=== PATIENT | female | born 1965 | race Caucasian/White ===

== ENCOUNTER 2016-11-22 08:34 | Emergency (ER) | payer SELFPAY ==
[~2016-11-22] VITALS: Ht 162.6 cm; Wt 60.0 kg
[~2016-11-22 08:34] MED LIST: BACT800T5 PO; CEPH500C3 PO
[2016-11-22 08:36] VITALS: BP 129/63; PULSE 92; RESP 15; TEMP 98.2; O2SAT 99
--- NOTE | 2016-11-22 09:20 | PD ---
HPI Chief Complaint: GI Complaint Time Seen by Provider: 09:04 Travel History International Travel<30 days: No Contact w/Intl Traveler<30days: No Traveled to known affect area: No History of Present Illness HPI The patient was seen and examined in the presence of the nurse. This patient is a vague nonspecific presentation. She just doesn't feel well. She complains of shaking chills and subjective fever for the last 5 days. Has not taken any temperatures. No productive cough or specific urinary complaints. Patient injects IV Dilaudid for the last 10 years. Last use was 3 days ago. Denies any skin abscess or lesion. No alleviating factors. Symptoms severity is mild to moderate. Duration 5 days PFSH Social History Alcohol Use: No Tobacco Use: Yes Substance Use: No Allergies-Medications (Allergen,Severity, Reaction): Coded Allergies: No Known Allergies (Unverified , 10/25/14) Reported Meds & Prescriptions Reported Meds & Active Scripts Active Review of Systems General / Constitutional: Positive: Fever, Chills Eyes: No: Visual changes HENT: No: Headaches Cardiovascular: No: Chest Pain or Discomfort Respiratory: No: Shortness of Breath Gastrointestinal: No: Abdominal Pain Genitourinary: No: Dysuria Musculoskeletal: No: Pain Skin: No Rash Neurologic: No: Weakness Psychiatric: Positive: Substance Abuse, No: Depression Endocrine: No: Polydipsia Hematologic/Lymphatic: No: Easy Bruising Physical Exam Narrative GENERAL: Well-nourished, well-developed patient in no apparent distress. SKIN: Focused skin assessment reveals no rash and nodules. Skin is Warm and dry. HEAD: Atraumatic. Normocephalic. EYES: Pupils equal and round. No scleral icterus. No injection or drainage. ENT: No nasal bleeding or discharge. Mucous membranes pink and moist. NECK: Trachea midline. No JVD. No meningeal signs CARDIOVASCULAR: Regular rate and rhythm. No murmur appreciated. RESPIRATORY: No accessory muscle use. Clear to auscultation. Breath sounds equal bilaterally. GASTROINTESTINAL: Abdomen soft, non-tender, nondistended. Hepatic and splenic margins not palpable. MUSCULOSKELETAL: No obvious deformities. No clubbing. No cyanosis. No edema. NEUROLOGICAL: Awake and alert. No obvious cranial nerve deficits. Motor grossly within normal limits. Normal speech. PSYCHIATRIC: Appropriate mood and affect; insight and judgment poor. Data Data Last Documented VS Vital Signs Date Time Temp Pulse Resp B/P Pulse Ox O2 Delivery O2 Flow Rate FiO2 11/22/16 08:36 98.2 92 15 129/63 99 Orders Iv Access Insert/Monitor (11/22/16 09:12) Blood Culture (11/22/16 09:12) Complete Blood Count With Diff (11/22/16 09:12) Comprehensive Metabolic Panel (11/22/16 09:12) Westergren Sedimentation Rate (11/22/16 09:12) Urinalysis - C+S If Indicated (11/22/16 09:12) Chest, Single Ap (11/22/16 ) Labs Laboratory Tests Test 11/22/16 11/22/16 09:25 09:45 White Blood Count 10.4 TH/MM3 Red Blood Count 3.85 MIL/MM3 Hemoglobin 10.7 GM/DL Hematocrit 32.7 % Mean Corpuscular Volume 85.0 FL Mean Corpuscular Hemoglobin 27.8 PG Mean Corpuscular Hemoglobin 32.7 % Concent Red Cell Distribution Width 16.2 % Platelet Count 143 TH/MM3 Mean Platelet Volume 9.4 FL Neutrophils (%) (Auto) 70.9 % Lymphocytes (%) (Auto) 15.8 % Monocytes (%) (Auto) 11.5 % Eosinophils (%) (Auto) 0.9 % Basophils (%) (Auto) 0.9 % Neutrophils # (Auto) 7.3 TH/MM3 Lymphocytes # (Auto) 1.6 TH/MM3 Monocytes # (Auto) 1.2 TH/MM3 Eosinophils # (Auto) 0.1 TH/MM3 Basophils # (Auto) 0.1 TH/MM3 CBC Comment DIFF FINAL Differential Comment Erythrocyte Sedimentation Rate 44 mm/hr Sodium Level 134 MEQ/L Potassium Level 3.6 MEQ/L Chloride Level 100 MEQ/L Carbon Dioxide Level 28.5 MEQ/L Anion Gap 6 MEQ/L Blood Urea Nitrogen 4 MG/DL Creatinine 0.60 MG/DL Estimat Glomerular Filtration 105 ML/MIN Rate Random Glucose 128 MG/DL Calcium Level 8.4 MG/DL Total Bilirubin 0.6 MG/DL Aspartate Amino Transf 92 U/L (AST/SGOT) Alanine Aminotransferase 117 U/L (ALT/SGPT) Alkaline Phosphatase 213 U/L Total Protein 7.1 GM/DL Albumin 2.8 GM/DL Urine Color YELLOW Urine Turbidity HAZY Urine pH 5.5 Urine Specific [place] 1.015 Urine Protein TRACE mg/dL Urine Glucose (UA) NEG mg/dL Urine Ketones NEG mg/dL Urine Occult Blood SMALL Urine Nitrite NEG Urine Bilirubin NEG Urine Urobilinogen 2.0 MG/DL Urine Leukocyte Esterase SMALL Urine RBC 0-3 /hpf Urine WBC 0-2 /hpf Urine Squamous Epithelial 0-5 /hpf Cells Urine Bacteria FEW /hpf Microscopic Urinalysis Comment CULT NOT INDICATED MDM Medical Decision Making Medical Screen Exam Complete: Yes Emergency Medical Condition: Yes Medical Record Reviewed: Yes Differential Diagnosis Endocarditis, sepsis, UTI Narrative Course I have reviewed the patient's electronic medical record. Patient was last here October 2014. IV placed 2 sets of blood culture obtained CBC is normal Metabolic profile is normal LFTs show mild elevation of LFTs Urinalysis is clean I reviewed her chest x-ray which is normal Sedimentation rate is 44 Had a lengthy discussion with the patient. I recommended that she be hospitalized for evaluation and to make sure she does not have endocarditis. Given her fever and chills and history of IV drug abuse I explained my concern for endocarditis. Patient says she is things that she has to take care of and has refused my recommendations. She will sign out AGAINST MEDICAL ADVICE. I' ve advised her to return if she changes her mind or worsens. Diagnosis Primary Impression: Fever and chills Additional Impression: IV drug abuse Disposition: 07 AGAINST MEDICAL ADVICE Ayden Wilkinson MD Nov 22, 2016 09:20
--- NOTE | 2016-11-22 09:30 | RADRPT ---
EXAM DATE/TIME: 11/22/2016 09:14 [facility] COMPARISON: No previous studies available for comparison. INDICATIONS : Shortness of breath. MEDICAL HISTORY : None. SURGICAL HISTORY : None. ENCOUNTER: Initial ACUITY: 1 week PAIN SCORE: 0/10 LOCATION: Bilateral chest FINDINGS: A single view of the chest demonstrates the lungs to be symmetrically aerated without evidence of mas s, infiltrate or effusion. The cardiomediastinal contours are unremarkable. Osseous structures are intact. CONCLUSION: No acute disease. Robbie Mckenzie MD FACR on November 22, 2016 at 9:28 Board Certified Radiologist. This report was verified electronically.
[2016-11-22 09:50] LABS: AUTOMATED NEUTROPHIL # 7.3 TH/MM3 (1.8-7.7); BASOPHIL # 0.1 TH/MM3 (0-0.2); BASOPHIL % 0.9 % (0.0-2.0); EOSINOPHIL # 0.1 TH/MM3 (0-0.4); EOSINOPHIL % 0.9 % (0.0-4.0); HEMATOCRIT 32.7 % (35.0-46.0); HEMO FLAGS DIFF FINAL; LYMPH % 15.8 % (9.0-44.0); LYMPHOCYTE # 1.6 TH/MM3 (1.0-4.8); MEAN CORPUSCULAR HEMOGLOBIN 27.8 PG (27.0-34.0); MEAN CORPUSCULAR HGB CONC 32.7 % (32.0-36.0); MONO % 11.5 % (0.0-8.0); NEUT % 70.9 % (16.0-70.0); PLATELET COUNT 143 TH/MM3 (150-450); RED BLOOD COUNT 3.85 MIL/MM3 (4.00-5.30); RED CELL DISTRIBUTION WIDTH 16.2 % (11.6-17.2); WHITE BLOOD COUNT 10.4 TH/MM3 (4.0-11.0)
[2016-11-22 10:06] LABS: ANION GAP 6 MEQ/L (5-15); AST (GOT) 92 U/L (15-37); BICARBONATE 28.5 MEQ/L (21.0-32.0); BLOOD UREA NITROGEN 4 MG/DL (7-18); CHLORIDE 100 MEQ/L (98-107); GLOMERULAR FILTRATION RATE 105 ML/MIN (>89); POTASSIUM 3.6 MEQ/L (3.5-5.1); SODIUM (NA) 134 MEQ/L (136-145)
[2016-11-22 10:07] LABS: ALT (GPT) 117 U/L (10-53)
[2016-11-22 10:09] LABS: ALKALINE PHOSPHATASE 213 U/L (45-117); TOTAL BILIRUBIN ADULT 0.6 MG/DL (0.2-1.0)
[2016-11-22 10:14] LABS: BLOOD, URINE SMALL (NEG); GLUCOSE,URINE NEG (NEG); KETONE, URINE NEG (NEG); NITRITE,URINE NEG (NEG); PH, URINE 5.5 (5.0-8.5); URINE COLOR YELLOW (YELLW/STRAW)
[2016-11-22 10:55] LABS: BACTERIA, URINE FEW /hpf; RBC, URINE 0-3 /hpf (0-3); WBC, URINE 0-2 /hpf (0-5)
[2016-11-22 10:56] LABS: COMMENT (UR) CULT NOT INDICATED; CULTURE IF INDICATED CULT NOT INDICATED; SQUAMOUS EPITHELIAL CELL URINE 0-5 /hpf (0-5)
== END 2016-11-22 11:55 | disposition left against medical advice (07) ==
LOC: NEPE 08:34
DX: R50.9 Fever, unspecified (principal); F19.10 Other psychoactive substance abuse, uncomplicated
CPT/HCPCS: 71010; 80053; 81001; 85025; 85652; 87040; 99284

== ENCOUNTER 2017-08-18 23:50 | Inpatient (IN) | payer SELFPAY ==
[~2017-08-18] VITALS: Ht 162.6 cm; Wt 53.0 kg
[2017-08-19] VITALS (11 sets, daily range): BP systolic 107–155; BP diastolic 55–72; PULSE 69–97; RESP 16–20; TEMP 97.8–99.6; O2SAT 96–100
[2017-08-19] MEDS ORDERED: PREV15CA20 PO (00:55)
--- NOTE | 2017-08-19 00:57 | PD ---
HPI Chief Complaint: Back/ Neck Pain or Injury Time Seen by Provider: 00:31 (Jabier Trujillo) Time Seen by Provider: 00:31 (Javier Palomares MD) Travel History International Travel<30 days: No Contact w/Intl Traveler<30days: No Traveled to known affect area: No (Jabier Trujillo) History of Present Illness HPI 52-year-old white female presents emergency department with complains of nontraumatic upper back pain times the last 4 days. She states that she had awoken earlier in the day and has had progressive pain. She states the pain is worse on the right than the left but now has moved over to both sides. She states that she has pain into both arms worse when she moves. She denies any focal numbness or tingling. No focal weakness. Patient states that she last used IV drugs approximately 4 weeks ago. Patient does admit to feeling subjective fever and chills. Pain is moderate but can be severe. No alleviating factors. (Jabier Trujillo) HPI Please see physician podiatry assistant dictation. (Javier Palomares MD) [facility] Past Medical History Narrative Medical IV drug abuse Diabetes: No Diminished Hearing: No Hiatal Hernia: Yes (umbilical ) Integumentary: No Migraines: Yes Tetanus Vaccination: < 5 Years Influenza Vaccination: No ?: Not Menopausal: Yes (Jabier Trujillo) Past Surgical History Abdominal Surgery: Yes (hernia repair) Cholecystectomy: Yes Other Surgery: Yes (fistula repair, rectal/ vaginal repair post ) (Jabier Trujillo) Social History Alcohol Use: No Tobacco Use: Yes (/2 ppd) Substance Use: Yes (injectible drug x 10 years last 6 months) (Jabier Trujillo) Allergies-Medications (Allergen,Severity, Reaction): Coded Allergies: No Known Allergies (Unverified Adverse Reaction, Unknown, 08/19/17) Reported Meds & Prescriptions Reported Meds & Active Scripts Active Reported Prevacid (Lansoprazole) 15 Mg Capdr 15 Mg PO DAILY (Javier Palomares MD) Review of Systems Except as stated in HPI: all other systems reviewed are Neg (Jabier Trujillo) General / Constitutional: No: Fever Eyes: No: Visual changes HENT: Positive: Neck Pain, No: Headaches Cardiovascular: No: Chest Pain or Discomfort Respiratory: No: Shortness of Breath Gastrointestinal: No: Abdominal Pain Genitourinary: No: Dysuria Musculoskeletal: No: Pain Skin: No Rash Neurologic: No: Weakness Psychiatric: No: Depression Endocrine: No: Polydipsia Hematologic/Lymphatic: No: Easy Bruising (Javier Palomares MD) Physical Exam Narrative GENERAL: Well-developed, well-nourished in no acute distress. Nontoxic appearing. HEAD: Normocephalic, atraumatic. EYES: Pupils equal round and reactive. Extraocular motions intact. No scleral icterus. No injection or drainage. ENT: TMs clear without erythema. The external auditory canals clear. Nose: clear . Posterior pharynx is pink and moist. No tonsillar edema or exudate. Uvula midline. Airway patent. NECK: Trachea midline.Supple, nontender, moves head freely. No central bony tenderness or spasm. CARDIOVASCULAR: Regular rate and rhythm without murmurs, gallops, or rubs. RESPIRATORY: Clear to auscultation. Breath sounds equal bilaterally. No wheezes , rales, or rhonchi. GASTROINTESTINAL: Abdomen soft, non-tender, nondistended. No hepato-splenomegaly , or palpable masses. No guarding. EXTREMITIES: No clubbing, cyanosis, or edema. No joint tenderness, effusion, or edema noted. BACK: Mild diffuse thoracic tenderness without deformity or crepitance. No flank tenderness. (Jabier Trujillo) Narrative Please see physician podiatry assistant dictation. (Javier Palomares MD) Data Data Last Documented VS Vital Signs Date Time Temp Pulse Resp B/P (MAP) Pulse Ox O2 Delivery O2 Flow Rate FiO2 08/19/17 00:19 99.6 94 20 133/64 (87) 98 (Javier Palomares MD) Orders Orders Electrocardiogram (08/19/17 00:39) Complete Blood Count With Diff (08/19/17 00:39) Basic Metabolic Panel (Bmp) (08/19/17 00:39) Prothrombin Time / Inr (Pt) (08/19/17 00:39) Act Partial Throm Time (Ptt) (08/19/17 00:39) Blood Culture (08/19/17 00:39) C-Reactive Protein (Crp) (08/19/17 00:39) Westergren Sedimentation Rate (08/19/17 00:39) Chest, Single Ap (08/19/17 00:39) Drug Screen, Random Urine (08/19/17 00:39) Mri C Spine W&W/O Contrast (08/19/17 ) Mri T Spine W & W/O Contrast (08/19/17 ) (Javier Palomares MD) Labs Laboratory Tests Test 08/19/17 01:05 White Blood Count 13.3 TH/MM3 Red Blood Count 4.45 MIL/MM3 Hemoglobin 13.6 GM/DL Hematocrit 39.4 % Mean Corpuscular Volume 88.5 FL Mean Corpuscular Hemoglobin 30.5 PG Mean Corpuscular Hemoglobin Concent 34.4 % Red Cell Distribution Width 13.4 % Platelet Count 206 TH/MM3 Mean Platelet Volume 9.5 FL Neutrophils (%) (Auto) 69.9 % Lymphocytes (%) (Auto) 20.6 % Monocytes (%) (Auto) 8.5 % Eosinophils (%) (Auto) 0.5 % Basophils (%) (Auto) 0.5 % Neutrophils # (Auto) 9.3 TH/MM3 Lymphocytes # (Auto) 2.7 TH/MM3 Monocytes # (Auto) 1.1 TH/MM3 Eosinophils # (Auto) 0.1 TH/MM3 Basophils # (Auto) 0.1 TH/MM3 CBC Comment DIFF FINAL Differential Comment Erythrocyte Sedimentation Rate 18 mm/hr Prothrombin Time 10.7 SEC Prothromb Time International Ratio 1.1 RATIO Activated Partial Thromboplast Time 31.3 SEC Blood Urea Nitrogen 4 MG/DL Creatinine 0.54 MG/DL Random Glucose 111 MG/DL Calcium Level 9.0 MG/DL Sodium Level 133 MEQ/L Potassium Level 3.8 MEQ/L Chloride Level 98 MEQ/L Carbon Dioxide Level 26.1 MEQ/L Anion Gap 9 MEQ/L Estimat Glomerular Filtration Rate 118 ML/MIN C-Reactive Protein 9.90 MG/DL (Javier Palomares MD) MDM Medical Decision Making Medical Screen Exam Complete: Yes Emergency Medical Condition: Yes Medical Record Reviewed: Yes Differential Diagnosis MDM: High Differential diagnoses: Fracture, sprain, strain, HNP, nerve or vascular injury , epidural abscess, discitis (Jabier Trujillo) Medical Screen Exam Complete: Yes Emergency Medical Condition: Yes Differential Diagnosis Please see physician podiatry assistant dictation. Narrative Course Please see physician podiatry assistant dictation. (Javier Palomares MD) Condition: Stable Jabier Trujillo Aug 19, 2017 00:57 Javier Palomares MD Aug 19, 2017 02:07
--- NOTE | 2017-08-19 01:05 | RADRPT ---
EXAM DATE/TIME: 08/19/2017 00:43 [facility] COMPARISON: CHEST SINGLE AP, November 22, 2016, 9:14. INDICATIONS : Fever. MEDICAL HISTORY : Ulcers. SURGICAL HISTORY : None. ENCOUNTER: Initial ACUITY: 1 day PAIN SCORE: 0/10 LOCATION: Bilateral chest FINDINGS: A single view of the chest demonstrates the lungs to be symmetrically aerated without evidence of mas s, infiltrate or effusion. The cardiomediastinal contours are unremarkable. Osseous structures are intact. CONCLUSION: No infiltrate is seen. Maxi Baxter MD on August 19, 2017 at 1:03 Board Certified Radiologist. This report was verified electronically.
[2017-08-19 01:30] LABS: AUTOMATED NEUTROPHIL # 9.3 TH/MM3 (1.8-7.7); BASOPHIL # 0.1 TH/MM3 (0-0.2); BASOPHIL % 0.5 % (0.0-2.0); EOSINOPHIL # 0.1 TH/MM3 (0-0.4); EOSINOPHIL % 0.5 % (0.0-4.0); HEMATOCRIT 39.4 % (35.0-46.0); HEMOGLOBIN 13.6 GM/DL (11.6-15.3); LYMPH % 20.6 % (9.0-44.0); LYMPHOCYTE # 2.7 TH/MM3 (1.0-4.8); MEAN CELL VOLUME 88.5 FL (80.0-100.0); MEAN CORPUSCULAR HEMOGLOBIN 30.5 PG (27.0-34.0); MEAN CORPUSCULAR HGB CONC 34.4 % (32.0-36.0); MEAN PLATELET VOLUME 9.5 FL (7.0-11.0); MONO % 8.5 % (0.0-8.0); MONOCYTE # 1.1 TH/MM3 (0-0.9); NEUT % 69.9 % (16.0-70.0); PLATELET COUNT 206 TH/MM3 (150-450); RED BLOOD COUNT 4.45 MIL/MM3 (4.00-5.30); RED CELL DISTRIBUTION WIDTH 13.4 % (11.6-17.2); WHITE BLOOD COUNT 13.3 TH/MM3 (4.0-11.0)
[2017-08-19 01:32] LABS: INTERNATIONAL NORMALIZED RATIO 1.1 RATIO; PROTHROMBIN TIME - PATIENT 10.7 SEC (9.8-11.6)
[2017-08-19 01:44] LABS: BICARBONATE 26.1 MEQ/L (21.0-32.0); C-REACTIVE PROTEIN 9.9 MG/DL (0.00-0.30); CREATININE 0.54 MG/DL (0.50-1.00)
[2017-08-19] MEDS ORDERED: GADODIAMIDE PF 287 MG/ML 10 ML VIAL (for RAD MRI) IV PUSH ONE (02:26)
[2017-08-19] MEDS ORDERED: VANCOMYCIN INJ 1,050 MG in SODIUM CHLOR 0.9% 250 ML INJ 250 ML IV ONE (03:00)
[2017-08-19] MEDS ORDERED: MORPHINE SULFATE 4 MG/ML INJ IV PUSH ONE (03:00)
[2017-08-19] MEDS ORDERED: PIPERACIL-TAZO 4.5 GM PREMIX 100 ML IV ONE (03:00)
--- NOTE | 2017-08-19 03:03 | RADRPT ---
EXAM DATE/TIME: 08/19/2017 02:00 [facility] COMPARISON: No previous studies available for comparison. INDICATIONS : Osteomyelitis. CONTRAST: 10 cc Omniscan (gadodiamide) IV MEDICAL HISTORY : IVDA. SURGICAL HISTORY : Cholecystectomy. Right knee. Vaginal fistula. ENCOUNTER: Subsequent ACUITY: 4-6 days PAIN SCORE: 9/10 LOCATION: Lower back. TECHNIQUE: Multiplanar, multisequence MRI examination of the cervical spine was performed. FINDINGS: There is normal alignment of the vertebral bodies of the cervical spine. There is signal abnormality within the marrow of C3 and C4 characterized by T1 and T2 prolongation (mild) and some mild enhancem ent throughout the C3 vertebral body and in the posterior one third of the C4 vertebral body. No abn ormal enhancement within the disc space at C3-4. Epidural impression centrally extends from C3-4 to C4-C5 and causes loss of CSF about the cervical cord and some mild flattening of the ventral margin o f the cervical cord. No abnormal enhancement with in the cervical cord. The visualized posterior fo ssa structures are grossly intact. At C7 and T1, there is mild signal alteration in the marrow of th e vertebral bodies, similar in appearance to C3 and C4, characterized by T1 and T2 prolongation (mild ) and mild enhancement in the marrow, but no abnormal enhancement in the interspace. There is some e nhancement of the dura at the C6 and C7 level. C2-C3: The thecal sac has a normal configuration. There is no evidence of disc herniation or spinal canal stenosis. The neural foramina are patent bilaterally. C3-C4: Central impression upon the thecal sac could represent disc extrusion or thickening of the posterior longitudinal ligament; this extends down to the level of C4-5. On the axial gradient echo images, th ere is suggestion that there may be disc protrusion. C4-C5: Mild central impression on the thecal sac suggests either thickening of the posterior longitudinal li gament or small central bulging. C5-C6: The thecal sac has a normal configuration. There is no evidence of disc herniation or spinal canal s tenosis. The neural foramina are patent bilaterally. C6-C7: The thecal sac has a normal configuration. There is no evidence of disc herniation or spinal canal s tenosis. The neural foramina are patent bilaterally. C7-T1: The thecal sac has a normal configuration. There is no evidence of disc herniation or spinal canal s tenosis. The neural foramina are patent bilaterally. CONCLUSION: 1. Signal abnormalities within the marrow of the C3, C4, C7, and T1 vertebral bodies with some contra st enhancement and mild T1 and T2 prolongation. The signal abnormality is nonspecific, but would be consistent with osteomyelitis. There is also enhancement of the dura posterior to the C7 and T1 vert ebral bodies. 2. Epidural impression centrally extending from C3-4 through C4-C5 which could represent thickening o f the dura or central disc protrusions. There is some flattening of the ventral margin of the cervic al cord at both levels. 3. No signal abnormalities within the interspaces to suggest discitis. Maxi Baxter MD on August 19, 2017 at 2:52 Board Certified Radiologist. This report was verified electronically.
--- NOTE | 2017-08-19 03:12 | RADRPT ---
EXAM DATE/TIME: 08/19/2017 02:00 [facility] COMPARISON: No previous studies available for comparison. INDICATIONS : Osteomyelitis. CONTRAST: 10 cc Omniscan (gadodiamide) IV MEDICAL HISTORY : IVDA. SURGICAL HISTORY : Cholecystectomy. Right knee. Vaginal fistula. ENCOUNTER: Subsequent ACUITY: 4-6 days PAIN SCORE: 9/10 LOCATION: Thoracic spine. TECHNIQUE: Multiplanar multisequence MRI of the thoracic spine was performed. FINDINGS: At the T3 level, there is a anterior superior compression deformity with approximately 30% loss of he ight. There is also signal abnormality characterized by T1 and T2 prolongation and moderate intensit y diffuse enhancement in the vertebral body. On the axial images, there is some thickening of the pa raspinal soft tissues and some enhancement in the paraspinal soft tissues, measuring up to 7 mm. No significant epidural impression is seen. The thoracic cord is normal in configuration.. Axial images through each of the interspaces demonstrates normal shape to the thecal sac without evid ence of disc bulge or protrusion. No evidence of cord compression. CONCLUSION: 1. Signal abnormality within the marrow of the T3 vertebral body with associated 30% compression defo rmity of the anterior superior endplate and moderate diffuse contrast enhancement. Osteomyelitis of the vertebral body and compression fracture of both exhibit these type of signal abnormalities. 2. There is some enhancement thickening of the paraspinal soft tissues about the T3 vertebral body. 3. No abnormal enhancement within the thoracic discs. Maxi Baxter MD on August 19, 2017 at 3:05 Board Certified Radiologist. This report was verified electronically.
[2017-08-19] MEDS ORDERED: MAGNESIUM HYDROXIDE SUSP 30 ML CUP PO PRN (03:45)
[2017-08-19] MEDS ORDERED: SODIUM CHLORIDE 0.9% FLUSH 10 ML FLUSH IV FLUSH PRN (03:45)
[2017-08-19] MEDS ORDERED: ONDANSETRON HCL 4 MG/2 ML VIAL IVP PRN (03:45)
[2017-08-19] MEDS ORDERED: SENNOSIDES 8.6 MG TAB PO PRN (03:45)
[2017-08-19] MEDS ORDERED: oxyCODONE/ACETAMINOPHEN 5 MG/325 MG TAB PO ONE (03:45)
[2017-08-19] MEDS ORDERED: LACTULOSE SYRUP 20 GM/30 ML CUP PO PRN (03:45)
[2017-08-19] MEDS ORDERED: ACETAMINOPHEN 325 MG TAB PO PRN (03:45)
[2017-08-19] MEDS ORDERED: Vancomycin Consult Pharmacy 1 EA OTHER SCH (03:45)
[2017-08-19] MEDS ORDERED: NALOXONE HCL 0.4 MG/ML AMP IV PUSH PRN (03:45)
[2017-08-19] MEDS ORDERED: BISACODYL 10 MG SUPP RECTAL PRN (03:45)
[2017-08-19] MEDS ORDERED: HEPARIN SODIUM - SQ 10,000 UNITS/ML VIAL SQ SCH (05:00)
--- NOTE | 2017-08-19 08:48 | EKG ---
Date Performed: 08/19/2017 Time Performed: 00:52:18 PTAGE: 52 years EKG: Sinus rhythm NORMAL ECG NO PREVIOUS TRACING DOCTOR: Claudia Chowdhury Interpretating Date/Time 08/19/2017 08:47:50
[2017-08-19] MEDS ORDERED: MORPHINE SULFATE 2 MG/ML INJ IM PRN (09:00)
[2017-08-19] MEDS ORDERED: oxyCODONE/ACETAMINOPHEN 5 MG/325 MG TAB PO PRN (09:00)
[2017-08-19] MEDS: oxyCODONE/ACETAMINOPHEN 10 MG/325 MG TAB PO PRN ×2 (09:42→14:31)
[2017-08-19] MEDS: SODIUM CHLORIDE 0.9% FLUSH 10 ML FLUSH IV FLUSH SCH ×2 (09:43→21:51)
[2017-08-19] MEDS: PIPERACIL-TAZO 4.5 GM PREMIX 100 ML IV SCH ×2 (09:43→14:30)
[2017-08-19] MEDS: DOCUSATE SODIUM 50 MG/SENNA 8.6 MG TAB PO SCH ×2 (09:45→21:00)
[2017-08-19] MEDS: FAMOTIDINE 20 MG TAB PO SCH ×2 (10:12→21:51)
--- NOTE | 2017-08-19 11:16 | HHI.HP ---
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 Patient states that she has severe back pain for about a few days and has gotten worse. She also has fevers chills but compared to prior ED admission in November 2004 states that this was worse. Patient admits to IV drug use last secondary to severe pain. States she used IV Dilaudid. Denies any benzodiazepine use but states she was on BuSpar prior she also took it last thinking that it was muscle relaxant that could relieve her pain. Otherwise, she denies shortness of breath or dyspnea, chest pain, palpitations, headaches, dizziness. Denies any nausea, vomiting, diarrhea, abdominal cramping, dysuria. Patient signed AMA in November and admits to being "stupid" of doing that. She states she wanted to get better and will stay this time for treatment. Discuss risks of leaving and continuing IVDA not limited to . Verbalized understanding. Review of Systems Constitutional: COMPLAINS OF: Fever, Chills, DENIES: Change in appetite Endocrine: DENIES: Heat/cold intolerance Eyes: DENIES: Blurred vision, Eye pain Except as stated in HPI: all other systems reviewed are Neg Past Family Social History Past Medical History IV drug use Cholecystitis Inguinal hernia Vaginal fistula Past Surgical History ACL repair Cholecystectomy Vaginal fistula repair Inguinal hernia repair Reported Medications None Allergies: Coded Allergies: No Known Allergies (Unverified Allergy, Unknown, 08/19/17) Active Ordered Medications Current Medications Medications (Trade) Dose Ordered Sig/Areli Route Start Time Stop Time Status Last Admin (NS Flush) 2 ml UNSCH PRN IV FLUSH 08/19/17 03:45 (NS Flush) 2 ml BID IV FLUSH 08/19/17 09:00 08/19/17 09:43 (Tylenol) 650 mg Q4H PRN PO 08/19/17 03:45 (Zofran Inj) 4 mg Q6H PRN IVP 08/19/17 03:45 (Heparin Inj) 5,000 units Q12H SQ 08/19/17 05:00 08/19/17 05:37 (Narcan Inj) 0.4 mg UNSCH PRN IV PUSH 08/19/17 03:45 (Milk Of Magnesia Liq) 30 ml Q12H PRN PO 08/19/17 03:45 (Senokot) 17.2 mg Q12H PRN PO 08/19/17 03:45 (Dulcolax Supp) 10 mg DAILY PRN RECTAL 08/19/17 03:45 (Lactulose Liq) 30 ml DAILY PRN PO 08/19/17 03:45 Vancomycin HCl 1000 mg/Sodium Chloride 250 ml @ 250 mls/hr Q12H IV 08/19/17 16:00 Pharmacy Profile Note 0 ml @ 0 mls/hr UNSCH OTHER 08/19/17 03:45 Piperacillin Sod/ Tazobactam Sod 100 ml @ 200 mls/hr Q6H IV 08/19/17 09:00 08/19/17 09:43 (Percocet 5-325 Mg) 1 tab Q4H PRN PO 08/19/17 09:00 (Percocet 10-325 Mg) 1 tab Q4H PRN PO 08/19/17 09:00 08/19/17 09:42 (Morphine Inj) 2 mg Q4H PRN IM 08/19/17 09:00 (Priscilla-Colace) 1 tab BID PO 08/19/17 09:45 (Pepcid) 20 mg BID PO 08/19/17 09:45 08/19/17 10:12 Miscellaneous Information SPECIFIC LAB TO BE DRAWN:[facility]ANCO TROUGH DATE TO BE DR... ONCE ONCE .XX 08/20/17 15:45 08/20/17 15:46 (Lioresal) 10 mg Q8HR PO 08/19/17 14:00 UNV Family History Reports family history of hypertension, diabetes, cancer on both sides of her family mother and father. Social History Denies any alcohol use Current a smoker one to what a half pack per day Admits to IV drug use Dilaudid last use was . States she has not used for a few months until last Physical Exam Vital Signs Vital Signs Date Time Temp Pulse Resp B/P (MAP) Pulse Ox O2 Delivery O2 Flow Rate FiO2 08/19/17 08:00 97.8 74 18 155/67 (96) 97 08/19/17 07:42 78 08/19/17 05:04 97.8 71 16 128/66 (86) 100 08/19/17 00:19 99.6 94 20 133/64 (87) 98 Physical Exam GENERAL: This is a thin appearing, appears older than stated age, in no apparent distress. SKIN: Warm and dry. HEAD: Normocephalic. N EYES: Pupils equal round and reactive. Extraocular motions intact. No scleral icterus. No injection or drainage. ENT: Nose without bleeding. Throat without erythema. Uvula midline. Airway patent. NECK: Trachea midline. CARDIOVASCULAR: Regular rate and rhythm without murmurs, gallops, or rubs. RESPIRATORY: Clear to auscultation. Breath sounds equal bilaterally. No wheezes , rales, or rhonchi. GASTROINTESTINAL: Abdomen soft, non-tender, nondistended. Bowel sounds active 4 MUSCULOSKELETAL: Extremities without clubbing, cyanosis, or edema. Mid thoracic tenderness under the scapula region. NEUROLOGICAL: Awake and alert. Cranial nerves II through XII intact. Motor and sensory grossly within normal limits. Normal speech. Laboratory Laboratory Tests Test 08/19/17 01:05 08/19/17 10:20 White Blood Count 13.3 Red Blood Count 4.45 Hemoglobin 13.6 Hematocrit 39.4 Mean Corpuscular Volume 88.5 Mean Corpuscular Hemoglobin 30.5 Mean Corpuscular Hemoglobin Concent 34.4 Red Cell Distribution Width 13.4 Platelet Count 206 Mean Platelet Volume 9.5 Neutrophils (%) (Auto) 69.9 Lymphocytes (%) (Auto) 20.6 Monocytes (%) (Auto) 8.5 Eosinophils (%) (Auto) 0.5 Basophils (%) (Auto) 0.5 Neutrophils # (Auto) 9.3 Lymphocytes # (Auto) 2.7 Monocytes # (Auto) 1.1 Eosinophils # (Auto) 0.1 Basophils # (Auto) 0.1 CBC Comment DIFF FINAL Differential Comment Erythrocyte Sedimentation Rate 18 Prothrombin Time 10.7 Prothromb Time International Ratio 1.1 Activated Partial Thromboplast Time 31.3 Blood Urea Nitrogen 4 Creatinine 0.54 Random Glucose 111 Calcium Level 9.0 Sodium Level 133 Potassium Level 3.8 Chloride Level 98 Carbon Dioxide Level 26.1 Anion Gap 9 Estimat Glomerular Filtration Rate 118 C-Reactive Protein 9.90 Urine Opiates Screen POS Urine Barbiturates Screen NEG Urine Amphetamines Screen POS Urine Benzodiazepines Screen NEG Urine Cocaine Screen NEG Urine Cannabinoids Screen NEG Date/Time Source Procedure Growth Status 08/19/17 01:05 Blood Peripheral Aerobic Blood Culture Pending Received 08/19/17 01:05 Blood Peripheral Anaerobic Blood Culture Pending Received Result Diagram: 08/19/17 0105 08/19/17 0105 Imaging Last Impressions Chest X-Ray 08/19/17 0039 Signed Impressions: Service Date/Time: Saturday, August 19, 2017 00:43 - CONCLUSION: No infiltrate is seen. Maxi Baxter MD Thoracic Spine MRI 08/19/17 0000 Signed Impressions: Service Date/Time: Saturday, August 19, 2017 02:00 - CONCLUSION: 1. Signal abnormality within the marrow of the T3 vertebral body with associated 30%% compression deformity of the anterior superior endplate and moderate diffuse contrast enhancement. Osteomyelitis of the vertebral body and compression fracture of both exhibit these type of signal abnormalities. 2. There is some enhancement thickening of the paraspinal soft tissues about the T3 vertebral body. 3. No abnormal enhancement within the thoracic discs. Maxi Baxter MD Cervical Spine MRI 08/19/17 0000 Signed Impressions: Service Date/Time: Saturday, August 19, 2017 02:00 - CONCLUSION: 1. Signal abnormalities within the marrow of the C3, C4, C7, and T1 vertebral bodies with some contrast enhancement and mild T1 and T2 prolongation. The signal abnormality is nonspecific, but would be consistent with osteomyelitis. There is also enhancement of the dura posterior to the C7 and T1 vertebral bodies. 2. Epidural impression centrally extending from C3-4 through C4-C5 which could represent thickening of the dura or central disc protrusions. There is some flattening of the ventral margin of the cervical cord at both levels. 3. No signal abnormalities within the interspaces to suggest discitis. Maxi Baxter MD Caprini VTE Risk Assessment Caprini VTE Risk Assessment: Mod/High Risk (score >= 2) Caprini Risk Assessment Model Point Value = 1 Point Value = 2 Point Value = 3 Point Value = 5 Age 41-60 Minor surgery BMI > 25 kg/m2 Swollen legs Varicose veins or History of unexplained or recurrent spontaneous Oral contraceptives or hormone replacement Sepsis (< 1 month) Serious lung disease, including pneumonia (< 1 month) Abnormal pulmonary function Acute myocardial infarction Congestive heart failure (< 1 month) History of inflammatory bowel disease Medical patient at bed rest Age 61-74 Arthroscopic surgery Major open surgery (> 45 min) Laparoscopic surgery (> 45 min) Malignancy Confined to bed (> 72 hours) Immobilizing plaster cast Central venous access Age >= 75 History of VTE Family history of VTE Factor V Leiden Prothrombin [id number] Lupus anticoagulant Anticardiolipin antibodies Elevated serum homocysteine Heparin-induced thrombocytopenia Other congenital or acquired thrombophilia Stroke (< 1 month) Elective arthroplasty Hip, pelvis, or leg fracture Acute spinal cord injury (< 1 month) Prophylaxis Regimen Total Risk Factor Score Risk Level Prophylaxis Regimen 0-1 Low Early ambulation 2 Moderate Order ONE of the following: *Sequential Compression Device (SCD) *Heparin 5000 units SQ BID 3-4 Higher Order ONE of the following medications: *Heparin 5000 units SQ TID *Enoxaparin/Lovenox 40 mg SQ daily (WT < 150 kg, CrCl > 30 mL/min) *Enoxaparin/Lovenox 30 mg SQ daily (WT < 150 kg, CrCl > 10-29 mL/min) *Enoxaparin/Lovenox 30 mg SQ BID (WT < 150 kg, CrCl > 30 mL/min) AND/OR *Sequential Compression Device (SCD) 5 or more Highest Order ONE of the following medications: *Heparin 5000 units SQ TID (Preferred with Epidurals) *Enoxaparin/Lovenox 40 mg SQ daily (WT < 150 kg, CrCl > 30 mL/min) *Enoxaparin/Lovenox 30 mg SQ daily (WT < 150 kg, CrCl > 10-29 mL/min) *Enoxaparin/Lovenox 30 mg SQ BID (WT < 150 kg, CrCl > 30 mL/min) AND *Sequential Compression Device (SCD) Assessment and Plan Problem List: (1) Sepsis ICD Code: A41.9 - Sepsis, unspecified organism (2) Osteomyelitis ICD Code: M86.9 - Osteomyelitis, unspecified (3) IV drug abuse ICD Code: F19.10 - Other psychoactive substance abuse, uncomplicated Status: Acute Assessment and Plan Patient is a 52-year-old female with known history of IV drug use who came into the hospital with complaints of fevers, chills, back pain. SIRS, Sepsis Osteomyelitis, acute Hx IVDA - HR >90, WBC 13.3 - MRI of the thoracic spine showed well. Signal abnormality within the marrow of the T3 vertebral body with associated 30% percent compression deformity of the anterior superior endplate of moderate diffuse contrast enhancement. Osteomyelitis of the vertebral body and compression fracture of both exhibit these types of signal abnormalities. 2. There is some it has been thickening of the paraspinal soft tissue about the T3 vertebral body. 3. No abnormal enhancement within the thoracic discs - MRI of the cervical spine 1. Signal abnormalities within the marrow of the C3, C4, C7, and T1 vertebral bodies with some contrast that has been at mild T1 and T2 prolongation. The signal abnormality study specific, but clinically consistent with osteomyelitis. There is also enhancement of the dura posterior to the C7 and T1 vertebral bodies. 2. Epidural impression centrally extending from C3-C4 through C4-C5 which could represent thickening of the dura or central disc protrusion. There is some flattening of the ventral portion of the cervical cord at both first. 3. No signal abnormalities within the interspaces to suggest discitis -Patient was started on vancomycin, continue vancomycin and Zosyn for now -Infectious disease consult for further evaluation and recommendation. -Pain management Percocet, IV morphine for breakthrough pain, baclofen for spasms -Echocardiogram ordered -Blood cultures ordered, lactic acid ordered pending results -Follow-up labs, check hepatitis panel, check HIV panel DVT problem SCDs Code Status Full code Discussed Condition With Patient, nursing Physician Certification 2 Midnight Certification Type: Admission for Inpatient Services Order for Inpatient Services The services are ordered in accordance with Medicare regulations or non- Medicare payer requirements, as applicable. In the case of services not specified as inpatient-only, they are appropriately provided as inpatient services in accordance with the 2-midnight benchmark. Estimated LOS (days): 2 days is the estimated time the patient will need to remain in the hospital, assuming treatment plan goals are met and no additional complications. Post-Hospital Plan: [employer] [facility] Aug 19, 2017 11:16
[2017-08-19 14:14] LABS: BACTERIA, URINE RARE /hpf; BILIRUBIN, URINE NEG (NEG); BLOOD, URINE NEG (NEG); GLUCOSE,URINE NEG (NEG); KETONE, URINE NEG (NEG); MUCUS URINE FEW /lpf (OCC); NITRITE,URINE NEG (NEG); PH, URINE 6.5 (5.0-8.5); SQUAMOUS EPITHELIAL CELL URINE 4 /hpf (0-5); URINE COLOR YELLOW (YELLW/STRAW); URINE LEUKOCYTE ESTERASE LARGE (NEG)
[2017-08-19] MEDS: BACLOFEN 10 MG TAB PO SCH ×2 (14:30→21:51)
--- NOTE | 2017-08-19 15:43 | ECHRPT ---
Indication: SEPSIS/ENDOCARDITIS CONCLUSIONS The left ventricular systolic function is moderately reduced with an estimated ejection fraction in the range of 40-45%. Wall thickness is measured at the upper limits of normal. Normal left ventricular size. There is mild tricuspid regurgitation. The estimated pulmonary arterial pressure is 36 mmHg. BP: / HR: Rhythm: Sinus MEASUREMENTS (Male / Female) Normal Values Technical Quality:Good 2D ECHO LV Diastolic Diameter PLAX 4.5 cm 4.2 - 5.9 / 3.9 - 5.3 cm LV Systolic Diameter PLAX 3.7 cm IVS Diastolic Thickness 1.0 cm 0.6 - 1.0 / 0.6 - 0.9 cm LVPW Diastolic Thickness 0.9 cm 0.6 - 1.0 / 0.6 - 0.9 cm LV Relative Wall Thickness 0.4 LVOT Diameter 1.5 cm M-MODE Aortic Root Diameter MM 2.4 cm LA Systolic Diameter MM 2.7 cm LA Ao Ratio MM 1.1 AV Cusp Separation MM 1.9 cm DOPPLER AV Peak Velocity 160.0 cm/s AV Peak Gradient 10.2 mmHg LVOT Peak Velocity 126.0 cm/s LVOT Peak Gradient 6.4 mmHg AV Area Cont Eq pk 1.4 cm Mitral E Point Velocity 106.0 cm/s Mitral A Point Velocity 70.6 cm/s Mitral E to A Ratio 1.5 LV E' Lateral Velocity 6.6 cm/s Mitral E to LV E' Lateral Ratio 16.0 LV E' Septal Velocity 10.7 cm/s Mitral E to LV E' Septal Ratio 9.9 TR Peak Velocity 255.0 cm/s TR Peak Gradient 26.0 mmHg Right Atrial Pressure 10.0 mmHg Pulmonary Artery Systolic Pressu 36.0 mmHg Right Ventricular Systolic Press 36.0 mmHg PV Peak Velocity 110.0 cm/s PV Peak Gradient 4.8 mmHg FINDINGS LEFT VENTRICLE The left ventricular systolic function is moderately reduced with an estimated ejection fraction in the range of 40-45%. Wall thickness is measured at the upper limits of normal. Normal left ventricular size. RIGHT VENTRICLE Normal right ventricular size and systolic function. LEFT ATRIUM The left atrial size is normal. RIGHT ATRIUM The right atrial size is normal. ATRIAL SEPTUM Normal atrial septal thickness without atrial level shunting by limited color doppler interrogation. AORTA The aortic root and proximal ascending aorta are normal in size on limited imaging. MITRAL VALVE Structurally normal mitral valve. No mitral valve stenosis or regurgitation. AORTIC VALVE Trileaflet aortic valve. No aortic valve stenosis or regurgitation. TRICUSPID VALVE There is mild tricuspid regurgitation. The estimated pulmonary arterial pressure is 36 mmHg. PULMONARY VALVE No pulmonary valve regurgitation or stenosis. VESSELS The inferior vena cava is normal in size. PERICARDIUM No pericardial effusion. César Huerta MD, FACC, [facility] [place] (Electronically Signed) Final Date:19 August 2017 15:42
[2017-08-19] MEDS ORDERED: VANCOMYCIN INJ 1,000 MG in SODIUM CHLOR 0.9% 250 ML INJ 250 ML IV SCH (16:00)
--- NOTE | 2017-08-19 16:00 | PD.ID.CON ---
History of Present Illness Service ID Consult Requested By Pillo. Reason for Consult Evaluation and Mment of epidural abscess, osteomyelitis. Primary Care Physician No Primary Care Physician Diagnoses: History of Present Illness Ms. Ware is a 52-year-old female with past medical history of IV drug abuse. She presents to the hospital with complaints of fevers, chills, back pain. Patient reports having severe back pain for the last few days but this has gotten worse just prior to admission. She admits to using Dilaudid for severe pain just a few days prior to admission. She denies any cardiopulmonary symptoms. She denies any abdominal symptoms. Patient was noted to have Cervical and Thoracic spine abnormality ? osteomyelitis on MRI spine. Patient was started on empiric antibiotics after blood cultures. Unfortunately, patient has received antibiotics and the results of CT guided aspiration may be affected by it. Patient is currently hemodynamically as well as based on neurological examination stable. I stopped antibiotics and asked Ms.Jean Johnson to get the CT guided aspiration performed. I entered the cultures for these studies. ID consulted for eval and Mment of epidural abscess/osteomyelitis. Review of Systems ROS Limitations: Poor Historian Past Family Social History Allergies: Coded Allergies: No Known Allergies (Unverified Allergy, Unknown, 08/19/17) Past Medical History IV drug use Cholecystitis Inguinal hernia Vaginal fistula Past Surgical History ACL repair Cholecystectomy Vaginal fistula repair Inguinal hernia repair Reported Medications Reported Meds & Active Scripts Active Reported Prevacid (Lansoprazole) 15 Mg Capdr 15 Mg PO DAILY Active Ordered Medications Current Medications Medications (Trade) Dose Ordered Sig/Areli Route Start Time Stop Time Status Last Admin (NS Flush) 2 ml UNSCH PRN IV FLUSH 08/19/17 03:45 (NS Flush) 2 ml BID IV FLUSH 08/19/17 09:00 08/19/17 21:51 (Tylenol) 650 mg Q4H PRN PO 08/19/17 03:45 (Zofran Inj) 4 mg Q6H PRN IVP 08/19/17 03:45 (Heparin Inj) 5,000 units Q12H SQ 08/19/17 05:00 Future Hold 08/19/17 05:37 (Narcan Inj) 0.4 mg UNSCH PRN IV PUSH 08/19/17 03:45 (Milk Of Magnesia Liq) 30 ml Q12H PRN PO 08/19/17 03:45 (Senokot) 17.2 mg Q12H PRN PO 08/19/17 03:45 (Dulcolax Supp) 10 mg DAILY PRN RECTAL 08/19/17 03:45 (Lactulose Liq) 30 ml DAILY PRN PO 08/19/17 03:45 (Percocet 5-325 Mg) 1 tab Q4H PRN PO 08/19/17 09:00 (Percocet 10-325 Mg) 1 tab Q4H PRN PO 08/19/17 09:00 08/19/17 14:31 (Morphine Inj) 2 mg Q4H PRN IM 08/19/17 09:00 (Priscilla-Colace) 1 tab BID PO 08/19/17 09:45 (Pepcid) 20 mg BID PO 08/19/17 09:45 08/19/17 21:51 (Lioresal) 10 mg Q8HR PO 08/19/17 14:00 08/19/17 21:51 Family History history of HTN DM in multiple family members. Social History Smokes 1 ppd IV Dilaudid Occ Alcohol. Lives alone. Physical Exam Vital Signs Vital Signs Date Time Temp Pulse Resp B/P (MAP) Pulse Ox O2 Delivery O2 Flow Rate FiO2 08/19/17 12:00 98.0 84 18 155/72 (99) 98 08/19/17 10:53 82 08/19/17 08:00 97.8 74 18 155/67 (96) 97 08/19/17 07:42 78 08/19/17 05:04 97.8 71 16 128/66 (86) 100 08/19/17 00:19 99.6 94 20 133/64 (87) 98 Physical Exam GENERAL: This is a well-nourished, well-developed patient, in no apparent distress. SKIN: No rashes, ecchymoses or lesions. Cool and dry. HEAD: Atraumatic. Normocephalic. No temporal or scalp tenderness. EYES: Pupils equal round and reactive. Extraocular motions intact. No scleral icterus. No injection or drainage. ENT: Nose without bleeding, purulent drainage or septal hematoma. Throat without erythema, tonsillar hypertrophy or exudate. Uvula midline. Airway patent. NECK: Trachea midline. Supple, nontender, no meningeal signs. CARDIOVASCULAR: HS audible. RESPIRATORY: Clear to auscultation. Breath sounds equal bilaterally. No wheezes , rales, or rhonchi. GASTROINTESTINAL: Abdomen soft, non-tender, nondistended. MUSCULOSKELETAL: Extremities without clubbing, cyanosis, or edema. NEUROLOGICAL: Awake and alert. Non focal exam Psych cooperative IV line sites with no e.o infection. Laboratory Laboratory Tests Test 08/19/17 01:05 08/19/17 10:20 White Blood Count 13.3 Red Blood Count 4.45 Hemoglobin 13.6 Hematocrit 39.4 Mean Corpuscular Volume 88.5 Mean Corpuscular Hemoglobin 30.5 Mean Corpuscular Hemoglobin Concent 34.4 Red Cell Distribution Width 13.4 Platelet Count 206 Mean Platelet Volume 9.5 Neutrophils (%) (Auto) 69.9 Lymphocytes (%) (Auto) 20.6 Monocytes (%) (Auto) 8.5 Eosinophils (%) (Auto) 0.5 Basophils (%) (Auto) 0.5 Neutrophils # (Auto) 9.3 Lymphocytes # (Auto) 2.7 Monocytes # (Auto) 1.1 Eosinophils # (Auto) 0.1 Basophils # (Auto) 0.1 CBC Comment DIFF FINAL Differential Comment Erythrocyte Sedimentation Rate 18 Prothrombin Time 10.7 Prothromb Time International Ratio 1.1 Activated Partial Thromboplast Time 31.3 Blood Urea Nitrogen 4 Creatinine 0.54 Random Glucose 111 Calcium Level 9.0 Sodium Level 133 Potassium Level 3.8 Chloride Level 98 Carbon Dioxide Level 26.1 Anion Gap 9 Estimat Glomerular Filtration Rate 118 C-Reactive Protein 9.90 Urine Color YELLOW Urine Turbidity HAZY Urine pH 6.5 Urine Specific [place] 1.013 Urine Protein NEG Urine Glucose (UA) NEG Urine Ketones NEG Urine Occult Blood NEG Urine Nitrite NEG Urine Bilirubin NEG Urine Urobilinogen LESS THAN 2.0 Urine Leukocyte Esterase LARGE Urine RBC 4 Urine WBC 23 Urine Squamous Epithelial Cells 4 Urine Bacteria RARE Urine Mucus FEW Microscopic Urinalysis Comment CULTURE INDICATED Urine Opiates Screen POS Urine Barbiturates Screen NEG Urine Amphetamines Screen POS Urine Benzodiazepines Screen NEG Urine Cocaine Screen NEG Urine Cannabinoids Screen NEG Date/Time Source Procedure Growth Status 08/19/17 01:05 Blood Peripheral Aerobic Blood Culture Pending Received 08/19/17 01:05 Blood Peripheral Anaerobic Blood Culture Pending Received 08/19/17 10:20 Urine Clean Catch Urine Culture Pending Received Result Diagram: 08/19/175 08/19/17 0105 Imaging Last Impressions Chest X-Ray 08/19/17 0039 Signed Impressions: Service Date/Time: Saturday, August 19, 2017 00:43 - CONCLUSION: No infiltrate is seen. Maxi Baxter MD Thoracic Spine MRI 08/19/17 0000 Signed Impressions: Service Date/Time: Saturday, August 19, 2017 02:00 - CONCLUSION: 1. Signal abnormality within the marrow of the T3 vertebral body with associated 30%% compression deformity of the anterior superior endplate and moderate diffuse contrast enhancement. Osteomyelitis of the vertebral body and compression fracture of both exhibit these type of signal abnormalities. 2. There is some enhancement thickening of the paraspinal soft tissues about the T3 vertebral body. 3. No abnormal enhancement within the thoracic discs. Maxi Baxter MD Cervical Spine MRI 08/19/17 0000 Signed Impressions: Service Date/Time: Saturday, August 19, 2017 02:00 - CONCLUSION: 1. Signal abnormalities within the marrow of the C3, C4, C7, and T1 vertebral bodies with some contrast enhancement and mild T1 and T2 prolongation. The signal abnormality is nonspecific, but would be consistent with osteomyelitis. There is also enhancement of the dura posterior to the C7 and T1 vertebral bodies. 2. Epidural impression centrally extending from C3-4 through C4-C5 which could represent thickening of the dura or central disc protrusions. There is some flattening of the ventral margin of the cervical cord at both levels. 3. No signal abnormalities within the interspaces to suggest discitis. Maxi Baxter MD Assessment and Plan Assessment and Plan Osteomyelitis of cervical and thoracic spine. IVDU Smoker. R/o endocarditis. Recs: farzaneh Johnson: CT guided aspiration of spine fluid Cultures for regular, AFB and Fungal studies entered by ca. Hold off on antibiotics until procedure.Will restart antibiotics in am or after procedure. Follow ECHO Check Hepatitis profile Check HIV antibody screen. Follow cultures Follow clinically. farzaneh pt and RN. Radha Anderson MD Aug 19, 2017 16:00
[2017-08-19] MEDS ORDERED: fentaNYL CITRATE 250 MCG/5 ML AMP ONE (17:19)
[2017-08-19] MEDS ORDERED: LORazepam 2 MG/ML VIAL ONE (17:20)
[2017-08-19 21:22] LABS: ALBUMIN 2.9 GM/DL (3.4-5.0); DIRECT BILIRUBIN ADULT 0.3 MG/DL (0.0-0.2)
[2017-08-19 21:26] LABS: INDIRECT BILIRUBIN 0.7 MG/DL (0.0-0.8); TOTAL PROTEIN 7.4 GM/DL (6.4-8.2)
[2017-08-20] MEDS ORDERED: PHARMACY ORDERED LAB ONE (15:45)
[2017-08-22 11:51] LABS: HEPATITIS A AB IGM NEGATIVE (NEGATIVE); HEPATITIS B CORE AB IGM NEGATIVE (NEGATIVE); HEPATITIS B SURFACE ANTIGEN NEGATIVE (NEGATIVE); HEPATITIS C AB IgG REACTIVE (NEGATIVE)
--- NOTE | 2017-08-23 07:24 | RADRPT ---
EXAM DATE/TIME: 08/19/2017 16:52 [facility] COMPARISON: No previous studies available for comparison. INDICATIONS : Patient with history of osteomyelitis in need of vertebral body biopsy. MEDICAL HISTORY : Asthma, IV drug abuse, Cholecystitis, Vaginal fistula, Inguinal hernia SURGICAL HISTORY : Cholecystectomy, Vaginal fistula repair, Hernia repair ENCOUNTER: Initial ACUITY: 4 - 6days PAIN SCORE: 8/10 LOCATION: Mid-upper back FLUORO TIME: 4.4 minutes IMAGE SERIES: 1 SEDATION TIME: 30 minutes MEDICATION(S): 1.) 2 mg lorazepam (Ativan) IV 2.) 200 mcg fentanyl (Sublimaze) IV DEVICE(S): 1.) 13 gauge Avamax bone biopsy needle Core specimen(s) was obtained and submitted to laboratory for pathologic evaluation. PROCEDURE : 1. Fluoroscopically guided needle biopsy. 2. Conscious sedation with continuous EKG and Oximetry monitoring. The risks, benefits and alternatives to the procedure were explained and verbal and written consent w as obtained. The site was prepped in sterile fashion. Full sterile technique was used, including cap, mask, steri le gloves and gown and a large sterile sheet. Hand hygiene and 2% chlorhexidine and/or betadine/alco hol prep was utilized per protocol for cutaneous antisepsis. The skin and subcutaneous tissues were infiltrated with local anesthetic solution. With fluoroscopic guidance a 13 gauge trocar was advanced into the T3 superior endplate utilizing a l eft para-pedicular approach. 2 core biopsies were obtained. Needle was then withdrawn. Conscious sedation was performed with the prescribed dosages and duration as above in the presence of an independent trained radiology nurse to assist in the monitoring of the patient. EKG and oximetry remained stable throughout the procedure. CONCLUSION: Uncomplicated core biopsy of the T3 vertebral body, as above. Ulysses Mitchell MD on August 23, 2017 at 7:21 Board Certified Radiologist. This report was verified electronically.
== END 2017-08-19 23:51 | disposition left against medical advice (07) | DRG 853 ==
LOC: NEPD 23:50 → NEDA 08-19 03:38 → NEPFCDU 08-19 04:53
PROVIDERS: ADMIT Hospitalist; ATTEND Hospitalist
PROC: 0PB43ZX Excision of Thoracic Vertebra, Percutaneous Approach, Diagnostic (ICD-10-PCS; principal; 2017-08-19)
DX: A41.9 Sepsis, unspecified organism (principal); G06.2 Extradural and subdural abscess, unspecified; I38 Endocarditis, valve unspecified; M84.68XA Pathological fracture in other disease, other site, initial encounter for fracture; M46.22 Osteomyelitis of vertebra, cervical region; M46.24 Osteomyelitis of vertebra, thoracic region; F17.210 Nicotine dependence, cigarettes, uncomplicated; F11.10 Opioid abuse, uncomplicated; F15.10 Other stimulant abuse, uncomplicated
CPT/HCPCS: 62267; 71045; 72156; 72157; 77002; 80048; 80074; 80076; 80307; 81001; 83605; 85025; 85610; 85652; 85730; 86140; 86592; 86703; 87015; 87040; 87070; 87086; 87102; 87116; 87176; 87205; 87206; 93005; 93306; 96365; 96375; A9579; J1644; J2060; J2270; J2310; J2543; J3010; J3370; J7050

== ENCOUNTER 2017-08-20 12:06 | Inpatient (IN) | payer SELFPAY ==
[~2017-08-20] VITALS: Ht 162.6 cm; Wt 98.5 kg
[~2017-08-20 12:06] MED LIST changes: -BACT800T5 PO; -CEPH500C3 PO; +PREV15CA20 PO
[2017-08-20 12:22] VITALS: BP 147/71; PULSE 85; RESP 18; TEMP 97.6; O2SAT 100
[2017-08-20] MEDS ORDERED: VANCOMYCIN INJ 1,000 MG in SODIUM CHLOR 0.9% 250 ML INJ 250 ML IV ONE (13:00)
[2017-08-20] MEDS ORDERED: PIPERACIL-TAZO 3.375 GM PREMIX 50 ML IV ONE (13:00)
--- NOTE | 2017-08-20 13:07 | PD ---
HPI Chief Complaint: Pain: Acute or Chronic Time Seen by Provider: 12:37 Travel History International Travel<30 days: No Contact w/Intl Traveler<30days: No Traveled to known affect area: No History of Present Illness HPI 52-year-old female presents to the emergency department for evaluation of neck and back pain. Patient was here yesterday and was admitted for osteomyelitis the cervical thoracic spine, probable endocarditis. The patient signed out AGAINST MEDICAL ADVICE after having a CT-guided aspiration of spinal fluid. Antibiotics were held until after the procedure. Patient has a friend at bedside who states that she came home this morning. The patient complains of 9/ 10 pain in the neck and upper back. Patient tells me that she has not used IV drugs recently. She states that lying a certain way will help the pain. No exacerbating factors. No radiation of pain. However, according to the note from yesterday, she has recently used IV Dilaudid. The patient is lethargic on my exam, but is answering questions appropriately. Patient denies any chest pain or shortness breath. No abdominal pain. Patient was being followed by infectious disease, Dr. Anderson. Moderate severity. PFSH Past Medical History Arthritis: Yes Asthma: Yes Cancer: Yes (CERVICAL, STOMACH) Cardiovascular Problems: No Diabetes: No Diminished Hearing: No Endocrine: No Genitourinary: Yes Hiatal Hernia: Yes (umbilical ) Musculoskeletal: Yes Neurologic: Yes Psychiatric: No Respiratory: Yes Integumentary: No Migraines: Yes Menopausal: Yes Past Surgical History Abdominal Surgery: Yes (HERNIA) Cardiac Surgery: No Cholecystectomy: Yes Genitourinary Surgery: No Gynecologic Surgery: Yes (FISTULA) Thoracic Surgery: No Other Surgery: Yes (fistula repair, rectal/ vaginal repair post ) Social History Alcohol Use: No Tobacco Use: Yes (06/21 ppd) Substance Use: Yes (PATIENT STATES SHE QUIT IV DRUGS A FEW MONTHS AGO) Allergies-Medications (Allergen,Severity, Reaction): Coded Allergies: No Known Allergies (Unverified Allergy, Unknown, 08/19/17) Reported Meds & Prescriptions Reported Meds & Active Scripts Active Reported Prevacid (Lansoprazole) 15 Mg Capdr 15 Mg PO DAILY Review of Systems Except as stated in HPI: all other systems reviewed are Neg Physical Exam Narrative GENERAL: Well-nourished, well-developed female patient, afebrile. General lethargic, but is oriented to person, place, time. SKIN: Focused skin assessment warm/dry. HEAD: Normocephalic. Atraumatic. EYES: No scleral icterus. No injection or drainage. NECK: Supple, trachea midline. No JVD or lymphadenopathy. CARDIOVASCULAR: Regular rate and rhythm without murmurs, gallops, or rubs. RESPIRATORY: Breath sounds equal bilaterally. No accessory muscle use. GASTROINTESTINAL: Abdomen soft, non-tender, nondistended. MUSCULOSKELETAL: No cyanosis, or edema. Bilateral upper and lower extremity strength 5/5. BACK: No obvious deformity. No CVA tenderness. Patient has tenderness to palpation over midline thoracic back and cervical spine. Data Data Last Documented VS Vital Signs Date Time Temp Pulse Resp B/P (MAP) Pulse Ox O2 Delivery O2 Flow Rate FiO2 08/20/17 13:20 81 17 176/91 (119) 99 Room Air 08/20/17 12:22 97.6 Orders Orders Complete Blood Count With Diff (08/20/17 12:46) Comprehensive Metabolic Panel (08/20/17 12:46) Prothrombin Time / Inr (Pt) (08/20/17 12:46) Act Partial Throm Time (Ptt) (08/20/17 12:46) Iv Access Insert/Monitor (08/20/17 12:46) Vancomycin Inj (Vancomycin Inj) (08/20/17 13:00) Piperacil-Tazo 3.375 Gm Premix (Zosyn 3. (08/20/17 13:00) Blood Culture (08/20/17 13:50) Urinalysis - C+S If Indicated (08/20/17 13:50) Drug Screen, Random Urine (08/20/17 13:55) Admit Order (Ed Use Only) (08/20/17 14:00) Labs Laboratory Tests Test 08/20/17 13:15 White Blood Count 9.8 TH/MM3 Red Blood Count 4.10 MIL/MM3 Hemoglobin 12.7 GM/DL Hematocrit 36.1 % Mean Corpuscular Volume 88.2 FL Mean Corpuscular Hemoglobin 30.9 PG Mean Corpuscular Hemoglobin Concent 35.0 % Red Cell Distribution Width 13.1 % Platelet Count 257 TH/MM3 Mean Platelet Volume 7.8 FL Neutrophils (%) (Auto) 76.2 % Lymphocytes (%) (Auto) 17.0 % Monocytes (%) (Auto) 6.2 % Eosinophils (%) (Auto) 0.2 % Basophils (%) (Auto) 0.4 % Neutrophils # (Auto) 7.5 TH/MM3 Lymphocytes # (Auto) 1.7 TH/MM3 Monocytes # (Auto) 0.6 TH/MM3 Eosinophils # (Auto) 0.0 TH/MM3 Basophils # (Auto) 0.0 TH/MM3 CBC Comment DIFF FINAL Differential Comment Prothrombin Time 10.9 SEC Prothromb Time International Ratio 1.1 RATIO Activated Partial Thromboplast Time 30.8 SEC MDM Medical Decision Making Medical Screen Exam Complete: Yes Emergency Medical Condition: Yes Medical Record Reviewed: Yes Differential Diagnosis Osteomyelitis versus sepsis versus endocarditis Narrative Course 52-year-old female presents to the emergency department for evaluation after she left AGAINST MEDICAL ADVICE yesterday. She was admitted for osteomyelitis, probable endocarditis, sepsis. The patient had CT-guided aspiration of spinal fluid yesterday. She left AGAINST MEDICAL ADVICE after the procedure. IV is established. CBC, CMP, PTT, PT/INR ordered and pending. Patient is restarted on vancomycin 1 g IV, Zosyn 3.375 g IV. [facility] is paged for admission. Dr. Wild accepted admission. Diagnosis Primary Impression: Osteomyelitis Qualified Codes: M86.9 - Osteomyelitis, unspecified Additional Impression: IV drug abuse Admitting Information Admitting Physician Requests: Admit Kathrin Pastrana Aug 20, 2017 13:07
[2017-08-20 13:20] VITALS: BP 176/91; PULSE 81; RESP 17; O2SAT 99
[2017-08-20 13:27] LABS: AUTOMATED NEUTROPHIL # 7.5 TH/MM3 (1.8-7.7); BASOPHIL % 0.4 % (0.0-2.0); EOSINOPHIL % 0.2 % (0.0-4.0); HEMATOCRIT 36.1 % (35.0-46.0); HEMOGLOBIN 12.7 GM/DL (11.6-15.3); LYMPHOCYTE # 1.7 TH/MM3 (1.0-4.8); MEAN CELL VOLUME 88.2 FL (80.0-100.0); MEAN CORPUSCULAR HEMOGLOBIN 30.9 PG (27.0-34.0); MEAN PLATELET VOLUME 7.8 FL (7.0-11.0); MONO % 6.2 % (0.0-8.0); MONOCYTE # 0.6 TH/MM3 (0-0.9); NEUT % 76.2 % (16.0-70.0); PLATELET COUNT 257 TH/MM3 (150-450); RED CELL DISTRIBUTION WIDTH 13.1 % (11.6-17.2); WHITE BLOOD COUNT 9.8 TH/MM3 (4.0-11.0)
[2017-08-20 13:35] LABS: INTERNATIONAL NORMALIZED RATIO 1.1 RATIO; PROTHROMBIN TIME - PATIENT 10.9 SEC (9.8-11.6)
[2017-08-20 14:04] LABS: ALBUMIN 3.2 GM/DL (3.4-5.0); ALT (GPT) 93 U/L (10-53); AST (GOT) 66 U/L (15-37); BICARBONATE 29.5 MEQ/L (21.0-32.0); BLOOD UREA NITROGEN 8 MG/DL (7-18); CHLORIDE 104 MEQ/L (98-107); CREATININE 0.67 MG/DL (0.50-1.00); GLOMERULAR FILTRATION RATE 92 ML/MIN (>89); GLUCOSE,RANDOM 155 MG/DL (74-106); SODIUM (NA) 137 MEQ/L (136-145)
[2017-08-20 14:06] LABS: ALKALINE PHOSPHATASE 143 U/L (45-117); TOTAL BILIRUBIN ADULT 1.1 MG/DL (0.2-1.0)
[2017-08-20 15:03] VITALS: BP 175/83; PULSE 79; RESP 22; TEMP 97.7; O2SAT 99
--- NOTE | 2017-08-20 15:37 | HHI.HP ---
HPI [facility] Primary Care Physician No Primary Care Physician Admission Diagnosis osteomyelitis of the cervical and throacic spine Diagnoses: Chief Complaint: Cervical thoracic spine pain Osteomylitis Travel History International Travel<30 Days: No Contact w/Intl Traveler <30 Da: No Traveled to Known Affected Are: No History of Present Illness Patient is a 52-year-old female with known history of IV drug use who came into the hospital initially yesterday with complaints of fevers, chills, back pain. She was worked up and went to IR for CT-guided aspiration of the vertebra and spinal fluid for identification of osteomyelitis. Patient then signed AGAINST MEDICAL ADVICE after having CT-guided aspiration. Patient then showed up at the friend's house this morning. Patient friend is Teresa where she currently lives. Patient states she did not know what happened and how she came up to get out of the hospital and to go back to her friend's home. States that she was out of her mind and possibly hallucinated. Patient agrees to have friend while she is being examined and interviewed. Discuss and explained with patient and friend Teresa that it is to her benefit that she has to stay at the hospital and to be compliant with medical care. When asked if she took any drugs yesterday patient denies. However U tox came back positive for amphetamines. She complains of back and cervical pain, 10/10, radiating towards the back to her arms aggravated by movement. She denies shortness of breath or dyspnea, chest pain, palpitations, headaches, dizziness. Denies any nausea, vomiting, diarrhea, abdominal cramping, dysuria. No fevers or chills. As per patient, she will not sign AMA again. As per her friend, she will be responsible for the patient and to call her if patient attempts to sign out AMA. Patient agrees with her friend, Teresa. Teresa [place] [phone], good friend, patient currently lives with her. Review of Systems Except as stated in HPI: all other systems reviewed are Neg Past Family Social History Past Medical History IV drug use Cholecystitis Inguinal hernia Vaginal fistula Past Surgical History ACL repair Cholecystectomy Vaginal fistula repair Inguinal hernia repair Reported Medications none Allergies: Coded Allergies: No Known Allergies (Unverified Allergy, Unknown, 08/19/17) Active Ordered Medications Current Medications Medications (Trade) Dose Ordered Sig/Areli Route Start Time Stop Time Status Last Admin Sodium Chloride 1,000 ml @ 100 mls/hr Q10H IV 08/20/17 15:37 08/20/17 16:24 (NS Flush) 2 ml UNSCH PRN IV FLUSH 08/20/17 15:45 (NS Flush) 2 ml BID IV FLUSH 08/20/17 21:00 (Zofran Inj) 4 mg Q6H PRN IVP 08/20/17 15:45 (Lovenox Inj) 40 mg Q24H SQ 08/20/17 16:00 08/20/17 16:21 (Tylenol) 650 mg Q6H PRN PO 08/20/17 15:45 (Percocet 5-325 Mg) 1 tab Q6H PRN PO 08/20/17 15:45 (Percocet 10-325 Mg) 1 tab Q6H PRN PO 08/20/17 15:45 08/20/17 16:20 (Morphine Inj) 2 mg Q3H PRN IV PUSH 08/20/17 15:45 (Narcan Inj) 0.4 mg UNSCH PRN IV PUSH 08/20/17 15:45 (Priscilla-Colace) 1 tab BID PO 08/20/17 21:00 (Milk Of Magnesia Liq) 30 ml Q12H PRN PO 08/20/17 15:45 (Senokot) 17.2 mg Q12H PRN PO 08/20/17 15:45 (Dulcolax Supp) 10 mg DAILY PRN RECTAL 08/20/17 15:45 (Lactulose Liq) 30 ml DAILY PRN PO 08/20/17 15:45 Vancomycin HCl 1000 mg/Sodium Chloride 250 ml @ 250 mls/hr Q12H IV 08/21/17 02:00 Pharmacy Profile Note 0 ml @ 0 mls/hr UNSCH OTHER 08/20/17 15:45 Piperacillin Sod/ Tazobactam Sod 50 ml @ 100 mls/hr Q6H IV 08/20/17 17:00 (Lioresal) 5 mg Q8HR PO 08/20/17 15:45 08/20/17 16:23 Miscellaneous Information SPECIFIC LAB TO BE DRAWN:[facility]... ONCE ONCE .XX 08/22/17 01:45 08/22/17 01:46 Family History Reports family history of hypertension, diabetes, cancer on both sides of her family mother and father. Social History Denies any alcohol use Current a smoker one to what a half pack per day Admits to IV drug use, last use 08/18/17 Amphetamine use Physical Exam Vital Signs Vital Signs Date Time Temp Pulse Resp B/P (MAP) Pulse Ox O2 Delivery O2 Flow Rate FiO2 08/20/17 15:03 97.7 79 22 175/83 (113) 99 08/20/17 13:20 81 17 176/91 (119) 99 Room Air 08/20/17 12:22 97.6 85 18 147/71 (96) 100 Physical Exam GENERAL: This is a thin appearing, appears older than stated age, in no apparent distress. SKIN: Warm and dry. HEAD: Normocephalic. EYES: Pupils equal round and reactive. Extraocular motions intact. No scleral icterus. No injection or drainage. ENT: Nose without bleeding. Throat without erythema. Uvula midline. Airway patent. NECK: Trachea midline. CARDIOVASCULAR: Regular rate and rhythm without murmurs, gallops, or rubs. RESPIRATORY: Clear to auscultation. Breath sounds equal bilaterally. No wheezes , rales, or rhonchi. GASTROINTESTINAL: Abdomen soft, non-tender, nondistended. Bowel sounds active 4 MUSCULOSKELETAL: Extremities without clubbing, cyanosis, or edema. Mid thoracic tenderness under the scapula region. NEUROLOGICAL: Awake and alert. Motor and sensory grossly within normal limits. Normal speech. Laboratory Laboratory Tests Test 08/20/17 13:15 08/20/17 15:00 White Blood Count 9.8 Red Blood Count 4.10 Hemoglobin 12.7 Hematocrit 36.1 Mean Corpuscular Volume 88.2 Mean Corpuscular Hemoglobin 30.9 Mean Corpuscular Hemoglobin Concent 35.0 Red Cell Distribution Width 13.1 Platelet Count 257 Mean Platelet Volume 7.8 Neutrophils (%) (Auto) 76.2 Lymphocytes (%) (Auto) 17.0 Monocytes (%) (Auto) 6.2 Eosinophils (%) (Auto) 0.2 Basophils (%) (Auto) 0.4 Neutrophils # (Auto) 7.5 Lymphocytes # (Auto) 1.7 Monocytes # (Auto) 0.6 Eosinophils # (Auto) 0.0 Basophils # (Auto) 0.0 CBC Comment DIFF FINAL Differential Comment Prothrombin Time 10.9 Prothromb Time International Ratio 1.1 Activated Partial Thromboplast Time 30.8 Blood Urea Nitrogen 8 Creatinine 0.67 Random Glucose 155 Total Protein 8.0 Albumin 3.2 Calcium Level 9.0 Alkaline Phosphatase 143 Aspartate Amino Transf (AST/SGOT) 66 Alanine Aminotransferase (ALT/SGPT) 93 Total Bilirubin 1.1 Sodium Level 137 Potassium Level 3.8 Chloride Level 104 Carbon Dioxide Level 29.5 Anion Gap 4 Estimat Glomerular Filtration Rate 92 Date/Time Source Procedure Growth Status 08/20/17 14:05 Blood Peripheral Aerobic Blood Culture Pending Received 08/20/17 14:05 Blood Peripheral Anaerobic Blood Culture Pending Received Result Diagram: 08/20/17 1315 08/20/17 1315 Imaging 08/19/17 MRI of the thoracic spine showed well. Signal abnormality within the marrow of the T3 vertebral body with associated 30% percent compression deformity of the anterior superior endplate of moderate diffuse contrast enhancement. Osteomyelitis of the vertebral body and compression fracture of both exhibit these types of signal abnormalities. 2. There is some it has been thickening of the paraspinal soft tissue about the T3 vertebral body. 3. No abnormal enhancement within the thoracic discs 08/19/17 MRI of the cervical spine 1. Signal abnormalities within the marrow of the C3, C4, C7, and T1 vertebral bodies with some contrast that has been at mild T1 and T2 prolongation. The signal abnormality study specific, but clinically consistent with osteomyelitis. There is also enhancement of the dura posterior to the C7 and T1 vertebral bodies. 2. Epidural impression centrally extending from C3-C4 through C4-C5 which could represent thickening of the dura or central disc protrusion. There is some flattening of the ventral portion of the cervical cord at both first.3. No signal abnormalities within the interspaces to suggest discitis Caprini VTE Risk Assessment Caprini VTE Risk Assessment: Mod/High Risk (score >= 2) Caprini Risk Assessment Model Point Value = 1 Point Value = 2 Point Value = 3 Point Value = 5 Age 41-60 Minor surgery BMI > 25 kg/m2 Swollen legs Varicose veins or History of unexplained or recurrent spontaneous Oral contraceptives or hormone replacement Sepsis (< 1 month) Serious lung disease, including pneumonia (< 1 month) Abnormal pulmonary function Acute myocardial infarction Congestive heart failure (< 1 month) History of inflammatory bowel disease Medical patient at bed rest Age 61-74 Arthroscopic surgery Major open surgery (> 45 min) Laparoscopic surgery (> 45 min) Malignancy Confined to bed (> 72 hours) Immobilizing plaster cast Central venous access Age >= 75 History of VTE Family history of VTE Factor V Leiden Prothrombin [id number] Lupus anticoagulant Anticardiolipin antibodies Elevated serum homocysteine Heparin-induced thrombocytopenia Other congenital or acquired thrombophilia Stroke (< 1 month) Elective arthroplasty Hip, pelvis, or leg fracture Acute spinal cord injury (< 1 month) Prophylaxis Regimen Total Risk Factor Score Risk Level Prophylaxis Regimen 0-1 Low Early ambulation 2 Moderate Order ONE of the following: *Sequential Compression Device (SCD) *Heparin 5000 units SQ BID 3-4 Higher Order ONE of the following medications: *Heparin 5000 units SQ TID *Enoxaparin/Lovenox 40 mg SQ daily (WT < 150 kg, CrCl > 30 mL/min) *Enoxaparin/Lovenox 30 mg SQ daily (WT < 150 kg, CrCl > 10-29 mL/min) *Enoxaparin/Lovenox 30 mg SQ BID (WT < 150 kg, CrCl > 30 mL/min) AND/OR *Sequential Compression Device (SCD) 5 or more Highest Order ONE of the following medications: *Heparin 5000 units SQ TID (Preferred with Epidurals) *Enoxaparin/Lovenox 40 mg SQ daily (WT < 150 kg, CrCl > 30 mL/min) *Enoxaparin/Lovenox 30 mg SQ daily (WT < 150 kg, CrCl > 10-29 mL/min) *Enoxaparin/Lovenox 30 mg SQ BID (WT < 150 kg, CrCl > 30 mL/min) AND *Sequential Compression Device (SCD) Assessment and Plan Problem List: (1) IV drug abuse ICD Code: F19.10 - Other psychoactive substance abuse, uncomplicated Status: Acute (2) Osteomyelitis ICD Code: M86.9 - Osteomyelitis, unspecified (3) Sepsis ICD Code: A41.9 - Sepsis, unspecified organism Assessment and Plan Patient is a 52-year-old female with known history of IV drug use who came into the hospital after leaving [facility], for cervical and thoracic pain. SIRS, Sepsis - HR >90, WBC 13.3, 08/19/17 received IV antibiotics Osteomyelitis, acute Hx IVDA - Current WBC improved 9.8 - 08/19/17 MRI of the thoracic spine showed well. Signal abnormality within the marrow of the T3 vertebral body with associated 30% percent compression deformity of the anterior superior endplate of moderate diffuse contrast enhancement. Osteomyelitis of the vertebral body and compression fracture of both exhibit these types of signal abnormalities. 2. There is some it has been thickening of the paraspinal soft tissue about the T3 vertebral body. 3. No abnormal enhancement within the thoracic discs - 08/19/17 MRI of the cervical spine 1. Signal abnormalities within the marrow of the C3, C4, C7, and T1 vertebral bodies with some contrast that has been at mild T1 and T2 prolongation. The signal abnormality study specific, but clinically consistent with osteomyelitis. There is also enhancement of the dura posterior to the C7 and T1 vertebral bodies. 2. Epidural impression centrally extending from C3-C4 through C4-C5 which could represent thickening of the dura or central disc protrusion. There is some flattening of the ventral portion of the cervical cord at both first. 3. No signal abnormalities within the interspaces to suggest discitis - 08/19/17 Echocardiogram showed left ventricular systolic function is moderately reduced with an estimated ejection fraction in the range of 40-45%. Wall thickness is measured at the upper limits of normal. Normal left ventricular size. There is mild tricuspid regurgitation. The estimated pulmonary arterial pressure is 36 mmHg. -Patient was started on vancomycin and Zosyn in ED, continue vancomycin and Zosyn for now -Infectious disease consult for further evaluation and recommendation. -Pain management Percocet, IV morphine for breakthrough pain, baclofen for spasms -Blood cultures reordered as patient signed out AMA. -Pending hepatitis and HIV panel. U tox positive for amphetamines. -Follow-up labs tomorrow IVDA Substance Abuse Tobacco -Counseled. U tox positive for amphetamines. - Nicotine Patch DVT problem SCDs Code Status Full Code Discussed Condition With Patient, friend CEE Moore, Dr. Wild Physician Certification 2 Midnight Certification Type: Admission for Inpatient Services Order for Inpatient Services The services are ordered in accordance with Medicare regulations or non- Medicare payer requirements, as applicable. In the case of services not specified as inpatient-only, they are appropriately provided as inpatient services in accordance with the 2-midnight benchmark. Estimated LOS (days): 2 days is the estimated time the patient will need to remain in the hospital, assuming treatment plan goals are met and no additional complications. Post-Hospital Plan: Home Problem Qualifiers (1) Osteomyelitis: Qualified Codes: M86.9 - Osteomyelitis, unspecified Power Tay Aug 20, 2017 3:37 pm
[2017-08-20 15:45] LABS: BILIRUBIN, URINE NEG (NEG); BLOOD, URINE TRACE (NEG); GLUCOSE,URINE NEG (NEG); KETONE, URINE TRACE mg/dL (NEG); NITRITE,URINE NEG (NEG); PH, URINE 6.5 (5.0-8.5); SQUAMOUS EPITHELIAL CELL URINE 3 /hpf (0-5); URINE COLOR YELLOW (YELLW/STRAW); URINE LEUKOCYTE ESTERASE SMALL (NEG)
[2017-08-20] MEDS ORDERED: Vancomycin Consult Pharmacy 1 EA OTHER SCH (15:45)
[2017-08-20] MEDS ORDERED: SENNOSIDES 8.6 MG TAB PO PRN (15:45)
[2017-08-20] MEDS ORDERED: LACTULOSE SYRUP 20 GM/30 ML CUP PO PRN (15:45)
[2017-08-20] MEDS ORDERED: NALOXONE HCL 0.4 MG/ML AMP IV PUSH PRN (15:45)
[2017-08-20] MEDS ORDERED: ONDANSETRON HCL 4 MG/2 ML VIAL IVP PRN (15:45)
[2017-08-20] MEDS ORDERED: BISACODYL 10 MG SUPP RECTAL PRN (15:45)
[2017-08-20] MEDS ORDERED: MAGNESIUM HYDROXIDE SUSP 30 ML CUP PO PRN (15:45)
[2017-08-20] MEDS ORDERED: ACETAMINOPHEN 325 MG TAB PO PRN (15:45)
[2017-08-20] MEDS ORDERED: oxyCODONE/ACETAMINOPHEN 5 MG/325 MG TAB PO PRN (15:45)
[2017-08-20] MEDS: oxyCODONE/ACETAMINOPHEN 10 MG/325 MG TAB PO PRN ×2 (16:20→22:27)
[2017-08-20] MEDS: ENOXAPARIN SODIUM 40 MG/0.4 ML SYRINGE SQ SCH (16:21)
[2017-08-20] MEDS: BACLOFEN 10 MG TAB PO SCH ×2 (16:23→22:27)
[2017-08-20] MEDS: SODIUM CHLOR 0.9% 1000 ML INJ 1,000 ML IV SCH (16:24)
[2017-08-20] MEDS: PIPERACIL-TAZO 3.375 GM PREMIX 50 ML IV SCH ×2 (17:50→23:27)
[2017-08-20] MEDS: DOCUSATE SODIUM 50 MG/SENNA 8.6 MG TAB PO SCH (22:27)
[2017-08-20] MEDS: NICOTINE 21 MG/24 HR PATCH T-DERMAL SCH (22:28)
[2017-08-20] MEDS: SODIUM CHLORIDE 0.9% FLUSH 10 ML FLUSH IV FLUSH SCH (22:29)
[2017-08-21] MEDS: VANCOMYCIN INJ 1,000 MG in SODIUM CHLOR 0.9% 250 ML INJ 250 ML IV SCH ×2 (02:56→14:06)
[2017-08-21] MEDS: SODIUM CHLOR 0.9% 1000 ML INJ 1,000 ML IV SCH ×2 (02:58→11:37)
[2017-08-21 04:29] LABS: AUTOMATED NEUTROPHIL # 4.4 TH/MM3 (1.8-7.7); BASOPHIL % 0.6 % (0.0-2.0); EOSINOPHIL # 0.1 TH/MM3 (0-0.4); EOSINOPHIL % 1.9 % (0.0-4.0); HEMATOCRIT 37.5 % (35.0-46.0); HEMOGLOBIN 12.6 GM/DL (11.6-15.3); LYMPH % 31.3 % (9.0-44.0); LYMPHOCYTE # 2.4 TH/MM3 (1.0-4.8); MEAN CELL VOLUME 88.8 FL (80.0-100.0); MEAN CORPUSCULAR HEMOGLOBIN 29.9 PG (27.0-34.0); MEAN CORPUSCULAR HGB CONC 33.6 % (32.0-36.0); MEAN PLATELET VOLUME 7.7 FL (7.0-11.0); MONO % 9.1 % (0.0-8.0); MONOCYTE # 0.7 TH/MM3 (0-0.9); NEUT % 57.1 % (16.0-70.0); PLATELET COUNT 297 TH/MM3 (150-450); RED BLOOD COUNT 4.22 MIL/MM3 (4.00-5.30); RED CELL DISTRIBUTION WIDTH 13.2 % (11.6-17.2); WHITE BLOOD COUNT 7.6 TH/MM3 (4.0-11.0)
[2017-08-21 04:46] LABS: ALBUMIN 2.9 GM/DL (3.4-5.0); ALT (GPT) 89 U/L (10-53); AST (GOT) 68 U/L (15-37); BLOOD UREA NITROGEN 8 MG/DL (7-18); CALCIUM 8.9 MG/DL (8.5-10.1); CHLORIDE 106 MEQ/L (98-107); CREATININE 0.68 MG/DL (0.50-1.00); GLOMERULAR FILTRATION RATE 91 ML/MIN (>89); GLUCOSE,RANDOM 98 MG/DL (74-106); SODIUM (NA) 139 MEQ/L (136-145)
[2017-08-21 04:48] LABS: ALKALINE PHOSPHATASE 197 U/L (45-117); TOTAL BILIRUBIN ADULT 1.2 MG/DL (0.2-1.0); TOTAL PROTEIN 7.7 GM/DL (6.4-8.2)
[2017-08-21] MEDS: oxyCODONE/ACETAMINOPHEN 10 MG/325 MG TAB PO PRN ×3 (05:18→21:21)
[2017-08-21] MEDS: PIPERACIL-TAZO 3.375 GM PREMIX 50 ML IV SCH ×4 (05:18→23:00)
[2017-08-21] MEDS: BACLOFEN 10 MG TAB PO SCH ×3 (05:23→21:20)
[2017-08-21 08:38] VITALS: PULSE 68
[2017-08-21] MEDS: REMOVE OLD PATCH T-DERMAL SCH (08:43)
[2017-08-21] MEDS: NICOTINE 21 MG/24 HR PATCH T-DERMAL SCH (08:43)
[2017-08-21] MEDS: DOCUSATE SODIUM 50 MG/SENNA 8.6 MG TAB PO SCH ×2 (08:43→21:00)
[2017-08-21] MEDS: SODIUM CHLORIDE 0.9% FLUSH 10 ML FLUSH IV FLUSH SCH ×2 (08:43→21:00)
[2017-08-21] MEDS: MORPHINE SULFATE 2 MG/ML INJ IV PUSH PRN ×4 (10:22→22:55)
--- NOTE | 2017-08-21 11:27 | HHI.PR ---
Subjective Remarks Follow-up visit cervical/thoracic osteomyelitis, substance abuse, chronic pain. Patient seen and examined today in the bed. Reports pain is still present however it is not worsened and manageable with pain management. Denies SOB/ dyspnea. Denies chest pain, palpitations, headaches, dizziness. Denies fevers, chills, n/v/d. Denies dysuria. Patient agrees to stay in the hospital for treatment but complaints of no access to TV in her room. Discuss she will have inpatient room when it is available and needs to be patient for now. Objective Vitals Vital Signs Date Time Temp Pulse Resp B/P (MAP) Pulse Ox O2 Delivery O2 Flow Rate FiO2 08/20/17 15:03 97.7 79 22 175/83 (113) 99 08/20/17 13:20 81 17 176/91 (119) 99 Room Air 08/20/17 12:22 97.6 85 18 147/71 (96) 100 I/O 08/20/17 08/20/17 08/20/17 08/21/17 08/21/17 08/21/17 07:00 15:00 23:00 07:00 15:00 23:00 Intake Total 450 ml 1350 ml Balance 450 ml 1350 ml Intake IV Total 450 ml 1350 ml Result Diagram: 08/21/17 0415 08/21/17 0415 Imaging - 08/19/17 MRI of the thoracic spine showed well. Signal abnormality within the marrow of the T3 vertebral body with associated 30% percent compression deformity of the anterior superior endplate of moderate diffuse contrast enhancement. Osteomyelitis of the vertebral body and compression fracture of both exhibit these types of signal abnormalities. 2. There is some it has been thickening of the paraspinal soft tissue about the T3 vertebral body. 3. No abnormal enhancement within the thoracic discs - 08/19/17 MRI of the cervical spine 1. Signal abnormalities within the marrow of the C3, C4, C7, and T1 vertebral bodies with some contrast that has been at mild T1 and T2 prolongation. The signal abnormality study specific, but clinically consistent with osteomyelitis. There is also enhancement of the dura posterior to the C7 and T1 vertebral bodies. 2. Epidural impression centrally extending from C3-C4 through C4-C5 which could represent thickening of the dura or central disc protrusion. There is some flattening of the ventral portion of the cervical cord at both first. 3. No signal abnormalities within the interspaces to suggest discitis Objective Remarks GENERAL: This is a well-nourished, well-developed patient, in no apparent distress. SKIN: Warm and dry HEENT: Normocephalic. Pupils equal round and reactive. Nose without bleeding. Airway patent. NECK: Trachea midline. CARDIOVASCULAR: Regular rate and rhythm without murmurs, gallops, or rubs. RESPIRATORY: Clear to auscultation. Breath sounds equal bilaterally. No wheezes , rales, or rhonchi. GASTROINTESTINAL: Abdomen soft, non-tender, nondistended. Bowel Sounds normoactive x4. MUSCULOSKELETAL: Extremities without clubbing, cyanosis, or edema. Mid thoracic and cervical tenderness. NEUROLOGICAL: Awake and alert. Oriented to place, person. No focal neuro deficit. Moves all extremities. Normal speech. Procedures None A/P Problem List: (1) IV drug abuse ICD Code: F19.10 - Other psychoactive substance abuse, uncomplicated Status: Acute (2) Osteomyelitis ICD Code: M86.9 - Osteomyelitis, unspecified (3) Sepsis ICD Code: A41.9 - Sepsis, unspecified organism Assessment and Plan Patient is a 52-year-old female with known history of IV drug use who came into the hospital after leaving [facility], for cervical and thoracic pain. SIRS, Sepsis - HR >90, WBC 13.3, 08/19/17 received IV antibiotics Osteomyelitis, acute Hx IVDA - Current WBC improved 9.8 - 08/19/17 MRI of the thoracic spine showed well. Signal abnormality within the marrow of the T3 vertebral body with associated 30% percent compression deformity of the anterior superior endplate of moderate diffuse contrast enhancement. Osteomyelitis of the vertebral body and compression fracture of both exhibit these types of signal abnormalities. 2. There is some it has been thickening of the paraspinal soft tissue about the T3 vertebral body. 3. No abnormal enhancement within the thoracic discs - 08/19/17 MRI of the cervical spine 1. Signal abnormalities within the marrow of the C3, C4, C7, and T1 vertebral bodies with some contrast that has been at mild T1 and T2 prolongation. The signal abnormality study specific, but clinically consistent with osteomyelitis. There is also enhancement of the dura posterior to the C7 and T1 vertebral bodies. 2. Epidural impression centrally extending from C3-C4 through C4-C5 which could represent thickening of the dura or central disc protrusion. There is some flattening of the ventral portion of the cervical cord at both first. 3. No signal abnormalities within the interspaces to suggest discitis - 08/19/17 Echocardiogram showed left ventricular systolic function is moderately reduced with an estimated ejection fraction in the range of 40-45%. Wall thickness is measured at the upper limits of normal. Normal left ventricular size. There is mild tricuspid regurgitation. The estimated pulmonary arterial pressure is 36 mmHg. -Patient was started on vancomycin and Zosyn in ED, continue vancomycin and Zosyn for now -Infectious disease consult for further evaluation and recommendation. -Pain management Percocet, IV morphine for breakthrough pain, baclofen for spasms. Improving -Blood cultures pending -Pending hepatitis and HIV panel. U tox positive for amphetamines. Transaminitis -Elevated LFTs, but compared to prior admission in November 2016, it is improved except for TBili. -Pending hepatitis and HIV panel IVDA Substance Abuse Tobacco -Counseled. U tox positive for amphetamines. -Nicotine Patch DVT problem SCDs Problem Qualifiers (1) Osteomyelitis: Qualified Codes: M86.9 - Osteomyelitis, unspecified Power Tay Aug 21, 2017 11:27
[2017-08-21 12:54] VITALS: BP 152/87
[2017-08-21 13:10] VITALS: BP 139/73; PULSE 67; RESP 20; TEMP 97.4; O2SAT 100
--- NOTE | 2017-08-21 14:56 | PD.ID.CON ---
History of Present Illness Service ID Consult Requested By PATRICIO Machado Reason for Consult Evaluation and Mment of Spinal osteomyelitis. Primary Care Physician No Primary Care Physician Diagnoses: History of Present Illness Ms. Ware is a 52-year-old female with past medical history of IV drug abuse. She presents to the hospital with complaints of fevers, chills, back pain. Patient reports having severe back pain for the last few days but this has gotten worse just prior to admission. She admits to using Dilaudid for severe pain just a few days prior to admission. She denies any cardiopulmonary symptoms. She denies any abdominal symptoms. Patient was noted to have Cervical and Thoracic spine abnormality ? osteomyelitis on MRI spine. Patient recd dose of Zosyn IV and Vanco IV. No outpatient or other hospital antibiotics. Patient underwent CT guided aspiration of spine abnormality site. Cultures no growth so far. Patient returned to ED after signing off AMA. Upon questioning smiles and says "I dont remember why I left" . At time of my evaluation patient is alert and oriented. ID consulted for eval and Mment of epidural abscess/osteomyelitis. Review of Systems ROS Limitations: Poor Historian Past Family Social History Allergies: Coded Allergies: No Known Allergies (Unverified Allergy, Unknown, 08/19/17) Past Medical History IV drug use Cholecystitis Inguinal hernia Vaginal fistula Past Surgical History ACL repair Cholecystectomy Vaginal fistula repair Inguinal hernia repair Reported Medications Reported Meds & Active Scripts Active Reported Prevacid (Lansoprazole) 15 Mg Capdr 15 Mg PO DAILY Active Ordered Medications Current Medications Medications (Trade) Dose Ordered Sig/Areli Route Start Time Stop Time Status Last Admin Sodium Chloride 1,000 ml @ 100 mls/hr Q10H IV 08/20/17 15:37 08/22/17 04:46 (NS Flush) 2 ml UNSCH PRN IV FLUSH 08/20/17 15:45 08/22/17 01:59 (NS Flush) 2 ml BID IV FLUSH 08/20/17 21:00 08/21/17 08:43 (Zofran Inj) 4 mg Q6H PRN IVP 08/20/17 15:45 (Lovenox Inj) 40 mg Q24H SQ 08/20/17 16:00 08/21/17 15:53 (Tylenol) 650 mg Q6H PRN PO 08/20/17 15:45 (Percocet 5-325 Mg) 1 tab Q6H PRN PO 08/20/17 15:45 (Percocet 10-325 Mg) 1 tab Q6H PRN PO 08/20/17 15:45 08/22/17 08:22 (Morphine Inj) 2 mg Q3H PRN IV PUSH 08/20/17 15:45 08/22/17 01:59 (Narcan Inj) 0.4 mg UNSCH PRN IV PUSH 08/20/17 15:45 (Priscilla-Colace) 1 tab BID PO 08/20/17 21:00 08/22/17 08:21 (Milk Of Magnesia Liq) 30 ml Q12H PRN PO 08/20/17 15:45 (Senokot) 17.2 mg Q12H PRN PO 08/20/17 15:45 (Dulcolax Supp) 10 mg DAILY PRN RECTAL 08/20/17 15:45 (Lactulose Liq) 30 ml DAILY PRN PO 08/20/17 15:45 Vancomycin HCl 1000 mg/Sodium Chloride 250 ml @ 250 mls/hr Q12H IV 08/21/17 02:00 08/22/17 02:10 Pharmacy Profile Note 0 ml @ 0 mls/hr UNSCH OTHER 08/20/17 15:45 Piperacillin Sod/ Tazobactam Sod 50 ml @ 100 mls/hr Q6H IV 08/20/17 17:00 08/22/17 04:45 (Lioresal) 5 mg Q8HR PO 08/20/17 15:45 08/22/17 06:44 (Habitrol 21 Mg Patch.24 Hr) 1 patch DAILY T-DERMAL 08/20/17 18:30 08/22/17 08:21 Miscellaneous Information 1 DAILY T-DERMAL 08/21/17 09:00 08/22/17 08:22 Miscellaneous Information SPECIFIC LAB TO BE DRAWN:VA... ONCE ONCE .XX 08/22/17 13:45 08/22/17 13:46 Family History reviewed. Social History H/o IVDA. Reports friend who is clean will help her out. Teresa Aguillon [phone], good friend, patient currently lives with her. Physical Exam Vital Signs Vital Signs Date Time Temp Pulse Resp B/P (MAP) Pulse Ox O2 Delivery O2 Flow Rate FiO2 08/21/17 13:10 97.4 67 20 139/73 (95) 100 08/21/17 12:54 98 16 152/87 (108) 97 08/21/17 08:38 68 08/20/17 15:03 97.7 79 22 175/83 (113) 99 Physical Exam GENERAL: This is a well-nourished, well-developed patient, in no apparent distress. SKIN: No rashes, ecchymoses or lesions. Cool and dry. HEAD: Atraumatic. Normocephalic. No temporal or scalp tenderness. EYES: Pupils equal round and reactive. Extraocular motions intact. No scleral icterus. No injection or drainage. ENT: Nose without bleeding, purulent drainage or septal hematoma. Throat without erythema, tonsillar hypertrophy or exudate. Uvula midline. Airway patent. NECK: Trachea midline. No JVD or lymphadenopathy. Supple, nontender, no meningeal signs. CARDIOVASCULAR: Regular rate and rhythm without murmurs, gallops, or rubs. RESPIRATORY: Clear to auscultation. Breath sounds equal bilaterally. No wheezes , rales, or rhonchi. GASTROINTESTINAL: Abdomen soft, non-tender, nondistended. No hepato-splenomegaly , or palpable masses. No guarding. MUSCULOSKELETAL: Extremities without clubbing, cyanosis, or edema. No joint tenderness, effusion, or edema noted. No calf tenderness. Negative Homans sign bilaterally. NEUROLOGICAL: Awake and alert. Cranial nerves II through XII intact. Motor and sensory grossly within normal limits. Five out of 5 muscle strength in all muscle groups. Normal speech. Psych cooperative IV line sites with no e.o infection Laboratory Laboratory Tests Test 08/20/17 15:00 08/21/17 04:15 Urine Color YELLOW Urine Turbidity CLEAR Urine pH 6.5 Urine Specific [place] 1.007 Urine Protein NEG Urine Glucose (UA) NEG Urine Ketones TRACE Urine Occult Blood TRACE Urine Nitrite NEG Urine Bilirubin NEG Urine Urobilinogen LESS THAN 2.0 Urine Leukocyte Esterase SMALL Urine RBC 2 Urine WBC 2 Urine Squamous Epithelial Cells 3 Microscopic Urinalysis Comment CULT NOT INDICATED Urine Opiates Screen NEG Urine Barbiturates Screen NEG Urine Amphetamines Screen POS Urine Benzodiazepines Screen NEG Urine Cocaine Screen NEG Urine Cannabinoids Screen NEG White Blood Count 7.6 Red Blood Count 4.22 Hemoglobin 12.6 Hematocrit 37.5 Mean Corpuscular Volume 88.8 Mean Corpuscular Hemoglobin 29.9 Mean Corpuscular Hemoglobin Concent 33.6 Red Cell Distribution Width 13.2 Platelet Count 297 Mean Platelet Volume 7.7 Neutrophils (%) (Auto) 57.1 Lymphocytes (%) (Auto) 31.3 Monocytes (%) (Auto) 9.1 Eosinophils (%) (Auto) 1.9 Basophils (%) (Auto) 0.6 Neutrophils # (Auto) 4.4 Lymphocytes # (Auto) 2.4 Monocytes # (Auto) 0.7 Eosinophils # (Auto) 0.1 Basophils # (Auto) 0.0 CBC Comment DIFF FINAL Differential Comment Blood Urea Nitrogen 8 Creatinine 0.68 Random Glucose 98 Total Protein 7.7 Albumin 2.9 Calcium Level 8.9 Alkaline Phosphatase 197 Aspartate Amino Transf (AST/SGOT) 68 Alanine Aminotransferase (ALT/SGPT) 89 Total Bilirubin 1.2 Sodium Level 139 Potassium Level 3.6 Chloride Level 106 Carbon Dioxide Level 28.0 Anion Gap 5 Estimat Glomerular Filtration Rate 91 Date/Time Source Procedure Growth Status 08/20/17 14:05 Blood Peripheral Aerobic Blood Culture - Preliminary NO GROWTH IN 1 DAY Resulted 08/20/17 14:05 Blood Peripheral Anaerobic Blood Culture - Preliminary NO GROWTH IN 1 DAY Resulted Result Diagram: 08/21/17 0415 08/21/17 0415 Imaging reviewed from prior admission/ED visit. Assessment and Plan Assessment and Plan Lumbar and Cervical spinal osteomyelitis s.p Zosyn IV and Vanco prior to aspiration. IVDA Recs: Continue Zosyn IV Continue Vanco IV (target 15-20) Follow cultures Follow clinically. Will decide and deescalate to a regimen that is empiric and easy for compliance in next day or so. Radha Anderson MD Aug 21, 2017 14:56
[2017-08-21] MEDS: ENOXAPARIN SODIUM 40 MG/0.4 ML SYRINGE SQ SCH (15:53)
[2017-08-21 16:28] VITALS: BP 135/71; PULSE 86; RESP 20; TEMP 97.8; O2SAT 98
[2017-08-21 20:49] VITALS: BP 124/65; PULSE 75; RESP 17; TEMP 97.9; O2SAT 98
[2017-08-21] MEDS: SODIUM CHLORIDE 0.9% FLUSH 10 ML FLUSH IV FLUSH PRN (22:55)
[2017-08-22] VITALS (10 sets, daily range): BP systolic 117–150; BP diastolic 67–80; PULSE 60–80; RESP 17–18; TEMP 97.3–98.6; O2SAT 97–99
[2017-08-22] MEDS ORDERED: PHARMACY ORDERED LAB ONE ×2 (01:45→13:45)
[2017-08-22] MEDS: SODIUM CHLORIDE 0.9% FLUSH 10 ML FLUSH IV FLUSH PRN (01:59)
[2017-08-22] MEDS: MORPHINE SULFATE 2 MG/ML INJ IV PUSH PRN ×4 (01:59→21:58)
[2017-08-22] MEDS: VANCOMYCIN INJ 1,000 MG in SODIUM CHLOR 0.9% 250 ML INJ 250 ML IV SCH ×3 (02:10→21:10)
[2017-08-22 03:00] LABS: ALBUMIN 2.6 GM/DL (3.4-5.0); ALKALINE PHOSPHATASE 165 U/L (45-117); ALT (GPT) 69 U/L (10-53); AST (GOT) 50 U/L (15-37); BICARBONATE 26.9 MEQ/L (21.0-32.0); BLOOD UREA NITROGEN 5 MG/DL (7-18); CALCIUM 8.1 MG/DL (8.5-10.1); CHLORIDE 110 MEQ/L (98-107); GLOMERULAR FILTRATION RATE 129 ML/MIN (>89); GLUCOSE,RANDOM 91 MG/DL (74-106); SODIUM (NA) 141 MEQ/L (136-145); TOTAL BILIRUBIN ADULT 0.5 MG/DL (0.2-1.0); TOTAL PROTEIN 6.7 GM/DL (6.4-8.2)
[2017-08-22] MEDS: PIPERACIL-TAZO 3.375 GM PREMIX 50 ML IV SCH (04:45)
[2017-08-22] MEDS: SODIUM CHLOR 0.9% 1000 ML INJ 1,000 ML IV SCH ×3 (04:46→17:37)
[2017-08-22] MEDS: BACLOFEN 10 MG TAB PO SCH ×3 (06:44→21:08)
[2017-08-22] MEDS: DOCUSATE SODIUM 50 MG/SENNA 8.6 MG TAB PO SCH ×2 (08:21→21:08)
[2017-08-22] MEDS: NICOTINE 21 MG/24 HR PATCH T-DERMAL SCH (08:21)
[2017-08-22] MEDS: REMOVE OLD PATCH T-DERMAL SCH (08:22)
[2017-08-22] MEDS: SODIUM CHLORIDE 0.9% FLUSH 10 ML FLUSH IV FLUSH SCH ×2 (08:22→21:00)
[2017-08-22] MEDS: oxyCODONE/ACETAMINOPHEN 10 MG/325 MG TAB PO PRN ×3 (08:22→21:09)
--- NOTE | 2017-08-22 08:58 | HHI.PR ---
Subjective Remarks in no acute distress. pain is fairly controlled. remains afebrile. Objective Vitals Vital Signs Date Time Temp Pulse Resp B/P (MAP) Pulse Ox O2 Delivery O2 Flow Rate FiO2 08/22/17 05:04 98.3 78 17 150/80 (103) 99 08/22/17 00:33 97.8 78 17 136/72 (93) 97 08/21/17 20:49 97.9 75 17 124/65 (84) 98 08/21/17 16:28 97.8 86 20 135/71 (92) 98 08/21/17 13:10 97.4 67 20 139/73 (95) 100 08/21/17 12:54 98 16 152/87 (108) 97 I/O 08/21/17 08/21/17 08/21/17 08/22/17 08/22/17 08/22/17 07:00 15:00 23:00 07:00 15:00 23:00 Intake Total 1350 ml 300 ml 480 ml Balance 1350 ml 300 ml 480 ml Intake Oral 480 ml IV Total 1350 ml 300 ml # Voids 3 Result Diagram: 08/21/17 0415 08/22/17 0140 Objective Remarks GENERAL: This is a well-nourished, well-developed patient, in no apparent distress. CARDIOVASCULAR: Regular rate and regular rhythm without murmurs, gallops, or rubs. RESPIRATORY: Clear to auscultation. Breath sounds equal bilaterally. No wheezes , rales, or rhonchi. GASTROINTESTINAL: Abdomen soft, non-tender, nondistended. Normal, active bowel sounds MUSCULOSKELETAL: Extremities without clubbing, cyanosis, or edema. NEURO: Alert & Oriented x4 to person, place, time, situation. Moves all ext x4 Medications and IVs Inpatient Medications Acetaminophen (Tylenol) 650 mg Q6H PRN PO PAIN 1-2, Temp>100.4, [place]; Start at 15:45 Baclofen (Lioresal) 5 mg Q8HR PO Last administered on 08/22/17at 06:44; Start 08/20/17 at 15:45 Bisacodyl (Dulcolax Supp) 10 mg DAILY PRN RECTAL SEVERE CONSITIPATION; Start at 15:45 Enoxaparin Sodium (Lovenox Inj) 40 mg Q24H SQ Last administered on 08/21/17at 15: 53; Start 08/20/17 at 16:00 Lactulose (Lactulose Liq) 30 ml DAILY PRN PO SEVERE CONSITIPATION; Start at 15:45 Magnesium Hydroxide (Milk Of Magnesia Liq) 30 ml Q12H PRN PO Mild constipation ; Start 08/20/17 at 15:45 Miscellaneous Information SPECIFIC LAB TO BE DRAWN:VA... ONCE ONCE .XX ; Start 08/22/17 at 13:45; Stop 08/22/17 at 13:46 Morphine Sulfate (Morphine Inj) 2 mg Q3H PRN IV PUSH BREAKTHROUGH PAIN Last administered on 08/22/17at 01:59; Start 08/20/17 at 15:45 Naloxone HCl (Narcan Inj) 0.4 mg UNSCH PRN IV PUSH SEE LABEL COMMENTS; Start at 15:45 Nicotine (Habitrol 21 Mg Patch.24 Hr) 1 patch DAILY T-DERMAL Last administered on 08/22/17at 08:21; Start 08/20/17 at 18:30 Ondansetron HCl (Zofran Inj) 4 mg Q6H PRN IVP NAUSEA OR VOMITING; Start at 15:45 Oxycodone/ Acetaminophen (Percocet 5-325 Mg) 1 tab Q6H PRN PO PAIN SCALE 3 TO 5; Start 08/20/17 at 15:45 Oxycodone/ Acetaminophen (Percocet 10-325 Mg) 1 tab Q6H PRN PO PAIN SCALE 6 TO 10 Last administered on 08/22/17at 08:22; Start 08/20/17 at 15:45 Pharmacy Profile Note 0 ml @ 0 mls/hr UNSCH OTHER ; Start 08/20/17 at 15:45 Piperacillin Sod/ Tazobactam Sod 50 ml @ 100 mls/hr Q6H IV Last administered on 08/22/17at 04:45; Start 08/20/17 at 17:00; Stop 08/22/17 at 08:37; Status DC Senna/Docusate Sodium (Priscilla-Colace) 1 tab BID PO Last administered on 08/22/17at 08:21; Start 08/20/17 at 21:00 Sennosides (Senokot) 17.2 mg Q12H PRN PO Moderate constipation; Start 08/20/17 at 15:45 Sodium Chloride (NS Flush) 2 ml BID IV FLUSH Last administered on 08/21/17at 08: 43; Start 08/20/17 at 21:00 Vancomycin HCl 1000 mg/Sodium Chloride 250 ml @ 250 mls/hr Q12H IV Last administered on 08/22/17at 02:10; Start 08/21/17 at 02:00 A/P Problem List: (1) IV drug abuse ICD Code: F19.10 - Other psychoactive substance abuse, uncomplicated Status: Acute (2) Osteomyelitis ICD Code: M86.9 - Osteomyelitis, unspecified (3) Sepsis ICD Code: A41.9 - Sepsis, unspecified organism Assessment and Plan SIRS due to Osteomyelitis of the cervical and thoracic spine Hx IVDA - 08/19/17 Echocardiogram showed left ventricular systolic function is moderately reduced with an estimated ejection fraction in the range of 40-45%. Wall thickness is measured at the upper limits of normal. Normal left ventricular size. There is mild tricuspid regurgitation. The estimated pulmonary arterial pressure is 36 mmHg. -Patient was started on vancomycin and Zosyn in ED, continue vancomycin and Zosyn for now -Infectious disease consult for further evaluation and recommendation. -Pain management Percocet, IV morphine for breakthrough pain, baclofen for spasms. Improving -follow the blood and needle aspiration cultures. -Pending hepatitis and HIV panel. U tox positive for amphetamines. Transaminitis -Elevated LFTs -Pending hepatitis and HIV panel IVDA Substance Abuse Tobacco -Counseled. U tox positive for amphetamines. -Nicotine Patch DVT problem SCDs Problem Qualifiers (1) Osteomyelitis: Qualified Codes: M86.9 - Osteomyelitis, unspecified Derik Ritter MD Aug 22, 2017 08:58
[2017-08-22] MEDS ORDERED: POTASSIUM CHLORIDE 10 MEQ CONTROLLED RELEASE TAB PO ONE (09:30)
[2017-08-22] MEDS: ENOXAPARIN SODIUM 40 MG/0.4 ML SYRINGE SQ SCH (17:01)
[2017-08-23] VITALS (10 sets, daily range): BP systolic 125–167; BP diastolic 51–87; PULSE 58–83; RESP 17–18; TEMP 97–98.4; O2SAT 97–100
[2017-08-23] MEDS: oxyCODONE/ACETAMINOPHEN 10 MG/325 MG TAB PO PRN ×3 (03:21→18:00)
[2017-08-23] MEDS: SODIUM CHLOR 0.9% 1000 ML INJ 1,000 ML IV SCH ×3 (03:37→23:37)
[2017-08-23] MEDS: MORPHINE SULFATE 2 MG/ML INJ IV PUSH PRN ×4 (03:44→20:37)
[2017-08-23] MEDS: BACLOFEN 10 MG TAB PO SCH ×3 (05:48→20:34)
[2017-08-23] MEDS: VANCOMYCIN INJ 1,000 MG in SODIUM CHLOR 0.9% 250 ML INJ 250 ML IV SCH ×3 (05:49→20:34)
[2017-08-23] MEDS: NICOTINE 21 MG/24 HR PATCH T-DERMAL SCH (08:11)
[2017-08-23] MEDS: DOCUSATE SODIUM 50 MG/SENNA 8.6 MG TAB PO SCH ×2 (08:11→20:33)
[2017-08-23] MEDS: SODIUM CHLORIDE 0.9% FLUSH 10 ML FLUSH IV FLUSH SCH ×2 (08:13→20:32)
[2017-08-23] MEDS: REMOVE OLD PATCH T-DERMAL SCH (08:13)
--- NOTE | 2017-08-23 08:56 | HHI.PR ---
Subjective Remarks in no acute distress. has some back pain. no fever. d/w the RN and no acute issues over night. Objective Vitals Vital Signs Date Time Temp Pulse Resp B/P (MAP) Pulse Ox O2 Delivery O2 Flow Rate FiO2 08/23/17 05:14 62 08/23/17 03:15 98.3 69 17 125/80 (95) 98 08/23/17 00:54 58 08/23/17 00:00 97.0 76 18 130/51 (77) 99 08/22/17 23:30 68 08/22/17 20:00 97.3 60 18 143/70 (94) 97 08/22/17 20:00 97.3 60 18 143/70 (94) 97 08/22/17 19:20 69 08/22/17 17:02 15 08/22/17 16:00 98.1 77 18 143/67 (92) 98 08/22/17 12:36 62 08/22/17 12:00 97.4 67 18 117/67 (84) 99 08/22/17 09:00 80 I/O 08/22/17 08/22/17 08/22/17 08/23/17 08/23/17 08/23/17 07:00 15:00 23:00 07:00 15:00 23:00 Intake Total 480 ml 50 ml 250 ml 800 ml Balance 480 ml 50 ml 250 ml 800 ml Intake Oral 480 ml 800 ml IV Total 50 ml 250 ml # Voids 3 2 # Bowel Movements 0 Result Diagram: 08/21/17 0415 08/22/17 0140 Objective Remarks GENERAL: This is a well-nourished, well-developed patient, in no apparent distress. CARDIOVASCULAR: Regular rate and regular rhythm without murmurs, gallops, or rubs. RESPIRATORY: Clear to auscultation. Breath sounds equal bilaterally. No wheezes , rales, or rhonchi. GASTROINTESTINAL: Abdomen soft, non-tender, nondistended. Normal, active bowel sounds MUSCULOSKELETAL: Extremities without clubbing, cyanosis, or edema. NEURO: Alert & Oriented x4 to person, place, time, situation. Moves all ext x4 Medications and IVs Inpatient Medications Acetaminophen (Tylenol) 650 mg Q6H PRN PO PAIN 1-2, Temp>100.4, [place]; Start at 15:45 Baclofen (Lioresal) 5 mg Q8HR PO Last administered on 08/23/17at 05:48; Start 08/20/17 at 15:45 Bisacodyl (Dulcolax Supp) 10 mg DAILY PRN RECTAL SEVERE CONSITIPATION; Start at 15:45 Enoxaparin Sodium (Lovenox Inj) 40 mg Q24H SQ Last administered on 08/22/17at 17: 01; Start 08/20/17 at 16:00 Lactulose (Lactulose Liq) 30 ml DAILY PRN PO SEVERE CONSITIPATION; Start at 15:45 Magnesium Hydroxide (Milk Of Magnesia Liq) 30 ml Q12H PRN PO Mild constipation ; Start 08/20/17 at 15:45 Miscellaneous Information SPECIFIC LAB TO BE DRAWN:VANCOMYCIN TROUGH DATE TO... ONCE ONCE .XX ; Start 08/24/17 at 05:45; Stop 08/24/17 at 05:46 Morphine Sulfate (Morphine Inj) 2 mg Q3H PRN IV PUSH BREAKTHROUGH PAIN Last administered on 08/23/17at 08:13; Start 08/20/17 at 15:45 Naloxone HCl (Narcan Inj) 0.4 mg UNSCH PRN IV PUSH SEE LABEL COMMENTS; Start at 15:45 Nicotine (Habitrol 21 Mg Patch.24 Hr) 1 patch DAILY T-DERMAL Last administered on 08/23/17at 08:11; Start 08/20/17 at 18:30 Ondansetron HCl (Zofran Inj) 4 mg Q6H PRN IVP NAUSEA OR VOMITING; Start at 15:45 Oxycodone/ Acetaminophen (Percocet 5-325 Mg) 1 tab Q6H PRN PO PAIN SCALE 3 TO 5 Last administered on 08/23/17at 05:48; Start 08/20/17 at 15:45 Oxycodone/ Acetaminophen (Percocet 10-325 Mg) 1 tab Q6H PRN PO PAIN SCALE 6 TO 10 Last administered on 08/23/17at 03:21; Start 08/20/17 at 15:45 Pharmacy Profile Note 0 ml @ 0 mls/hr UNSCH OTHER ; Start 08/20/17 at 15:45 Piperacillin Sod/ Tazobactam Sod 50 ml @ 100 mls/hr Q6H IV Last administered on 08/22/17at 04:45; Start 08/20/17 at 17:00; Stop 08/22/17 at 08:37; Status DC Potassium Chloride (KCl) 30 meq ONCE ONCE PO Last administered on 08/22/17at 09: 52; Start 08/22/17 at 09:30; Stop 08/22/17 at 09:31; Status DC Senna/Docusate Sodium (Priscilla-Colace) 1 tab BID PO Last administered on 08/23/17at 08:11; Start 08/20/17 at 21:00 Sennosides (Senokot) 17.2 mg Q12H PRN PO Moderate constipation; Start 08/20/17 at 15:45 Sodium Chloride (NS Flush) 2 ml BID IV FLUSH Last administered on 08/23/17at 08: 13; Start 08/20/17 at 21:00 Vancomycin HCl 1000 mg/Sodium Chloride 250 ml @ 250 mls/hr Q8H IV Last administered on 08/23/17at 05:49; Start 08/22/17 at 22:00 A/P Problem List: (1) IV drug abuse ICD Code: F19.10 - Other psychoactive substance abuse, uncomplicated Status: Acute (2) Osteomyelitis ICD Code: M86.9 - Osteomyelitis, unspecified (3) Sepsis ICD Code: A41.9 - Sepsis, unspecified organism Assessment and Plan SIRS due to Osteomyelitis of the cervical and thoracic spine Hx IVDA - 08/19/17 Echocardiogram showed left ventricular systolic function is moderately reduced with an estimated ejection fraction in the range of 40-45%. Wall thickness is measured at the upper limits of normal. Normal left ventricular size. There is mild tricuspid regurgitation. The estimated pulmonary arterial pressure is 36 mmHg. -Patient was started on vancomycin and Zosyn in ED, continue vancomycin - per ID. -Infectious disease consult appreciated. -Pain management Percocet, IV morphine for breakthrough pain, baclofen for spasms. Improving -follow the blood and needle aspiration cultures. - U tox positive for amphetamines. Transaminitis/ Hepatitis C positive -Elevated LFTs -f/u as outpatient IVDA Substance Abuse Tobacco -Counseled. U tox positive for amphetamines. -Nicotine Patch DVT problem SCDs Problem Qualifiers (1) Osteomyelitis: Qualified Codes: M86.9 - Osteomyelitis, unspecified Minouei,Mohammadreza MD Aug 23, 2017 08:56
[2017-08-23] MEDS: ENOXAPARIN SODIUM 40 MG/0.4 ML SYRINGE SQ SCH (15:08)
[2017-08-24] VITALS (7 sets, daily range): BP systolic 122–148; BP diastolic 67–79; PULSE 65–85; RESP 16–18; TEMP 97.4–98.7; O2SAT 96–99
[2017-08-24] MEDS: oxyCODONE/ACETAMINOPHEN 10 MG/325 MG TAB PO PRN ×4 (00:04→18:46)
[2017-08-24] MEDS: MORPHINE SULFATE 2 MG/ML INJ IV PUSH PRN ×5 (00:05→20:09)
[2017-08-24] MEDS: VANCOMYCIN INJ 1,000 MG in SODIUM CHLOR 0.9% 250 ML INJ 250 ML IV SCH ×3 (05:20→20:14)
[2017-08-24] MEDS: BACLOFEN 10 MG TAB PO SCH ×3 (05:20→20:09)
[2017-08-24] MEDS ORDERED: PHARMACY ORDERED LAB ONE (05:45)
[2017-08-24 07:42] LABS: CREATININE 0.58 MG/DL (0.50-1.00)
[2017-08-24] MEDS: DOCUSATE SODIUM 50 MG/SENNA 8.6 MG TAB PO SCH ×2 (08:22→20:09)
[2017-08-24] MEDS: SODIUM CHLORIDE 0.9% FLUSH 10 ML FLUSH IV FLUSH SCH ×2 (08:27→20:09)
[2017-08-24] MEDS: NICOTINE 21 MG/24 HR PATCH T-DERMAL SCH (08:33)
[2017-08-24] MEDS: REMOVE OLD PATCH T-DERMAL SCH (08:33)
[2017-08-24] MEDS: SODIUM CHLOR 0.9% 1000 ML INJ 1,000 ML IV SCH ×2 (09:18→14:40)
--- NOTE | 2017-08-24 09:32 | HHI.PR ---
Subjective Remarks in no acute distress. looks fairly comfortable. no fever. d/w the RN and no acute issues over night. Objective Vitals Vital Signs Date Time Temp Pulse Resp B/P (MAP) Pulse Ox O2 Delivery O2 Flow Rate FiO2 08/24/17 08:00 98.0 77 16 143/72 (95) 96 08/24/17 04:45 98.3 75 17 122/74 (90) 99 08/24/17 00:00 97.6 80 16 130/75 (93) 98 08/23/17 23:00 80 08/23/17 20:30 98.3 80 17 136/80 (98) 97 08/23/17 16:45 97.7 83 18 167/87 (113) 100 08/23/17 12:00 97.9 80 17 133/76 (95) 98 08/23/17 10:48 72 I/O 08/23/17 08/23/17 08/23/17 08/24/17 08/24/17 08/24/17 07:00 15:00 23:00 07:00 15:00 23:00 Intake Total 800 ml 1440 ml 700 ml Balance 800 ml 1440 ml 700 ml Intake Oral 800 ml 1440 ml 700 ml # Voids 2 5 4 # Bowel Movements 0 0 0 Result Diagram: 08/21/17 0415 08/24/17 0530 Objective Remarks GENERAL: This is a well-nourished, well-developed patient, in no apparent distress. CARDIOVASCULAR: Regular rate and regular rhythm without murmurs, gallops, or rubs. RESPIRATORY: Clear to auscultation. Breath sounds equal bilaterally. No wheezes , rales, or rhonchi. GASTROINTESTINAL: Abdomen soft, non-tender, nondistended. Normal, active bowel sounds MUSCULOSKELETAL: Extremities without clubbing, cyanosis, or edema. NEURO: Alert & Oriented x4 to person, place, time, situation. Moves all ext x4 Medications and IVs Inpatient Medications Acetaminophen (Tylenol) 650 mg Q6H PRN PO PAIN 1-2, Temp>100.4, [place]; Start at 15:45 Baclofen (Lioresal) 5 mg Q8HR PO Last administered on 08/24/17at 05:20; Start 08/20/17 at 15:45 Bisacodyl (Dulcolax Supp) 10 mg DAILY PRN RECTAL SEVERE CONSITIPATION; Start at 15:45 Enoxaparin Sodium (Lovenox Inj) 40 mg Q24H SQ Last administered on 08/23/17at 15: 08; Start 08/20/17 at 16:00 Lactulose (Lactulose Liq) 30 ml DAILY PRN PO SEVERE CONSITIPATION; Start at 15:45 Magnesium Hydroxide (Milk Of Magnesia Liq) 30 ml Q12H PRN PO Mild constipation ; Start 08/20/17 at 15:45 Miscellaneous Information SPECIFIC LAB TO BE BARBARA... ONCE ONCE .XX ; Start at 05:45; Stop 08/25/17 at 05:46 Morphine Sulfate (Morphine Inj) 2 mg Q3H PRN IV PUSH BREAKTHROUGH PAIN Last administered on 08/24/17at 08:24; Start 08/20/17 at 15:45 Naloxone HCl (Narcan Inj) 0.4 mg UNSCH PRN IV PUSH SEE LABEL COMMENTS; Start at 15:45 Nicotine (Habitrol 21 Mg Patch.24 Hr) 1 patch DAILY T-DERMAL Last administered on 08/24/17at 08:33; Start 08/20/17 at 18:30 Ondansetron HCl (Zofran Inj) 4 mg Q6H PRN IVP NAUSEA OR VOMITING; Start at 15:45 Oxycodone/ Acetaminophen (Percocet 5-325 Mg) 1 tab Q6H PRN PO PAIN SCALE 3 TO 5 Last administered on 08/23/17at 05:48; Start 08/20/17 at 15:45 Oxycodone/ Acetaminophen (Percocet 10-325 Mg) 1 tab Q6H PRN PO PAIN SCALE 6 TO 10 Last administered on 08/24/17at 06:37; Start 08/20/17 at 15:45 Pharmacy Profile Note 0 ml @ 0 mls/hr UNSCH OTHER ; Start 08/20/17 at 15:45 Piperacillin Sod/ Tazobactam Sod 50 ml @ 100 mls/hr Q6H IV Last administered on 08/22/17at 04:45; Start 08/20/17 at 17:00; Stop 08/22/17 at 08:37; Status DC Potassium Chloride (KCl) 30 meq ONCE ONCE PO Last administered on 08/22/17at 09: 52; Start 08/22/17 at 09:30; Stop 08/22/17 at 09:31; Status DC Senna/Docusate Sodium (Priscilla-Colace) 1 tab BID PO Last administered on 08/24/17at 08:22; Start 08/20/17 at 21:00 Sennosides (Senokot) 17.2 mg Q12H PRN PO Moderate constipation; Start 08/20/17 at 15:45 Sodium Chloride (NS Flush) 2 ml BID IV FLUSH Last administered on 08/24/17at 08: 27; Start 08/20/17 at 21:00 Vancomycin HCl 1000 mg/Sodium Chloride 250 ml @ 250 mls/hr Q8H IV Last administered on 08/24/17at 05:20; Start 08/22/17 at 22:00 A/P Problem List: (1) IV drug abuse ICD Code: F19.10 - Other psychoactive substance abuse, uncomplicated Status: Acute (2) Osteomyelitis ICD Code: M86.9 - Osteomyelitis, unspecified (3) Sepsis ICD Code: A41.9 - Sepsis, unspecified organism Assessment and Plan SIRS due to Osteomyelitis of the cervical and thoracic spine Hx IVDA - 08/19/17 Echocardiogram showed left ventricular systolic function is moderately reduced with an estimated ejection fraction in the range of 40-45%. Wall thickness is measured at the upper limits of normal. Normal left ventricular size. There is mild tricuspid regurgitation. The estimated pulmonary arterial pressure is 36 mmHg. - continue vancomycin - per ID. -Infectious disease consult appreciated. -Pain management Percocet, IV morphine for breakthrough pain, baclofen for spasms. Improving -blood and needle aspiration cultures negative so far. - U tox positive for amphetamines. Transaminitis/ Hepatitis C positive -Elevated LFTs -f/u as outpatient IVDA Substance Abuse Tobacco -Counseled. U tox positive for amphetamines. -Nicotine Patch DVT problem SCDs Discharge Planning awaiting ID recommendations. Problem Qualifiers (1) Osteomyelitis: Qualified Codes: M86.9 - Osteomyelitis, unspecified Derik Ritter MD Aug 24, 2017 09:32
[2017-08-24] MEDS: ENOXAPARIN SODIUM 40 MG/0.4 ML SYRINGE SQ SCH (15:54)
[2017-08-25] VITALS (10 sets, daily range): BP systolic 132–152; BP diastolic 64–82; PULSE 67–98; RESP 17–18; TEMP 97.6–98.5; O2SAT 97–99
[2017-08-25] MEDS: oxyCODONE/ACETAMINOPHEN 10 MG/325 MG TAB PO PRN ×4 (00:56→18:39)
[2017-08-25] MEDS: MORPHINE SULFATE 2 MG/ML INJ IV PUSH PRN ×5 (01:42→20:18)
[2017-08-25] MEDS: SODIUM CHLORIDE 0.9% FLUSH 10 ML FLUSH IV FLUSH PRN (01:43)
[2017-08-25] MEDS ORDERED: PHARMACY ORDERED LAB ONE (05:45)
[2017-08-25] MEDS: SODIUM CHLOR 0.9% 1000 ML INJ 1,000 ML IV SCH ×2 (05:52→15:37)
[2017-08-25] MEDS: VANCOMYCIN INJ 1,000 MG in SODIUM CHLOR 0.9% 250 ML INJ 250 ML IV SCH ×3 (05:52→22:36)
[2017-08-25] MEDS: BACLOFEN 10 MG TAB PO SCH ×3 (05:52→22:36)
[2017-08-25 07:37] LABS: CREATININE 0.62 MG/DL (0.50-1.00)
--- NOTE | 2017-08-25 08:41 | HHI.PR ---
Subjective Remarks in no acute distress. no fever. pain is fairly controlled. Objective Vitals Vital Signs Date Time Temp Pulse Resp B/P (MAP) Pulse Ox O2 Delivery O2 Flow Rate FiO2 08/25/17 08:10 98.4 73 17 139/75 (96) 98 08/25/17 04:00 79 08/25/17 04:00 97.6 84 18 132/64 (86) 97 08/25/17 00:00 98.0 80 18 151/67 (95) 98 08/25/17 00:00 74 08/24/17 20:00 80 08/24/17 20:00 98.7 80 18 145/67 (93) 97 08/24/17 16:00 97.4 85 16 122/79 (93) 98 08/24/17 12:00 98.0 72 16 148/72 (97) 97 08/24/17 11:00 65 I/O 08/24/17 08/24/17 08/24/17 08/25/17 08/25/17 08/25/17 07:00 15:00 23:00 07:00 15:00 23:00 Intake Total 700 ml 250 ml 1280 ml Balance 700 ml 250 ml 1280 ml Intake Oral 700 ml IV Total 250 ml 1280 ml # Voids 4 4 # Bowel Movements 0 Result Diagram: 08/21/17 0415 08/25/17 0630 Objective Remarks GENERAL: This is a well-nourished, well-developed patient, in no apparent distress. CARDIOVASCULAR: Regular rate and regular rhythm without murmurs, gallops, or rubs. RESPIRATORY: Clear to auscultation. Breath sounds equal bilaterally. No wheezes , rales, or rhonchi. GASTROINTESTINAL: Abdomen soft, non-tender, nondistended. Normal, active bowel sounds MUSCULOSKELETAL: Extremities without clubbing, cyanosis, or edema. NEURO: Alert & Oriented x4 to person, place, time, situation. Moves all ext x4 Medications and IVs Inpatient Medications Acetaminophen (Tylenol) 650 mg Q6H PRN PO PAIN 1-2, Temp>100.4, [place]; Start at 15:45 Baclofen (Lioresal) 5 mg Q8HR PO Last administered on 08/25/17at 05:52; Start 08/20/17 at 15:45 Bisacodyl (Dulcolax Supp) 10 mg DAILY PRN RECTAL SEVERE CONSITIPATION; Start at 15:45 Enoxaparin Sodium (Lovenox Inj) 40 mg Q24H SQ Last administered on 08/24/17at 15: 54; Start 08/20/17 at 16:00 Lactulose (Lactulose Liq) 30 ml DAILY PRN PO SEVERE CONSITIPATION; Start at 15:45 Magnesium Hydroxide (Milk Of Magnesia Liq) 30 ml Q12H PRN PO Mild constipation ; Start 08/20/17 at 15:45 Miscellaneous Information SPECIFIC LAB TO BE BARBARA... ONCE ONCE .XX Last administered on 08/25/17at 06:05; Start 08/25/17 at 05:45; Stop 08/25/17 at 05:46; Status DC Morphine Sulfate (Morphine Inj) 2 mg Q4HR PRN IV PUSH BREAKTHROUGH PAIN Last administered on 08/25/17at 07:49; Start 08/24/17 at 09:45 Naloxone HCl (Narcan Inj) 0.4 mg UNSCH PRN IV PUSH SEE LABEL COMMENTS; Start at 15:45 Nicotine (Habitrol 21 Mg Patch.24 Hr) 1 patch DAILY T-DERMAL Last administered on 08/24/17at 08:33; Start 08/20/17 at 18:30 Ondansetron HCl (Zofran Inj) 4 mg Q6H PRN IVP NAUSEA OR VOMITING; Start at 15:45 Oxycodone/ Acetaminophen (Percocet 5-325 Mg) 1 tab Q6H PRN PO PAIN SCALE 3 TO 5 Last administered on 08/23/17at 05:48; Start 08/20/17 at 15:45 Oxycodone/ Acetaminophen (Percocet 10-325 Mg) 1 tab Q6H PRN PO PAIN SCALE 6 TO 10 Last administered on 08/25/17at 05:52; Start 08/20/17 at 15:45 Pharmacy Profile Note 0 ml @ 0 mls/hr UNSCH OTHER ; Start 08/20/17 at 15:45 Piperacillin Sod/ Tazobactam Sod 50 ml @ 100 mls/hr Q6H IV Last administered on 08/22/17at 04:45; Start 08/20/17 at 17:00; Stop 08/22/17 at 08:37; Status DC Potassium Chloride (KCl) 30 meq ONCE ONCE PO Last administered on 08/22/17at 09: 52; Start 08/22/17 at 09:30; Stop 08/22/17 at 09:31; Status DC Senna/Docusate Sodium (Priscilla-Colace) 1 tab BID PO Last administered on 08/24/17at 20:09; Start 08/20/17 at 21:00 Sennosides (Senokot) 17.2 mg Q12H PRN PO Moderate constipation; Start 08/20/17 at 15:45 Sodium Chloride (NS Flush) 2 ml BID IV FLUSH Last administered on 08/24/17at 20: 09; Start 08/20/17 at 21:00 Vancomycin HCl 1000 mg/Sodium Chloride 250 ml @ 250 mls/hr Q8H IV Last administered on 08/25/17at 05:52; Start 08/22/17 at 22:00 A/P Problem List: (1) IV drug abuse ICD Code: F19.10 - Other psychoactive substance abuse, uncomplicated Status: Acute (2) Osteomyelitis ICD Code: M86.9 - Osteomyelitis, unspecified (3) Sepsis ICD Code: A41.9 - Sepsis, unspecified organism Assessment and Plan SIRS due to Osteomyelitis of the cervical and thoracic spine Hx IVDA - 08/19/17 Echocardiogram showed left ventricular systolic function is moderately reduced with an estimated ejection fraction in the range of 40-45%. Wall thickness is measured at the upper limits of normal. Normal left ventricular size. There is mild tricuspid regurgitation. The estimated pulmonary arterial pressure is 36 mmHg. - continue vancomycin - per ID. -Infectious disease consult appreciated. -Pain management Percocet, IV morphine for breakthrough pain, baclofen for spasms. Improving -blood and needle aspiration cultures negative so far. - U tox positive for amphetamines. Transaminitis/ Hepatitis C positive -Elevated LFTs -f/u as outpatient IVDA Substance Abuse Tobacco -Counseled. U tox positive for amphetamines. -Nicotine Patch DVT problem SCDs Discharge Planning when cleared by ID. Problem Qualifiers (1) Osteomyelitis: Qualified Codes: M86.9 - Osteomyelitis, unspecified Derik Ritter MD Aug 25, 2017 08:41
[2017-08-25] MEDS ORDERED: OXYC1TAB63 PO (08:42)
[2017-08-25] MEDS ORDERED: BACL10TA PO (08:42)
[2017-08-25] MEDS: SODIUM CHLORIDE 0.9% FLUSH 10 ML FLUSH IV FLUSH SCH ×2 (09:00→20:17)
[2017-08-25] MEDS: DOCUSATE SODIUM 50 MG/SENNA 8.6 MG TAB PO SCH ×2 (09:00→20:17)
[2017-08-25] MEDS: REMOVE OLD PATCH T-DERMAL SCH (09:18)
[2017-08-25] MEDS: NICOTINE 21 MG/24 HR PATCH T-DERMAL SCH (09:18)
--- NOTE | 2017-08-25 15:09 | HHI.IDPN ---
Subjective Subjective Remarks Ms. Ware is a 52-year-old female with past medical history of IV drug abuse. She presents to the hospital with complaints of fevers, chills, back pain. Patient reports having severe back pain for the last few days but this has gotten worse just prior to admission. She admits to using Dilaudid for severe pain just a few days prior to admission. She denies any cardiopulmonary symptoms. She denies any abdominal symptoms. Patient was noted to have Cervical and Thoracic spine abnormality ? osteomyelitis on MRI spine. Patient recd dose of Zosyn IV and Vanco IV. No outpatient or other hospital antibiotics. Patient underwent CT guided aspiration of spine abnormality site. Cultures no growth so far. Patient returned to ED after signing off AMA. Upon questioning smiles and says "I dont remember why I left" . At time of my evaluation patient is alert and oriented. ID consulted for eval and Mment of epidural abscess/osteomyelitis. Overnight events reviewed No fevers No rash No diarrhea Reports to me friend will take her and let her stay. Attempted to call her friend who is reportedly a professor at [employer]. RN will speak to her to confirm pt can stay with her and then call me to finalize DC plans. Antibiotics Vanco IV Lines Line sites with no e.o infection. Past Medical History reviewed. Allergies: Coded Allergies: No Known Allergies (Unverified Allergy, Unknown, 08/19/17) Objective . Vital Signs Date Time Temp Pulse Resp B/P (MAP) Pulse Ox O2 Delivery O2 Flow Rate FiO2 08/25/17 12:05 85 08/25/17 11:30 98.5 98 17 134/76 (95) 97 08/25/17 09:20 67 08/25/17 08:10 98.4 73 17 139/75 (96) 98 08/25/17 04:00 79 08/25/17 04:00 97.6 84 18 132/64 (86) 97 08/25/17 00:00 98.0 80 18 151/67 (95) 98 08/25/17 00:00 74 08/24/17 20:00 80 08/24/17 20:00 98.7 80 18 145/67 (93) 97 08/24/17 16:00 97.4 85 16 122/79 (93) 98 08/25/17 08/25/1718 15:00 23:00 07:00 Intake Total 600 ml Balance 600 ml Intake Oral 600 ml # Voids 1 . Laboratory Tests Test 08/24/17 05:30 08/25/17 06:30 Creatinine 0.58 MG/DL 0.62 MG/DL Estimat Glomerular Filtration Rate 109 ML/MIN 101 ML/MIN Physical Exam GENERAL: This is a well-nourished, well-developed patient, in no apparent distress. SKIN: No rashes, ecchymoses or lesions. Cool and dry. HEAD: Atraumatic. Normocephalic. No temporal or scalp tenderness. EYES: Pupils equal round and reactive. Extraocular motions intact. No scleral icterus. No injection or drainage. ENT: Nose without bleeding, purulent drainage or septal hematoma. Throat without erythema, tonsillar hypertrophy or exudate. Uvula midline. Airway patent. NECK: Trachea midline. No JVD or lymphadenopathy. Supple, nontender, no meningeal signs. CARDIOVASCULAR: Regular rate and rhythm without murmurs, gallops, or rubs. RESPIRATORY: Clear to auscultation. Breath sounds equal bilaterally. No wheezes , rales, or rhonchi. GASTROINTESTINAL: Abdomen soft, non-tender, nondistended. No hepato-splenomegaly , or palpable masses. No guarding. MUSCULOSKELETAL: Extremities without clubbing, cyanosis, or edema. No joint tenderness, effusion, or edema noted. No calf tenderness. Negative Homans sign bilaterally. NEUROLOGICAL: Awake and alert. Cranial nerves II through XII intact. Motor and sensory grossly within normal limits. Five out of 5 muscle strength in all muscle groups. Normal speech. Psych cooperative IV line sites with no e.o infection Assessment & Plan Remarks Lumbar and Cervical spinal osteomyelitis s.p Zosyn IV and Vanco prior to aspiration. Hepatitis C positive, HIV negative. Abnormal LFTs: hep C related IVDA Recs: Continue Vanco IV (target 15-20) Since spine cultures negative will get Tumor markers to rule out mets related spinal abnormality. Also will get Neurosurgery to opine if this could be compression fracture related spinal abnormality vs Osteomyelitis or both. ? Need for specimen for pathology. Depending on the results of Neurosurgery opinion and tumor markers will decide about DC plan. If suspicion of osteomyelitis higher I will plan on DC with Vanco IV. far[facility]ane[facility]. farzaneh [place]: Shraddha spoke to patients friend who works at [employer] who will let her stay at her place for infusion therapy. Follow cultures Follow clinically. to cover for me from 08/26/2017 to 08/28/2017. Radha Anderson MD Aug 25, 2017 15:09
[2017-08-25] MEDS: ENOXAPARIN SODIUM 40 MG/0.4 ML SYRINGE SQ SCH (16:07)
[2017-08-25 22:24] LABS: CA 19-9 10.8 U/ML (0.0-35.0)
[2017-08-26] VITALS (8 sets, daily range): BP systolic 138–163; BP diastolic 68–85; PULSE 60–87; RESP 17–18; TEMP 97.6–98.4; O2SAT 97–98
[2017-08-26] MEDS: oxyCODONE/ACETAMINOPHEN 10 MG/325 MG TAB PO PRN ×4 (00:33→22:16)
[2017-08-26] MEDS: SODIUM CHLOR 0.9% 1000 ML INJ 1,000 ML IV SCH ×3 (01:37→20:49)
[2017-08-26] MEDS: MORPHINE SULFATE 2 MG/ML INJ IV PUSH PRN ×5 (01:38→20:41)
[2017-08-26] MEDS: BACLOFEN 10 MG TAB PO SCH ×3 (05:48→20:41)
[2017-08-26] MEDS: VANCOMYCIN INJ 1,000 MG in SODIUM CHLOR 0.9% 250 ML INJ 250 ML IV SCH ×3 (05:48→20:41)
[2017-08-26 07:57] LABS: CREATININE 0.57 MG/DL (0.50-1.00)
--- NOTE | 2017-08-26 08:56 | PD.CONS ---
(Rickey Cee MD) HPI Consult Requested By Primary Care Physician No Primary Care Physician (Rickey Cee MD) Service Neurosurgery Consult Requested By Dr. Anderson Reason for Consult compression fracture vs osteomyelitis of spine History of Present Illness Ms. Ware is a 52-year-old female history of IV drug use who had initially admitted to [facility] due to complaints of back pain, fevers and chills. She underwent imaging of her cervical and thoracic spine as well as undergone CT- guided aspiration for possible osteomyelitis which showed no growth for 72 hours. She apparently left the hospital AMA. She was confused and possibly hallucinating and was taken back to the hospital by her friend. From her prior admission: An MRI of the cervical spine showed signal abnormalities within the marrow of the C3, C4, C7, and T1 vertebral bodies with some contrast enhancement and mild T1 and T2 prolongation consistent with osteomyelitis. There is also enhancement of the dura posterior to the C7 and T1 vertebral bodies. Epidural impression centrally extending from C3-4 through C4-C5 which could represent thickening of the dura or central disc protrusions. There is some flattening of the ventral margin of the cervical cord at both levels. MRI Thoracic spine at T3 level there anterior superior compression deformity with approximately 30% loss of height. There is also signal abnormality characterized by T1 and T2 prolongation and moderate intensity diffuse enhancement in the vertebral body. No significant epidural impression is seen. Neurosurgical evaluation was requested. (Radha Ramirez) Past Family Social History Allergies: Coded Allergies: No Known Allergies (Unverified Allergy, Unknown, 08/19/17) Active Ordered Medications Current Medications Vancomycin HCl 1000 mg/Sodium Chloride 250 ml @ 250 mls/hr ONCE ONCE IV Last administered on 08/20/17at 14:08; Start 08/20/17 at 13:00; Stop 08/20/17 at 13:59; Status DC Piperacillin Sod/ Tazobactam Sod 50 ml @ 100 mls/hr ONCE ONCE IV Last administered on 08/20/17at 13:36; Start 08/20/17 at 13:00; Stop 08/20/17 at 13:29; Status DC Sodium Chloride 1,000 ml @ 100 mls/hr Q10H IV Last administered on 08/26/17 07 :00; Start 08/20/17 at 15:37 Sodium Chloride (NS Flush) 2 ml UNSCH PRN IV FLUSH FLUSH AFTER USING IV ACCESS Last administered on 08/25/17 01:43; Start 08/20/17 at 15:45 Sodium Chloride (NS Flush) 2 ml BID IV FLUSH Last administered on 08/26/17 10: 25; Start 08/20/17 at 21:00 Ondansetron HCl (Zofran Inj) 4 mg Q6H PRN IVP NAUSEA OR VOMITING; Start at 15:45 Enoxaparin Sodium (Lovenox Inj) 40 mg Q24H SQ Last administered on 08/25/17 16: 07; Start 08/20/17 at 16:00 Acetaminophen (Tylenol) 650 mg Q6H PRN PO PAIN 1-2, Temp>100.4, HURT[place]O; Start at 15:45 Oxycodone/ Acetaminophen (Percocet 5-325 Mg) 1 tab Q6H PRN PO PAIN SCALE 3 TO 5 Last administered on 08/23/17 05:48; Start 08/20/17 at 15:45 Oxycodone/ Acetaminophen (Percocet 10-325 Mg) 1 tab Q6H PRN PO PAIN SCALE 6 TO 10 Last administered on 08/26/17at 13:12; Start 08/20/17 at 15:45 Morphine Sulfate (Morphine Inj) 2 mg Q3H PRN IV PUSH BREAKTHROUGH PAIN Last administered on 08/24/17at 08:24; Start 08/20/17 at 15:45; Stop 08/24/17 at 09:33; Status DC Naloxone HCl (Narcan Inj) 0.4 mg UNSCH PRN IV PUSH SEE LABEL COMMENTS; Start at 15:45 Senna/Docusate Sodium (Priscilla-Colace) 1 tab BID PO Last administered on 08/26/17at 10:24; Start 08/20/17 at 21:00 Magnesium Hydroxide (Milk Of Magnesia Liq) 30 ml Q12H PRN PO Mild constipation ; Start 08/20/17 at 15:45 Sennosides (Senokot) 17.2 mg Q12H PRN PO Moderate constipation; Start 08/20/17 at 15:45 Bisacodyl (Dulcolax Supp) 10 mg DAILY PRN RECTAL SEVERE CONSITIPATION; Start at 15:45 Lactulose (Lactulose Liq) 30 ml DAILY PRN PO SEVERE CONSITIPATION; Start at 15:45 Vancomycin HCl 1000 mg/Sodium Chloride 250 ml @ 250 mls/hr Q12H IV Last administered on 08/22/17at 14:29; Start 08/21/17 at 02:00; Stop 08/22/17 at 15:07; Status DC Pharmacy Profile Note 0 ml @ 0 mls/hr UNSCH OTHER ; Start 08/20/17 at 15:45 Piperacillin Sod/ Tazobactam Sod 50 ml @ 100 mls/hr Q6H IV Last administered on 08/22/17at 04:45; Start 08/20/17 at 17:00; Stop 08/22/17 at 08:37; Status DC Baclofen (Lioresal) 5 mg Q8HR PO Last administered on 08/26/17at 13:11; Start 08/20/17 at 15:45 Miscellaneous Information SPECIFIC LAB TO BE DRAWN:VA... ONCE ONCE .XX Last administered on 08/22/17at 01:45; Start 08/22/17 at 01:45; Stop 08/22/17 at 01:46; Status DC Nicotine (Habitrol 21 Mg Patch.24 Hr) 1 patch DAILY T-DERMAL Last administered on 08/26/17 10:25; Start 08/20/17 at 18:30 Miscellaneous Information 1 DAILY T-DERMAL Last administered on 08/26/17at 10:25 ; Start 08/21/17 at 09:00 Miscellaneous Information SPECIFIC LAB TO BE DRAWN:VA... ONCE ONCE .XX Last administered on 08/22/17 13:45; Start 08/22/17 at 13:45; Stop 08/22/17 at 13:46; Status DC Potassium Chloride (KCl) 30 meq ONCE ONCE PO Last administered on 08/22/17at 09: 52; Start 08/22/17 at 09:30; Stop 08/22/17 at 09:31; Status DC Vancomycin HCl 1000 mg/Sodium Chloride 250 ml @ 250 mls/hr Q8H IV Last administered on 08/26/17at 13:12; Start 08/22/17 at 22:00 Miscellaneous Information SPECIFIC LAB TO BE DRAWN:VANCOMYCIN TROUGH DATE TO... ONCE ONCE .XX Last administered on 08/24/17at 05:20; Start 08/24/17 at 05:45; Stop 08/24/17 at 05:46; Status DC Miscellaneous Information SPECIFIC LAB TO BE BARBARA... ONCE ONCE .XX Last administered on 08/25/17at 06:05; Start 08/25/17 at 05:45; Stop 08/25/17 at 05:46; Status DC Morphine Sulfate (Morphine Inj) 2 mg Q4HR PRN IV PUSH BREAKTHROUGH PAIN Last administered on 08/26/17at 10:24; Start 08/24/17 at 09:45 Miscellaneous Information SPECIFIC LAB TO BE DRAWN:VANCO TROUGH DATE TO... ONCE ONCE .XX ; Start 08/27/17 at 13:45; Stop 08/27/17 at 13:46; Status Cancel Miscellaneous Information SPECIFIC LAB TO BE DRAWN:VANCO TROUGH DATE TO... ONCE ONCE .XX ; Start 08/28/17 at 05:45; Stop 08/28/17 at 05:46 Gadodiamide (Omniscan Pf Inj) 10 ml STK-MED ONCE IVCONTRAST Last administered on 08/26/17at 09:50; Start 08/26/17 at 09:50; Stop 08/26/17 at 09:51; Status DC (Rickey Cee MD) Past Medical History History of IV drug use Cholecystitis Inguinal hernia Vaginal fistula Past Surgical History Past Surgical History ACL repair Cholecystectomy Vaginal fistula repair Inguinal hernia repair Reported Medications reviewed in EMR Active Ordered Medications Current Medications Medications (Trade) Dose Ordered Sig/Areli Route PRN Reason Start Time Stop Time Status Last Admin Dose Admin Sodium Chloride 1,000 ml @ 100 mls/hr Q10H IV 08/20/17 15:37 08/26/17 07:00 Sodium Chloride (NS Flush) 2 ml UNSCH PRN IV FLUSH FLUSH AFTER USING IV ACCESS 08/20/17 15:45 08/25/17 01:43 Sodium Chloride (NS Flush) 2 ml BID IV FLUSH 08/20/17 21:00 08/26/17 10:25 Ondansetron HCl (Zofran Inj) 4 mg Q6H PRN IVP NAUSEA OR VOMITING 08/20/17 15:45 Enoxaparin Sodium (Lovenox Inj) 40 mg Q24H SQ 08/20/17 16:00 08/25/17 16:07 Acetaminophen (Tylenol) 650 mg Q6H PRN PO PAIN 1-2, Temp>100.4, [place]O 08/20/17 15:45 Oxycodone/ Acetaminophen (Percocet 5-325 Mg) 1 tab Q6H PRN PO PAIN SCALE 3 TO 5 08/20/17 15:45 08/23/17 05:48 Oxycodone/ Acetaminophen (Percocet 10-325 Mg) 1 tab Q6H PRN PO PAIN SCALE 6 TO 10 08/20/17 15:45 08/26/17 07:00 Naloxone HCl (Narcan Inj) 0.4 mg UNSCH PRN IV PUSH SEE LABEL COMMENTS 08/20/17 15:45 Senna/Docusate Sodium (Priscilla-Colace) 1 tab BID PO 08/20/17 21:00 08/26/17 10:24 Magnesium Hydroxide (Milk Of Magnesia Liq) 30 ml Q12H PRN PO Mild constipation 08/20/17 15:45 Sennosides (Senokot) 17.2 mg Q12H PRN PO Moderate constipation 08/20/17 15:45 Bisacodyl (Dulcolax Supp) 10 mg DAILY PRN RECTAL SEVERE CONSITIPATION 08/20/17 15:45 Lactulose (Lactulose Liq) 30 ml DAILY PRN PO SEVERE CONSITIPATION 08/20/17 15:45 Pharmacy Profile Note 0 ml @ 0 mls/hr UNSCH OTHER 08/20/17 15:45 Baclofen (Lioresal) 5 mg Q8HR PO 08/20/17 15:45 08/26/17 05:48 Nicotine (Habitrol 21 Mg Patch.24 Hr) 1 patch DAILY T-DERMAL 08/20/17 18:30 08/26/17 10:25 Miscellaneous Information 1 DAILY T-DERMAL 08/21/17 09:00 08/26/17 10:25 Vancomycin HCl 1000 mg/Sodium Chloride 250 ml @ 250 mls/hr Q8H IV 08/22/17 22:00 08/26/17 05:48 Morphine Sulfate (Morphine Inj) 2 mg Q4HR PRN IV PUSH BREAKTHROUGH PAIN 08/24/17 09:45 08/26/17 10:24 Miscellaneous Information SPECIFIC LAB TO BE DRAWN:VANCO TROUGH DATE TO... ONCE ONCE .XX 08/28/17 05:45 08/28/17 05:46 Family History Family history of hypertension, diabetes, cancer Social History No reports of alcohol use, cigarettes 1 &1/2 pack per day, illicit IV drug use (Radha Ramirez) Physical Exam Vital Signs Vital Signs Date Time Temp Pulse Resp B/P (MAP) Pulse Ox O2 Delivery O2 Flow Rate FiO2 08/26/17 08:06 98.1 70 18 138/73 (94) 97 08/26/17 04:38 98.1 65 17 141/71 (94) 98 08/26/17 00:38 98.3 72 17 158/74 (102) 98 08/26/17 00:00 77 08/25/17 20:32 97.8 80 17 152/79 (103) 99 08/25/17 20:01 72 08/25/17 16:56 98.4 83 18 139/82 (101) 98 08/25/17 16:30 71 08/25/17 12:05 85 08/25/17 11:30 98.5 98 17 134/76 (95) 97 08/25/17 09:20 67 Physical Exam The patient is alert, awake and oriented to time, place and person. Speech is fluent. Cranial nerve examination: pupils to be equal, round and reactive to light. Extra-ocular movements are intact. Facial motor and sensory function are normal and symmetrical. Gross hearing appears intact. Sternocleidomastoid and trapezius muscles are symmetrical. Other cranial nerves are intact. Neck is soft and supple with a good range of motion without pain. Muscle strength is normal in all muscle groups of both upper and lower extremities. Sensory examination is intact to light touch and pin prick in both the upper and lower extremities. Deep tendon reflexes are symmetrical in both upper and lower extremities. There is a bilateral plantar flexion response. Cerebellar examination is unremarkable, without deficits. Lungs are clear Heart regular rhythm and rate Skin is warm and dry Laboratory Laboratory Tests Test 08/25/17 20:42 08/26/17 06:35 Tumor Marker Alpha Fetoprotein 2.8 Carcinoembryonic Antigen 1.0 CA 19-9 Antigen 10.8 Creatinine 0.57 Estimat Glomerular Filtration Rate 111 Date/Time Source Procedure Growth Status 08/20/17 14:05 Blood Peripheral Aerobic Blood Culture - Final NO GROWTH IN 5 DAYS Complete 08/20/17 14:05 Blood Peripheral Anaerobic Blood Culture - Final NO GROWTH IN 5 DAYS Complete (Rickey Cee MD) Result Diagram: 08/26/17 0635 Imaging Last Impressions Lumbar Spine MRI 08/26/17 0000 Signed Impressions: Service Date/Time: Saturday, August 26, 2017 09:28 - CONCLUSION: Gas the disease L4-5 L5-S1 worse at L5-S1 to the left There is no abnormal contrast enhancement. Robbie Mckenzie MD FACR (Radha Ramirez) Attending Statement I reviewed several radiological studies including MRI C spine There is normal alignment of the vertebral bodies of the cervical spine. There is signal abnormality within the marrow of C3 and C4 characterized by T1 and T2 prolongation (mild) and some mild enhancement throughout the C3 vertebral body and in the posterior one third of the C4 vertebral body. No abnormal enhancement within the disc space at C3-4. Epidural impression centrally extends from C3-4 to C4-C5 and causes loss of CSF about the cervical cord and some mild flattening of the ventral margin of the cervical cord. No abnormal enhancement with in the cervical cord. The visualized posterior fossa structures are grossly intact. At C7 and T1, there is mild signal alteration in the marrow of the vertebral bodies, similar in appearance to C3 and C4, characterized by T1 and T2 prolongation (mild) and mild enhancement in the marrow, but no abnormal enhancement in the interspace. There is some enhancement of the dura at the C6 and C7 level. C2-C3: The thecal sac has a normal configuration. There is no evidence of disc herniation or spinal canal stenosis. The neural foramina are patent bilaterally. C3-C4: Central impression upon the thecal sac could represent disc extrusion or thickening of the posterior longitudinal ligament; this extends down to the level of C4-5. On the axial gradient echo images, there is suggestion that there may be disc protrusion. C4-C5: Mild central impression on the thecal sac suggests either thickening of the posterior longitudinal ligament or small central bulging. C5-C6: The thecal sac has a normal configuration. There is no evidence of disc herniation or spinal canal stenosis. The neural foramina are patent bilaterally. C6-C7: The thecal sac has a normal configuration. There is no evidence of disc herniation or spinal canal stenosis. The neural foramina are patent bilaterally. C7-T1: The thecal sac has a normal configuration. There is no evidence of disc herniation or spinal canal stenosis. The neural foramina are patent bilaterally. CONCLUSION: 1. Signal abnormalities within the marrow of the C3, C4, C7, and T1 vertebral bodies with some contrast enhancement and mild T1 and T2 prolongation. The signal abnormality is nonspecific, but would be consistent with osteomyelitis. There is also enhancement of the dura posterior to the C7 and T1 vertebral bodies. 2. Epidural impression centrally extending from C3-4 through C4-C5 which could represent thickening of the dura or central disc protrusions. There is some flattening of the ventral margin of the cervical cord at both levels. 3. No signal abnormalities within the interspaces to suggest discitis. MRI Thoracic spine At the T3 level, there is a anterior superior compression deformity with approximately 30% loss of height. There is also signal abnormality characterized by T1 and T2 prolongation and moderate intensity diffuse enhancement in the vertebral body. On the axial images, there is some thickening of the paraspinal soft tissues and some enhancement in the paraspinal soft tissues, measuring up to 7 mm. No significant epidural impression is seen. The thoracic cord is normal in configuration.. Axial images through each of the interspaces demonstrates normal shape to the thecal sac without evidence of disc bulge or protrusion. No evidence of cord compression. CONCLUSION: 1. Signal abnormality within the marrow of the T3 vertebral body with associated 30% compression deformity of the anterior superior endplate and moderate diffuse contrast enhancement. Osteomyelitis of the vertebral body and compression fracture of both exhibit these type of signal abnormalities. 2. There is some enhancement thickening of the paraspinal soft tissues about the T3 vertebral body. 3. No abnormal enhancement within the thoracic discs. Lumbar Spine MRI 08/26/17 0000 Signed Impressions: Service Date/Time: Saturday, August 26, 2017 09:28 - CONCLUSION: Gas the disease L4-5 L5-S1 worse at L5-S1 to the left There is no abnormal contrast enhancement. Robbie Mckenzie MD FACR She is status post CT guided aspiration and biopsy. Recommend to continue nonoperative treatment. Follow-up cultures and adjust antibiotics as needed. I do not see an epidural abscess. I repeated the MRI of the lumbar spine today which remains stable. I do not see any indication for a neurosurgical intervention. Bone scan may be beneficial. if necessary can repeat CT-guided aspiration This is a non compliant patient. She has been counseled. I also offered spiritual support Pulmonary. Continue aggressive pulmonary toilette, nasotracheal suction, and breathing treatments with nebulizers. Daily PT and OT Nutrition. Tolerating Oral diet Renal. Continue to monitor closely urine output, BUN and creatinine Endocrine. Continue to Monitor serial Acu checks and SSI as needed in detail ID continue to monitor for signs of infection Continue Protonix for stress ulcer prophylaxis Continue Jose Alfredo hose and SCD's for DVT prophylaxis (Rickey Cee MD) Rickey Cee MD Aug 26, 2017 08:56 Radha Ramirez Aug 26, 2017 11:58
--- NOTE | 2017-08-26 09:48 | HHI.PR ---
Subjective Remarks in no acute distress. pain is fairly controlled. no fever. Objective Vitals Vital Signs Date Time Temp Pulse Resp B/P (MAP) Pulse Ox O2 Delivery O2 Flow Rate FiO2 08/26/17 08:06 98.1 70 18 138/73 (94) 97 08/26/17 04:38 98.1 65 17 141/71 (94) 98 08/26/17 00:38 98.3 72 17 158/74 (102) 98 08/26/17 00:00 77 08/25/17 20:32 97.8 80 17 152/79 (103) 99 08/25/17 20:01 72 08/25/17 16:56 98.4 83 18 139/82 (101) 98 08/25/17 16:30 71 08/25/17 12:05 85 08/25/17 11:30 98.5 98 17 134/76 (95) 97 I/O 08/25/17 08/25/17 08/25/17 08/26/17 08/26/17 08/26/17 07:00 15:00 23:00 07:00 15:00 23:00 Intake Total 1280 ml 600 ml 480 ml Balance 1280 ml 600 ml 480 ml Intake Oral 600 ml 480 ml IV Total 1280 ml # Voids 4 1 5 Result Diagram: 08/26/17 0635 Objective Remarks GENERAL: This is a well-nourished, well-developed patient, in no apparent distress. CARDIOVASCULAR: Regular rate and regular rhythm without murmurs, gallops, or rubs. RESPIRATORY: Clear to auscultation. Breath sounds equal bilaterally. No wheezes , rales, or rhonchi. GASTROINTESTINAL: Abdomen soft, non-tender, nondistended. Normal, active bowel sounds MUSCULOSKELETAL: Extremities without clubbing, cyanosis, or edema. NEURO: Alert & Oriented x4 to person, place, time, situation. Moves all ext x4 Medications and IVs Inpatient Medications Acetaminophen (Tylenol) 650 mg Q6H PRN PO PAIN 1-2, Temp>100.4, [place]URT[place]; Start at 15:45 Baclofen (Lioresal) 5 mg Q8HR PO Last administered on 08/26/17at 05:48; Start 08/20/17 at 15:45 Bisacodyl (Dulcolax Supp) 10 mg DAILY PRN RECTAL SEVERE CONSITIPATION; Start at 15:45 Enoxaparin Sodium (Lovenox Inj) 40 mg Q24H SQ Last administered on 08/25/17at 16: 07; Start 08/20/17 at 16:00 Lactulose (Lactulose Liq) 30 ml DAILY PRN PO SEVERE CONSITIPATION; Start at 15:45 Magnesium Hydroxide (Milk Of Magnesia Liq) 30 ml Q12H PRN PO Mild constipation ; Start 08/20/17 at 15:45 Miscellaneous Information SPECIFIC LAB TO BE DRAWN:VANCO TROUGH DATE TO... ONCE ONCE .XX ; Start 08/28/17 at 05:45; Stop 08/28/17 at 05:46 Morphine Sulfate (Morphine Inj) 2 mg Q4HR PRN IV PUSH BREAKTHROUGH PAIN Last administered on 08/26/17at 05:48; Start 08/24/17 at 09:45 Naloxone HCl (Narcan Inj) 0.4 mg UNSCH PRN IV PUSH SEE LABEL COMMENTS; Start at 15:45 Nicotine (Habitrol 21 Mg Patch.24 Hr) 1 patch DAILY T-DERMAL Last administered on 08/25/17at 09:18; Start 08/20/17 at 18:30 Ondansetron HCl (Zofran Inj) 4 mg Q6H PRN IVP NAUSEA OR VOMITING; Start at 15:45 Oxycodone/ Acetaminophen (Percocet 5-325 Mg) 1 tab Q6H PRN PO PAIN SCALE 3 TO 5 Last administered on 08/23/17at 05:48; Start 08/20/17 at 15:45 Oxycodone/ Acetaminophen (Percocet 10-325 Mg) 1 tab Q6H PRN PO PAIN SCALE 6 TO 10 Last administered on 08/26/17at 07:00; Start 08/20/17 at 15:45 Pharmacy Profile Note 0 ml @ 0 mls/hr UNSCH OTHER ; Start 08/20/17 at 15:45 Piperacillin Sod/ Tazobactam Sod 50 ml @ 100 mls/hr Q6H IV Last administered on 08/22/17at 04:45; Start 08/20/17 at 17:00; Stop 08/22/17 at 08:37; Status DC Potassium Chloride (KCl) 30 meq ONCE ONCE PO Last administered on 08/22/17at 09: 52; Start 08/22/17 at 09:30; Stop 08/22/17 at 09:31; Status DC Senna/Docusate Sodium (Priscilla-Colace) 1 tab BID PO Last administered on 08/25/17at 20:17; Start 08/20/17 at 21:00 Sennosides (Senokot) 17.2 mg Q12H PRN PO Moderate constipation; Start 08/20/17 at 15:45 Sodium Chloride (NS Flush) 2 ml BID IV FLUSH Last administered on 08/25/17at 20: 17; Start 08/20/17 at 21:00 Vancomycin HCl 1000 mg/Sodium Chloride 250 ml @ 250 mls/hr Q8H IV Last administered on 08/26/17at 05:48; Start 08/22/17 at 22:00 A/P Problem List: (1) IV drug abuse ICD Code: F19.10 - Other psychoactive substance abuse, uncomplicated Status: Acute (2) Osteomyelitis ICD Code: M86.9 - Osteomyelitis, unspecified (3) Sepsis ICD Code: A41.9 - Sepsis, unspecified organism Assessment and Plan SIRS due to Osteomyelitis of the cervical and thoracic spine Hx IVDA - 08/19/17 Echocardiogram showed left ventricular systolic function is moderately reduced with an estimated ejection fraction in the range of 40-45%. Wall thickness is measured at the upper limits of normal. Normal left ventricular size. There is mild tricuspid regurgitation. The estimated pulmonary arterial pressure is 36 mmHg. - continue vancomycin - per ID. -Infectious disease consult appreciated. - neurosurgery consult appreciated; MRI of the lumbar spine pending. -Pain management Percocet, IV morphine for breakthrough pain, baclofen for spasms. Improving -blood and needle aspiration cultures negative so far. - U tox positive for amphetamines. Transaminitis/ Hepatitis C positive -Elevated LFTs -f/u as outpatient IVDA Substance Abuse Tobacco -Counseled. U tox positive for amphetamines. -Nicotine Patch DVT problem SCDs Discharge Planning awaiting MRI of the lumbar spine; neurosurgery and ID recommendations. Problem Qualifiers (1) Osteomyelitis: Qualified Codes: M86.9 - Osteomyelitis, unspecified Derik Ritter MD Aug 26, 2017 09:48
[2017-08-26] MEDS ORDERED: GADODIAMIDE PF 287 MG/ML 10 ML VIAL (for RAD MRI) IVCONTRAST ONE (09:50)
--- NOTE | 2017-08-26 10:21 | RADRPT ---
EXAM DATE/TIME: 08/26/2017 09:28 [facility] COMPARISON: No previous studies available for comparison. INDICATIONS : Back pain between shoulder blades radiating down back and across shoulders. CONTRAST: 10 cc Omniscan (gadodiamide) IV MEDICAL HISTORY : None. SURGICAL HISTORY : Cholecystectomy. vaginal fistula repair, upper spine biopsy ENCOUNTER: Subsequent ACUITY: 1 week PAIN SCORE: 3/10 LOCATION: Bilateral mid back TECHNIQUE: Multiplanar multisequence MRI of the lumbar spine was performed with and without contrast. FINDINGS: The most caudal appearing lumbar vertebra is numbered as L5. Minimal discogenic changes are seen at L5-S1. Alignment anatomic. Conus is at L1 and unremarkable. T12-L1: The thecal sac has a normal diameter. No evidence of disc bulge or protrusion. The neural foramina are patent bilaterally. L1-L2: The thecal sac has a normal diameter. No evidence of disc bulge or protrusion. The neural foramina are patent bilaterally. L2-L3: The thecal sac has a normal diameter. No evidence of disc bulge or protrusion. The neural foramina are patent bilaterally. Mild bilateral facet disease is present worse on the right without neural fo ramina encroachment. L3-L4: The thecal sac has a normal diameter. No evidence of disc bulge or protrusion. The neural foramina are patent bilaterally. The mild facet disease is present worse on the right than the left worse kirsten n L2-L3. There is no neural foraminal encroachment. L4-L5: Mild disc bulge is present eccentric to the right causing very minimal impression of the right bowel for nerve root. The left L4 root is uninvolved. The mild degenerative change in the facets. L5-S1: Central to left-sided disc protrusion encroach on the left L5 root and the left S1 root. Left left S 1 root is displaced minimally. Mild facet disease is present. SI joints are normal. There is no abnormal contrast enhancement CONCLUSION: Gas the disease L4-5 L5-S1 worse at L5-S1 to the left There is no abnormal contrast enhancement. Robbie Mckenzie MD FACR on August 26, 2017 at 10:16 Board Certified Radiologist. This report was verified electronically.
[2017-08-26] MEDS: DOCUSATE SODIUM 50 MG/SENNA 8.6 MG TAB PO SCH ×2 (10:24→20:41)
[2017-08-26] MEDS: REMOVE OLD PATCH T-DERMAL SCH (10:25)
[2017-08-26] MEDS: SODIUM CHLORIDE 0.9% FLUSH 10 ML FLUSH IV FLUSH SCH ×2 (10:25→20:42)
[2017-08-26] MEDS: NICOTINE 21 MG/24 HR PATCH T-DERMAL SCH (10:25)
--- NOTE | 2017-08-26 12:54 | HHI.IDPN ---
Subjective Subjective Remarks Ms. Ware is a 52-year-old female with past medical history of IV drug abuse. She presents to the hospital with complaints of fevers, chills, back pain. Patient reports having severe back pain for the last few days but this has gotten worse just prior to admission. She admits to using Dilaudid for severe pain just a few days prior to admission. She denies any cardiopulmonary symptoms. She denies any abdominal symptoms. Patient was noted to have Cervical and Thoracic spine abnormality ? osteomyelitis on MRI spine. Patient recd dose of Zosyn IV and Vanco IV. No outpatient or other hospital antibiotics. Patient underwent CT guided aspiration of spine abnormality site. Cultures no growth so far. Patient returned to ED after signing off AMA. Upon questioning smiles and says "I dont remember why I left" . At time of my evaluation patient is alert and oriented. ID consulted for eval and Mment of epidural abscess/osteomyelitis. Notes reviewed Pain with some improvement after her pain meds Imaging studies reviewed Cultures reviewed - all negative ESR only 18, CRP 9.9 No fevers No rash No diarrhea Aspirate back C/S negative (received Zosyn and Vanco prior) Antibiotics Current Medications Vanco Medications (Trade) Dose Ordered Sig/Areli Route Start Time Stop Time Status Last Admin Sodium Chloride 1,000 ml @ 100 mls/hr Q10H IV 08/20/17 15:37 08/26/17 07:00 (NS Flush) 2 ml UNSCH PRN IV FLUSH 08/20/17 15:45 08/25/17 01:43 (NS Flush) 2 ml BID IV FLUSH 08/20/17 21:00 08/26/17 10:25 (Zofran Inj) 4 mg Q6H PRN IVP 08/20/17 15:45 (Lovenox Inj) 40 mg Q24H SQ 08/20/17 16:00 08/25/17 16:07 (Tylenol) 650 mg Q6H PRN PO 08/20/17 15:45 (Percocet 5-325 Mg) 1 tab Q6H PRN PO 08/20/17 15:45 08/23/17 05:48 (Percocet 10-325 Mg) 1 tab Q6H PRN PO 08/20/17 15:45 08/26/17 07:00 (Narcan Inj) 0.4 mg UNSCH PRN IV PUSH 08/20/17 15:45 (Priscilla-Colace) 1 tab BID PO 08/20/17 21:00 08/26/17 10:24 (Milk Of Magnesia Liq) 30 ml Q12H PRN PO 08/20/17 15:45 (Senokot) 17.2 mg Q12H PRN PO 08/20/17 15:45 (Dulcolax Supp) 10 mg DAILY PRN RECTAL 08/20/17 15:45 (Lactulose Liq) 30 ml DAILY PRN PO 08/20/17 15:45 Pharmacy Profile Note 0 ml @ 0 mls/hr UNSCH OTHER 08/20/17 15:45 (Lioresal) 5 mg Q8HR PO 08/20/17 15:45 08/26/17 05:48 (Habitrol 21 Mg Patch.24 Hr) 1 patch DAILY T-DERMAL 08/20/17 18:30 08/26/17 10:25 Miscellaneous Information 1 DAILY T-DERMAL 08/21/17 09:00 08/26/17 10:25 Vancomycin HCl 1000 mg/Sodium Chloride 250 ml @ 250 mls/hr Q8H IV 08/22/17 22:00 08/26/17 05:48 (Morphine Inj) 2 mg Q4HR PRN IV PUSH 08/24/17 09:45 08/26/17 10:24 Miscellaneous Information SPECIFIC LAB TO BE DRAWN:VANCO TROUGH DATE TO... ONCE ONCE .XX 08/28/17 05:45 08/28/17 05:46 Lines Line sites with no e.o infection. Past Medical History reviewed. Allergies: Coded Allergies: No Known Allergies (Unverified Allergy, Unknown, 08/19/17) Objective . Vital Signs Date Time Temp Pulse Resp B/P (MAP) Pulse Ox O2 Delivery O2 Flow Rate FiO2 08/26/17 11:53 97.6 70 17 140/68 (92) 98 08/26/17 08:30 60 08/26/17 08:06 98.1 70 18 138/73 (94) 97 08/26/17 04:38 98.1 65 17 141/71 (94) 98 08/26/17 00:38 98.3 72 17 158/74 (102) 98 08/26/17 00:00 77 3/8/18 20:32 97.8 80 17 152/79 (103) 99 08/25/17 20:01 72 08/25/17 16:56 98.4 83 18 139/82 (101) 98 08/25/17 16:30 71 . Laboratory Tests Test 08/25/17 06:30 08/25/17 20:42 08/26/17 06:35 Creatinine 0.62 MG/DL 0.57 MG/DL Estimat Glomerular Filtration Rate 101 ML/MIN 111 ML/MIN Tumor Marker Alpha Fetoprotein 2.8 NG/ML Carcinoembryonic Antigen 1.0 NG/ML CA 19-9 Antigen 10.8 U/ML Imaging Lumbar Spine MRI 08/26/17 0000 Signed Impressions: Service Date/Time: Saturday, August 26, 2017 09:28 - CONCLUSION: Gas the disease L4-5 L5-S1 worse at L5-S1 to the left There is no abnormal contrast enhancement. Robbie Mckenzie MD FACR Physical Exam GENERAL: Awake and alert, NAD SKIN: No rashes, ecchymoses or lesions. Cool and dry. HEAD: Atraumatic. Normocephalic. No temporal or scalp tenderness. EYES: Pupils equal round and reactive. Full and intact EOM. No scleral icterus. No injection or drainage. ENT: Nose without bleeding, purulent drainage. Moist mucosa, no oral lesions. NECK: Trachea midline. No JVD or lymphadenopathy. Supple, nontender, no meningeal signs. CARDIOVASCULAR: Regular rate and rhythm without murmurs, gallops, or rubs. RESPIRATORY: Clear to auscultation. Breath sounds equal bilaterally. No wheezes , rales, or rhonchi. GASTROINTESTINAL: Abdomen soft, non-tender, nondistended. No hepato-splenomegaly , or palpable masses. No guarding. MUSCULOSKELETAL: Extremities without clubbing, cyanosis, or edema. No calf tenderness. Negative Homans sign bilaterally. NEUROLOGICAL: Grossly non-focal Psych cooperative IV line sites with no e.o infection Assessment & Plan Remarks Lumbar and Cervical ?spinal osteomyelitis vs compression fracture - tumor markers negative S/P Zosyn IV and Vanco prior to aspiration. Hepatitis C positive, HIV negative. Abnormal LFTs: hep C related IVDA Recs: Continue Vanco IV (target 15-20) Await NS input Depending on the results of Neurosurgery opinion and tumor markers will decide about DC plan. If suspicion of osteomyelitis higher I will plan on DC with Vanco IV. Monitor progress Maria Isabel Dominguez MD Aug 26, 2017 12:54
[2017-08-26] MEDS: ENOXAPARIN SODIUM 40 MG/0.4 ML SYRINGE SQ SCH (15:09)
[2017-08-26] MEDS ORDERED: OXYGENDME NAS.CANULA ×2 (16:40→16:42)
[2017-08-27] VITALS (7 sets, daily range): BP systolic 115–156; BP diastolic 66–89; PULSE 64–89; RESP 18–20; TEMP 98.1–98.5; O2SAT 97–99
[2017-08-27] MEDS: MORPHINE SULFATE 2 MG/ML INJ IV PUSH PRN ×3 (02:02→17:51)
[2017-08-27] MEDS: oxyCODONE/ACETAMINOPHEN 10 MG/325 MG TAB PO PRN ×6 (04:20→21:57)
[2017-08-27] MEDS: BACLOFEN 10 MG TAB PO SCH ×3 (06:20→21:57)
[2017-08-27] MEDS: VANCOMYCIN INJ 1,000 MG in SODIUM CHLOR 0.9% 250 ML INJ 250 ML IV SCH ×3 (06:20→21:59)
[2017-08-27] MEDS: SODIUM CHLOR 0.9% 1000 ML INJ 1,000 ML IV SCH ×2 (06:25→17:51)
[2017-08-27] MEDS: SODIUM CHLORIDE 0.9% FLUSH 10 ML FLUSH IV FLUSH SCH ×2 (08:28→21:00)
[2017-08-27] MEDS: DOCUSATE SODIUM 50 MG/SENNA 8.6 MG TAB PO SCH ×2 (08:29→21:57)
[2017-08-27] MEDS: REMOVE OLD PATCH T-DERMAL SCH (08:30)
[2017-08-27] MEDS: NICOTINE 21 MG/24 HR PATCH T-DERMAL SCH (08:30)
--- NOTE | 2017-08-27 11:14 | HHI.PR ---
Subjective Remarks in no acute distress. pain is controlled. no fever. no new complaints. Objective Vitals Vital Signs Date Time Temp Pulse Resp B/P (MAP) Pulse Ox O2 Delivery O2 Flow Rate FiO2 08/27/17 09:59 98.4 78 20 156/89 (111) 97 08/27/17 05:30 98.1 64 18 115/67 (83) 98 08/27/17 00:00 98.5 89 18 155/79 (104) 99 08/26/17 20:00 97.9 87 17 163/85 (111) 98 08/26/17 16:00 98.4 85 17 143/73 (96) 98 08/26/17 11:53 97.6 70 17 140/68 (92) 98 I/O 08/26/17 08/26/17 08/26/17 08/27/17 08/27/17 08/27/17 07:00 15:00 23:00 07:00 15:00 23:00 Intake Total 1480 ml 730 ml 1000 ml Balance 1480 ml 730 ml 1000 ml Intake Oral 480 ml 480 ml 1000 ml IV Total 1000 ml 250 ml # Voids 5 2 2 # Bowel Movements 1 0 Result Diagram: 08/26/17 0635 Imaging Last Impressions Lumbar Spine MRI 08/26/17 0000 Signed Impressions: Service Date/Time: Saturday, August 26, 2017 09:28 - CONCLUSION: Gas the disease L4-5 L5-S1 worse at L5-S1 to the left There is no abnormal contrast enhancement. Robbie Mckenzie MD FACR Objective Remarks GENERAL: This is a well-nourished, well-developed patient, in no apparent distress. CARDIOVASCULAR: Regular rate and regular rhythm without murmurs, gallops, or rubs. RESPIRATORY: Clear to auscultation. Breath sounds equal bilaterally. No wheezes , rales, or rhonchi. GASTROINTESTINAL: Abdomen soft, non-tender, nondistended. Normal, active bowel sounds MUSCULOSKELETAL: Extremities without clubbing, cyanosis, or edema. NEURO: Alert & Oriented x4 to person, place, time, situation. Moves all ext x4 Medications and IVs Inpatient Medications Acetaminophen (Tylenol) 650 mg Q6H PRN PO PAIN 1-2, Temp>100.4, [place]O; Start at 15:45 Baclofen (Lioresal) 5 mg Q8HR PO Last administered on 08/27/17at 06:20; Start at 15:45 Bisacodyl (Dulcolax Supp) 10 mg DAILY PRN RECTAL SEVERE CONSITIPATION; Start at 15:45 Enoxaparin Sodium (Lovenox Inj) 40 mg Q24H SQ Last administered on 08/26/17at 15: 09; Start 08/20/17 at 16:00 Lactulose (Lactulose Liq) 30 ml DAILY PRN PO SEVERE CONSITIPATION; Start at 15:45 Magnesium Hydroxide (Milk Of Magnesia Liq) 30 ml Q12H PRN PO Mild constipation ; Start 08/20/17 at 15:45 Miscellaneous Information SPECIFIC LAB TO BE DRAWN:VANCO TROUGH DATE TO... ONCE ONCE .XX ; Start 08/28/17 at 05:45; Stop 08/28/17 at 05:46 Morphine Sulfate (Morphine Inj) 2 mg Q4HR PRN IV PUSH BREAKTHROUGH PAIN Last administered on 08/27/17at 10:54; Start 08/24/17 at 09:45 Naloxone HCl (Narcan Inj) 0.4 mg UNSCH PRN IV PUSH SEE LABEL COMMENTS; Start at 15:45 Nicotine (Habitrol 21 Mg Patch.24 Hr) 1 patch DAILY T-DERMAL Last administered on 08/27/17at 08:30; Start 08/20/17 at 18:30 Ondansetron HCl (Zofran Inj) 4 mg Q6H PRN IVP NAUSEA OR VOMITING; Start at 15:45 Oxycodone/ Acetaminophen (Percocet 5-325 Mg) 1 tab Q6H PRN PO PAIN SCALE 3 TO 5 Last administered on 08/23/17at 05:48; Start 08/20/17 at 15:45 Oxycodone/ Acetaminophen (Percocet 10-325 Mg) 1 tab Q6H PRN PO PAIN SCALE 6 TO 10 Last administered on 08/27/17at 08:29; Start 08/20/17 at 15:45 Pharmacy Profile Note 0 ml @ 0 mls/hr UNSCH OTHER ; Start 08/20/17 at 15:45 Piperacillin Sod/ Tazobactam Sod 50 ml @ 100 mls/hr Q6H IV Last administered on 08/22/17at 04:45; Start 08/20/17 at 17:00; Stop 08/22/17 at 08:37; Status DC Potassium Chloride (KCl) 30 meq ONCE ONCE PO Last administered on 08/22/17at 09: 52; Start 08/22/17 at 09:30; Stop 08/22/17 at 09:31; Status DC Senna/Docusate Sodium (Priscilla-Colace) 1 tab BID PO Last administered on at 08:29; Start 08/20/17 at 21:00 Sennosides (Senokot) 17.2 mg Q12H PRN PO Moderate constipation; Start 08/20/17 at 15:45 Sodium Chloride (NS Flush) 2 ml BID IV FLUSH Last administered on 08/27/17at 08: 28; Start 08/20/17 at 21:00 Vancomycin HCl 1000 mg/Sodium Chloride 250 ml @ 250 mls/hr Q8H IV Last administered on 08/27/17at 06:20; Start 08/22/17 at 22:00 A/P Problem List: (1) IV drug abuse ICD Code: F19.10 - Other psychoactive substance abuse, uncomplicated Status: Acute (2) Osteomyelitis ICD Code: M86.9 - Osteomyelitis, unspecified (3) Sepsis ICD Code: A41.9 - Sepsis, unspecified organism Assessment and Plan SIRS due to Osteomyelitis of the cervical and thoracic spine Hx IVDA - 08/19/17 Echocardiogram showed left ventricular systolic function is moderately reduced with an estimated ejection fraction in the range of 40-45%. Wall thickness is measured at the upper limits of normal. Normal left ventricular size. There is mild tricuspid regurgitation. The estimated pulmonary arterial pressure is 36 mmHg. - continue vancomycin - per ID. -Infectious disease consult appreciated. - neurosurgery following. -Pain management Percocet, IV morphine for breakthrough pain, baclofen for spasms. Improving -blood and needle aspiration cultures negative so far. - U tox positive for amphetamines. Transaminitis/ Hepatitis C positive -Elevated LFTs -f/u as outpatient IVDA Substance Abuse Tobacco -Counseled. U tox positive for amphetamines. -Nicotine Patch DVT problem SCDs Discharge Planning when cleared by ID and neurosurgery. Problem Qualifiers (1) Osteomyelitis: Qualified Codes: M86.9 - Osteomyelitis, unspecified Minouei,Mohammadreza MD Aug 27, 2017 11:14
[2017-08-27] MEDS ORDERED: PHARMACY ORDERED LAB ONE (13:45)
[2017-08-27] MEDS: ENOXAPARIN SODIUM 40 MG/0.4 ML SYRINGE SQ SCH (14:17)
[2017-08-28] VITALS (9 sets, daily range): BP systolic 126–142; BP diastolic 59–86; PULSE 65–87; RESP 18–20; TEMP 97.7–98.5; O2SAT 97–99
[2017-08-28] MEDS: MORPHINE SULFATE 2 MG/ML INJ IV PUSH PRN ×4 (01:16→20:01)
[2017-08-28] MEDS: SODIUM CHLOR 0.9% 1000 ML INJ 1,000 ML IV SCH (03:37)
[2017-08-28] MEDS: oxyCODONE/ACETAMINOPHEN 10 MG/325 MG TAB PO PRN ×4 (04:09→23:00)
[2017-08-28] MEDS: BACLOFEN 10 MG TAB PO SCH ×3 (05:44→20:01)
[2017-08-28] MEDS ORDERED: PHARMACY ORDERED LAB ONE (05:45)
[2017-08-28] MEDS: VANCOMYCIN INJ 1,000 MG in SODIUM CHLOR 0.9% 250 ML INJ 250 ML IV SCH ×3 (05:51→20:01)
[2017-08-28 06:44] LABS: VANCOMYCIN TROUGH 18.2 MCG/ML (5.0-10.0)
[2017-08-28] MEDS: DOCUSATE SODIUM 50 MG/SENNA 8.6 MG TAB PO SCH ×2 (08:26→20:01)
[2017-08-28] MEDS: REMOVE OLD PATCH T-DERMAL SCH (08:28)
[2017-08-28] MEDS: NICOTINE 21 MG/24 HR PATCH T-DERMAL SCH (08:28)
[2017-08-28] MEDS: SODIUM CHLORIDE 0.9% FLUSH 10 ML FLUSH IV FLUSH SCH ×2 (08:28→20:02)
[2017-08-28 10:07] LABS: CREATININE 0.63 MG/DL (0.50-1.00)
--- NOTE | 2017-08-28 10:31 | HHI.PR ---
Subjective Remarks in no acute distress. no fever. pain is controlled. no new complaints. Objective Vitals Vital Signs Date Time Temp Pulse Resp B/P (MAP) Pulse Ox O2 Delivery O2 Flow Rate FiO2 08/28/17 08:30 97.7 72 20 126/86 (99) 98 08/28/17 04:03 78 08/28/17 04:00 98.2 78 18 128/69 (88) 97 08/28/17 00:00 80 08/28/17 00:00 98.5 81 18 134/63 (86) 98 08/27/17 20:00 74 08/27/17 20:00 98.5 72 18 118/71 (87) 99 08/27/17 17:54 72 08/27/17 15:59 98.1 83 20 149/71 (97) 98 08/27/17 11:45 98.1 79 20 125/66 (85) 98 I/O 08/27/17 08/27/17 08/27/17 08/28/17 08/28/17 08/28/17 07:00 15:00 23:00 07:00 15:00 23:00 Intake Total 1000 ml 1030 ml 60 ml Balance 1000 ml 1030 ml 60 ml Intake Oral 1000 ml 780 ml 60 ml IV Total 250 ml # Voids 2 6 1 3 # Bowel Movements 0 2 0 Result Diagram: 08/28/17 0530 Imaging Last Impressions Lumbar Spine MRI 08/26/17 0000 Signed Impressions: Service Date/Time: Saturday, August 26, 2017 09:28 - CONCLUSION: Gas the disease L4-5 L5-S1 worse at L5-S1 to the left There is no abnormal contrast enhancement. Robbie Mckenzie MD FACR Objective Remarks GENERAL: This is a well-nourished, well-developed patient, in no apparent distress. CARDIOVASCULAR: Regular rate and regular rhythm without murmurs, gallops, or rubs. RESPIRATORY: Clear to auscultation. Breath sounds equal bilaterally. No wheezes , rales, or rhonchi. GASTROINTESTINAL: Abdomen soft, non-tender, nondistended. Normal, active bowel sounds MUSCULOSKELETAL: Extremities without clubbing, cyanosis, or edema. NEURO: Alert & Oriented x4 to person, place, time, situation. Moves all ext x4 Medications and IVs Inpatient Medications Acetaminophen (Tylenol) 650 mg Q6H PRN PO PAIN 1-2, Temp>100.4, [place]; Start at 15:45 Baclofen (Lioresal) 5 mg Q8HR PO Last administered on 08/28/17at 05:44; Start at 15:45 Bisacodyl (Dulcolax Supp) 10 mg DAILY PRN RECTAL SEVERE CONSITIPATION; Start at 15:45 Enoxaparin Sodium (Lovenox Inj) 40 mg Q24H SQ Last administered on 08/27/17at 14 :17; Start 08/20/17 at 16:00 Lactulose (Lactulose Liq) 30 ml DAILY PRN PO SEVERE CONSITIPATION; Start at 15:45 Magnesium Hydroxide (Milk Of Magnesia Liq) 30 ml Q12H PRN PO Mild constipation ; Start 08/20/17 at 15:45 Miscellaneous Information SPECIFIC LAB TO BE BARBARA... ONCE ONCE .XX ; Start 08/30 at 05:45; Stop 08/30/17 at 05:46 Morphine Sulfate (Morphine Inj) 2 mg Q4HR PRN IV PUSH BREAKTHROUGH PAIN Last administered on 08/28/17at 08:27; Start 08/24/17 at 09:45 Naloxone HCl (Narcan Inj) 0.4 mg UNSCH PRN IV PUSH SEE LABEL COMMENTS; Start at 15:45 Nicotine (Habitrol 21 Mg Patch.24 Hr) 1 patch DAILY T-DERMAL Last administered on 08/28/17at 08:28; Start 08/20/17 at 18:30 Ondansetron HCl (Zofran Inj) 4 mg Q6H PRN IVP NAUSEA OR VOMITING; Start at 15:45 Oxycodone/ Acetaminophen (Percocet 5-325 Mg) 1 tab Q6H PRN PO PAIN SCALE 3 TO 5 Last administered on 08/23/17at 05:48; Start 08/20/17 at 15:45 Oxycodone/ Acetaminophen (Percocet 10-325 Mg) 1 tab Q6H PRN PO PAIN SCALE 6 TO 10 Last administered on 08/28/17at 04:09; Start 08/20/17 at 15:45 Pharmacy Profile Note 0 ml @ 0 mls/hr UNSCH OTHER ; Start 08/20/17 at 15:45 Piperacillin Sod/ Tazobactam Sod 50 ml @ 100 mls/hr Q6H IV Last administered on 08/22/17at 04:45; Start 08/20/17 at 17:00; Stop 08/22/17 at 08:37; Status DC Potassium Chloride (KCl) 30 meq ONCE ONCE PO Last administered on 08/22/17at 09: 52; Start 08/22/17 at 09:30; Stop 08/22/17 at 09:31; Status DC Senna/Docusate Sodium (Priscilla-Colace) 1 tab BID PO Last administered on at 08:26; Start 08/20/17 at 21:00 Sennosides (Senokot) 17.2 mg Q12H PRN PO Moderate constipation; Start 08/20/17 at 15:45 Sodium Chloride (NS Flush) 2 ml BID IV FLUSH Last administered on 08/28/17at 08: 28; Start 08/20/17 at 21:00 Vancomycin HCl 1000 mg/Sodium Chloride 250 ml @ 250 mls/hr Q8H IV Last administered on 08/28/17at 05:51; Start 08/22/17 at 22:00 A/P Problem List: (1) IV drug abuse ICD Code: F19.10 - Other psychoactive substance abuse, uncomplicated Status: Acute (2) Osteomyelitis ICD Code: M86.9 - Osteomyelitis, unspecified (3) Sepsis ICD Code: A41.9 - Sepsis, unspecified organism Assessment and Plan SIRS due to Osteomyelitis of the cervical and thoracic spine Hx IVDA - 08/19/17 Echocardiogram showed left ventricular systolic function is moderately reduced with an estimated ejection fraction in the range of 40-45%. Wall thickness is measured at the upper limits of normal. Normal left ventricular size. There is mild tricuspid regurgitation. The estimated pulmonary arterial pressure is 36 mmHg. - continue vancomycin - per ID. - neurosurgery following. -Pain management Percocet, IV morphine for breakthrough pain, baclofen for spasms. Improving -blood and needle aspiration cultures negative so far. - U tox positive for amphetamines. Transaminitis/ Hepatitis C positive -Elevated LFTs -f/u as outpatient IVDA Substance Abuse Tobacco -Counseled. U tox positive for amphetamines. -Nicotine Patch DVT problem SCDs Discharge Planning when cleared by ID and neurosurgery. Problem Qualifiers (1) Osteomyelitis: Qualified Codes: M86.9 - Osteomyelitis, unspecified Derik Ritter MD Aug 28, 2017 10:31
[2017-08-28] MEDS: ENOXAPARIN SODIUM 40 MG/0.4 ML SYRINGE SQ SCH (14:14)
[2017-08-29] VITALS (7 sets, daily range): BP systolic 132–149; BP diastolic 70–92; PULSE 59–82; RESP 18–20; TEMP 97.5–99; O2SAT 95–99
[2017-08-29] MEDS: MORPHINE SULFATE 2 MG/ML INJ IV PUSH PRN ×5 (02:16→19:39)
[2017-08-29] MEDS: BACLOFEN 10 MG TAB PO SCH ×3 (05:48→23:27)
[2017-08-29] MEDS: oxyCODONE/ACETAMINOPHEN 10 MG/325 MG TAB PO PRN ×4 (05:48→23:27)
[2017-08-29] MEDS: VANCOMYCIN INJ 1,000 MG in SODIUM CHLOR 0.9% 250 ML INJ 250 ML IV SCH ×3 (05:54→23:26)
[2017-08-29] MEDS: DOCUSATE SODIUM 50 MG/SENNA 8.6 MG TAB PO SCH ×2 (08:19→23:30)
[2017-08-29] MEDS: NICOTINE 21 MG/24 HR PATCH T-DERMAL SCH (08:20)
[2017-08-29] MEDS: REMOVE OLD PATCH T-DERMAL SCH (08:20)
[2017-08-29] MEDS: SODIUM CHLORIDE 0.9% FLUSH 10 ML FLUSH IV FLUSH SCH ×2 (08:20→21:00)
[2017-08-29 08:50] LABS: BASOPHIL # 0.1 TH/MM3 (0-0.2); BASOPHIL % 0.9 % (0.0-2.0); EOSINOPHIL # 0.2 TH/MM3 (0-0.4); EOSINOPHIL % 2.4 % (0.0-4.0); HEMATOCRIT 36.7 % (35.0-46.0); HEMOGLOBIN 12.7 GM/DL (11.6-15.3); LYMPH % 29.6 % (9.0-44.0); LYMPHOCYTE # 2.5 TH/MM3 (1.0-4.8); MEAN CELL VOLUME 87.9 FL (80.0-100.0); MEAN CORPUSCULAR HEMOGLOBIN 30.5 PG (27.0-34.0); MEAN CORPUSCULAR HGB CONC 34.7 % (32.0-36.0); MEAN PLATELET VOLUME 7.9 FL (7.0-11.0); MONO % 7.1 % (0.0-8.0); MONOCYTE # 0.6 TH/MM3 (0-0.9); PLATELET COUNT 293 TH/MM3 (150-450); RED BLOOD COUNT 4.17 MIL/MM3 (4.00-5.30); RED CELL DISTRIBUTION WIDTH 13.3 % (11.6-17.2); WHITE BLOOD COUNT 8.3 TH/MM3 (4.0-11.0)
[2017-08-29 09:10] LABS: AST (GOT) 189 U/L (15-37); BICARBONATE 27.9 MEQ/L (21.0-32.0); BLOOD UREA NITROGEN 8 MG/DL (7-18); CALCIUM 9.4 MG/DL (8.5-10.1); CHLORIDE 99 MEQ/L (98-107); CREATININE 0.61 MG/DL (0.50-1.00); GLOMERULAR FILTRATION RATE 103 ML/MIN (>89); GLUCOSE,RANDOM 85 MG/DL (74-106); SODIUM (NA) 134 MEQ/L (136-145)
[2017-08-29 09:11] LABS: ALT (GPT) 208 U/L (10-53)
[2017-08-29 09:13] LABS: ALKALINE PHOSPHATASE 137 U/L (45-117); TOTAL BILIRUBIN ADULT 0.7 MG/DL (0.2-1.0); TOTAL PROTEIN 7.6 GM/DL (6.4-8.2)
--- NOTE | 2017-08-29 10:57 | HHI.PR ---
Subjective Remarks in no acute distress. has mild back pain and pain to RUQ. no fever. no nausea or vomiting. Objective Vitals Vital Signs Date Time Temp Pulse Resp B/P (MAP) Pulse Ox O2 Delivery O2 Flow Rate FiO2 08/29/17 08:43 97.8 82 20 149/81 (103) 99 08/29/17 06:25 98.8 76 18 132/75 (94) 99 08/29/17 00:00 99.0 74 18 145/70 (95) 98 08/28/17 23:54 84 08/28/17 20:00 70 08/28/17 20:00 98.0 87 18 130/82 (98) 99 08/28/17 16:03 65 08/28/17 15:38 98.3 79 20 127/59 (81) 98 08/28/17 11:43 97.8 83 20 142/69 (93) 98 I/O 08/28/17 08/28/17 08/28/17 08/29/17 08/29/17 08/29/17 07:00 15:00 23:00 07:00 15:00 23:00 Intake Total 60 ml 780 ml Balance 60 ml 780 ml Intake Oral 60 ml 780 ml # Voids 1 3 3 2 3 # Bowel Movements 0 0 Result Diagram: 08/29/17 0655 08/29/17 0655 Imaging Last Impressions Lumbar Spine MRI 08/26/17 0000 Signed Impressions: Service Date/Time: Saturday, August 26, 2017 09:28 - CONCLUSION: Gas the disease L4-5 L5-S1 worse at L5-S1 to the left There is no abnormal contrast enhancement. Robbie Mckenzie MD FACR Objective Remarks GENERAL: This is a well-nourished, well-developed patient, in no apparent distress. CARDIOVASCULAR: Regular rate and regular rhythm without murmurs, gallops, or rubs. RESPIRATORY: Clear to auscultation. Breath sounds equal bilaterally. No wheezes , rales, or rhonchi. GASTROINTESTINAL: Abdomen soft, non-tender, nondistended. Normal, active bowel sounds MUSCULOSKELETAL: Extremities without clubbing, cyanosis, or edema. NEURO: Alert & Oriented x4 to person, place, time, situation. Moves all ext x4 Medications and IVs Inpatient Medications Acetaminophen (Tylenol) 650 mg Q6H PRN PO PAIN 1-2, Temp>100.4, [place]; Start at 15:45 Baclofen (Lioresal) 5 mg Q8HR PO Last administered on 08/29/17at 05:48; Start at 15:45 Bisacodyl (Dulcolax Supp) 10 mg DAILY PRN RECTAL SEVERE CONSITIPATION; Start at 15:45 Enoxaparin Sodium (Lovenox Inj) 40 mg Q24H SQ Last administered on 08/28/17at 14 :14; Start 08/20/17 at 16:00 Lactulose (Lactulose Liq) 30 ml DAILY PRN PO SEVERE CONSITIPATION; Start at 15:45 Magnesium Hydroxide (Milk Of Magnesia Liq) 30 ml Q12H PRN PO Mild constipation ; Start 08/20/17 at 15:45 Miscellaneous Information SPECIFIC LAB TO BE BARBARA... ONCE ONCE .XX ; Start 08/30 at 05:45; Stop 08/30/17 at 05:46 Morphine Sulfate (Morphine Inj) 2 mg Q4HR PRN IV PUSH BREAKTHROUGH PAIN Last administered on 08/29/17at 09:08; Start 08/24/17 at 09:45 Naloxone HCl (Narcan Inj) 0.4 mg UNSCH PRN IV PUSH SEE LABEL COMMENTS; Start at 15:45 Nicotine (Habitrol 21 Mg Patch.24 Hr) 1 patch DAILY T-DERMAL Last administered on 08/29/17at 08:20; Start 08/20/17 at 18:30 Ondansetron HCl (Zofran Inj) 4 mg Q6H PRN IVP NAUSEA OR VOMITING; Start at 15:45 Oxycodone/ Acetaminophen (Percocet 5-325 Mg) 1 tab Q6H PRN PO PAIN SCALE 3 TO 5 Last administered on 08/23/17at 05:48; Start 08/20/17 at 15:45 Oxycodone/ Acetaminophen (Percocet 10-325 Mg) 1 tab Q6H PRN PO PAIN SCALE 6 TO 10 Last administered on 08/29/17at 05:48; Start 08/20/17 at 15:45 Pharmacy Profile Note 0 ml @ 0 mls/hr UNSCH OTHER ; Start 08/20/17 at 15:45 Piperacillin Sod/ Tazobactam Sod 50 ml @ 100 mls/hr Q6H IV Last administered on 08/22/17at 04:45; Start 08/20/17 at 17:00; Stop 08/22/17 at 08:37; Status DC Potassium Chloride (KCl) 30 meq ONCE ONCE PO Last administered on 08/22/17at 09: 52; Start 08/22/17 at 09:30; Stop 08/22/17 at 09:31; Status DC Senna/Docusate Sodium (Priscilla-Colace) 1 tab BID PO Last administered on at 08:19; Start 08/20/17 at 21:00 Sennosides (Senokot) 17.2 mg Q12H PRN PO Moderate constipation; Start 08/20/17 at 15:45 Sodium Chloride (NS Flush) 2 ml BID IV FLUSH Last administered on 08/29/17at 08: 20; Start 08/20/17 at 21:00 Vancomycin HCl 1000 mg/Sodium Chloride 250 ml @ 250 mls/hr Q8H IV Last administered on 08/29/17at 05:54; Start 08/22/17 at 22:00 A/P Problem List: (1) IV drug abuse ICD Code: F19.10 - Other psychoactive substance abuse, uncomplicated Status: Acute (2) Osteomyelitis ICD Code: M86.9 - Osteomyelitis, unspecified (3) Sepsis ICD Code: A41.9 - Sepsis, unspecified organism Assessment and Plan SIRS due to Osteomyelitis of the cervical and thoracic spine Hx IVDA - 08/19/17 Echocardiogram showed left ventricular systolic function is moderately reduced with an estimated ejection fraction in the range of 40-45%. Wall thickness is measured at the upper limits of normal. Normal left ventricular size. There is mild tricuspid regurgitation. The estimated pulmonary arterial pressure is 36 mmHg. - continue vancomycin - per ID. - neurosurgery following. -Pain management Percocet, IV morphine for breakthrough pain, baclofen for spasms. Improving -blood and needle aspiration cultures negative so far. - U tox positive for amphetamines. Transaminitis/ Hepatitis C positive; LFT's trending up. - check liver US -repeat LFT's tomorrow. IVDA Substance Abuse Tobacco -Counseled. U tox positive for amphetamines. -Nicotine Patch DVT problem SCDs d/w . Discharge Planning when cleared by ID and neurosurgery. Problem Qualifiers (1) Osteomyelitis: Qualified Codes: M86.9 - Osteomyelitis, unspecified Derik Ritter MD Aug 29, 2017 10:57
[2017-08-29] MEDS: ENOXAPARIN SODIUM 40 MG/0.4 ML SYRINGE SQ SCH (16:47)
[2017-08-29] MEDS: SODIUM CHLOR 0.9% 1000 ML INJ 1,000 ML IV SCH (19:44)
[2017-08-30] VITALS (10 sets, daily range): BP systolic 122–140; BP diastolic 61–86; PULSE 69–90; RESP 18–20; TEMP 97.8–98.7; O2SAT 97–99
[2017-08-30] MEDS: MORPHINE SULFATE 2 MG/ML INJ IV PUSH PRN ×4 (01:25→21:26)
[2017-08-30] MEDS: oxyCODONE/ACETAMINOPHEN 10 MG/325 MG TAB PO PRN (04:39)
[2017-08-30] MEDS: SODIUM CHLOR 0.9% 1000 ML INJ 1,000 ML IV SCH ×2 (05:37→15:37)
[2017-08-30] MEDS ORDERED: PHARMACY ORDERED LAB ONE (05:45)
[2017-08-30] MEDS: BACLOFEN 10 MG TAB PO SCH ×3 (06:14→21:28)
[2017-08-30] MEDS: VANCOMYCIN INJ 1,000 MG in SODIUM CHLOR 0.9% 250 ML INJ 250 ML IV SCH ×3 (06:19→21:27)
[2017-08-30 08:13] LABS: VANCOMYCIN TROUGH 14.7 MCG/ML (5.0-10.0)
[2017-08-30 08:17] LABS: ALBUMIN 3.1 GM/DL (3.4-5.0); CREATININE 0.58 MG/DL (0.50-1.00)
[2017-08-30 08:22] LABS: DIRECT BILIRUBIN ADULT 0.1 MG/DL (0.0-0.2); INDIRECT BILIRUBIN 0.4 MG/DL (0.0-0.8); TOTAL BILIRUBIN ADULT 0.5 MG/DL (0.2-1.0); TOTAL PROTEIN 7.7 GM/DL (6.4-8.2)
[2017-08-30] MEDS: DOCUSATE SODIUM 50 MG/SENNA 8.6 MG TAB PO SCH ×2 (08:52→21:28)
[2017-08-30] MEDS: NICOTINE 21 MG/24 HR PATCH T-DERMAL SCH (08:53)
[2017-08-30] MEDS: SODIUM CHLORIDE 0.9% FLUSH 10 ML FLUSH IV FLUSH SCH ×2 (09:00→21:28)
[2017-08-30] MEDS: REMOVE OLD PATCH T-DERMAL SCH (09:00)
--- NOTE | 2017-08-30 09:18 | RADRPT ---
EXAM DATE/TIME: 08/29/2017 11:28 [facility] COMPARISON: No previous studies available for comparison. PRIOR BONE SCANS: No correlative bone scan available for comparison. INDICATIONS : Back pain for 1 week. DOSE: 30.1 mCi Tc99m MDP IV IMAGING: SPECT/CT imaging with fusion was performed. RADIATION DOSE: 4.04 CTDIvol (mGy) MEDICAL HISTORY : Smoker. Stomach and cervical cancer. SURGICAL HISTORY : Umbilical hernia repair. Cholecystectomy. ENCOUNTER: Initial ACUITY: 1 week PAIN SCALE: 3/10 LOCATION: Back. TECHNIQUE: Three hours post intravenous administration of radiotracer, whole body bone scan imaging was performe d. FINDINGS: Images demonstrate a homogeneous pattern of uptake in the soft tissue. No hyperemic areas are identi fied. Whole body bone scan demonstrates some increased activity in the lower lumbar spine and lower sacrum. Also mildly increased activity in the cervical spine and right knee. To further evaluate the lumbar spine and sacrum, SPECT imaging was performed in sagittal, axial and c oronal planes. Attenuation correction was performed with computed tomography and both the attenuatio n correction and non-attenuation corrected data sets were reviewed. These images reveal fairly symmet beth increased uptake in the posterior elements at L4 and L5. There is also focally increased activity at the lumbosacral junction. On CT these appear to correlate with areas of degenerative change. Line ar increased activity across the lower sacrum could be related to subacute fracture or possibly an in sufficiency or stress fracture. CONCLUSION: 1. Multifocal increased uptake involving posterior elements of the lower lumbar spine, disc interspac e at the lumbosacral junction, probably degenerative in nature given the symmetry of the findings abdi ecially in the lower lumbar spine. 2. Linear increased activity across the lower sacrum can be seen with sacral insufficiency fractures or possibly subacute trauma. Jabier Velazquez MD on August 30, 2017 at 9:06 Board Certified Radiologist. This report was verified electronically.
--- NOTE | 2017-08-30 10:03 | RADRPT ---
EXAM DATE/TIME: 08/30/2017 08:12 [facility] COMPARISON: No previous studies available for comparison. INDICATIONS : Elevated lab values. MEDICAL HISTORY : Asthma. Hiatal hernia. Arthritis. Cervical cancer. Stomach cancer. MRSA. SURGICAL HISTORY : Cholecystectomy. Fistula. Right knee surgery. ENCOUNTER: Initial ACUITY: 1 day PAIN SCORE: 8/10 LOCATION: Bilateral upper quadrant MEASUREMENTS: LIVER: 14.6 cm length COMMON DUCT: 6 mm RIGHT KIDNEY: 10.1 x 6.0 x 4.1 cm SPLEEN: 12.0 cm length FINDINGS: LIVER: Normal echotexture without focal lesion or ductal dilatation. COMMON DUCT: No intraluminal mass or stone visualized. GALLBLADDER: Surgically absent. PANCREAS: The visualized portions are within normal limits. RIGHT KIDNEY: No hydronephrosis, stone or mass. SPLEEN: No focal lesion. CONCLUSION: 1. No acute findings. Gallbladder surgically absent. No biliary ductal dilatation. Jabier Velazquez MD on August 30, 2017 at 9:57 Board Certified Radiologist. This report was verified electronically.
--- NOTE | 2017-08-30 10:51 | HHI.IDPN ---
Subjective Subjective Remarks Ms. Ware is a 52-year-old female with past medical history of IV drug abuse. She presents to the hospital with complaints of fevers, chills, back pain. Patient reports having severe back pain for the last few days but this has gotten worse just prior to admission. She admits to using Dilaudid for severe pain just a few days prior to admission. She denies any cardiopulmonary symptoms. She denies any abdominal symptoms. Patient was noted to have Cervical and Thoracic spine abnormality ? osteomyelitis on MRI spine. Patient recd dose of Zosyn IV and Vanco IV. No outpatient or other hospital antibiotics. Patient underwent CT guided aspiration of spine abnormality site. Cultures no growth so far. Patient returned to ED after signing off AMA. Upon questioning smiles and says "I dont remember why I left" . At time of my evaluation patient is alert and oriented. ID consulted for eval and Mment of epidural abscess/osteomyelitis. Notes reviewed No fevers No rash No diarrhea Aspirate back C/S negative (received Zosyn and Vanco prior) Bone scan results reviewed(received Zosyn and Vanco IV for 2 weeks prior) Antibiotics Current Medications Vanco Medications (Trade) Dose Ordered Sig/Areli Route Start Time Stop Time Status Last Admin Sodium Chloride 1,000 ml @ 100 mls/hr Q10H IV 08/20/17 15:37 08/26/17 07:00 (NS Flush) 2 ml UNSCH PRN IV FLUSH 08/20/17 15:45 08/25/17 01:43 (NS Flush) 2 ml BID IV FLUSH 08/20/17 21:00 08/26/17 10:25 (Zofran Inj) 4 mg Q6H PRN IVP 08/20/17 15:45 (Lovenox Inj) 40 mg Q24H SQ 08/20/17 16:00 08/25/17 16:07 (Tylenol) 650 mg Q6H PRN PO 08/20/17 15:45 (Percocet 5-325 Mg) 1 tab Q6H PRN PO 08/20/17 15:45 08/23/17 05:48 (Percocet 10-325 Mg) 1 tab Q6H PRN PO 08/20/17 15:45 08/26/17 07:00 (Narcan Inj) 0.4 mg UNSCH PRN IV PUSH 08/20/17 15:45 (Priscilla-Colace) 1 tab BID PO 08/20/17 21:00 08/26/17 10:24 (Milk Of Magnesia Liq) 30 ml Q12H PRN PO 08/20/17 15:45 (Senokot) 17.2 mg Q12H PRN PO 08/20/17 15:45 (Dulcolax Supp) 10 mg DAILY PRN RECTAL 08/20/17 15:45 (Lactulose Liq) 30 ml DAILY PRN PO 08/20/17 15:45 Pharmacy Profile Note 0 ml @ 0 mls/hr UNSCH OTHER 08/20/17 15:45 (Lioresal) 5 mg Q8HR PO 08/20/17 15:45 08/26/17 05:48 (Habitrol 21 Mg Patch.24 Hr) 1 patch DAILY T-DERMAL 08/20/17 18:30 08/26/17 10:25 Miscellaneous Information 1 DAILY T-DERMAL 08/21/17 09:00 08/26/17 10:25 Vancomycin HCl 1000 mg/Sodium Chloride 250 ml @ 250 mls/hr Q8H IV 08/22/17 22:00 08/26/17 05:48 (Morphine Inj) 2 mg Q4HR PRN IV PUSH 08/24/17 09:45 08/26/17 10:24 Miscellaneous Information SPECIFIC LAB TO BE DRAWN:VANCO TROUGH DATE TO... ONCE ONCE .XX 08/28/17 05:45 08/28/17 05:46 Lines Line sites with no e.o infection. Past Medical History reviewed. Allergies: Coded Allergies: No Known Allergies (Unverified Allergy, Unknown, 08/19/17) Objective . Vital Signs Date Time Temp Pulse Resp B/P (MAP) Pulse Ox O2 Delivery O2 Flow Rate FiO2 08/30/17 08:11 98.1 70 20 122/61 (81) 99 08/30/17 04:58 98.6 75 18 123/69 (87) 99 08/30/17 02:28 85 08/30/17 01:33 97.8 80 18 134/74 (94) 97 08/29/17 21:30 98.2 82 18 141/79 (99) 99 08/29/17 17:09 97.8 59 20 133/92 (106) 97 08/29/17 13:04 97.5 66 20 136/72 (93) 95 08/29/17 12:00 81 . Laboratory Tests Test 08/29/17 06:55 White Blood Count 8.3 TH/MM3 Red Blood Count 4.17 MIL/MM3 Hemoglobin 12.7 GM/DL Hematocrit 36.7 % Mean Corpuscular Volume 87.9 FL Mean Corpuscular Hemoglobin 30.5 PG Mean Corpuscular Hemoglobin Concent 34.7 % Red Cell Distribution Width 13.3 % Platelet Count 293 TH/MM3 Mean Platelet Volume 7.9 FL Neutrophils (%) (Auto) 60.0 % Lymphocytes (%) (Auto) 29.6 % Monocytes (%) (Auto) 7.1 % Eosinophils (%) (Auto) 2.4 % Basophils (%) (Auto) 0.9 % Neutrophils # (Auto) 5.0 TH/MM3 Lymphocytes # (Auto) 2.5 TH/MM3 Monocytes # (Auto) 0.6 TH/MM3 Eosinophils # (Auto) 0.2 TH/MM3 Basophils # (Auto) 0.1 TH/MM3 CBC Comment DIFF FINAL Differential Comment Laboratory Tests Test 08/29/17 06:55 08/30/17 06:10 Blood Urea Nitrogen 8 MG/DL Creatinine 0.61 MG/DL 0.58 MG/DL Random Glucose 85 MG/DL Total Protein 7.6 GM/DL 7.7 GM/DL Albumin 3.0 GM/DL 3.1 GM/DL Calcium Level 9.4 MG/DL Alkaline Phosphatase 137 U/L 157 U/L Aspartate Amino Transf (AST/SGOT) 189 U/L 265 U/L Alanine Aminotransferase (ALT/SGPT) 208 U/L 289 U/L Total Bilirubin 0.7 MG/DL 0.5 MG/DL Sodium Level 134 MEQ/L Potassium Level 3.8 MEQ/L Chloride Level 99 MEQ/L Carbon Dioxide Level 27.9 MEQ/L Anion Gap 7 MEQ/L Estimat Glomerular Filtration Rate 103 ML/MIN 109 ML/MIN C-Reactive Protein 0.42 MG/DL Direct Bilirubin 0.1 MG/DL Indirect Bilirubin 0.4 MG/DL Imaging Lumbar Spine MRI 08/26/17 0000 Signed Impressions: Service Date/Time: Saturday, August 26, 2017 09:28 - CONCLUSION: Gas the disease L4-5 L5-S1 worse at L5-S1 to the left There is no abnormal contrast enhancement. Robbie Mckenzie MD FACR Physical Exam GENERAL: Awake and alert, NAD SKIN: No rashes, ecchymoses or lesions. Cool and dry. HEAD: Atraumatic. Normocephalic. No temporal or scalp tenderness. EYES: Pupils equal round and reactive. Full and intact EOM. No scleral icterus. No injection or drainage. ENT: Nose without bleeding, purulent drainage. Moist mucosa, no oral lesions. NECK: Trachea midline. No JVD or lymphadenopathy. Supple, nontender, no meningeal signs. CARDIOVASCULAR: Regular rate and rhythm without murmurs, gallops, or rubs. RESPIRATORY: Clear to auscultation. Breath sounds equal bilaterally. No wheezes , rales, or rhonchi. GASTROINTESTINAL: Abdomen soft, non-tender, nondistended. No hepato-splenomegaly , or palpable masses. No guarding. MUSCULOSKELETAL: Extremities without clubbing, cyanosis, or edema. No calf tenderness. Negative Homans sign bilaterally. NEUROLOGICAL: Grossly non-focal Psych cooperative IV line sites with no e.o infection Assessment & Plan Remarks Lumbar and Cervical ?spinal osteomyelitis vs compression fracture - tumor markers negative S/P Zosyn IV and Vanco prior to aspiration. Hepatitis C positive, HIV negative. Abnormal LFTs: hep C related, increasing trend. IVDA Recs: Continue Vanco IV (target 15-20) Due to increasing LFTs will consult GI. US liver reviewed. Reviewed MAR: DC Percocet (tylenol component). Cj Urena about other meds that could be eliminated that could be potentially hepatotoxic. Repeat LFTs in am. Tylenol level. dw patient new plan. If GI implicates Vanco IV as cause for hepatotoxicity will need to consider Dapto IV. Radha Anderson MD Aug 30, 2017 10:51
--- NOTE | 2017-08-30 11:02 | HHI.PR ---
Subjective Remarks in no acute distress. afebrile. complaining of back pain. no abdominal pain or nausea. Objective Vitals Vital Signs Date Time Temp Pulse Resp B/P (MAP) Pulse Ox O2 Delivery O2 Flow Rate FiO2 08/30/17 08:11 98.1 70 20 122/61 (81) 99 08/30/17 04:58 98.6 75 18 123/69 (87) 99 08/30/17 02:28 85 08/30/17 01:33 97.8 80 18 134/74 (94) 97 08/29/17 21:30 98.2 82 18 141/79 (99) 99 08/29/17 17:09 97.8 59 20 133/92 (106) 97 08/29/17 13:04 97.5 66 20 136/72 (93) 95 08/29/17 12:00 81 I/O 08/29/17 08/29/17 08/29/17 08/30/17 08/30/17 08/30/17 07:00 15:00 23:00 07:00 15:00 23:00 Intake Total 250 ml 550 ml Balance 250 ml 550 ml Intake Oral 300 ml IV Total 250 ml 250 ml # Voids 2 3 3 3 Result Diagram: 08/29/17 0655 08/30/17 0610 Imaging Last Impressions Liver Ultrasound 08/30/17 0000 Signed Impressions: Service Date/Time: Wednesday, August 30, 2017 08:12 - CONCLUSION: 1. No acute findings. Gallbladder surgically absent. No biliary ductal dilatation. Jabier Velazquez MD SPECT Scan-Bone Nuclear Medicine 08/29/17 0000 Signed Impressions: Service Date/Time: Tuesday, August 29, 2017 11:28 - CONCLUSION: 1. Multifocal increased uptake involving posterior elements of the lower lumbar spine, disc interspace at the lumbosacral junction, probably degenerative in nature given the symmetry of the findings especially in the lower lumbar spine. 2. Linear increased activity across the lower sacrum can be seen with sacral insufficiency fractures or possibly subacute trauma. Jabier Velazquez MD Lumbar Spine MRI 08/26/17 0000 Signed Impressions: Service Date/Time: Saturday, August 26, 2017 09:28 - CONCLUSION: Gas the disease L4-5 L5-S1 worse at L5-S1 to the left There is no abnormal contrast enhancement. Robbie Mckenzie MD FACR Objective Remarks GENERAL: This is a well-nourished, well-developed patient, in no apparent distress. CARDIOVASCULAR: Regular rate and regular rhythm without murmurs, gallops, or rubs. RESPIRATORY: Clear to auscultation. Breath sounds equal bilaterally. No wheezes , rales, or rhonchi. GASTROINTESTINAL: Abdomen soft, non-tender, nondistended. Normal, active bowel sounds MUSCULOSKELETAL: Extremities without clubbing, cyanosis, or edema. NEURO: Alert & Oriented x4 to person, place, time, situation. Moves all ext x4 Medications and IVs Inpatient Medications Acetaminophen (Tylenol) 650 mg Q6H PRN PO PAIN 1-2, Temp>100.4, [place]; Start at 15:45 Baclofen (Lioresal) 5 mg Q8HR PO Last administered on 08/30/17at 06:14; Start at 15:45 Bisacodyl (Dulcolax Supp) 10 mg DAILY PRN RECTAL SEVERE CONSITIPATION; Start at 15:45 Enoxaparin Sodium (Lovenox Inj) 40 mg Q24H SQ Last administered on 08/29/17at 16 :47; Start 08/20/17 at 16:00 Lactulose (Lactulose Liq) 30 ml DAILY PRN PO SEVERE CONSITIPATION; Start at 15:45 Magnesium Hydroxide (Milk Of Magnesia Liq) 30 ml Q12H PRN PO Mild constipation ; Start 08/20/17 at 15:45 Miscellaneous Information SPECIFIC LAB TO BE DRAWN:VANCO TROUGH DATE TO... ONCE ONCE .XX ; Start 09/04/17 at 05:45; Stop 09/04/17 at 05:46 Morphine Sulfate (Morphine Inj) 2 mg Q4HR PRN IV PUSH BREAKTHROUGH PAIN Last administered on 08/30/17at 08:56; Start 08/24/17 at 09:45 Naloxone HCl (Narcan Inj) 0.4 mg UNSCH PRN IV PUSH SEE LABEL COMMENTS; Start at 15:45 Nicotine (Habitrol 21 Mg Patch.24 Hr) 1 patch DAILY T-DERMAL Last administered on 08/30/17at 08:53; Start 08/20/17 at 18:30 Ondansetron HCl (Zofran Inj) 4 mg Q6H PRN IVP NAUSEA OR VOMITING; Start at 15:45 Oxycodone/ Acetaminophen (Percocet 5-325 Mg) 1 tab Q6H PRN PO PAIN SCALE 3 TO 5 Last administered on 08/23/17at 05:48; Start 08/20/17 at 15:45 Oxycodone/ Acetaminophen (Percocet 10-325 Mg) 1 tab Q6H PRN PO PAIN SCALE 6 TO 10 Last administered on 08/30/17at 04:39; Start 08/20/17 at 15:45 Pharmacy Profile Note 0 ml @ 0 mls/hr UNSCH OTHER ; Start 08/20/17 at 15:45 Piperacillin Sod/ Tazobactam Sod 50 ml @ 100 mls/hr Q6H IV Last administered on 08/22/17at 04:45; Start 08/20/17 at 17:00; Stop 08/22/17 at 08:37; Status DC Potassium Chloride (KCl) 30 meq ONCE ONCE PO Last administered on 08/22/17at 09: 52; Start 08/22/17 at 09:30; Stop 08/22/17 at 09:31; Status DC Senna/Docusate Sodium (Priscilla-Colace) 1 tab BID PO Last administered on at 08:52; Start 08/20/17 at 21:00 Sennosides (Senokot) 17.2 mg Q12H PRN PO Moderate constipation; Start 08/20/17 at 15:45 Sodium Chloride (NS Flush) 2 ml BID IV FLUSH Last administered on 08/30/17at 09: 00; Start 08/20/17 at 21:00 Vancomycin HCl 1000 mg/Sodium Chloride 250 ml @ 250 mls/hr Q8H IV Last administered on 08/30/17at 06:19; Start 08/22/17 at 22:00 A/P Problem List: (1) IV drug abuse ICD Code: F19.10 - Other psychoactive substance abuse, uncomplicated Status: Acute (2) Osteomyelitis ICD Code: M86.9 - Osteomyelitis, unspecified (3) Sepsis ICD Code: A41.9 - Sepsis, unspecified organism Assessment and Plan SIRS due to Osteomyelitis of the cervical and thoracic spine Hx IVDA - 08/19/17 Echocardiogram showed left ventricular systolic function is moderately reduced with an estimated ejection fraction in the range of 40-45%. Wall thickness is measured at the upper limits of normal. Normal left ventricular size. There is mild tricuspid regurgitation. - continue vancomycin - per ID. - neurosurgery following. -Pain management; stop percocet and continue with Oxycodone-Morphine for breakthrough pain. -blood and needle aspiration cultures negative so far. - U tox positive for amphetamines. Transaminitis/ Hepatitis C positive; LFT's worse today. -liver US with no acute abnormality. -stop percocet -check Tylenol level. -consult GI and repeat LFT's tomorrow. IVDA Substance Abuse Tobacco -Counseled. U tox positive for amphetamines. -Nicotine Patch DVT problem SCDs d/w today. Discharge Planning LFT's trending up. work-up in progress. not ready for discharge yet. Problem Qualifiers (1) Osteomyelitis: Qualified Codes: M86.9 - Osteomyelitis, unspecified Derik Ritter MD Aug 30, 2017 11:02
--- NOTE | 2017-08-30 13:41 | PD.CONS ---
HPI History of Present Illness This is a 52 year old F with medical history significant for osteomyelitis and vertebral body fracture, recent admission for this and signed out AMA. Pt reports she does not remember signing out AMA or that night following leaving the hospital. She reports she showed up at her friends house the next morning, who she is currently living with and her friend brought her into the hospital. Pt currently being followed by neurosurgery and infectious disease. Our service has been consulted to evaluate pt for elevated LFTs. Labs reveal positive antibody to Hepatitis C. Pt denies history of known Hepatitis C or any liver issues. History of IVDA, last use was approx a year ago, states was previously using IV Dilaudid. Unprotected sexual intercourse with of 18 years who also was previous IV drug user, last use was a year ago. Has a tattoo on ankle, states was done in a tattoo parlor. Reports ETOH, approx once a year. Does take Tylenol twice daily for the past few years for chronic back pain. GI symptoms include nausea, denies emesis. Also complains of bad acid reflux at home, takes Prevacid when she can afford it. Reports dysphagia with solids and feeling like food gets stuck while swallowing. Complaints of weight loss, 15 lbs over past couple months. Last EGD was 20 years ago with findings of erosions and bleeding ulcers. Last colonoscopy was at the same time, states normal exam. (Naheed Rubin) [facility] Past Medical History IV drug use Cholecystitis Inguinal hernia Vaginal fistula Past Surgical History ACL repair Cholecystectomy Vaginal fistula repair Inguinal hernia repair (Naheed Rubin) Coded Allergies: No Known Allergies (Unverified Allergy, Unknown, 08/19/17) Family History Reports family history of hypertension, diabetes, cancer on both sides of her family mother and father. Social History ETOH- once a year Current a smoker one to what a half pack per day Admits to IV drug use, denies any use for past year Per records- last use on 08/28- amphetamine- pt denies (Naheed Rubin) Review of Systems Gastrointestinal: COMPLAINS OF: Abdominal pain, Difficulty Swallowing, Odynophagia, Heartburn, DENIES: Black stools, Bloody stools, Constipation, Diarrhea, Nausea, Vomiting, Swelling of Abdomen, Hematemesis (Naheed Rubin) GI Exam Vitals I&O Vital Signs Date Time Temp Pulse Resp B/P (MAP) Pulse Ox O2 Delivery O2 Flow Rate FiO2 08/30/17 12:00 98.0 90 20 128/86 (100) 98 08/30/17 08:11 98.1 70 20 122/61 (81) 99 08/30/17 04:58 98.6 75 18 123/69 (87) 99 08/30/17 02:28 85 08/30/17 01:33 97.8 80 18 134/74 (94) 97 08/29/17 21:30 98.2 82 18 141/79 (99) 99 08/29/17 17:09 97.8 59 20 133/92 (106) 97 I/O 08/29/17 08/29/17 08/29/17 08/30/17 08/30/17 08/30/17 07:00 15:00 23:00 07:00 15:00 23:00 Intake Total 250 ml 550 ml Balance 250 ml 550 ml Intake Oral 300 ml IV Total 250 ml 250 ml # Voids 2 3 3 3 Imaging Last Impressions Liver Ultrasound 08/30/17 0000 Signed Impressions: Service Date/Time: Wednesday, August 30, 2017 08:12 - CONCLUSION: 1. No acute findings. Gallbladder surgically absent. No biliary ductal dilatation. Jabier Velazquez MD SPECT Scan-Bone Nuclear Medicine 08/29/17 0000 Signed Impressions: Service Date/Time: Tuesday, August 29, 2017 11:28 - CONCLUSION: 1. Multifocal increased uptake involving posterior elements of the lower lumbar spine, disc interspace at the lumbosacral junction, probably degenerative in nature given the symmetry of the findings especially in the lower lumbar spine. 2. Linear increased activity across the lower sacrum can be seen with sacral insufficiency fractures or possibly subacute trauma. Jabier Velazquez MD Lumbar Spine MRI 08/26/17 0000 Signed Impressions: Service Date/Time: Saturday, August 26, 2017 09:28 - CONCLUSION: Gas the disease L4-5 L5-S1 worse at L5-S1 to the left There is no abnormal contrast enhancement. Robbie Mckenzie MD FACR Laboratory Test 08/30/17 06:10 Creatinine 0.58 MG/DL Estimat Glomerular Filtration Rate 109 ML/MIN Total Bilirubin 0.5 MG/DL Direct Bilirubin 0.1 MG/DL Indirect Bilirubin 0.4 MG/DL Aspartate Amino Transf (AST/SGOT) 265 U/L Alanine Aminotransferase (ALT/SGPT) 289 U/L Alkaline Phosphatase 157 U/L Total Protein 7.7 GM/DL Albumin 3.1 GM/DL Vancomycin Level Trough 14.7 MCG/ML Acetaminophen Level LESS THAN 2.0 MCG/ML Date/Time Source Procedure Growth Status 08/20/17 14:05 Blood Peripheral Aerobic Blood Culture - Final NO GROWTH IN 5 DAYS Complete 08/20/17 14:05 Blood Peripheral Anaerobic Blood Culture - Final NO GROWTH IN 5 DAYS Complete Physical Examination HEENT: Normocephalic; atraumatic CHEST: Even/unlabored CARDIAC: RRR ABDOMEN: Soft, nondistended, nontender; bowel sounds active EXTREMITIES: No clubbing, cyanosis, or edema. SKIN: Normal; no rash; no jaundice. SERVICE TECH: No focal deficits; alert and oriented times three. (Naheed Rubin [facility]) Assessment and Plan Plan Assessment: - Transaminitis- Increased since admission- (+) Hepatitis C antibody. Reports history of IVDA, states last use was a year ago, per other provider notes from this admission last use was 08/28 so unclear. ETOH, once a year. Reports taking Tylenol twice daily for years. (+) tattoo on ankle, done at [facility]. (+) unprotected sexual intercourse with of 18 years, he also has history of IVDA, last use was also approx a year ago. Liver US --> No acute findings. Cholecystectomy. No biliary ductal dilation - Dysphagia- worse with solids (+) odynophagia. States feels like food gets stuck- last EGD was 20 years ago- findings of erosions and bleeding ulcers - Acid reflux./epigastric pain- takes Prevacid OTC when she can afford it - Weight loss- 15 lbs over the past few months- last colonoscopy 20 years ago states normal exam Previous tumor markers noted AFP-2.8 CEA-1 CA 19-9 10.8 - Osteomyelitis/vertebral fracture- per neurosurgery and ID Plan: EGD with possible dilation tomorrow Obtain consent NPO after MN Protonix Liver DAVID Hepatitis C genotype and viral load Avoid hepatotoxins Further recommendations to follow based on findings of above Pt has been seen and examined by myself and Dr. Glass and this note is written on his behalf (Naheed Rubin) Physician Comments Seen and examined, plan as above. EGD in AM Thank you for the consult. (Idalmis Glass MD) Naheed Rubin Aug 30, 2017 13:41 Idalmis Glass MD Aug 30, 2017 14:24
[2017-08-30 16:14] LABS: % SATURATION IRON PROFILE 16.3 % (20-50); IRON (FE) 75 MCG/DL (50-170); TOTAL IRON BINDING CAPACITY 459 MCG/DL (250-450)
[2017-08-30 16:17] LABS: FERRITIN 45 NG/ML (8-252)
[2017-08-30] MEDS: ENOXAPARIN SODIUM 40 MG/0.4 ML SYRINGE SQ SCH (17:47)
[2017-08-31] VITALS (11 sets, daily range): BP systolic 106–136; BP diastolic 57–79; PULSE 58–91; RESP 17–20; TEMP 97.7–99; O2SAT 97–99
[2017-08-31] MEDS ORDERED: POVIDONE IODINE 5% (ANTISEPSIS KIT) 4 APPLICATIONS EACH NARE PRN (04:00)
[2017-08-31] MEDS ORDERED: SODIUM CHLORID 0.9% 500 ML IV PRN (04:00)
[2017-08-31] MEDS ORDERED: LACTATED RINGER'S 1000 ML IV PRN (04:00)
[2017-08-31] MEDS ORDERED: CHLORHEXIDINE GLUCONATE 2 % 1 PACK (2 CLOTHS) TOPICAL PRN (04:00)
[2017-08-31] MEDS: MORPHINE SULFATE 2 MG/ML INJ IV PUSH PRN ×4 (04:09→22:26)
[2017-08-31] MEDS: SODIUM CHLOR 0.9% 1000 ML INJ 1,000 ML IV SCH ×3 (04:09→22:14)
[2017-08-31] MEDS: BACLOFEN 10 MG TAB PO SCH ×3 (05:57→22:14)
[2017-08-31] MEDS: VANCOMYCIN INJ 1,000 MG in SODIUM CHLOR 0.9% 250 ML INJ 250 ML IV SCH ×3 (05:58→22:14)
[2017-08-31] MEDS: DOCUSATE SODIUM 50 MG/SENNA 8.6 MG TAB PO SCH ×2 (08:22→19:56)
[2017-08-31] MEDS: REMOVE OLD PATCH T-DERMAL SCH (08:22)
[2017-08-31] MEDS: NICOTINE 21 MG/24 HR PATCH T-DERMAL SCH (08:23)
[2017-08-31] MEDS: SODIUM CHLORIDE 0.9% FLUSH 10 ML FLUSH IV FLUSH SCH ×2 (08:23→19:56)
[2017-08-31 09:31] LABS: DIRECT BILIRUBIN ADULT 0.1 MG/DL (0.0-0.2)
[2017-08-31 09:33] LABS: INDIRECT BILIRUBIN 0.3 MG/DL (0.0-0.8); TOTAL BILIRUBIN ADULT 0.4 MG/DL (0.2-1.0); TOTAL PROTEIN 7.2 GM/DL (6.4-8.2)
--- NOTE | 2017-08-31 09:41 | GIPROC ---
[facility] [address] [facility]. [facility], [id number] EGD PROCEDURE REPORT EXAM DATE: 08/31/2017 PATIENT NAME: Merle Ware MR #: [id number] BIRTHDATE: 1965 ATTENDING: Idalmis Glass MD ORDER #: [id number] TECH: Stephen Camarena and Albina Griffiths STATUS: inpatient INDICATIONS: The patient is a 52 yr old female here for an EGD due to dysphagia PROCEDURE PERFORMED: EGD w/ biopsy MEDICATIONS: Per Anesthesia and None. TOPICAL ANESTHETIC: none CONSENT: The patient understands the risks and benefits of the procedure and understands that these risks include, but are not limited to: sedation, allergic reaction, infection, perforation and/or bleeding. Alternative means of evaluation and treatment include, among others: physical exam, x-rays, and/or surgical intervention. The patient elects to proceed with this endoscopic procedure. medical equipment was checked for proper function. Hand hygiene and appropriate measures for infection prevention was taken. After the risks, benefits and alternatives of the procedure were thoroughly explained, Informed consent was verified, confirmed and timeout was successfully executed by the treatment team. The patient was anesthetized with topical anesthesia and the Pentax [id number] endoscope was introduced through the mouth and advanced to the second portion of the duodenum. Retroflexion was performed and was normal The gastroscope was then slowly withdrawn and removed. ESOPHAGUS: There was LA Class A esophagitis noted. STOMACH: Multiple 1-3mm shallow erosions were found in the gastric antrum. Multiple biopsies was performed using cold forceps. Sample sent for histology. ADVERSE EVENTS: There were no complications. IMPRESSIONS: 1. There was LA Class A esophagitis noted 2. Multiple 1-3mm erosions were found in the gastric antrum; multiple biopsies was performed 3. Retroflexion was performed and was normal RECOMMENDATIONS: 1. Await biopsy results. Biopsy results will not be ready for 7-10 days. If you don't hear from us in two weeks, call our office for biopsy results. 2. Continue PPI PATIENT CONDITION: stable DISPOSITION: Observation REPEAT EXAM: NONE Idalmis Glass MD eSigned: Idalmis Glass MD 08/31/2017 9:41 AM cc: PATIENT NAME: Merle Ware MR#: [id number]
--- NOTE | 2017-08-31 11:28 | HHI.PR ---
Subjective Remarks had EGD earlier today. in no acute distress. pain is fairly controlled. no fever. Objective Vitals Vital Signs Date Time Temp Pulse Resp B/P (MAP) Pulse Ox O2 Delivery O2 Flow Rate FiO2 08/31/17 10:00 98.1 70 20 115/67 (83) 96 08/31/17 09:50 97.5 80 16 122/67 (85) 96 08/31/17 08:00 98.0 58 20 113/57 (75) 97 08/31/17 04:55 98.5 87 18 106/57 (73) 99 08/31/17 03:56 71 08/31/17 00:12 97.7 91 18 114/57 (76) 98 08/31/17 00:08 73 08/30/17 21:26 98.7 89 18 130/66 (87) 98 08/30/17 19:59 83 08/30/17 16:00 74 08/30/17 15:27 98.0 86 20 140/80 (100) 98 08/30/17 12:00 98.0 90 20 128/86 (100) 98 I/O 08/30/17 08/30/17 08/30/17 08/31/17 08/31/17 08/31/17 07:00 15:00 23:00 07:00 15:00 23:00 Intake Total 550 ml 360 ml 1500 ml 300 ml Output Total 250 ml Balance 550 ml 360 ml 1250 ml 300 ml Intake Oral 300 ml 360 ml IV Total 250 ml 1500 ml 150 ml Other 150 ml Output Urine Total 250 ml # Voids 3 6 # Bowel Movements 1 Result Diagram: 08/29/17 0655 08/30/17 0610 Imaging Last Impressions Liver Ultrasound 08/30/17 0000 Signed Impressions: Service Date/Time: Wednesday, August 30, 2017 08:12 - CONCLUSION: 1. No acute findings. Gallbladder surgically absent. No biliary ductal dilatation. Jabier Velazquez MD SPECT Scan-Bone Nuclear Medicine 08/29/17 0000 Signed Impressions: Service Date/Time: Tuesday, August 29, 2017 11:28 - CONCLUSION: 1. Multifocal increased uptake involving posterior elements of the lower lumbar spine, disc interspace at the lumbosacral junction, probably degenerative in nature given the symmetry of the findings especially in the lower lumbar spine. 2. Linear increased activity across the lower sacrum can be seen with sacral insufficiency fractures or possibly subacute trauma. Jbaier Velazquez MD Lumbar Spine MRI 08/26/17 0000 Signed Impressions: Service Date/Time: Saturday, August 26, 2017 09:28 - CONCLUSION: Gas the disease L4-5 L5-S1 worse at L5-S1 to the left There is no abnormal contrast enhancement. Robbie Mckenzie MD FACR Objective Remarks GENERAL: This is a well-nourished, well-developed patient, in no apparent distress. CARDIOVASCULAR: Regular rate and regular rhythm without murmurs, gallops, or rubs. RESPIRATORY: Clear to auscultation. Breath sounds equal bilaterally. No wheezes , rales, or rhonchi. GASTROINTESTINAL: Abdomen soft, non-tender, nondistended. Normal, active bowel sounds MUSCULOSKELETAL: Extremities without clubbing, cyanosis, or edema. NEURO: Alert & Oriented x4 to person, place, time, situation. Moves all ext x4 Medications and IVs Inpatient Medications Acetaminophen (Tylenol) 650 mg Q6H PRN PO PAIN 1-2, Temp>100.4, [place]; Start at 15:45 Baclofen (Lioresal) 5 mg Q8HR PO Last administered on 08/31/17at 05:57; Start at 15:45 Bisacodyl (Dulcolax Supp) 10 mg DAILY PRN RECTAL SEVERE CONSITIPATION; Start at 15:45 Chlorhexidine Gluconate (Chlorhexidine 2% Cloth) 3 pack ENTRY LEVEL PRN TOPICAL SEE LABEL COMMENTS; Start 08/31/17 at 04:00; Stop 09/03/17 at 03:59 Enoxaparin Sodium (Lovenox Inj) 40 mg Q24H SQ Last administered on 08/30/17at 17 :47; Start 08/20/17 at 16:00 Lactated Ringer's 1,000 ml @ 30 mls/hr Q24H PRN IV SEE LABEL COMMENTS Last administered on 08/31/17at 09:00; Start 08/31/17 at 04:00; Stop 09/03/17 at 03:59 Lactulose (Lactulose Liq) 30 ml DAILY PRN PO SEVERE CONSITIPATION; Start at 15:45 Magnesium Hydroxide (Milk Of Magnesia Liq) 30 ml Q12H PRN PO Mild constipation ; Start 08/20/17 at 15:45 Miscellaneous Information SPECIFIC LAB TO BE DRAWN:VANCO TROUGH DATE TO... ONCE ONCE .XX ; Start 09/04/17 at 05:45; Stop 09/04/17 at 05:46 Morphine Sulfate (Morphine Inj) 2 mg Q4HR PRN IV PUSH BREAKTHROUGH PAIN Last administered on 08/31/17at 10:38; Start 08/24/17 at 09:45 Naloxone HCl (Narcan Inj) 0.4 mg UNSCH PRN IV PUSH SEE LABEL COMMENTS; Start at 15:45 Nicotine (Habitrol 21 Mg Patch.24 Hr) 1 patch DAILY T-DERMAL Last administered on 08/31/17at 08:23; Start 08/20/17 at 18:30 Ondansetron HCl (Zofran Inj) 4 mg Q6H PRN IVP NAUSEA OR VOMITING; Start at 15:45 Oxycodone HCl (Roxicodone) 10 mg Q6H PRN PO PAIN 6-10 Last administered on 08/31at 07:19; Start 08/30/17 at 11:00 Oxycodone/ Acetaminophen (Percocet 5-325 Mg) 1 tab Q6H PRN PO PAIN SCALE 3 TO 5 Last administered on 08/23/17at 05:48; Start 08/20/17 at 15:45; Stop 08/30/17 at 10:58; Status DC Oxycodone/ Acetaminophen (Percocet 10-325 Mg) 1 tab Q6H PRN PO PAIN SCALE 6 TO 10 Last administered on 08/30/17at 04:39; Start 08/20/17 at 15:45; Stop 08/30/17 at 10:58; Status DC Pharmacy Profile Note 0 ml @ 0 mls/hr UNSCH OTHER ; Start 08/20/17 at 15:45 Piperacillin Sod/ Tazobactam Sod 50 ml @ 100 mls/hr Q6H IV Last administered on 08/22/17at 04:45; Start 08/20/17 at 17:00; Stop 08/22/17 at 08:37; Status DC Potassium Chloride (KCl) 30 meq ONCE ONCE PO Last administered on 08/22/17at 09: 52; Start 08/22/17 at 09:30; Stop 08/22/17 at 09:31; Status DC Povidone Iodine (Betadine 5% Antisepsis Kit) 1 applic ENTRY LEVEL PRN EACH NARE SEE LABEL COMMENTS; Start 08/31/17 at 04:00; Stop 09/03/17 at 03:59 Senna/Docusate Sodium (Priscilla-Colace) 1 tab BID PO Last administered on at 21:28; Start 08/20/17 at 21:00 Sennosides (Senokot) 17.2 mg Q12H PRN PO Moderate constipation; Start 08/20/17 at 15:45 Sodium Chloride 500 ml @ 30 mls/hr [id number] PRN IV SEE LABEL COMMENTS; Start at 04:00; Stop 09/03/17 at 03:59 Sodium Chloride (NS Flush) 2 ml BID IV FLUSH Last administered on 08/30/17at 09: 00; Start 08/20/17 at 21:00 Vancomycin HCl 1000 mg/Sodium Chloride 250 ml @ 250 mls/hr Q8H IV Last administered on 08/31/17at 05:58; Start 08/22/17 at 22:00 A/P Problem List: (1) IV drug abuse ICD Code: F19.10 - Other psychoactive substance abuse, uncomplicated Status: Acute (2) Osteomyelitis ICD Code: M86.9 - Osteomyelitis, unspecified (3) Sepsis ICD Code: A41.9 - Sepsis, unspecified organism Assessment and Plan SIRS due to Osteomyelitis of the cervical and thoracic spine Hx IVDA - 08/19/17 Echocardiogram showed left ventricular systolic function is moderately reduced with an estimated ejection fraction in the range of 40-45%. Wall thickness is measured at the upper limits of normal. Normal left ventricular size. There is mild tricuspid regurgitation. - continue vancomycin - per ID. - neurosurgery following. -Pain management; continue with Oxycodone-Morphine for breakthrough pain. -blood and needle aspiration cultures negative so far. - U tox positive for amphetamines. Transaminitis/ Hepatitis C positive; LFT's stable but still elevated. -liver US with no acute abnormality. -stopped percocet -GI consult appreciated; will follow the serology. -repeat LFT's tomorrow. Dysphagia - GI consulted- s/p EGD with esophagitis and gastric erosions; start on PPI and follow the biopsy. IVDA Substance Abuse Tobacco -Counseled. U tox positive for amphetamines. -Nicotine Patch DVT problem SCDs Discharge Planning elevated LFT's- work-up in progress. Problem Qualifiers (1) Osteomyelitis: Qualified Codes: M86.9 - Osteomyelitis, unspecified Derik Ritter MD Aug 31, 2017 11:28
[2017-08-31] MEDS ORDERED: LIDOCAINE HCL 1% PF 5 ML SYRINGE OTHER ONE (12:00)
[2017-08-31] MEDS ORDERED: PROPOFOL 200 MG/20 ML AMP IV ONE (12:00)
[2017-08-31] MEDS: PANTOPRAZOLE SOD 40 MG DELAYED RELEASE TAB PO SCH (13:21)
[2017-08-31 13:56] LABS: SMOOTH MUSCLE TOTAL AUTOABS Negative (Negative)
[2017-08-31 14:11] LABS: ALPHA-1-ANTITRYPSIN 167 mg/dL (100 - 190)
[2017-08-31] MEDS: ENOXAPARIN SODIUM 40 MG/0.4 ML SYRINGE SQ SCH (17:33)
[2017-09-01] VITALS (9 sets, daily range): BP systolic 115–152; BP diastolic 58–79; PULSE 69–95; RESP 16–20; TEMP 97.6–98.5; O2SAT 98–99
[2017-09-01] MEDS: BACLOFEN 10 MG TAB PO SCH ×3 (06:03→22:12)
[2017-09-01] MEDS: VANCOMYCIN INJ 1,000 MG in SODIUM CHLOR 0.9% 250 ML INJ 250 ML IV SCH ×3 (06:03→22:12)
[2017-09-01] MEDS: MORPHINE SULFATE 2 MG/ML INJ IV PUSH PRN ×4 (06:04→20:30)
[2017-09-01 07:07] LABS: CREATININE 0.57 MG/DL (0.50-1.00)
[2017-09-01 07:10] LABS: DIRECT BILIRUBIN ADULT 0.1 MG/DL (0.0-0.2); INDIRECT BILIRUBIN 0.4 MG/DL (0.0-0.8); TOTAL BILIRUBIN ADULT 0.5 MG/DL (0.2-1.0); TOTAL PROTEIN 7.2 GM/DL (6.4-8.2)
[2017-09-01] MEDS: SODIUM CHLOR 0.9% 1000 ML INJ 1,000 ML IV SCH ×2 (07:37→16:49)
[2017-09-01] MEDS: SODIUM CHLORIDE 0.9% FLUSH 10 ML FLUSH IV FLUSH SCH ×2 (08:18→21:00)
[2017-09-01] MEDS: REMOVE OLD PATCH T-DERMAL SCH (09:00)
[2017-09-01] MEDS: DOCUSATE SODIUM 50 MG/SENNA 8.6 MG TAB PO SCH ×2 (09:24→21:00)
[2017-09-01] MEDS: PANTOPRAZOLE SOD 40 MG DELAYED RELEASE TAB PO SCH (09:24)
[2017-09-01] MEDS: NICOTINE 21 MG/24 HR PATCH T-DERMAL SCH (09:25)
--- NOTE | 2017-09-01 12:05 | HHI.FF ---
Infusion Therapy Location of Infusion Therapy: [facility] IV Infusion Order Patient Information Appointment Date: Sep 01, 2017 Patient Weight 98.5 kg Diagnosis: Diagnosis Discitis infectious Coded Allergies: No Known Allergies (Unverified Allergy, Unknown, 08/19/17) Administer Medication Vancomycin 1.5 grams IV q 12 hours Start Treatment: Sep 01, 2017 Stop Treatment: Sep 29, 2017 Additional Information Venous access: PICC Line Additional Instructions [x] Peripheral flush and dressing changes per protocol [x] Implanted port and central heavy line technician: * Implanted port: 10 ml Normal Saline followed by 5 ml Heparin 100 units/ml Heparin flush after each use and monthly to maintain. [] May leave port accessed during therapy. [] May leave peripheral site accessed for duration of therapy. [x] If patient has SOB or respiratory distress, check oxygen saturation. If less than 90% or clinical signs of respiratory distress, administer oxygen at 2 L/min. via nasal cannula and notify physician. [x] Anaphylaxis/Reaction orders: * Stop infusion. * Keep IV line open with saline flush. * Notify physician. * Monitor vital signs every 15 minutes until symptoms resolve. * Check Oxygen saturation; Oxygen at 2 L/min. via nasal cannula if less than 90% or clinical signs of respiratory distress. * Administer diphenhydramine (Benadryl) 25 mg IV STAT, (unless patient has received as pre-med). May repeat once, if necessary. * Solu-Cortef 250 mg IVP over 30-60 seconds, use 100 mg vials for each dissolution. * Epinephrine (1mg/1 ml) 0.3 mg subcutaneously or IVP now with any signs of respiratory distress. * Check with physician for new additional pre-med orders if patient is re- challenged or re-treated. [x] May remove PICC line when treatment complete, after confirming with Physician. [x] If the patient is admitted to the hospital, the ED, or transferred via [facility] , complete transfer form including medication reconciliation order sheet. Laboratory Tests Weekly Labs: CBC w/diff, Creatinine, CRP, LFT's (Hepatic function test) Additional Information Please draw weekly labs, fax labs to numbers below. Please call with abnormal labs, change in clinical condition or problems to: or covering ID Physician Follow up appt: Follow up with PCP Follow up with other MDs as planned. Counseling: Counseled about medication side effects Counseled about PICC line care and hand hygiene. Radha Anderson MD Sep 01, 2017 12:05
[2017-09-01] MEDS ORDERED: EPIN1INJ21 IV PUSH (12:07)
[2017-09-01] MEDS ORDERED: SOLU250I IV PUSH (12:07)
[2017-09-01] MEDS ORDERED: EPIN1INJ21 SQ (12:07)
[2017-09-01] MEDS ORDERED: VANC10IN IV (12:07)
--- NOTE | 2017-09-01 12:10 | HHI.IDPN ---
Subjective Subjective Remarks Ms. Ware is a 52-year-old female with past medical history of IV drug abuse. She presents to the hospital with complaints of fevers, chills, back pain. Patient reports having severe back pain for the last few days but this has gotten worse just prior to admission. She admits to using Dilaudid for severe pain just a few days prior to admission. She denies any cardiopulmonary symptoms. She denies any abdominal symptoms. Patient was noted to have Cervical and Thoracic spine abnormality ? osteomyelitis on MRI spine. Patient recd dose of Zosyn IV and Vanco IV. No outpatient or other hospital antibiotics. Patient underwent CT guided aspiration of spine abnormality site. Cultures no growth so far. Patient returned to ED after signing off AMA. Upon questioning smiles and says "I dont remember why I left" . At time of my evaluation patient is alert and oriented. ID consulted for eval and Mment of epidural abscess/osteomyelitis. Notes reviewed No fevers No rash No diarrhea Aspirate back C/S negative (received Zosyn and Vanco prior) Bone scan results reviewed(received Zosyn and Vanco IV for 2 weeks prior) Antibiotics Current Medications Vanco Medications (Trade) Dose Ordered Sig/Areli Route Start Time Stop Time Status Last Admin Sodium Chloride 1,000 ml @ 100 mls/hr Q10H IV 08/20/17 15:37 08/26/17 07:00 (NS Flush) 2 ml UNSCH PRN IV FLUSH 08/20/17 15:45 08/25/17 01:43 (NS Flush) 2 ml BID IV FLUSH 08/20/17 21:00 08/26/17 10:25 (Zofran Inj) 4 mg Q6H PRN IVP 08/20/17 15:45 (Lovenox Inj) 40 mg Q24H SQ 08/20/17 16:00 08/25/17 16:07 (Tylenol) 650 mg Q6H PRN PO 08/20/17 15:45 (Percocet 5-325 Mg) 1 tab Q6H PRN PO 08/20/17 15:45 08/23/17 05:48 (Percocet 10-325 Mg) 1 tab Q6H PRN PO 08/20/17 15:45 08/26/17 07:00 (Narcan Inj) 0.4 mg UNSCH PRN IV PUSH 08/20/17 15:45 (Priscilla-Colace) 1 tab BID PO 08/20/17 21:00 08/26/17 10:24 (Milk Of Magnesia Liq) 30 ml Q12H PRN PO 08/20/17 15:45 (Senokot) 17.2 mg Q12H PRN PO 08/20/17 15:45 (Dulcolax Supp) 10 mg DAILY PRN RECTAL 08/20/17 15:45 (Lactulose Liq) 30 ml DAILY PRN PO 08/20/17 15:45 Pharmacy Profile Note 0 ml @ 0 mls/hr UNSCH OTHER 08/20/17 15:45 (Lioresal) 5 mg Q8HR PO 08/20/17 15:45 08/26/17 05:48 (Habitrol 21 Mg Patch.24 Hr) 1 patch DAILY T-DERMAL 08/20/17 18:30 08/26/17 10:25 Miscellaneous Information 1 DAILY T-DERMAL 08/21/17 09:00 08/26/17 10:25 Vancomycin HCl 1000 mg/Sodium Chloride 250 ml @ 250 mls/hr Q8H IV 08/22/17 22:00 08/26/17 05:48 (Morphine Inj) 2 mg Q4HR PRN IV PUSH 08/24/17 09:45 08/26/17 10:24 Miscellaneous Information SPECIFIC LAB TO BE DRAWN:VANCO TROUGH DATE TO... ONCE ONCE .XX 08/28/17 05:45 08/28/17 05:46 Lines Line sites with no e.o infection. Past Medical History reviewed. Allergies: Coded Allergies: No Known Allergies (Unverified Allergy, Unknown, 08/19/17) Objective . Vital Signs Date Time Temp Pulse Resp B/P (MAP) Pulse Ox O2 Delivery O2 Flow Rate FiO2 09/01/17 09:01 69 09/01/17 08:26 98.4 80 20 151/79 (103) 98 09/01/17 03:00 98.0 88 20 115/75 (88) 99 09/01/17 00:15 97.6 80 16 125/67 (86) 98 09/01/17 00:00 78 08/31/17 20:15 98.6 91 17 128/79 (95) 97 08/31/17 20:01 83 08/31/17 16:00 98.0 77 20 128/69 (88) 97 08/31/17 12:11 67 . Laboratory Tests Test 08/30/17 15:38 08/31/17 07:37 09/01/17 04:54 Iron Level 75 MCG/DL Total Iron Binding Capacity 459 MCG/DL Percent Iron Saturation 16.3 % Ferritin 45 NG/ML [id number]-[id number] 167 mg/dL Total Bilirubin 0.4 MG/DL 0.5 MG/DL Direct Bilirubin 0.1 MG/DL 0.1 MG/DL Indirect Bilirubin 0.3 MG/DL 0.4 MG/DL Aspartate Amino Transf (AST/SGOT) 218 U/L 168 U/L Alanine Aminotransferase (ALT/SGPT) 288 U/L 269 U/L Alkaline Phosphatase 150 U/L 137 U/L Total Protein 7.2 GM/DL 7.2 GM/DL Albumin 3.0 GM/DL 3.0 GM/DL Creatinine 0.57 MG/DL Estimat Glomerular Filtration Rate 111 ML/MIN Imaging Lumbar Spine MRI 08/26/17 0000 Signed Impressions: Service Date/Time: Saturday, August 26, 2017 09:28 - CONCLUSION: Gas the disease L4-5 L5-S1 worse at L5-S1 to the left There is no abnormal contrast enhancement. Robbie Mckenzie MD FACR Physical Exam GENERAL: Awake and alert, NAD SKIN: No rashes, ecchymoses or lesions. Cool and dry. HEAD: Atraumatic. Normocephalic. No temporal or scalp tenderness. EYES: Pupils equal round and reactive. Full and intact EOM. No scleral icterus. No injection or drainage. ENT: Nose without bleeding, purulent drainage. Moist mucosa, no oral lesions. NECK: Trachea midline. No JVD or lymphadenopathy. Supple, nontender, no meningeal signs. CARDIOVASCULAR: Regular rate and rhythm without murmurs, gallops, or rubs. RESPIRATORY: Clear to auscultation. Breath sounds equal bilaterally. No wheezes , rales, or rhonchi. GASTROINTESTINAL: Abdomen soft, non-tender, nondistended. No hepato-splenomegaly , or palpable masses. No guarding. MUSCULOSKELETAL: Extremities without clubbing, cyanosis, or edema. No calf tenderness. Negative Homans sign bilaterally. NEUROLOGICAL: Grossly non-focal Psych cooperative IV line sites with no e.o infection Assessment & Plan Remarks Lumbar and Cervical ?spinal osteomyelitis vs compression fracture - tumor markers negative S/P Zosyn IV and Vanco prior to aspiration. Hepatitis C positive, HIV negative. Abnormal LFTs: hep C related, increasing trend. IVDA Recs: Continue Vanco IV (target 15-20) LFTs trending downwards. Post hospital infusion orders in chart. ID clear for Discharge home with friend who works at [employer]. farzaneh Medina. Will sign off please call back if any change in clinical condition or questions. I will be OOT from 09/02/2017 to 09/11/2017. Other ID MDs covering for me. Rdaha Anderson MD Sep 01, 2017 12:10
--- NOTE | 2017-09-01 12:55 | HHI.DS ---
Discharge Summary Admission Date Aug 20, 2017 at 14:03 Discharge Date: Sep 01, 2017 Admitting Diagnosis osteomyelitis of the cervical and throacic spine (1) IV drug abuse ICD Code: F19.10 - Other psychoactive substance abuse, uncomplicated Status: Acute (2) Osteomyelitis ICD Code: M86.9 - Osteomyelitis, unspecified (3) Sepsis ICD Code: A41.9 - Sepsis, unspecified organism Procedures None Brief History - From Admission HPI from the admitting physician Patient is a 52-year-old female with known history of IV drug use who came into the hospital initially yesterday with complaints of fevers, chills, back pain. She was worked up and went to IR for CT-guided aspiration of the vertebra and spinal fluid for identification of osteomyelitis. Patient then signed AGAINST MEDICAL ADVICE after having CT-guided aspiration. Patient then showed up at the friend's house this morning. Patient friend is Teresa where she currently lives. Patient states she did not know what happened and how she came up to get out of the hospital and to go back to her friend's home. States that she was out of her mind and possibly hallucinated. Patient agrees to have friend while she is being examined and interviewed. Discuss and explained with patient and friend Teresa that it is to her benefit that she has to stay at the hospital and to be compliant with medical care. When asked if she took any drugs yesterday patient denies. However U tox came back positive for amphetamines. She complains of back and cervical pain, 10/10, radiating towards the back to her arms aggravated by movement. She denies shortness of breath or dyspnea, chest pain, palpitations, headaches, dizziness. Denies any nausea, vomiting, diarrhea, abdominal cramping, dysuria. No fevers or chills. As per patient, she will not sign AMA again. As per her friend, she will be responsible for the patient and to call her if patient attempts to sign out AMA. Patient agrees with her friend, Teresa. Teresa Aguillon [phone], good friend, patient currently lives with her. CBC/BMP: 08/29/17 0655 09/01/17 0454 Significant Findings Laboratory Tests Test 08/30/17 06:10 08/30/17 15:38 08/31/17 07:37 09/01/17 04:54 Aspartate Amino Transf (AST/SGOT) 265 U/L (15-37) 218 U/L (15-37) 168 U/L (15-37) Alanine Aminotransferase (ALT/SGPT) 289 U/L (10-53) 288 U/L (10-53) 269 U/L (10-53) Alkaline Phosphatase 157 U/L (45-117) 150 U/L (45-117) 137 U/L (45-117) Albumin 3.1 GM/DL (3.4-5.0) 3.0 GM/DL (3.4-5.0) 3.0 GM/DL (3.4-5.0) Vancomycin Level Trough 14.7 MCG/ML (5.0-10.0) Acetaminophen Level LESS THAN 2.0 MCG/ML Total Iron Binding Capacity 459 MCG/DL (250-450) Percent Iron Saturation 16.3 % (20-50) Imaging Last Impressions Liver Ultrasound 08/30/17 0000 Signed Impressions: Service Date/Time: Wednesday, August 30, 2017 08:12 - CONCLUSION: 1. No acute findings. Gallbladder surgically absent. No biliary ductal dilatation. Jabier Velazquez MD SPECT Scan-Bone Nuclear Medicine 08/29/17 0000 Signed Impressions: Service Date/Time: Tuesday, August 29, 2017 11:28 - CONCLUSION: 1. Multifocal increased uptake involving posterior elements of the lower lumbar spine, disc interspace at the lumbosacral junction, probably degenerative in nature given the symmetry of the findings especially in the lower lumbar spine. 2. Linear increased activity across the lower sacrum can be seen with sacral insufficiency fractures or possibly subacute trauma. Jabier Velazquez MD Lumbar Spine MRI 08/26/17 0000 Signed Impressions: Service Date/Time: Saturday, August 26, 2017 09:28 - CONCLUSION: Gas the disease L4-5 L5-S1 worse at L5-S1 to the left There is no abnormal contrast enhancement. Robbie Mckenzie MD FACR PE at Discharge GENERAL: This is a well-nourished, well-developed patient, in no apparent distress. CARDIOVASCULAR: Regular rate and regular rhythm without murmurs, gallops, or rubs. RESPIRATORY: Clear to auscultation. Breath sounds equal bilaterally. No wheezes , rales, or rhonchi. GASTROINTESTINAL: Abdomen soft, non-tender, nondistended. Normal, active bowel sounds MUSCULOSKELETAL: Extremities without clubbing, cyanosis, or edema. NEURO: Alert & Oriented x4 to person, place, time, situation. Moves all ext x4 Pt update on day of discharge Patient reports she is feeling well. Anxious to go home. Discussed the case with infectious disease, Dr. Anderson. Hospital Course 52-year-old female admitted and treated for the following: SIRS due to Osteomyelitis of the cervical and thoracic spine Hx IVDA - 08/19/17 Echocardiogram showed left ventricular systolic function is moderately reduced with an estimated ejection fraction in the range of 40-45%. Wall thickness is measured at the upper limits of normal. Normal left ventricular size. There is mild tricuspid regurgitation. -Patient was evaluated by neurosurgery. She is status post CT-guided aspiration. Continue vancomycin - per ID. - neurosurgery recommends conservative management with IV antibiotics.. -Patient followed by infectious disease. She is discharged on IV vancomycin per ID recommendations. Transaminitis/ Hepatitis C positive; LFT's initially patient went up but trended down. Patient was evaluated by GI and underwent EGD. Biopsy pending. Liver ultrasound shows no abnormalities. Dysphagia - GI consulted- s/p EGD with esophagitis and gastric erosions; start on PPI and follow the biopsy. IVDA Substance Abuse Tobacco -Counseled. U tox positive for amphetamines. Patient states she is done with drugs and will no longer use illicit drugs. -Nicotine Patch Pt Condition on Discharge: Good Discharge Disposition: Disch w/ Home Health Serv Discharge Time: > 30 minutes Discharge Instructions DIET: Follow Instructions for: As Tolerated, No Restrictions Activities you can perform: Regular-No Restrictions Follow up Referrals: PCP Follow-up New Medications: Epinephrine Inj (Epinephrine Inj) 1 Mg/Ml (1 Ml) Inj 0.3 MG IV PUSH ONCE PRN for ALLERGIC REACTION, #1 VIAL Epinephrine Inj (Epinephrine Inj) 1 Mg/Ml (1 Ml) Inj 0.3 MG SQ ONCE PRN for ALLERGIC REACTION, #1 VIAL Give with any signs of respiratory distress. Hydrocortisone Inj (Solu-Cortef Inj) 250 Mg/2 Ml Inj 250 MG IV PUSH ONCE PRN for ALLERGIC REACTION, #1 VIAL 0 Refills Give over 30-60 seconds. Vancomycin Inj (Vancomycin Inj) 10 Gram Inj 1500 MG IV Q12HR for Infection for 28 Days, VIAL Baclofen (Baclofen) 10 Mg Tab 5 MG PO Q8HR for Pain Management, #20 TAB 0 Refills Oxycodone HCl/Acetaminophen (Oxycodone-Acetaminophen 5-325) 5 Mg-325 Mg Tablet 1 TAB PO Q6H PRN for pain, #15 TAB 0 Refills Continued Medications: Lansoprazole (Prevacid) 15 Mg Capdr 15 MG PO DAILY, CAP 0 Refills Nuria Palmer MD Sep 01, 2017 12:55
--- NOTE | 2017-09-01 13:52 | HHI.GIFU ---
Subjective Remarks Pt resting in bed. Tolerating diet. No bleeding. (Suad Chung) Objective Vitals I&O Vital Signs Date Time Temp Pulse Resp B/P (MAP) Pulse Ox O2 Delivery O2 Flow Rate FiO2 09/01/17 12:14 98.0 71 20 117/58 (77) 99 09/01/17 09:01 69 09/01/17 08:26 98.4 80 20 151/79 (103) 98 09/01/17 03:00 98.0 88 20 115/75 (88) 99 09/01/17 00:15 97.6 80 16 125/67 (86) 98 09/01/17 00:00 78 08/31/17 20:15 98.6 91 17 128/79 (95) 97 08/31/17 20:01 83 08/31/17 16:00 98.0 77 20 128/69 (88) 97 I/O 08/31/17 08/31/17 08/31/17 09/01/17 09/01/17 09/01/17 07:00 15:00 23:00 07:00 15:00 23:00 Intake Total 1500 ml 860 ml 1249 ml 900 ml Output Total 250 ml Balance 1250 ml 860 ml 1249 ml 900 ml Intake Oral 560 ml 900 ml IV Total 1500 ml 150 ml 1249 ml Other 150 ml Output Urine Total 250 ml # Voids 3 3 # Bowel Movements 0 Laboratory Laboratory Tests Test 09/01/17 04:54 Creatinine 0.57 Estimat Glomerular Filtration Rate 111 Total Bilirubin 0.5 Direct Bilirubin 0.1 Indirect Bilirubin 0.4 Aspartate Amino Transf (AST/SGOT) 168 Alanine Aminotransferase (ALT/SGPT) 269 Alkaline Phosphatase 137 Total Protein 7.2 Albumin 3.0 Date/Time Source Procedure Growth Status 08/20/17 14:05 Blood Peripheral Aerobic Blood Culture - Final NO GROWTH IN 5 DAYS Complete 08/20/17 14:05 Blood Peripheral Anaerobic Blood Culture - Final NO GROWTH IN 5 DAYS Complete Imaging Last Impressions Liver Ultrasound 08/30/17 0000 Signed Impressions: Service Date/Time: Wednesday, August 30, 2017 08:12 - CONCLUSION: 1. No acute findings. Gallbladder surgically absent. No biliary ductal dilatation. Jabier Velazquez MD SPECT Scan-Bone Nuclear Medicine 08/29/17 0000 Signed Impressions: Service Date/Time: Tuesday, August 29, 2017 11:28 - CONCLUSION: 1. Multifocal increased uptake involving posterior elements of the lower lumbar spine, disc interspace at the lumbosacral junction, probably degenerative in nature given the symmetry of the findings especially in the lower lumbar spine. 2. Linear increased activity across the lower sacrum can be seen with sacral insufficiency fractures or possibly subacute trauma. Jabier Velazquez MD Lumbar Spine MRI 08/26/17 0000 Signed Impressions: Service Date/Time: Saturday, August 26, 2017 09:28 - CONCLUSION: Gas the disease L4-5 L5-S1 worse at L5-S1 to the left There is no abnormal contrast enhancement. Robbie Mckenzie MD FACR Physical Exam HEENT: PERRL normocephalic; atraumatic; no jaundice. CHEST: CTA CARDIAC: RRR ABDOMEN: Soft, nondistended,mild RUQ TTP; no hepatosplenomegaly; bowel sounds are present in all four quadrants. EXTREMITIES: No clubbing, cyanosis, or edema. SKIN: Normal; no rash; no jaundice. CRYSTAL CUTTER: No focal deficits; alert and oriented times three. (Suad Chung [facility]) Assessment and Plan Plan Assessment: - Transaminitis- Increased since admission- (+) Hepatitis C antibody. Reports history of IVDA, states last use was a year ago, per other provider notes from this admission last use was 08/28 so unclear. ETOH, once a year. Reports taking Tylenol twice daily for years. (+) tattoo on ankle, done at [facility]. (+) unprotected sexual intercourse with of 18 years, he also has history of IVDA, last use was also approx a year ago. Liver US --> No acute findings. Cholecystectomy. No biliary ductal dilation - Dysphagia- worse with solids (+) odynophagia. States feels like food gets stuck- last EGD was 20 years ago- findings of erosions and bleeding ulcers - Acid reflux./epigastric pain- takes Prevacid OTC when she can afford it - Weight loss- 15 lbs over the past few months- last colonoscopy 20 years ago states normal exam Previous tumor markers noted AFP-2.8 CEA-1 CA 19-9 10.8 - Osteomyelitis/vertebral fracture- per neurosurgery and ID 09/01/17 s/p EGD found class A esophagitis, mult 1-3mm erosions. hep c genotype and quant pending. path pending. liver w/u so far unremarkable other then hep c Plan: await bx await hep c corinne and quant Protonix await rest of Liver DAVID Avoid hepatotoxins ok to d/c from GI standpoint f/u with GI after d/c 1-2 weeks Pt has been seen and examined by myself and Dr. Glass and this note is written on his behalf (Suad Chung) Physician Comments Seen and examined. Plan as above. Will follow up with you. (Idalmis Glass MD) Suad Chung Sep 01, 2017 13:52 Idalmis Glass MD Sep 01, 2017 14:47
--- NOTE | 2017-09-01 14:23 | HHI.FF ---
Face to Face Verification Diagnosis: (1) Osteomyelitis Home Health Nursing Order: Medical education IV medication administration I have seen patient Merle Ware on 09/01/17. My clinical findings support the need for the requested home health care services because: Med compliance is questionable Infection w/ risk of complications I certify that my clinical findings support that this patient is homebound because: Need for psychosocial assistance Nuria Palmer MD Sep 01, 2017 14:23
[2017-09-01] MEDS: ENOXAPARIN SODIUM 40 MG/0.4 ML SYRINGE SQ SCH (15:03)
[2017-09-01] MEDS ORDERED: SODIUM CHLORIDE 0.9% FLUSH 10 ML FLUSH IV FLUSH PRN (15:30)
[2017-09-02] VITALS (7 sets, daily range): BP systolic 121–131; BP diastolic 69–86; PULSE 68–85; RESP 17–18; TEMP 97.8–99.2; O2SAT 97–98
[2017-09-02] MEDS: MORPHINE SULFATE 2 MG/ML INJ IV PUSH PRN ×3 (02:22→15:17)
[2017-09-02] MEDS: BACLOFEN 10 MG TAB PO SCH ×2 (05:02→15:16)
[2017-09-02] MEDS: VANCOMYCIN INJ 1,000 MG in SODIUM CHLOR 0.9% 250 ML INJ 250 ML IV SCH (05:05)
[2017-09-02] MEDS: SODIUM CHLOR 0.9% 1000 ML INJ 1,000 ML IV SCH ×2 (08:01→11:29)
[2017-09-02] MEDS: SODIUM CHLORIDE 0.9% FLUSH 10 ML FLUSH IV FLUSH SCH (08:04)
[2017-09-02] MEDS: PANTOPRAZOLE SOD 40 MG DELAYED RELEASE TAB PO SCH (08:05)
[2017-09-02] MEDS: REMOVE OLD PATCH T-DERMAL SCH (08:05)
[2017-09-02] MEDS: DOCUSATE SODIUM 50 MG/SENNA 8.6 MG TAB PO SCH (08:05)
[2017-09-02] MEDS: NICOTINE 21 MG/24 HR PATCH T-DERMAL SCH (08:06)
[2017-09-02] MEDS ORDERED: SODIUM CHLORIDE 0.9% FLUSH 10 ML FLUSH IV FLUSH SCH (09:00)
--- NOTE | 2017-09-02 11:30 | HHI.PR ---
Subjective Remarks Discharge held from yesterday. Home health has been arranged for tomorrow. Patient can be discharged today. Objective Vitals Vital Signs Date Time Temp Pulse Resp B/P (MAP) Pulse Ox O2 Delivery O2 Flow Rate FiO2 09/02/17 08:30 98.0 78 18 130/86 (101) 97 09/02/17 05:37 97.8 79 17 131/76 (94) 97 09/02/17 04:00 68 09/02/17 00:13 99.2 85 17 121/71 (88) 98 09/02/17 00:00 81 09/01/17 21:00 98.0 95 17 152/72 (98) 98 09/01/17 16:00 98.5 78 20 136/63 (87) 99 09/01/17 12:14 98.0 71 20 117/58 (77) 99 09/01/17 12:00 73 I/O 09/01/17 09/01/17 09/01/17 09/02/17 09/02/17 09/02/17 07:00 15:00 23:00 07:00 15:00 23:00 Intake Total 900 ml 850 ml 480 ml Balance 900 ml 850 ml 480 ml Intake Oral 900 ml 600 ml 480 ml IV Total 250 ml # Voids 3 8 4 # Bowel Movements 0 1 Result Diagram: 08/29/17 0655 09/01/17 0454 Objective Remarks GENERAL: This is a well-nourished, well-developed patient, in no apparent distress. CARDIOVASCULAR: Regular rate and regular rhythm without murmurs, gallops, or rubs. RESPIRATORY: Clear to auscultation. Breath sounds equal bilaterally. No wheezes , rales, or rhonchi. GASTROINTESTINAL: Abdomen soft, non-tender, nondistended. Normal, active bowel sounds MUSCULOSKELETAL: Extremities without clubbing, cyanosis, or edema. NEURO: Alert & Oriented x4 to person, place, time, situation. Moves all ext x4 Procedures None A/P Problem List: (1) IV drug abuse ICD Code: F19.10 - Other psychoactive substance abuse, uncomplicated Status: Acute (2) Osteomyelitis ICD Code: M86.9 - Osteomyelitis, unspecified (3) Sepsis ICD Code: A41.9 - Sepsis, unspecified organism Assessment and Plan 52-year-old female admitted and treated for the following: SIRS due to Osteomyelitis of the cervical and thoracic spine Hx IVDA - 08/19/17 Echocardiogram showed left ventricular systolic function is moderately reduced with an estimated ejection fraction in the range of 40-45%. Wall thickness is measured at the upper limits of normal. Normal left ventricular size. There is mild tricuspid regurgitation. -Patient was evaluated by neurosurgery. She is status post CT-guided aspiration. Continue vancomycin - per ID. - neurosurgery recommends conservative management with IV antibiotics.. -Patient followed by infectious disease. She is discharged on IV vancomycin per ID recommendations. Transaminitis/ Hepatitis C positive; LFT's initially patient went up but trended down. Patient was evaluated by GI and underwent EGD. Biopsy pending. Liver ultrasound shows no abnormalities. Dysphagia - GI consulted- s/p EGD with esophagitis and gastric erosions; start on PPI and follow the biopsy. IVDA Substance Abuse Tobacco -Counseled. U tox positive for amphetamines. Patient states she is done with drugs and will no longer use illicit drugs. -Nicotine Patch Discharge Planning DC home today Problem Qualifiers (1) Osteomyelitis: Qualified Codes: M86.9 - Osteomyelitis, unspecified Nuria Palmer MD Sep 02, 2017 11:30
[2017-09-02] MEDS ORDERED: VANCOMYCIN INJ 2,000 MG in SODIUM CHLORID 0.9% 500 ML INJ 500 ML IV SCH (14:00)
[2017-09-02] MEDS: ENOXAPARIN SODIUM 40 MG/0.4 ML SYRINGE SQ SCH (15:17)
[2017-09-02 23:51] LABS: CERULOPLASMIN 32 mg/dL (18-53)
[2017-09-03 07:53] LABS: HCV RNA PCR IU/ML 638000 IU/mL (Not Detected)
[2017-09-04] MEDS ORDERED: PHARMACY ORDERED LAB ONE (05:45)
[2017-09-04 23:52] LABS: MITOCHONDRIAL ABS LESS THAN 20.0 U (<=20.0)
[2017-09-09] MEDS ORDERED: TRAM50TA PO ×2 (16:58→17:02)
== END 2017-09-02 17:50 | disposition home health service (06) | DRG 872 ==
LOC: NEPE 12:06 → NEDA 14:03 → N05A 08-21 12:56 → N05B 08-23 03:30
PROVIDERS: ADMIT Family Medicine; ATTEND Family Medicine
PROC: 0DB78ZX Excision of Stomach, Pylorus, Via Natural or Artificial Opening Endoscopic, Diagnostic (ICD-10-PCS; principal; 2017-08-31 09:19)
DX: A41.9 Sepsis, unspecified organism (principal); I07.1 Rheumatic tricuspid insufficiency; K25.9 Gastric ulcer, unspecified as acute or chronic, without hemorrhage or perforation; M46.22 Osteomyelitis of vertebra, cervical region; M46.24 Osteomyelitis of vertebra, thoracic region; R13.10 Dysphagia, unspecified; F17.210 Nicotine dependence, cigarettes, uncomplicated; F19.10 Other psychoactive substance abuse, uncomplicated; J45.909 Unspecified asthma, uncomplicated; G89.29 Other chronic pain; M54.6 Pain in thoracic spine; B19.20 Unspecified viral hepatitis C without hepatic coma; R63.4 Abnormal weight loss; K21.0 Gastro-esophageal reflux disease with esophagitis; M19.90 Unspecified osteoarthritis, unspecified site
CPT/HCPCS: 36569; 72158; 76705; 76937; 78306; 78320; 78399; 80053; 80076; 80202; 80307; 81001; 82103; 82105; 82378; 82390; 82565; 82728; 83520; 83540; 83550; 85025; 85610; 85730; 86038; 86140; 86255; 86301; 87040; 87522; 87902; 88305; 88312; 96365; A9503; A9579; J1642; J1650; J2270; J2543; J3370; J7030; J7040; J7050; J7120

== ENCOUNTER 2017-09-08 15:28 | Emergency (ER) | payer SELFPAY ==
[~2017-09-08] VITALS: Ht 162.6 cm; Wt 57.0 kg
[~2017-09-08 15:28] MED LIST changes: +BACL10TA PO; +EPIN1INJ21 IV PUSH; +EPIN1INJ21 SQ; +OXYC1TAB63 PO; +OXYGENDME NAS.CANULA; +SOLU250I IV PUSH; +VANC10IN IV
[2017-09-08 15:35] VITALS: BP 158/85; PULSE 89; RESP 15; TEMP 98; O2SAT 98
--- NOTE | 2017-09-08 16:40 | PD ---
HPI Chief Complaint: Medical Clearance Time Seen by Provider: 16:20 Travel History International Travel<30 days: No Contact w/Intl Traveler<30days: No Traveled to known affect area: No History of Present Illness HPI Patient is a 52-year-old female who is currently undergoing infusions of vancomycin as an outpatient by right brachial PICC line for osteomyelitis of her spine presents emergency department for evaluation of ringing in her ears. She told her infectious disease doctor Dr. Anderson about the symptoms who recommended she come immediately to the emergency department to have a random vancomycin level drawn. Patient states otherwise she feels well, denies any back pain. States symptoms started just yesterday, gradually worsening, context as above, no associated signs symptoms. PFSH Past Medical History Arthritis: Yes Asthma: Yes Cancer: Yes (CERVICAL, STOMACH) Cardiovascular Problems: No Diabetes: No Diminished Hearing: No Endocrine: No Genitourinary: Yes Hiatal Hernia: Yes (umbilical ) Musculoskeletal: Yes Neurologic: Yes Psychiatric: No Respiratory: Yes Integumentary: No Migraines: Yes Tetanus Vaccination: < 5 Years ?: Not Menopausal: Yes Past Surgical History Abdominal Surgery: Yes (HERNIA) Cardiac Surgery: No Cholecystectomy: Yes Genitourinary Surgery: No Gynecologic Surgery: Yes (FISTULA) Neurologic Surgery: No Thoracic Surgery: No Other Surgery: Yes (fistula repair, rectal/ vaginal repair post ) Social History Alcohol Use: No Tobacco Use: Yes (06/21 ppd) Substance Use: Yes (PATIENT STATES SHE QUIT IV DRUGS A FEW MONTHS AGO) Allergies-Medications (Allergen,Severity, Reaction): Coded Allergies: No Known Allergies (Unverified Allergy, Unknown, 08/19/17) Reported Meds & Prescriptions Reported Meds & Active Scripts Active Tramadol (Tramadol HCl) 50 Mg Tab 50 Mg PO Q6H PRN Tramadol (Tramadol HCl) 50 Mg Tab 50 Mg PO Q6H PRN Tramadol (Tramadol HCl) 50 Mg Tab 50 Mg PO Q6H PRN Epinephrine Inj 1 Mg/Ml (1 Ml) Inj 0.3 Mg SQ ONCE PRN Give with any signs of respiratory distress. Epinephrine Inj 1 Mg/Ml (1 Ml) Inj 0.3 Mg IV PUSH ONCE PRN Solu-Cortef Inj (Hydrocortisone Sodium Succinate) 250 Mg/2 Ml Inj 250 Mg IV PUSH ONCE PRN Give over 30-60 seconds. Vancomycin Inj (Vancomycin HCl) 10 Gram Inj 1,500 Mg IV Q12HR 28 Days Oxycodone-Acetaminophen 5-325 (Oxycodone HCl/Acetaminophen) 5 Mg-325 Mg Tablet 1 Tab PO Q6H PRN Baclofen 10 Mg Tab 5 Mg PO Q8HR Reported Oxygen (O2) Device Liter RADHA.CANULA CONTINUOUS Oxygen Concentrator Portable Gaseous 2 L/min via Nasal Canula Continuous For 99 months Oxygen (O2) Device Liter RADHA.CANULA CONTINUOUS Oxygen Concentrator Portable Gaseous 2 L/min via Nasal Canula Continuous For 99 months Prevacid (Lansoprazole) 15 Mg Capdr 15 Mg PO DAILY Review of Systems Except as stated in HPI: all other systems reviewed are Neg Physical Exam Narrative GENERAL: Well-developed, thin female in no obvious distress. SKIN: Focused skin assessment warm/dry. HEAD: Atraumatic. Normocephalic. EYES: Pupils equal and round. No scleral icterus. No injection or drainage. ENT: No nasal bleeding or discharge. Mucous membranes pink and moist. TMs clear bilaterally peer NECK: Trachea midline. No JVD. CARDIOVASCULAR: Regular rate and rhythm. No murmur appreciated. RESPIRATORY: No accessory muscle use. Clear to auscultation. Breath sounds equal bilaterally. GASTROINTESTINAL: Abdomen soft, non-tender, nondistended. Hepatic and splenic margins not palpable. MUSCULOSKELETAL: No obvious deformities. No clubbing. No cyanosis. No edema. NEUROLOGICAL: Awake and alert. No obvious cranial nerve deficits. Motor grossly within normal limits. Normal speech. PSYCHIATRIC: Appropriate mood and affect; insight and judgment normal. Data Data Last Documented VS Vital Signs Date Time Temp Pulse Resp B/P (MAP) Pulse Ox O2 Delivery O2 Flow Rate FiO2 09/08/17 16:40 99 Room Air 09/08/17 15:35 98.0 89 15 158/85 (109) Orders Orders Complete Blood Count With Diff (09/08/17 16:20) Comprehensive Metabolic Panel (09/08/17 16:20) Magnesium (Mg) (09/08/17 16:20) Phosphorus (Po4) (09/08/17 16:20) Ecg Monitoring (09/08/17 16:20) Iv Access Insert/Monitor (09/08/17 16:20) Oximetry (09/08/17 16:20) Oxygen Administration (09/08/17 16:20) Random Vancomycin (09/08/17 16:35) Ed Discharge Order (09/08/17 18:13) Heparin Central Flush (Heparin Central F (09/08/17 18:30) Labs Laboratory Tests Test 09/08/17 16:35 White Blood Count 7.1 TH/MM3 Red Blood Count 4.22 MIL/MM3 Hemoglobin 12.7 GM/DL Hematocrit 37.5 % Mean Corpuscular Volume 88.9 FL Mean Corpuscular Hemoglobin 30.1 PG Mean Corpuscular Hemoglobin Concent 33.9 % Red Cell Distribution Width 13.9 % Platelet Count 294 TH/MM3 Mean Platelet Volume 8.0 FL Neutrophils (%) (Auto) 61.5 % Lymphocytes (%) (Auto) 27.8 % Monocytes (%) (Auto) 8.1 % Eosinophils (%) (Auto) 1.9 % Basophils (%) (Auto) 0.7 % Neutrophils # (Auto) 4.4 TH/MM3 Lymphocytes # (Auto) 2.0 TH/MM3 Monocytes # (Auto) 0.6 TH/MM3 Eosinophils # (Auto) 0.1 TH/MM3 Basophils # (Auto) 0.0 TH/MM3 CBC Comment DIFF FINAL Differential Comment Blood Urea Nitrogen 8 MG/DL Creatinine 0.55 MG/DL Random Glucose 97 MG/DL Total Protein 8.5 GM/DL Albumin 3.5 GM/DL Calcium Level 8.8 MG/DL Phosphorus Level 4.0 MG/DL Magnesium Level 2.0 MG/DL Alkaline Phosphatase 139 U/L Aspartate Amino Transf (AST/SGOT) 112 U/L Alanine Aminotransferase (ALT/SGPT) 207 U/L Total Bilirubin 1.0 MG/DL Sodium Level 138 MEQ/L Potassium Level 3.9 MEQ/L Chloride Level 102 MEQ/L Carbon Dioxide Level 28.0 MEQ/L Anion Gap 8 MEQ/L Estimat Glomerular Filtration Rate 116 ML/MIN Random Vancomycin Level 17.3 COMMENT [facility] Medical Decision Making Medical Screen Exam Complete: Yes Emergency Medical Condition: Yes Differential Diagnosis Vancomycin toxicity, electrolyte abnormality, tinnitus Narrative Course Patient discussed with Dr. Lynch at 1700 to follow-up labs and disposition appropriately. Scripts Tramadol (Tramadol) 50 Mg Tab 50 MG PO Q6H Y for PAIN, #20 TAB 0 Refills Prov: Omer Harden MD 09/09/17 Tramadol (Tramadol) 50 Mg Tab 50 MG PO Q6H Y for PAIN, #20 TAB 0 Refills Prov: Omer Harden MD 09/09/17 Tramadol (Tramadol) 50 Mg Tab 50 MG PO Q6H Y for PAIN, #20 TAB 0 Refills Prov: Omer Harden MD 09/09/17 Javier Lopez MD Sep 08, 2017 16:40
[2017-09-08 17:09] LABS: AUTOMATED NEUTROPHIL # 4.4 TH/MM3 (1.8-7.7); BASOPHIL % 0.7 % (0.0-2.0); EOSINOPHIL # 0.1 TH/MM3 (0-0.4); EOSINOPHIL % 1.9 % (0.0-4.0); HEMATOCRIT 37.5 % (35.0-46.0); HEMOGLOBIN 12.7 GM/DL (11.6-15.3); LYMPH % 27.8 % (9.0-44.0); MEAN CELL VOLUME 88.9 FL (80.0-100.0); MEAN CORPUSCULAR HEMOGLOBIN 30.1 PG (27.0-34.0); MEAN CORPUSCULAR HGB CONC 33.9 % (32.0-36.0); MONO % 8.1 % (0.0-8.0); MONOCYTE # 0.6 TH/MM3 (0-0.9); NEUT % 61.5 % (16.0-70.0); PLATELET COUNT 294 TH/MM3 (150-450); RED BLOOD COUNT 4.22 MIL/MM3 (4.00-5.30); RED CELL DISTRIBUTION WIDTH 13.9 % (11.6-17.2); WHITE BLOOD COUNT 7.1 TH/MM3 (4.0-11.0)
[2017-09-08 17:18] LABS: ALBUMIN 3.5 GM/DL (3.4-5.0); AST (GOT) 112 U/L (15-37); BLOOD UREA NITROGEN 8 MG/DL (7-18); CALCIUM 8.8 MG/DL (8.5-10.1); CHLORIDE 102 MEQ/L (98-107); CREATININE 0.55 MG/DL (0.50-1.00); GLOMERULAR FILTRATION RATE 116 ML/MIN (>89); GLUCOSE,RANDOM 97 MG/DL (74-106); SODIUM (NA) 138 MEQ/L (136-145)
[2017-09-08 17:21] LABS: ALKALINE PHOSPHATASE 139 U/L (45-117); ALT (GPT) 207 U/L (10-53); TOTAL PROTEIN 8.5 GM/DL (6.4-8.2)
[2017-09-08 17:57] LABS: RANDOM VANCOMYCIN 17.3 COMMENT
--- NOTE | 2017-09-08 18:13 | PD ---
Physical Exam Narrative GENERAL: SKIN: Warm and dry. HEAD: Atraumatic. Normocephalic. EYES: Pupils equal and round. No scleral icterus. No injection or drainage. ENT: No nasal bleeding or discharge. Mucous membranes pink and moist. NECK: Trachea midline. No JVD. CARDIOVASCULAR: Regular rate and rhythm. RESPIRATORY: No accessory muscle use. Clear to auscultation. Breath sounds equal bilaterally. GASTROINTESTINAL: Abdomen soft, non-tender, nondistended. MUSCULOSKELETAL: Extremities without clubbing, cyanosis, or edema. No obvious deformities. NEUROLOGICAL: Awake and alert. No obvious cranial nerve deficits. Motor grossly within normal limits. Five out of 5 muscle strength in the arms and legs. Normal speech. PSYCHIATRIC: Appropriate mood and affect; insight and judgment normal. Data Data Last Documented VS Vital Signs Date Time Temp Pulse Resp B/P (MAP) Pulse Ox O2 Delivery O2 Flow Rate FiO2 09/08/17 16:40 99 Room Air 09/08/17 15:35 98.0 89 15 158/85 (109) Orders Orders Complete Blood Count With Diff (09/08/17 16:20) Comprehensive Metabolic Panel (09/08/17 16:20) Magnesium (Mg) (09/08/17 16:20) Phosphorus (Po4) (09/08/17 16:20) Ecg Monitoring (09/08/17 16:20) Iv Access Insert/Monitor (09/08/17 16:20) Oximetry (09/08/17 16:20) Oxygen Administration (09/08/17 16:20) Random Vancomycin (09/08/17 16:35) Labs Laboratory Tests Test 09/08/17 16:35 White Blood Count 7.1 TH/MM3 Red Blood Count 4.22 MIL/MM3 Hemoglobin 12.7 GM/DL Hematocrit 37.5 % Mean Corpuscular Volume 88.9 FL Mean Corpuscular Hemoglobin 30.1 PG Mean Corpuscular Hemoglobin Concent 33.9 % Red Cell Distribution Width 13.9 % Platelet Count 294 TH/MM3 Mean Platelet Volume 8.0 FL Neutrophils (%) (Auto) 61.5 % Lymphocytes (%) (Auto) 27.8 % Monocytes (%) (Auto) 8.1 % Eosinophils (%) (Auto) 1.9 % Basophils (%) (Auto) 0.7 % Neutrophils # (Auto) 4.4 TH/MM3 Lymphocytes # (Auto) 2.0 TH/MM3 Monocytes # (Auto) 0.6 TH/MM3 Eosinophils # (Auto) 0.1 TH/MM3 Basophils # (Auto) 0.0 TH/MM3 CBC Comment DIFF FINAL Differential Comment Blood Urea Nitrogen 8 MG/DL Creatinine 0.55 MG/DL Random Glucose 97 MG/DL Total Protein 8.5 GM/DL Albumin 3.5 GM/DL Calcium Level 8.8 MG/DL Phosphorus Level 4.0 MG/DL Magnesium Level 2.0 MG/DL Alkaline Phosphatase 139 U/L Aspartate Amino Transf (AST/SGOT) 112 U/L Alanine Aminotransferase (ALT/SGPT) 207 U/L Total Bilirubin 1.0 MG/DL Sodium Level 138 MEQ/L Potassium Level 3.9 MEQ/L Chloride Level 102 MEQ/L Carbon Dioxide Level 28.0 MEQ/L Anion Gap 8 MEQ/L Estimat Glomerular Filtration Rate 116 ML/MIN Random Vancomycin Level 17.3 COMMENT [facility] Medical Record Reviewed: Yes Supervised Visit with ESTEVAN: No Narrative Course vancomycin level is 17 and non toxic range..... chemistry shows normal electrolyte/kidney functions liver enzymes mildly elevated and persistant since early august although tinitis may be due to vancomycin use, the benefit vs risk lies heavily on the benefit to continue antibiotic use until regimen completed. case d/w patient and dr blanchard Diagnosis Primary Impression: tinitis Patient Instructions: General Instructions, Tinnitus (ED) Additional Instruction: continue and complete your antibiotic course for osteomyelitis. Continue to follow up with Dr Blanchard as scheduled. Disposition: 01 DISCHARGE HOME Condition: Stable Lamont Lynch MD Sep 08, 2017 18:13
[2017-09-09] MEDS ORDERED: TRAM50TA PO ×2 (16:58→17:02)
--- NOTE | 2017-09-09 16:59 | PD ---
Data Data Last Documented VS Vital Signs Date Time Temp Pulse Resp B/P (MAP) Pulse Ox O2 Delivery O2 Flow Rate FiO2 09/08/17 16:40 99 Room Air 09/08/17 15:35 98.0 89 15 158/85 (109) Orders Orders Complete Blood Count With Diff (09/08/17 16:20) Comprehensive Metabolic Panel (09/08/17 16:20) Magnesium (Mg) (09/08/17 16:20) Phosphorus (Po4) (09/08/17 16:20) Ecg Monitoring (09/08/17 16:20) Iv Access Insert/Monitor (09/08/17 16:20) Oximetry (09/08/17 16:20) Oxygen Administration (09/08/17 16:20) Random Vancomycin (09/08/17 16:35) Ed Discharge Order (09/08/17 18:13) Heparin Central Flush (Heparin Central F (09/08/17 18:30) Labs Laboratory Tests Test 09/08/17 16:35 White Blood Count 7.1 TH/MM3 Red Blood Count 4.22 MIL/MM3 Hemoglobin 12.7 GM/DL Hematocrit 37.5 % Mean Corpuscular Volume 88.9 FL Mean Corpuscular Hemoglobin 30.1 PG Mean Corpuscular Hemoglobin Concent 33.9 % Red Cell Distribution Width 13.9 % Platelet Count 294 TH/MM3 Mean Platelet Volume 8.0 FL Neutrophils (%) (Auto) 61.5 % Lymphocytes (%) (Auto) 27.8 % Monocytes (%) (Auto) 8.1 % Eosinophils (%) (Auto) 1.9 % Basophils (%) (Auto) 0.7 % Neutrophils # (Auto) 4.4 TH/MM3 Lymphocytes # (Auto) 2.0 TH/MM3 Monocytes # (Auto) 0.6 TH/MM3 Eosinophils # (Auto) 0.1 TH/MM3 Basophils # (Auto) 0.0 TH/MM3 CBC Comment DIFF FINAL Differential Comment Blood Urea Nitrogen 8 MG/DL Creatinine 0.55 MG/DL Random Glucose 97 MG/DL Total Protein 8.5 GM/DL Albumin 3.5 GM/DL Calcium Level 8.8 MG/DL Phosphorus Level 4.0 MG/DL Magnesium Level 2.0 MG/DL Alkaline Phosphatase 139 U/L Aspartate Amino Transf (AST/SGOT) 112 U/L Alanine Aminotransferase (ALT/SGPT) 207 U/L Total Bilirubin 1.0 MG/DL Sodium Level 138 MEQ/L Potassium Level 3.9 MEQ/L Chloride Level 102 MEQ/L Carbon Dioxide Level 28.0 MEQ/L Anion Gap 8 MEQ/L Estimat Glomerular Filtration Rate 116 ML/MIN Random Vancomycin Level 17.3 COMMENT [facility] Supervised Visit with ESTEVAN: No Narrative Course Patient left with Rx on incorrect patient name, replaced. Diagnosis Primary Impression: tinitis Patient Instructions: General Instructions, Tinnitus (ED) Departure Forms: Tests/Procedures Additional Instruction: continue and complete your antibiotic course for osteomyelitis. Continue to follow up with Dr Anderson as scheduled. Scripts Tramadol (Tramadol) 50 Mg Tab 50 MG PO Q6H Y for PAIN, #20 TAB 0 Refills Prov: Omer Harden MD 09/09/17 Disposition: 01 DISCHARGE HOME Condition: Stable Omer Harden MD Sep 09, 2017 16:59
== END 2017-09-08 18:49 | disposition home or self-care (01) ==
LOC: NEPD 15:28
DX: H93.19 Tinnitus, unspecified ear (principal); F17.200 Nicotine dependence, unspecified, uncomplicated; M46.20 Osteomyelitis of vertebra, site unspecified; Z79.899 Other long term (current) drug therapy
CPT/HCPCS: 80053; 80202; 83735; 84100; 85025; 99283; J1642

== ENCOUNTER 2017-09-28 19:05 | Inpatient (IN) | payer SELFPAY ==
[~2017-09-28] VITALS: Ht 162.6 cm; Wt 61.9 kg
[~2017-09-28 19:05] MED LIST changes: +TRAM50TA PO
[2017-09-28 20:09] VITALS: BP 181/83; PULSE 125; RESP 18; TEMP 97.9; O2SAT 98
--- NOTE | 2017-09-28 20:56 | PD ---
HPI Chief Complaint: Fever Time Seen by Provider: 20:43 Travel History International Travel<30 days: No Contact w/Intl Traveler<30days: No Traveled to known affect area: No History of Present Illness HPI The patient was seen and examined in the presence of the nurse. This patient complains of 3 days of fever. She says that she had a temperature of 104 checked with forehead scanner at home. She is currently getting IV vancomycin by home health through a right arm PICC line. This is for cervical and thoracic osteomyelitis. She was discharged from the hospital 3-4 weeks ago with this problem. She has history of IV drug abuse, says her last use was 1 year ago. Symptoms moderately severe. She denies respiratory symptoms such as runny nose congestion cough. Denies urinary complaints. No alleviating factors. No exacerbating factors. She complains of midline back pain diffusely. Denies injury. PFSH Past Medical History Arthritis: Yes Asthma: Yes Cancer: Yes (CERVICAL) Cardiovascular Problems: No Diabetes: No Diminished Hearing: No Endocrine: No Genitourinary: Yes Hiatal Hernia: Yes (umbilical ) Musculoskeletal: Yes Neurologic: Yes Psychiatric: No Respiratory: Yes Integumentary: No Migraines: Yes Ulcer: Yes Tetanus Vaccination: < 5 Years Influenza Vaccination: No ?: Not LMP: 09/18/2017 Menopausal: Yes Past Surgical History Abdominal Surgery: Yes (HERNIA) Cardiac Surgery: No Cholecystectomy: Yes Genitourinary Surgery: No Gynecologic Surgery: Yes (FISTULA, spot removed from cervix) Neurologic Surgery: No Thoracic Surgery: No Other Surgery: Yes (fistula repair, rectal/ vaginal repair post ) Social History Alcohol Use: No Tobacco Use: Yes (1/2 ppd) Substance Use: Yes (PATIENT STATES SHE QUIT IV DRUGS A FEW MONTHS AGO) Allergies-Medications (Allergen,Severity, Reaction): Coded Allergies: No Known Allergies (Unverified Allergy, Unknown, 09/28/17) Reported Meds & Prescriptions Reported Meds & Active Scripts Active Tramadol (Tramadol HCl) 50 Mg Tab 50 Mg PO Q6H PRN Tramadol (Tramadol HCl) 50 Mg Tab 50 Mg PO Q6H PRN Tramadol (Tramadol HCl) 50 Mg Tab 50 Mg PO Q6H PRN Epinephrine Inj 1 Mg/Ml (1 Ml) Inj 0.3 Mg SQ ONCE PRN Give with any signs of respiratory distress. Epinephrine Inj 1 Mg/Ml (1 Ml) Inj 0.3 Mg IV PUSH ONCE PRN Solu-Cortef Inj (Hydrocortisone Sodium Succinate) 250 Mg/2 Ml Inj 250 Mg IV PUSH ONCE PRN Give over 30-60 seconds. Vancomycin Inj (Vancomycin HCl) 10 Gram Inj 1,500 Mg IV Q12HR 28 Days Oxycodone-Acetaminophen 5-325 (Oxycodone HCl/Acetaminophen) 5 Mg-325 Mg Tablet 1 Tab PO Q6H PRN Baclofen 10 Mg Tab 5 Mg PO Q8HR Reported Oxygen (O2) Device Liter RADHA.CANULA CONTINUOUS Oxygen Concentrator Portable Gaseous 2 L/min via Nasal Canula Continuous For 99 months Oxygen (O2) Device Liter RADHA.CANULA CONTINUOUS Oxygen Concentrator Portable Gaseous 2 L/min via Nasal Canula Continuous For 99 months Prevacid (Lansoprazole) 15 Mg Capdr 15 Mg PO DAILY Review of Systems General / Constitutional: Positive: Fever, Chills Eyes: No: Visual changes HENT: No: Headaches Cardiovascular: No: Chest Pain or Discomfort Respiratory: No: Shortness of Breath Gastrointestinal: No: Abdominal Pain Genitourinary: No: Dysuria Musculoskeletal: Positive: Pain Skin: No Rash Neurologic: No: Weakness Psychiatric: No: Depression Endocrine: No: Polydipsia Hematologic/Lymphatic: No: Easy Bruising Physical Exam Narrative GENERAL: Well-nourished, well-developed patient in no apparent distress. SKIN: Focused skin assessment reveals no rash and nodules. Skin is Warm and dry. HEAD: Atraumatic. Normocephalic. EYES: Pupils equal and round. No scleral icterus. No injection or drainage. ENT: No nasal bleeding or discharge. Mucous membranes pink and moist. NECK: Trachea midline. No JVD. CARDIOVASCULAR: Regular rate and rhythm. No murmur appreciated. Tachycardic 120s RESPIRATORY: No accessory muscle use. Clear to auscultation. Breath sounds equal bilaterally. GASTROINTESTINAL: Abdomen soft, non-tender, nondistended. Hepatic and splenic margins not palpable. MUSCULOSKELETAL: No obvious deformities. No clubbing. No cyanosis. No edema. No midline tenderness. No erythema of the back. Has a right arm PICC line without sign of infection NEUROLOGICAL: Awake and alert. No obvious cranial nerve deficits. Motor grossly within normal limits. Normal speech. PSYCHIATRIC: Appropriate mood and affect; insight and judgment reasonable . Data Data Last Documented VS Vital Signs Date Time Temp Pulse Resp B/P (MAP) Pulse Ox O2 Delivery O2 Flow Rate FiO2 09/28/17 21:45 99 Room Air 09/28/17 21:00 99.4 99 16 131/78 (95) Orders Orders Sepsis Workup Initiated (09/28/17 ) Electrocardiogram (09/28/17 20:48) Complete Blood Count With Diff (09/28/17 20:48) Comprehensive Metabolic Panel (09/28/17 20:48) Lactic Acid Sepsis Protocol (09/28/17 20:48) Urinalysis - C+S If Indicated (09/28/17 20:48) Blood Culture (09/28/17 20:48) Chest, Single Ap (09/28/17 20:48) Blood Glucose (09/28/17 20:48) Ecg Monitoring (09/28/17 20:48) Iv Access Insert/Monitor (09/28/17 20:48) Oximetry (09/28/17 20:48) Oxygen Administration (09/28/17 20:48) Drug Screen, Random Urine (09/28/17 20:48) Sodium Chlor 0.9% 1000 Ml Inj (Ns 1000 M (09/28/17 21:00) Urine Culture (09/28/17 21:30) Labs Laboratory Tests Test 09/28/17 21:30 09/28/17 21:40 White Blood Count 13.4 TH/MM3 Red Blood Count 4.32 MIL/MM3 Hemoglobin 12.6 GM/DL Hematocrit 38.0 % Mean Corpuscular Volume 88.0 FL Mean Corpuscular Hemoglobin 29.1 PG Mean Corpuscular Hemoglobin Concent 33.1 % Red Cell Distribution Width 14.9 % Platelet Count 231 TH/MM3 Mean Platelet Volume 8.5 FL CBC Comment AUTO DIFF Differential Total Cells Counted 100 Neutrophils % (Manual) 66 % Band Neutrophils % 27 % Lymphocytes % 3 % Monocytes % 1 % Basophils % 1 % Neutrophils # (Manual) 12.7 TH/MM3 Metamyelocytes 2 % Differential Comment FINAL DIFF MANUAL Toxic Granulation 1+ Toxic Vacuolation PRESENT Platelet Estimate NORMAL Platelet Morphology Comment NORMAL Red Cell Morphology Comment NORMAL Urine Color YELLOW Urine Turbidity HAZY Urine pH 6.0 Urine Specific [place] 1.008 Urine Protein NEG mg/dL Urine Glucose (UA) NEG mg/dL Urine Ketones NEG mg/dL Urine Occult Blood NEG Urine Nitrite NEG Urine Bilirubin NEG Urine Urobilinogen LESS THAN 2.0 MG/DL Urine Leukocyte Esterase MOD Urine RBC 3 /hpf Urine WBC 7 /hpf Urine Squamous Epithelial Cells 11 /hpf Urine Bacteria RARE /hpf Urine Mucus FEW /lpf Microscopic Urinalysis Comment CATH-CULTURE IND Blood Urea Nitrogen 6 MG/DL Creatinine 0.76 MG/DL Random Glucose 119 MG/DL Total Protein 7.5 GM/DL Albumin 3.4 GM/DL Calcium Level 8.9 MG/DL Alkaline Phosphatase 317 U/L Aspartate Amino Transf (AST/SGOT) 195 U/L Alanine Aminotransferase (ALT/SGPT) 225 U/L Total Bilirubin 1.0 MG/DL Sodium Level 143 MEQ/L Potassium Level 3.0 MEQ/L Chloride Level 110 MEQ/L Carbon Dioxide Level 25.9 MEQ/L Anion Gap 7 MEQ/L Estimat Glomerular Filtration Rate 80 ML/MIN Lactic Acid Level 1.9 mmol/L MDM Medical Decision Making Medical Screen Exam Complete: Yes Emergency Medical Condition: Yes Medical Record Reviewed: Yes Differential Diagnosis Osteomyelitis, sepsis, pneumonia Narrative Course I have reviewed the patient's electronic medical record. I reviewed her discharge summary from last month I have ordered extensive sepsis workup Gave her 1 L normal saline IV bolus 2 sets of blood cultures obtained CBC so some minor leukocytosis Metabolic studies reasonably normal She is tachycardic and reported fever for 2 days Her PICC line site looks clean Urine and chest x-ray are normal Etiology of her reported fever is unclear but given her increase in back pain and recent osteomyelitis I would have to consider that. She will be readmitted I discussed with the hospitalist who has evaluated her already and agrees Critical Care Narrative Aggregate critical care time was 34 minutes. Time to perform other separately billable procedures was not included in the critical care time. My time did not include minutes spent treating any other patients simultaneously or on activities that did not directly contribute to the patient's treatment. The services I provided to this patient were to treat and/or prevent clinically significant deterioration that could result in: Septic shock, cardiopulmonary arrest, endocarditis I provided critical care services requiring my management, as noted below: Chart data review, documentation time, medication orders and management, vital sign assessments/reviewing monitor data, ordering and reviewing lab tests, ordering and interpreting/reviewing x-rays and diagnostic studies, care of the patient and discussion of the patient with the admitting physicians. Sepsis Criteria SIRS Criteria (2 or more): Temp > 100.9 or < 96.8, Heart rate over 90, WBC > 02198, < 4000 or > 10% bands Sepsis Criteria (SIRS+source): Infect source susp/known Criteria Outcome: Meets sepsis criteria Diagnosis Primary Impression: Sepsis Qualified Codes: A41.9 - Sepsis, unspecified organism Additional Impressions: History of intravenous drug abuse Osteomyelitis Qualified Codes: M86.50 - Other chronic hematogenous osteomyelitis, unspecified site Admitting Information Admitting Physician Requests: Admit Ayden Wilkinson MD Sep 28, 2017 20:56
[2017-09-28 21:00] VITALS: BP 131/78; PULSE 99; RESP 16; TEMP 99.4; O2SAT 99
[2017-09-28] MEDS ORDERED: SODIUM CHLOR 0.9% 1000 ML INJ 1,000 ML IV ONE (21:00)
--- NOTE | 2017-09-28 21:24 | RADRPT ---
EXAM DATE/TIME: 09/28/2017 20:55 [facility] COMPARISON: CHEST SINGLE AP, August 19, 2017, 0:43. INDICATIONS : Fever. MEDICAL HISTORY : Asthma. Hiatal hernia. Arthritis. Cervical cancer. Stomach cancer. MRSA. SURGICAL HISTORY : PICC line. Cholecystectomy. Fistula. Right knee surgery. ENCOUNTER: Initial ACUITY: 1 day PAIN SCORE: 0/10 LOCATION: Bilateral chest FINDINGS: A single view of the chest demonstrates the lungs to be symmetrically aerated without evidence of mas s, infiltrate or effusion. The cardiomediastinal contours are unremarkable. Osseous structures are intact. CONCLUSION: 1. No active disease. Right PICC line tip in superior vena cava. Jabier Velazquez MD on September 28, 2017 at 21:20 Board Certified Radiologist. This report was verified electronically.
[2017-09-28 21:45] VITALS: O2SAT 99
[2017-09-28 22:15] VITALS: BP 131/78; PULSE 90; RESP 18; O2SAT 98
[2017-09-28 22:30] VITALS: BP 121/75; PULSE 90; RESP 18; O2SAT 100
[2017-09-28 22:34] LABS: BACTERIA, URINE RARE /hpf; BILIRUBIN, URINE NEG (NEG); BLOOD, URINE NEG (NEG); GLUCOSE,URINE NEG (NEG); KETONE, URINE NEG (NEG); MUCUS URINE FEW /lpf (OCC); NITRITE,URINE NEG (NEG); SQUAMOUS EPITHELIAL CELL URINE 11 /hpf (0-5); URINE COLOR YELLOW (YELLW/STRAW); URINE LEUKOCYTE ESTERASE MOD (NEG)
[2017-09-28 22:45] LABS: HEMOGLOBIN 12.6 GM/DL (11.6-15.3); MEAN CORPUSCULAR HEMOGLOBIN 29.1 PG (27.0-34.0); MEAN CORPUSCULAR HGB CONC 33.1 % (32.0-36.0); MEAN PLATELET VOLUME 8.5 FL (7.0-11.0); PLATELET COUNT 231 TH/MM3 (150-450); RED BLOOD COUNT 4.32 MIL/MM3 (4.00-5.30); RED CELL DISTRIBUTION WIDTH 14.9 % (11.6-17.2); WHITE BLOOD COUNT 13.4 TH/MM3 (4.0-11.0)
[2017-09-28 22:49] LABS: ALBUMIN 3.4 GM/DL (3.4-5.0); ALKALINE PHOSPHATASE 317 U/L (45-117); ALT (GPT) 225 U/L (10-53); AST (GOT) 195 U/L (15-37); BICARBONATE 25.9 MEQ/L (21.0-32.0); BLOOD UREA NITROGEN 6 MG/DL (7-18); CALCIUM 8.9 MG/DL (8.5-10.1); CHLORIDE 110 MEQ/L (98-107); CREATININE 0.76 MG/DL (0.50-1.00); GLOMERULAR FILTRATION RATE 80 ML/MIN (>89); GLUCOSE,RANDOM 119 MG/DL (74-106); SODIUM (NA) 143 MEQ/L (136-145); TOTAL PROTEIN 7.5 GM/DL (6.4-8.2)
[2017-09-28 23:26] LABS: BANDS 27 % (0-6); BASOPHILS 1 % (0-2); LYMPHOCYTES 3 % (9-44); METAMYELOCYTES 2 % (0-1); MONOCYTES 1 % (0-8); NEUTROPHIL # MANUAL DIFF 12.7 TH/MM3 (1.8-7.7); POLYS (SEG NEUTROPHILS) 66 % (16-70)
[2017-09-28 23:27] LABS: TOXIC GRANULATION 1+ (NORMAL); TOXIC VACUOLATION PRESENT (NONE SEEN)
[2017-09-29] VITALS (9 sets, daily range): BP systolic 124–166; BP diastolic 64–106; PULSE 71–96; RESP 15–19; TEMP 97.3–98.4; O2SAT 97–100
[2017-09-29] MEDS ORDERED: MAGNESIUM HYDROXIDE SUSP 30 ML CUP PO PRN (00:45)
[2017-09-29] MEDS ORDERED: SENNOSIDES 8.6 MG TAB PO PRN (00:45)
[2017-09-29] MEDS ORDERED: ONDANSETRON HCL 4 MG/2 ML VIAL IVP PRN (00:45)
[2017-09-29] MEDS ORDERED: NALOXONE HCL 0.4 MG/ML AMP IV PUSH PRN (00:45)
[2017-09-29] MEDS ORDERED: BISACODYL 10 MG SUPP RECTAL PRN (00:45)
[2017-09-29] MEDS ORDERED: SODIUM CHLORIDE 0.9% FLUSH 10 ML FLUSH IV FLUSH PRN (00:45)
[2017-09-29] MEDS ORDERED: Vancomycin Consult Pharmacy 1 EA OTHER SCH (00:45)
[2017-09-29] MEDS ORDERED: LACTULOSE SYRUP 20 GM/30 ML CUP PO PRN (00:45)
--- NOTE | 2017-09-29 01:05 | HHI.HP ---
HPI Service [facility] Primary Care Physician Unknown Admission Diagnosis sepsis,osteomyelitis,hx IVDA Diagnoses: Travel History International Travel<30 Days: No Contact w/Intl Traveler <30 Da: No Traveled to Known Affected Are: No History of Present Illness 52-year-old female with a past medical history significant for IV drug abuse, hepatitis C and recent treatment of osteomyelitis of the thoracic and cervical spine presents to the emergency department for evaluation of fevers and increased back and neck pain. The patient has a PICC line in place and is on home infusions of vancomycin twice daily. She denies any recent drug use. The patient states that she had a fever of 104 2 days ago taken by a forehead thermometer. She reports that she had diarrhea yesterday with increasing pain in her back and neck. Today the patient reports bright red blood per rectum, with associated nausea. She reports a fever of 102. She reports compliance with her home vancomycin which she states is scheduled to stop on Tuesday. She denies chest pain or shortness of breath. No weakness or lateralizing signs/ symptoms. Review of Systems Except as stated in HPI: all other systems reviewed are Neg Past Family Social History Past Medical History Osteomyelitis of cervical and thoracic spine Hepatitis C IV drug use Cholecystitis Inguinal hernia Vaginal fistula Past Surgical History ACL repair Cholecystectomy Vaginal fistula repair Inguinal hernia repair Reported Medications Reported Meds & Active Scripts Active Tramadol (Tramadol HCl) 50 Mg Tab 50 Mg PO Q6H PRN Tramadol (Tramadol HCl) 50 Mg Tab 50 Mg PO Q6H PRN Tramadol (Tramadol HCl) 50 Mg Tab 50 Mg PO Q6H PRN Epinephrine Inj 1 Mg/Ml (1 Ml) Inj 0.3 Mg SQ ONCE PRN Give with any signs of respiratory distress. Epinephrine Inj 1 Mg/Ml (1 Ml) Inj 0.3 Mg IV PUSH ONCE PRN Solu-Cortef Inj (Hydrocortisone Sodium Succinate) 250 Mg/2 Ml Inj 250 Mg IV PUSH ONCE PRN Give over 30-60 seconds. Vancomycin Inj (Vancomycin HCl) 10 Gram Inj 1,500 Mg IV Q12HR 28 Days Oxycodone-Acetaminophen 5-325 (Oxycodone HCl/Acetaminophen) 5 Mg-325 Mg Tablet 1 Tab PO Q6H PRN Baclofen 10 Mg Tab 5 Mg PO Q8HR Reported Oxygen (O2) Device Liter RADHA.CANULA CONTINUOUS Oxygen Concentrator Portable Gaseous 2 L/min via Nasal Canula Continuous For 99 months Oxygen (O2) Device Liter RADHA.CANULA CONTINUOUS Oxygen Concentrator Portable Gaseous 2 L/min via Nasal Canula Continuous For 99 months Prevacid (Lansoprazole) 15 Mg Capdr 15 Mg PO DAILY Allergies: Coded Allergies: No Known Allergies (Unverified Allergy, Unknown, 09/28/17) Family History Reports family history of hypertension, diabetes, cancer on both sides of her family mother and father. Social History Denies any alcohol use Current a smoker, 3-4 cigarettes/day Last IV drug use prior to previous hospitalization Physical Exam Vital Signs Vital Signs Date Time Temp Pulse Resp B/P (MAP) Pulse Ox O2 Delivery O2 Flow Rate FiO2 09/28/17 21:45 99 Room Air 09/28/17 21:45 99 Room Air 09/28/17 21:00 99.4 99 16 131/78 (95) 99 Room Air 09/28/17 20:09 97.9 125 18 181/83 (115) 98 Physical Exam GENERAL: female lying in bed SKIN: No rashes, ecchymoses or lesions. Cool and dry. Right PICC line in place without signs of erythema or infection. HEAD: Atraumatic. Normocephalic. No temporal or scalp tenderness. EYES: Pupils equal round and reactive. Extraocular motions intact. No scleral icterus. No injection or drainage. ENT: Nose without bleeding, purulent drainage or septal hematoma. Throat without erythema, tonsillar hypertrophy or exudate. Uvula midline. Airway patent. NECK: Trachea midline. No JVD or lymphadenopathy. Supple, nontender, no meningeal signs. CARDIOVASCULAR: Regular rate and rhythm without murmurs, gallops, or rubs. RESPIRATORY: Clear to auscultation. Breath sounds equal bilaterally. No wheezes , rales, or rhonchi. GASTROINTESTINAL: Abdomen soft, non-tender, nondistended. No hepato-splenomegaly , or palpable masses. No guarding. MUSCULOSKELETAL: Extremities without clubbing, cyanosis, or edema. No joint tenderness, effusion, or edema noted. No calf tenderness. NEUROLOGICAL: Awake and alert. Cranial nerves II through XII intact. Motor and sensory grossly within normal limits. Normal speech. Laboratory Laboratory Tests Test 09/28/17 21:30 09/28/17 21:40 White Blood Count 13.4 Red Blood Count 4.32 Hemoglobin 12.6 Hematocrit 38.0 Mean Corpuscular Volume 88.0 Mean Corpuscular Hemoglobin 29.1 Mean Corpuscular Hemoglobin Concent 33.1 Red Cell Distribution Width 14.9 Platelet Count 231 Mean Platelet Volume 8.5 CBC Comment AUTO DIFF Differential Total Cells Counted 100 Neutrophils % (Manual) 66 Band Neutrophils % 27 Lymphocytes % 3 Monocytes % 1 Basophils % 1 Neutrophils # (Manual) 12.7 Metamyelocytes 2 Differential Comment FINAL DIFF MANUAL Toxic Granulation 1+ Toxic Vacuolation PRESENT Platelet Estimate NORMAL Platelet Morphology Comment NORMAL Red Cell Morphology Comment NORMAL Urine Color YELLOW Urine Turbidity HAZY Urine pH 6.0 Urine Specific [place] 1.008 Urine Protein NEG Urine Glucose (UA) NEG Urine Ketones NEG Urine Occult Blood NEG Urine Nitrite NEG Urine Bilirubin NEG Urine Urobilinogen LESS THAN 2.0 Urine Leukocyte Esterase MOD Urine RBC 3 Urine WBC 7 Urine Squamous Epithelial Cells 11 Urine Bacteria RARE Urine Mucus FEW Microscopic Urinalysis Comment CATH-CULTURE IND Blood Urea Nitrogen 6 Creatinine 0.76 Random Glucose 119 Total Protein 7.5 Albumin 3.4 Calcium Level 8.9 Alkaline Phosphatase 317 Aspartate Amino Transf (AST/SGOT) 195 Alanine Aminotransferase (ALT/SGPT) 225 Total Bilirubin 1.0 Sodium Level 143 Potassium Level 3.0 Chloride Level 110 Carbon Dioxide Level 25.9 Anion Gap 7 Estimat Glomerular Filtration Rate 80 Lactic Acid Level 1.9 Date/Time Source Procedure Growth Status 09/28/17 21:40 Blood Peripheral Aerobic Blood Culture Pending Received 09/28/17 21:40 Blood Peripheral Anaerobic Blood Culture Pending Received 09/28/17 21:30 Urine Catheterized Urine Urine Culture Pending Worksheet Result Diagram: 09/28/17212909/28/[id number] Caprini VTE Risk Assessment Caprini VTE Risk Assessment: No/Low Risk (score <= 1) Caprini Risk Assessment Model Point Value = 1 Point Value = 2 Point Value = 3 Point Value = 5 Age 41-60 Minor surgery BMI > 25 kg/m2 Swollen legs Varicose veins or History of unexplained or recurrent spontaneous Oral contraceptives or hormone replacement Sepsis (< 1 month) Serious lung disease, including pneumonia (< 1 month) Abnormal pulmonary function Acute myocardial infarction Congestive heart failure (< 1 month) History of inflammatory bowel disease Medical patient at bed rest Age 61-74 Arthroscopic surgery Major open surgery (> 45 min) Laparoscopic surgery (> 45 min) Malignancy Confined to bed (> 72 hours) Immobilizing plaster cast Central venous access Age >= 75 History of VTE Family history of VTE Factor V Leiden Prothrombin [id number] Lupus anticoagulant Anticardiolipin antibodies Elevated serum homocysteine Heparin-induced thrombocytopenia Other congenital or acquired thrombophilia Stroke (< 1 month) Elective arthroplasty Hip, pelvis, or leg fracture Acute spinal cord injury (< 1 month) Prophylaxis Regimen Total Risk Factor Score Risk Level Prophylaxis Regimen 0-1 Low Early ambulation 2 Moderate Order ONE of the following: *Sequential Compression Device (SCD) *Heparin 5000 units SQ BID 3-4 Higher Order ONE of the following medications: *Heparin 5000 units SQ TID *Enoxaparin/Lovenox 40 mg SQ daily (WT < 150 kg, CrCl > 30 mL/min) *Enoxaparin/Lovenox 30 mg SQ daily (WT < 150 kg, CrCl > 10-29 mL/min) *Enoxaparin/Lovenox 30 mg SQ BID (WT < 150 kg, CrCl > 30 mL/min) AND/OR *Sequential Compression Device (SCD) 5 or more Highest Order ONE of the following medications: *Heparin 5000 units SQ TID (Preferred with Epidurals) *Enoxaparin/Lovenox 40 mg SQ daily (WT < 150 kg, CrCl > 30 mL/min) *Enoxaparin/Lovenox 30 mg SQ daily (WT < 150 kg, CrCl > 10-29 mL/min) *Enoxaparin/Lovenox 30 mg SQ BID (WT < 150 kg, CrCl > 30 mL/min) AND *Sequential Compression Device (SCD) Assessment and Plan Assessment and Plan Assessment/plan: 1. Sepsis/osteomyelitis of the thoracic and cervical spine Patient with tachycardia and leukocytosis Continue vancomycin Wound cultures of spine with no growth on 08/20/17 Blood cultures pending Infectious disease consulted, appreciate recommendations 2. Bright red blood per rectum Patient with known history of esophagitis and gastric erosions, status post EGD during last hospital stay Hemoccult pending Monitor CBC Pending results, gastroenterology consult may be warranted 3. Hepatitis C/transaminitis LFTs elevated, at baseline Monitor Avoid hepatotoxic agents 4. IV drug abuse Patient reports no use since previous hospital stay 5. Hypokalemia Status post by mouth supplementation Follow-up potassium in a.m. FEN Regular diet Electrolytes: As above NS at 70 cc/hr Physician Certification 2 Midnight Certification Type: Admission for Inpatient Services Order for Inpatient Services The services are ordered in accordance with Medicare regulations or non- Medicare payer requirements, as applicable. In the case of services not specified as inpatient-only, they are appropriately provided as inpatient services in accordance with the 2-midnight benchmark. Estimated LOS (days): 2 2 days is the estimated time the patient will need to remain in the hospital, assuming treatment plan goals are met and no additional complications. Post-Hospital Plan: Not yet determined Sarah Lyon MD Sep 29, 2017 01:05
[2017-09-29] MEDS ORDERED: POTASSIUM CHLORIDE 10 MEQ CONTROLLED RELEASE TAB PO ONE (01:15)
[2017-09-29] MEDS ORDERED: VANCOMYCIN INJ 800 MG in SODIUM CHLOR 0.9% 250 ML INJ 250 ML IV SCH (02:00)
[2017-09-29] MEDS: SODIUM CHLOR 0.9% 1000 ML INJ 1,000 ML IV SCH ×2 (03:06→15:44)
[2017-09-29] MEDS: IBUPROFEN 600 MG TAB PO PRN ×2 (03:08→13:41)
[2017-09-29 06:25] LABS: BICARBONATE 25.3 MEQ/L (21.0-32.0); CREATININE 0.77 MG/DL (0.50-1.00)
[2017-09-29] MEDS: DOCUSATE SODIUM 50 MG/SENNA 8.6 MG TAB PO SCH ×2 (08:51→20:08)
[2017-09-29] MEDS: SODIUM CHLORIDE 0.9% FLUSH 10 ML FLUSH IV FLUSH SCH ×2 (08:51→20:08)
[2017-09-29] MEDS: VANCOMYCIN 1,000 MG/NS 250 ML IV SCH ×2 (11:34)
--- NOTE | 2017-09-29 15:32 | PD.ID.CON ---
History of Present Illness Service ID Consult Requested By Reason for Consult Evaluation and Mment of Fever in patient with Discitis on Vanco IV. 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 She has been on Vanco IV using PICC line and stays with her friend who works at [employer] as a professor. She presents to the emergency department for evaluation of fevers and increased back and neck pain. She denies any recent drug use. The patient states that she had chills did not record temps but had a fever of 104.2 days ago taken by a forehead thermometer. She reports that she had diarrhea yesterday with increasing pain in her back and neck. Today the patient reports bright red blood per rectum, with associated nausea. She reports a fever of 102. She reports compliance with her home vancomycin which she states is scheduled to stop on Tuesday. She denies chest pain or shortness of breath. No weakness or lateralizing signs/symptoms. She reports tingling in her RUE. She reports pain in her Right knee with tingling sensation. Denies any IVDA ID consulted for evaluation and Mment of fever in a patient with Discitis who is on Vanco IV using PICC line. Review of Systems Constitutional: DENIES: Diaphoretic episodes, Fatigue, Fever, Weight gain, Weight loss, Chills, Dizziness, Change in appetite, Night Sweats Endocrine: DENIES: Abnorml menstrual pattern, Heat/cold intolerance, Polydipsia , Polyuria, Polyphagia Eyes: DENIES: Blurred vision, Diplopia, Eye inflammation, Eye pain, Vision loss , Photosensitivity, Double Vision Ears, nose, mouth, throat: DENIES: Tinnitus, Hearing loss, Vertigo, Nasal discharge, Oral lesions, Throat pain, Hoarseness, Ear Pain, Running Nose, Epistaxis, Sinus Pain, Toothache, Odynophagia Respiratory: DENIES: Apneas, Cough, Snoring, Wheezing, Hemoptysis, Sputum production, Shortness of breath Cardiovascular: DENIES: Chest pain, Palpitations, Syncope, Dyspnea on Exertion , PND, Lower Extremity Edema, Orthopnea, Claudication Gastrointestinal: DENIES: Abdominal pain, Black stools, Bloody stools, Constipation, Diarrhea, Nausea, Vomiting, Difficulty Swallowing, Anorexia Genitourinary: DENIES: Abnormal vaginal bleeding, Dysmenorrhea, Dyspareunia, Sexual dysfunction, Urinary frequency, Urinary incontinence, Urgency, Hematuria , Dysuria, Nocturia, Vaginal discharge Musculoskeletal: COMPLAINS OF: Back pain, Neck pain, DENIES: Joint pain, Muscle aches, Stiffness, Joint Swelling Integumentary: DENIES: Abnormal pigmentation, Pruritus, Rash, Nail changes, Breast masses, Breast skin changes, Nipple discharge Hematologic/lymphatic: DENIES: Bruising, Lymphadenopathy Immunologic/allergic: DENIES: Eczema, Urticaria Neurologic: COMPLAINS OF: Paresthesias (Rt UE.), DENIES: Abnormal gait, Headache, Localized weakness, Seizures, Speech Problems, Tremor, Poor Balance Psychiatric: DENIES: Anxiety, Confusion, Mood changes, Depression, Hallucinations, Agitation, Suicidal Ideation, Homicidal Ideation, Delusions Except as stated in HPI: all other systems reviewed are Neg Past Family Social History Allergies: Coded Allergies: No Known Allergies (Unverified Allergy, Unknown, 09/28/17) Past Medical History Osteomyelitis of cervical and thoracic spine Hepatitis C IV drug use Cholecystitis Inguinal hernia Vaginal fistula Past Surgical History ACL repair Cholecystectomy Vaginal fistula repair Inguinal hernia repair Reported Medications Reported Meds & Active Scripts Active Tramadol (Tramadol HCl) 50 Mg Tab 50 Mg PO Q6H PRN Tramadol (Tramadol HCl) 50 Mg Tab 50 Mg PO Q6H PRN Tramadol (Tramadol HCl) 50 Mg Tab 50 Mg PO Q6H PRN Epinephrine Inj 1 Mg/Ml (1 Ml) Inj 0.3 Mg SQ ONCE PRN Give with any signs of respiratory distress. Epinephrine Inj 1 Mg/Ml (1 Ml) Inj 0.3 Mg IV PUSH ONCE PRN Solu-Cortef Inj (Hydrocortisone Sodium Succinate) 250 Mg/2 Ml Inj 250 Mg IV PUSH ONCE PRN Give over 30-60 seconds. Vancomycin Inj (Vancomycin HCl) 10 Gram Inj 1,500 Mg IV Q12HR 28 Days Oxycodone-Acetaminophen 5-325 (Oxycodone HCl/Acetaminophen) 5 Mg-325 Mg Tablet 1 Tab PO Q6H PRN Baclofen 10 Mg Tab 5 Mg PO Q8HR Reported Oxygen (O2) Device Liter RADHA.CANULA CONTINUOUS Oxygen Concentrator Portable Gaseous 2 L/min via Nasal Canula Continuous For 99 months Oxygen (O2) Device Liter RADHA.CANULA CONTINUOUS Oxygen Concentrator Portable Gaseous 2 L/min via Nasal Canula Continuous For 99 months Prevacid (Lansoprazole) 15 Mg Capdr 15 Mg PO DAILY Active Ordered Medications Current Medications Medications (Trade) Dose Ordered Sig/Areli Route Start Time Stop Time Status Last Admin (Motrin) 600 mg Q6H PRN PO 09/29/17 00:45 09/29/17 13:41 Sodium Chloride 1,000 ml @ 70 mls/hr [id number] IV 09/29/17 00:40 09/29/17 15:44 (NS Flush) 2 ml UNSCH PRN IV FLUSH 09/29/17 00:45 (NS Flush) 2 ml BID IV FLUSH 09/29/17 09:00 (Zofran Inj) 4 mg Q6H PRN IVP 09/29/17 00:45 (Narcan Inj) 0.4 mg UNSCH PRN IV PUSH 09/29/17 00:45 (Priscilla-Colace) 1 tab BID PO 09/29/17 09:00 (Milk Of Magnesia Liq) 30 ml Q12H PRN PO 09/29/17 00:45 (Senokot) 17.2 mg Q12H PRN PO 09/29/17 00:45 (Dulcolax Supp) 10 mg DAILY PRN RECTAL 09/29/17 00:45 (Lactulose Liq) 30 ml DAILY PRN PO 09/29/17 00:45 Pharmacy Profile Note 0 ml @ 0 mls/hr UNSCH OTHER 09/29/17 00:45 Vancomycin HCl 1000 mg/Sodium Chloride 250 ml @ 250 mls/hr Q12H IV 09/29/17 12:00 09/29/17 11:34 Miscellaneous Information SPECIFIC LAB TO BE DRAWN:VANCOMYCIN TROUGH DATE TO... ONCE ONCE .XX 09/30/17 11:45 09/30/17 11:46 Family History Reviewed and NC to current ID problems. Social History IVDA in past. No alcohol. Physical Exam Vital Signs Vital Signs Date Time Temp Pulse Resp B/P (MAP) Pulse Ox O2 Delivery O2 Flow Rate FiO2 09/29/17 14:16 97.3 93 17 166/83 (110) 99 09/29/17 13:50 85 15 130/70 (90) 97 Room Air 09/29/17 11:35 98.3 82 16 135/74 (94) 99 Room Air 09/29/17 07:28 98.4 90 15 124/64 (84) 99 Room Air 09/29/17 05:55 16 09/29/17 04:00 71 16 148/70 (96) 99 09/29/17 01:00 92 16 153/72 (99) 100 Room Air 09/28/17 22:30 90 18 121/75 (90) 100 Room Air 09/28/17 22:15 90 18 131/78 (95) 98 Room Air 09/28/17 21:45 99 Room Air 09/28/17 21:45 99 Room Air 09/28/17 21:00 99.4 99 16 131/78 (95) 99 Room Air 09/28/17 20:09 97.9 125 18 181/83 (115) 98 Physical Exam GENERAL: This is a well-nourished, well-developed patient, in no apparent distress. SKIN: No rashes, ecchymoses or lesions. Cool and dry. HEAD: Atraumatic. Normocephalic. No temporal or scalp tenderness. EYES: Pupils equal round and reactive. Extraocular motions intact. No scleral icterus. No injection or drainage. ENT: Nose without bleeding, purulent drainage or septal hematoma. Throat without erythema, tonsillar hypertrophy or exudate. Uvula midline. Airway patent. NECK: Trachea midline. Supple, nontender, no meningeal signs. CARDIOVASCULAR: HS audible. RESPIRATORY: Clear to auscultation. Breath sounds equal bilaterally. GASTROINTESTINAL: Abdomen soft, non-tender, nondistended. MUSCULOSKELETAL: Extremities without clubbing, cyanosis, or edema. No joint tenderness, effusion, or edema noted. No calf tenderness. Negative Homans sign bilaterally. NEUROLOGICAL: Awake and alert. Gross exam non focal. Psych cooperative. IV line sites with no e.o infection. Laboratory Laboratory Tests Test 09/28/17 21:30 09/28/17 21:40 09/29/17 05:10 White Blood Count 13.4 Red Blood Count 4.32 Hemoglobin 12.6 Hematocrit 38.0 Mean Corpuscular Volume 88.0 Mean Corpuscular Hemoglobin 29.1 Mean Corpuscular Hemoglobin Concent 33.1 Red Cell Distribution Width 14.9 Platelet Count 231 Mean Platelet Volume 8.5 CBC Comment AUTO DIFF Differential Total Cells Counted 100 Neutrophils % (Manual) 66 Band Neutrophils % 27 Lymphocytes % 3 Monocytes % 1 Basophils % 1 Neutrophils # (Manual) 12.7 Metamyelocytes 2 Differential Comment FINAL DIFF MANUAL Toxic Granulation 1+ Toxic Vacuolation PRESENT Platelet Estimate NORMAL Platelet Morphology Comment NORMAL Red Cell Morphology Comment NORMAL Urine Color YELLOW Urine Turbidity HAZY Urine pH 6.0 Urine Specific [place] 1.008 Urine Protein NEG Urine Glucose (UA) NEG Urine Ketones NEG Urine Occult Blood NEG Urine Nitrite NEG Urine Bilirubin NEG Urine Urobilinogen LESS THAN 2.0 Urine Leukocyte Esterase MOD Urine RBC 3 Urine WBC 7 Urine Squamous Epithelial Cells 11 Urine Bacteria RARE Urine Mucus FEW Microscopic Urinalysis Comment CATH-CULTURE IND Blood Urea Nitrogen 6 6 Creatinine 0.76 0.77 Random Glucose 119 165 Total Protein 7.5 Albumin 3.4 Calcium Level 8.9 8.0 Alkaline Phosphatase 317 Aspartate Amino Transf (AST/SGOT) 195 Alanine Aminotransferase (ALT/SGPT) 225 Total Bilirubin 1.0 Sodium Level 143 144 Potassium Level 3.0 3.5 Chloride Level 110 112 Carbon Dioxide Level 25.9 25.3 Anion Gap 7 7 Estimat Glomerular Filtration Rate 80 78 Urine Opiates Screen NEG Urine Barbiturates Screen NEG Urine Amphetamines Screen NEG Urine Benzodiazepines Screen NEG Urine Cocaine Screen NEG Urine Cannabinoids Screen NEG Lactic Acid Level 1.9 Date/Time Source Procedure Growth Status 09/28/17 21:40 Blood Peripheral Aerobic Blood Culture - Preliminary NO GROWTH IN 1 DAY Resulted 09/28/17 21:40 Blood Peripheral Anaerobic Blood Culture - Preliminary NO GROWTH IN 1 DAY Resulted 09/28/17 21:30 Urine Catheterized Urine Urine Culture - Preliminary IMMATURE GROWTH - REINCUBATE Resulted Result Diagram: 09/28/17212909/29/17 0510 Imaging Last Impressions Upper Extremity Ultrasound 09/29/17 0000 Signed Impressions: Service Date/Time: September 14:51 - CONCLUSION: No venous thrombosis is identified within either upper extremity. Eliezer Gonzalez MD Chest X-Ray 09/28/[id number] Signed Impressions: Service Date/Time: Thursday, September 28, 2017 20:55 - CONCLUSION: 1. No active disease. Right PICC line tip in superior vena cava. Jabier Velazquez MD Assessment and Plan Assessment and Plan SIRS rule out sepsis. Fever in a patient with PICC on IV Antibiotics: Vanco IV related drug fevers, Thrombophlebitis, worsening Discitis. IV drug abuse. Hep C Abnormal LFTs Recs Continue Vanco IV(target 15-20) for osteomyelitis. Follow Doppler UE. Check 2D ECHO Check MRI of entire spine with contrast Follow cultures Follow clinically. Would like to avoid broadening antibiotic coverage since patient stable clinically. If any change in clinical condition overnight ok to add Cefepime IV and Micafungin IV. Will follow along with you. Radha Anderson MD Sep 29, 2017 15:32
--- NOTE | 2017-09-29 16:24 | RADRPT ---
EXAM DATE/TIME: 09/29/2017 14:51 [facility] COMPARISON: No previous studies available for comparison. INDICATIONS : Bilateral arm swelling. MEDICAL HISTORY : Hernia, umbilical. Arthritis. Migraines. Asthma. Ulcer. Cervical cancer. SURGICAL HISTORY : Cholecystectomy.Umbilical hernia repair. Right knee surgery. Fistula repair. Rectal/vaginal repair po st . ENCOUNTER: Initial ACUITY: 1 day PAIN SCORE: 4/10 LOCATION: Bilateral arm. .ALVARO SALOMON MR#: [id number] :63 Exam Dt/Desc: September 29, 2017 US ARM BILATERAL VENOUS DOPPLER FINDINGS: RIGHT UPPER EXTREMITY: There is spontaneous flow documented in the brachial, basilic, cephalic, axillary, and subclavian vei ns. The vessels are compressible and augmentation response is documented. No filling defects are se en. The flow is phasic with respiration. Direction of flow in the jugular vein is caudal. Intraven ous line is located in the right axillary and lesvia vein. LEFT UPPER EXTREMITY: There is spontaneous flow documented in the brachial, basilic, cephalic, axillary, and subclavian vei ns. The vessels are compressible and augmentation response is documented. No filling defects are se en. The flow is phasic with respiration. Direction of flow in the jugular vein is caudal. CONCLUSION: No venous thrombosis is identified within either upper extremity. Eliezer Gonzalez MD on September 29, 2017 at 16:20 Board Certified Radiologist. This report was verified electronically.
[2017-09-29] MEDS ORDERED: LORazepam 2 MG/ML VIAL IV ONE (17:30)
[2017-09-29] MEDS ORDERED: GADODIAMIDE PF 287 MG/ML 10 ML VIAL (for RAD MRI) IVCONTRAST ONE (19:30)
--- NOTE | 2017-09-29 19:31 | RADRPT ---
EXAM DATE/TIME: 09/29/2017 17:54 [facility] COMPARISON: MRI CERVICAL SPINE W & W/O CONTRAST, August 19, 2017, 2:00. INDICATIONS : Abscess. Osteomyelitis with new onset fever. CONTRAST: 11 cc Omniscan (gadodiamide) IV MEDICAL HISTORY : Hypertension. Cervical cancer. SURGICAL HISTORY : Cholecystectomy. Umbilical hernia repair. Right ACL. Fistula repair. ENCOUNTER: Subsequent ACUITY: 2 day PAIN SCORE: 4/10 LOCATION: neck. TECHNIQUE: Multiplanar, multisequence MRI examination of the cervical spine was performed. FINDINGS: The study is diffusely degraded by motion artifact despite repeated imaging. VERTEBRAE: Normal vertebral body height. There is abnormal marrow signal throughout the C7 and T1 vertebral bodi es low signal on the T1-weighted images and high signal on the T2-weighted images. This is increased and more diffuse than on the prior study. Milder abnormal marrow signal is noted in the C3 and C4 matty tebral bodies which is no significant change. ALIGNMENT: No evidence of subluxation. CORD: And anterior extradural defect is again noted on the sagittal images at the T3-4 level with mass effe ct on the anterior thecal sac and mild flattening of anterior cord. There is no abnormal signal. Prev ertebral soft tissue swelling is noted at the C6-T1 level. This is not significantly changed. POST FOSSA: The cerebellar tonsils are normal in position. POST-CONTRAST: Is diffuse abnormal enhancement throughout the C7 and T1 vertebral bodies as well as the pedicles. Mi lder patchy abnormal enhancement is noted in the C3 and C4 vertebral bodies. There is abnormal enhanc ement along the anterior epidural posterior to the C6, C7 and T1 vertebral bodies. This measures up t o approximately 3 mm in thickness. There is no abnormal enhancement of the discs. Disc space narrowin g is noted at C7-T1 level. There is abnormal enhancement along the anterior vertebral column at the C 6-T1 level. This is not significantly changed. C2-C3: The thecal sac has a normal configuration. There is no evidence of disc herniation or spinal canal stenosis. The neural foramina are patent bilaterally. C3-C4: An anterior extradural abnormality remains at the level of the disc space with mass effect on the ant erior thecal sac and flattening of the anterior cord with no definite abnormal signal. The residual A P diameter of the canal now measures approximately 7 mm. This does not appear significantly changed f rom the prior study. There is moderate narrowing of the neural foramina again noted. C4-C5: Mild anterior disc bulge with mild mass effect on the anterior thecal sac no definite mass effect on the cord. Neural foramina are patent.. C5-C6: The thecal sac has a normal configuration. There is no evidence of disc herniation or spinal canal s tenosis. The neural foramina are patent bilaterally. C6-C7: The thecal sac has a normal configuration. There is no evidence of disc herniation or spinal canal s tenosis. The neural foramina are patent bilaterally. There is abnormal circumferential enhancement o f dura surrounding the thecal sac at this level. This does not appear significantly changed. C7-T1: The thecal sac has a normal configuration. There is no evidence of disc herniation or spinal canal s tenosis. The neural foramina are patent bilaterally. CONCLUSION: 1. Abnormal marrow signal and diffuse enhancement of the C7 and T1 vertebral bodies which is increase d from the prior study. The abnormality extends into the pedicles bilaterally and is most characteris tic of osteomyelitis. 2. Milder abnormal signal and enhancement is noted in the C3 and C4 vertebral bodies without signific ant change. 3. An anterior extradural defect is again noted at the C3-4 level with mass effect on the anterior th ecal sac and mild flattening of the anterior cord. This is not significantly changed and demonstrates no enhancement. This appears represent a disc protrusion. 4. Abnormal dural enhancement at the C6-7 level surrounding the thecal sac as well as abnormal enhanc ement and soft tissue swelling along the anterior prevertebral soft tissues. This is not significantl y changed. No new epidural abscess is identified. Adolfo Dinh MD on September 29, 2017 at 19:12 Board Certified Radiologist. This report was verified electronically.
--- NOTE | 2017-09-29 20:30 | RADRPT ---
EXAM DATE/TIME: 09/29/2017 17:54 [facility] COMPARISON: MRI THORACIC SPINE W & W/O CONTRAST, August 19, 2017, 2:00. INDICATIONS : Abscess. Osteomyelitis with new onset fever. Known abnormality of the T3 vertebral body. CONTRAST: 11 cc Omniscan (gadodiamide) IV MEDICAL HISTORY : Hypertension. Cervical cancer. SURGICAL HISTORY : Umbilical hernia repair. Cholecystectomy. Right ACL. Fistula repair. ENCOUNTER: Subsequent ACUITY: 2 day PAIN SCORE: 4/10 LOCATION: back. Known MRI Precautions: Sedation utilized? NO Anesthesia present? NO MRI reaction? NO If YES, explain: TECHNIQUE: Multiplanar multisequence MRI of the thoracic spine was performed. FINDINGS: VERTEBRA: There is a mild compression fracture deformity of the T3 vertebral body again noted with invagination of the superior endplate. There is normal marrow signal with no edema or abnormal enhancement now no alex. On the prior study the previously noted enhancement and edema has resolved. The other vertebral bodies are within normal limits and demonstrate normal marrow signal. ALIGNMENT: Normal. CORD: Normal position and configuration. POST CONTRAST: No abnormal areas of contrast enhancement seen. T1-T2: Normal. T2-T3: The thecal sac has a normal diameter. No evidence of disc bulge or protrusion. T3-T4: The thecal sac has a normal diameter. No evidence of disc bulge or protrusion. T4-T5: The thecal sac has a normal diameter. No evidence of disc bulge or protrusion. T5-T6: The thecal sac has a normal diameter. No evidence of disc bulge or protrusion. T6-T7: The thecal sac has a normal diameter. No evidence of disc bulge or protrusion. T7-T8: The thecal sac has a normal diameter. No evidence of disc bulge or protrusion. T8-T9: The thecal sac has a normal diameter. No evidence of disc bulge or protrusion. T9-T10: The thecal sac has a normal diameter. No evidence of disc bulge or protrusion. T10-T11: The thecal sac has a normal diameter. No evidence of disc bulge or protrusion. T11-T12: The thecal sac has a normal diameter. No evidence of disc bulge or protrusion. T12-L1: The thecal sac has a normal diameter. No evidence of disc bulge or protrusion. CONCLUSION: 1. Mild compression fracture of the T3 vertebral body again noted with invagination of the superior e ndplate. The previous noted marrow edema and enhancement have resolved. 2. The vertebral bodies remain intact. Adolfo Dinh MD on September 29, 2017 at 20:23 Board Certified Radiologist. This report was verified electronically.
--- NOTE | 2017-09-29 20:37 | RADRPT ---
EXAM DATE/TIME: 09/29/2017 17:54 [facility] COMPARISON: MRI LUMBAR SPINE W & W/O CONTRAST, August 26, 2017, 9:28. INDICATIONS : Abscess. Osteomyelitis with new onset fever. CONTRAST: 11 cc Omniscan (gadodiamide) IV MEDICAL HISTORY : Hypertension. Cervical cancer. SURGICAL HISTORY : Umbilical hernia repair. Cholecystectomy. Right ACL. Fistula repair. ENCOUNTER: Subsequent ACUITY: 2 day PAIN SCORE: 4/10 LOCATION: low back. TECHNIQUE: Multiplanar multisequence MRI of the lumbar spine was performed with and without contrast. FINDINGS: The most caudal appearing lumbar vertebra is numbered as L5. VERTEBRAE: Homogeneous signal. Normal alignment. There is mild scoliosis. DISCS: There is disc space narrowing and desiccation at the L4-5 and L5-S1 levels. An anterior extradural de fect is again noted on the sagittal images at the L4-5 level without significant change. CONUS: Normal level and configuration. POST CONTRAST: No abnormal areas of contrast enhancement are seen. T12-L1: The thecal sac has a normal diameter. No evidence of disc bulge or protrusion. The neural foramina are patent bilaterally. L1-L2: The thecal sac has a normal diameter. No evidence of disc bulge or protrusion. The neural foramina are patent bilaterally. L2-L3: The thecal sac has a normal diameter. No evidence of disc bulge or protrusion. The neural foramina are patent bilaterally. L3-L4: There is no disc bulge or protrusion. Degenerative changes are again noted involving the facet joints . There is a small synovial cyst extending off the medial left facet joint with mild mass effect on t he left side of the thecal sac. This measures up to approximately 4 mm in diameter and is not signifi cantly changed. L4-L5: There is a mild annular disc bulge again noted greatest in the posterior central region with mass eff ect and flattening of the anterior thecal sac. This is not significantly changed. There are mild dege nerative change involving facet joints with borderline central canal stenosis and L5-S1: The thecal sac has a normal diameter. No evidence of disc bulge or protrusion. The neural foramina are patent bilaterally. CONCLUSION: 1. No evidence of osteomyelitis in the lumbar spine 2. Disc bulge at L4-5 with borderline central canal stenosis without significant change. 3. Degenerative changes involving the lower facet joints with small synovial cyst noted along the med ial left L4-5 facet joint with mild mass effect on the left side of the thecal sac. 4. Degenerative disc change at L4-5 and L5-S1 levels. Adolfo Dinh MD on September 29, 2017 at 20:28 Board Certified Radiologist. This report was verified electronically.
[2017-09-29] MEDS ORDERED: traMADol HCL 50 MG TAB PO ONE (21:00)
--- NOTE | 2017-09-29 21:05 | EKG ---
Date Performed: 09/28/2017 Time Performed: 21:30:32 PTAGE: 52 years EKG: SINUS TACHYCARDIA POSSIBLE LATERAL MYOCARDIAL INFARCTION POSSIBLE INFERIOR MYOCARDIAL INFAR CTION Compared to previous tracing, sinus rate is faster. Inferolateral Q waves are new. Clinical cor relation is recommended ABNORMAL ECG PREVIOUS TRACING : 08/19/2017 00.52 DOCTOR: Rudi Lucio Interpretating Date/Time 09/29/2017 21:04:26
[2017-09-30] VITALS: BP 154/84; PULSE 82; RESP 18; TEMP 97.9; O2SAT 97
[2017-09-30] MEDS: VANCOMYCIN 1,000 MG/NS 250 ML IV SCH ×4 (00:58→12:00)
[2017-09-30] MEDS: SODIUM CHLOR 0.9% 1000 ML INJ 1,000 ML IV SCH ×2 (05:16→17:08)
[2017-09-30 06:02] LABS: AUTOMATED NEUTROPHIL # 5.9 TH/MM3 (1.8-7.7); BASOPHIL # 0.1 TH/MM3 (0-0.2); BASOPHIL % 0.7 % (0.0-2.0); EOSINOPHIL # 0.3 TH/MM3 (0-0.4); EOSINOPHIL % 3.5 % (0.0-4.0); HEMATOCRIT 30.6 % (35.0-46.0); HEMOGLOBIN 10.4 GM/DL (11.6-15.3); LYMPH % 23.7 % (9.0-44.0); LYMPHOCYTE # 2.2 TH/MM3 (1.0-4.8); MEAN CELL VOLUME 87.4 FL (80.0-100.0); MEAN CORPUSCULAR HEMOGLOBIN 29.8 PG (27.0-34.0); MEAN CORPUSCULAR HGB CONC 34.1 % (32.0-36.0); MEAN PLATELET VOLUME 8.5 FL (7.0-11.0); MONO % 7.8 % (0.0-8.0); MONOCYTE # 0.7 TH/MM3 (0-0.9); NEUT % 64.3 % (16.0-70.0); PLATELET COUNT 189 TH/MM3 (150-450); RED BLOOD COUNT 3.49 MIL/MM3 (4.00-5.30); WHITE BLOOD COUNT 9.3 TH/MM3 (4.0-11.0)
[2017-09-30 06:21] LABS: ALBUMIN 2.7 GM/DL (3.4-5.0); ALKALINE PHOSPHATASE 224 U/L (45-117); ALT (GPT) 163 U/L (10-53); AST (GOT) 107 U/L (15-37); BICARBONATE 26.6 MEQ/L (21.0-32.0); BLOOD UREA NITROGEN 8 MG/DL (7-18); CALCIUM 8.6 MG/DL (8.5-10.1); CHLORIDE 111 MEQ/L (98-107); CREATININE 0.66 MG/DL (0.50-1.00); GLOMERULAR FILTRATION RATE 94 ML/MIN (>89); GLUCOSE,RANDOM 97 MG/DL (74-106); SODIUM (NA) 142 MEQ/L (136-145); TOTAL BILIRUBIN ADULT 0.5 MG/DL (0.2-1.0); TOTAL PROTEIN 6.6 GM/DL (6.4-8.2)
[2017-09-30 08:00] VITALS: BP 175/100; PULSE 89; RESP 18; TEMP 97.8; O2SAT 96
[2017-09-30] MEDS: DOCUSATE SODIUM 50 MG/SENNA 8.6 MG TAB PO SCH ×2 (08:23→19:28)
[2017-09-30] MEDS: SODIUM CHLORIDE 0.9% FLUSH 10 ML FLUSH IV FLUSH SCH ×2 (08:23→19:29)
--- NOTE | 2017-09-30 09:39 | HHI.PR ---
Subjective Remarks The patient said that most of her pain was located between her shoulder blades. She says she cannot take ibuprofen because of bleeding ulcers she has had. She is tolerating a diet. She has been ambulatory. She has been having bowel movements. Discussed with nursing. Objective Vitals Vital Signs Date Time Temp Pulse Resp B/P (MAP) Pulse Ox O2 Delivery O2 Flow Rate FiO2 09/30/17 08:00 97.8 89 18 175/100 (125) 96 09/30/17 00:00 97.9 82 18 154/84 (107) 97 09/29/17 20:00 98.0 96 18 154/84 (107) 99 09/29/17 17:03 161/84 (109) 09/29/17 16:00 97.7 80 19 160/106 (124) 99 09/29/17 14:16 97.3 93 17 166/83 (110) 99 09/29/17 13:50 85 15 130/70 (90) 97 Room Air 09/29/17 11:35 98.3 82 16 135/74 (94) 99 Room Air I/O 09/29/17 09/29/17 09/29/17 09/30/17 09/30/17 09/30/17 07:00 15:00 23:00 07:00 15:00 23:00 Intake Total 2258 ml 100 ml 1250 ml Balance 2258 ml 100 ml 1250 ml Intake Oral 100 ml IV Total 2258 ml 1250 ml # Voids 2 2 # Bowel Movements 1 Result Diagram: 09/30/17 0520 09/30/17 0520 Imaging Last Impressions Upper Extremity Ultrasound 09/29/17 0000 Signed Impressions: Service Date/Time: September 14:51 - CONCLUSION: No venous thrombosis is identified within either upper extremity. Eliezer Gonzalez MD Thoracic Spine MRI 09/29/17 0000 Signed Impressions: Service Date/Time: September 17:54 - CONCLUSION: 1. Mild compression fracture of the T3 vertebral body again noted with invagination of the superior endplate. The previous noted marrow edema and enhancement have resolved. 2. The vertebral bodies remain intact. Adolfo Dinh MD Lumbar Spine MRI 09/29/17 0000 Signed Impressions: Service Date/Time: September 17:54 - CONCLUSION: 1. No evidence of osteomyelitis in the lumbar spine 2. Disc bulge at L4-5 with borderline central canal stenosis without significant change. 3. Degenerative changes involving the lower facet joints with small synovial cyst noted along the medial left L4-5 facet joint with mild mass effect on the left side of the thecal sac. 4. Degenerative disc change at L4-5 and L5-S1 levels. Adolfo Dinh MD Cervical Spine MRI 09/29/17 0000 Signed Impressions: Service Date/Time: September 17:54 - CONCLUSION: 1. Abnormal marrow signal and diffuse enhancement of the C7 and T1 vertebral bodies which is increased from the prior study. The abnormality extends into the pedicles bilaterally and is most characteristic of osteomyelitis. 2. Milder abnormal signal and enhancement is noted in the C3 and C4 vertebral bodies without significant change. 3. An anterior extradural defect is again noted at the C3- 4 level with mass effect on the anterior thecal sac and mild flattening of the anterior cord. This is not significantly changed and demonstrates no enhancement. This appears represent a disc protrusion. 4. Abnormal dural enhancement at the C6-7 level surrounding the thecal sac as well as abnormal enhancement and soft tissue swelling along the anterior prevertebral soft tissues. This is not significantly changed. No new epidural abscess is identified. Adolfo Dinh MD Chest X-Ray 09/28/172047 Signed Impressions: Service Date/Time: Thursday, September 28, 2017 20:55 - CONCLUSION: 1. No active disease. Right PICC line tip in superior vena cava. Jabier Velazquez MD Objective Remarks GENERAL: NAD. SKIN: No rashes, ecchymoses or lesions. Cool and dry. Right PICC line in place without signs of erythema or infection. HEAD: Atraumatic. Normocephalic. No temporal or scalp tenderness. EYES: Pupils equal round and reactive. Extraocular motions intact. No scleral icterus. No injection or drainage. ENT: Nose without bleeding, purulent drainage or septal hematoma. Throat without erythema, tonsillar hypertrophy or exudate. Uvula midline. Airway patent. NECK: Trachea midline. No JVD or lymphadenopathy. Supple, nontender, no meningeal signs. CARDIOVASCULAR: Regular rate and rhythm without murmurs, gallops, or rubs. RESPIRATORY: Clear to auscultation. Breath sounds equal bilaterally. No wheezes , rales, or rhonchi. GASTROINTESTINAL: Abdomen soft, non-tender, nondistended. No hepato-splenomegaly , or palpable masses. No guarding. MUSCULOSKELETAL: Extremities without clubbing, cyanosis, or edema. No joint tenderness, effusion, or edema noted. NEUROLOGICAL: Awake and alert. Cranial nerves II through XII intact. Motor and sensory grossly within normal limits. Normal speech. PSYCH: Mood and affect appropriate. Medications and IVs Current Medications Medications (Trade) Dose Ordered Sig/Areli Route Start Time Stop Time Status Last Admin (Motrin) 600 mg Q6H PRN PO 09/29/17 00:45 09/29/17 13:41 Sodium Chloride 1,000 ml @ 70 mls/hr [id number] IV 09/29/17 00:40 09/30/17 05:16 (NS Flush) 2 ml UNSCH PRN IV FLUSH 09/29/17 00:45 (NS Flush) 2 ml BID IV FLUSH 09/29/17 09:00 (Zofran Inj) 4 mg Q6H PRN IVP 09/29/17 00:45 (Narcan Inj) 0.4 mg UNSCH PRN IV PUSH 09/29/17 00:45 (Priscilla-Colace) 1 tab BID PO 09/29/17 09:00 (Milk Of Magnesia Liq) 30 ml Q12H PRN PO 09/29/17 00:45 (Senokot) 17.2 mg Q12H PRN PO 09/29/17 00:45 (Dulcolax Supp) 10 mg DAILY PRN RECTAL 09/29/17 00:45 (Lactulose Liq) 30 ml DAILY PRN PO 09/29/17 00:45 Pharmacy Profile Note 0 ml @ 0 mls/hr UNSCH OTHER 09/29/17 00:45 Vancomycin HCl 1000 mg/Sodium Chloride 250 ml @ 250 mls/hr Q12H IV 09/29/17 12:00 09/30/17 00:58 Miscellaneous Information SPECIFIC LAB TO BE DRAWN:VANCOMYCIN TROUGH DATE TO... ONCE ONCE .XX 09/30/17 11:45 09/30/17 11:46 (Ultram) 50 mg Q4H PRN PO 09/30/17 09:45 UNV (Protonix) 40 mg DAILY PO 09/30/17 09:45 UNV A/P Assessment and Plan Sepsis/osteomyelitis of the thoracic and cervical spine The pt was on IV vancomycin as an outpt. She had fevers and worsening symptoms. Repeat MRI showed: Abnormal marrow signal and diffuse enhancement of the C7 and T1 vertebral bodies which is increased from the prior study; The abnormality extends into the pedicles bilaterally and is most characteristic of osteomyelitis; Milder abnormal signal and enhancement is noted in the C3 and C4 vertebral bodies without significant change. ID consult appreciated. - Continue IV vancomycin per ID. - IVFs. - neurosurgery consult pending for bone biopsy. - pain control with a bowel regimen. Bright red blood per rectum Patient with known history of esophagitis and gastric erosions, status post EGD during last hospital stay. - Hemoccult pending. - Monitor CBC. - PPI. - d/c ibuprofen. Anemia Likely s/t chronic disease. - follow CBC and transfuse as needed. Hepatitis C/ transaminitis LFTs elevated, at baseline. - Monitor as needed. - Avoid hepatotoxic agents. IV drug abuse Patient reports no use since previous hospital stay. - cessation instruction. Hypokalemia Status post by mouth supplementation - resolved. PPx: Adolfo Jones DO Sep 30, 2017 09:39
[2017-09-30] MEDS: PANTOPRAZOLE SOD 40 MG DELAYED RELEASE TAB PO SCH (10:22)
--- NOTE | 2017-09-30 10:55 | PD.CONS ---
(Rickey Cee MD) HPI Consult Requested By Primary Care Physician Unknown (Rickey Cee MD) Service NRS Consult Requested By Dr. Anderson Reason for Consult Osteomyelitis History of Present Illness Ms. Ware is a 52-year-old female with a known history of cervical osteomyelitis of the cervical and thoracic spine. She was treated previously with IV vancomycin a few weeks ago. She presents and returns to the hospital for recurrent fevers. As well as increased worsening of cervical pain. She has a history of prior IV drug use. An MRI of the cervical, thoracic and lumbar spine has been repeated. She shows persistent evidence of osteomyelitis at C7 and T1. Her MRI reports some enhancement along the anterior epidural space from C6-T1. She reports chronic history of right hand numbness that she has had for years. She reports of new intermittent radiating pain in her right arm posteriorly to her right elbow. She denies any focal weakness, bowel or bladder incontinence. (Radha Ramirez) Review of Systems Constitutional: COMPLAINS OF: Fever, Chills Eyes: DENIES: Diplopia Respiratory: DENIES: Apneas, Hemoptysis, Shortness of breath Cardiovascular: DENIES: Chest pain, Palpitations Genitourinary: DENIES: Urinary incontinence Musculoskeletal: COMPLAINS OF: Joint pain, Stiffness, Neck pain Neurologic: COMPLAINS OF: Paresthesias, DENIES: Abnormal gait, Localized weakness (Radha Ramirez) Past Family Social History Allergies: Coded Allergies: No Known Allergies (Unverified Allergy, Unknown, 09/28/17) Past Medical History Osteomyelitis of the spine Hepatitis C Asthma Migraine Prior IV drug use Cholecystitis Hernia Vaginal fistula Past Surgical History Hernia repair Cholecystectomy Vaginal fistula repair ACL repair Reported Medications Refer to EMR Active Ordered Medications Current Medications Medications (Trade) Dose Ordered Sig/Areli Route PRN Reason Start Time Stop Time Status Last Admin Dose Admin Sodium Chloride 1,000 ml @ 70 mls/hr [id number] IV 09/29/17 00:40 09/30/17 05:16 Sodium Chloride (NS Flush) 2 ml UNSCH PRN IV FLUSH FLUSH AFTER USING IV ACCESS 09/29/17 00:45 Sodium Chloride (NS Flush) 2 ml BID IV FLUSH 09/29/17 09:00 Ondansetron HCl (Zofran Inj) 4 mg Q6H PRN IVP NAUSEA OR VOMITING 09/29/17 00:45 Naloxone HCl (Narcan Inj) 0.4 mg UNSCH PRN IV PUSH SEE LABEL COMMENTS 09/29/17 00:45 Senna/Docusate Sodium (Priscilla-Colace) 1 tab BID PO 09/29/17 09:00 Magnesium Hydroxide (Milk Of Magnesia Liq) 30 ml Q12H PRN PO Mild constipation 09/29/17 00:45 Sennosides (Senokot) 17.2 mg Q12H PRN PO Moderate constipation 09/29/17 00:45 Bisacodyl (Dulcolax Supp) 10 mg DAILY PRN RECTAL SEVERE CONSITIPATION/ IF NPO 09/29/17 00:45 Lactulose (Lactulose Liq) 30 ml DAILY PRN PO SEVERE CONSITIPATION/ IF PO 09/29/17 00:45 Pharmacy Profile Note 0 ml @ 0 mls/hr UNSCH OTHER 09/29/17 00:45 Vancomycin HCl 1000 mg/Sodium Chloride 250 ml @ 250 mls/hr Q12H IV 09/29/17 12:00 09/30/17 00:58 Miscellaneous Information SPECIFIC LAB TO BE DRAWN:VANCOMYCIN TROUGH DATE TO... ONCE ONCE .XX 09/30/17 11:45 09/30/17 11:46 Tramadol HCl (Ultram) 50 mg Q4H PRN PO pain 3-10 09/30/17 09:45 Pantoprazole Sodium (Protonix) 40 mg DAILY PO 09/30/17 10:30 09/30/17 10:22 Oxycodone HCl (Roxicodone) 5 mg Q4H PRN PO breakthrough pain 09/30/17 10:00 09/30/17 10:22 Family History Reviewed, noncontributory to her current problem Social History History of previous IV drug use, (Radha Ramirez) Physical Exam Vital Signs Vital Signs Date Time Temp Pulse Resp B/P (MAP) Pulse Ox O2 Delivery O2 Flow Rate FiO2 09/30/17 08:00 97.8 89 18 175/100 (125) 96 09/30/17 00:00 97.9 82 18 154/84 (107) 97 09/29/17 20:00 98.0 96 18 154/84 (107) 99 09/29/17 17:03 161/84 (109) 09/29/17 16:00 97.7 80 19 160/106 (124) 99 09/29/17 14:16 97.3 93 17 166/83 (110) 99 09/29/17 13:50 85 15 130/70 (90) 97 Room Air 09/29/17 11:35 98.3 82 16 135/74 (94) 99 Room Air Laboratory Laboratory Tests Test 09/29/17 17:18 09/30/17 05:20 Random Vancomycin Level 12.7 White Blood Count 9.3 Red Blood Count 3.49 Hemoglobin 10.4 Hematocrit 30.6 Mean Corpuscular Volume 87.4 Mean Corpuscular Hemoglobin 29.8 Mean Corpuscular Hemoglobin Concent 34.1 Red Cell Distribution Width 15.0 Platelet Count 189 Mean Platelet Volume 8.5 Neutrophils (%) (Auto) 64.3 Lymphocytes (%) (Auto) 23.7 Monocytes (%) (Auto) 7.8 Eosinophils (%) (Auto) 3.5 Basophils (%) (Auto) 0.7 Neutrophils # (Auto) 5.9 Lymphocytes # (Auto) 2.2 Monocytes # (Auto) 0.7 Eosinophils # (Auto) 0.3 Basophils # (Auto) 0.1 CBC Comment DIFF FINAL Differential Comment Blood Urea Nitrogen 8 Creatinine 0.66 Random Glucose 97 Total Protein 6.6 Albumin 2.7 Calcium Level 8.6 Alkaline Phosphatase 224 Aspartate Amino Transf (AST/SGOT) 107 Alanine Aminotransferase (ALT/SGPT) 163 Total Bilirubin 0.5 Sodium Level 142 Potassium Level 3.6 Chloride Level 111 Carbon Dioxide Level 26.6 Anion Gap 4 Estimat Glomerular Filtration Rate 94 C-Reactive Protein 4.60 Date/Time Source Procedure Growth Status 09/29/17 17:18 Blood Line Aerobic Blood Culture Pending Received 09/29/17 17:18 Blood Line Anaerobic Blood Culture Pending Received 09/28/17 21:30 Urine Catheterized Urine Urine Culture - Preliminary Gram Negative Andrei Resulted (Rickey Cee MD) Physical Exam General: Well-nourished middle-aged female in no acute distress HEENT: Normocephalic, atraumatic. Nonicteric sclera. Neuro: Alert and oriented 3. Speech is appropriate. Follows commands without apraxia. Cranial nerve: pupils to be equal, round, and reactive to light. Extra -ocular movements are intact. Facial motor and sensory function are normal and symmetrical. Gross hearing is intact, bilaterally. The uvula is midline and elevates symmetrically with the soft palate. Sternocleidomastoid and trapezius muscles have normal and symmetrical strength. Other cranial nerves are intact. Cervical spine has a full range of motion in anterior flexion, extension, lateral bending, and rotation with pain Muscle testing reveals normal bulk and tone overall without rigidity, spasticity , fasciculations, or atrophy. Muscle strength is 5/5 in all muscle groups of both upper extremities including deltoid, biceps, triceps, brachioradialis, wrist extension and home appliances mechanic. In the lower extremities, strength is 5/5 in both iliopsoas, quadriceps, hamstrings, plantar flexion, dorsiflexion, and extensor hallicus longus. Sensory examination is intact to light touch in both the upper and lower extremities, symmetrically. Deep tendon reflexes are 2+ and symmetrical in the biceps, triceps, and brachioradialis, bilaterally, in the upper extremities. In the lower extremities , the patellar and Achilles are 2+, bilaterally. There is a bilateral plantar flexion response. Hoffmanns sign is negative. There is no clonus or other abnormal reflexes noted. Cerebellar examination is intact to [id number] test Heart regular rate and rhythm Respiratory clear to auscultate bilaterally Skin no cyanosis or erythema (Radha Ramirez) Result Diagram: 09/30/1751909/30/17519 Imaging Last Impressions Upper Extremity Ultrasound 09/29/17 Signed Impressions: Service Date/Time: September 14:51 - CONCLUSION: No venous thrombosis is identified within either upper extremity. Eliezer Gonzalez MD Thoracic Spine MRI 09/29/17 0000 Signed Impressions: Service Date/Time: September 17:54 - CONCLUSION: 1. Mild compression fracture of the T3 vertebral body again noted with invagination of the superior endplate. The previous noted marrow edema and enhancement have resolved. 2. The vertebral bodies remain intact. Adolfo Dinh MD Lumbar Spine MRI 4/12/18 0000 Signed Impressions: Service Date/Time: September 17:54 - CONCLUSION: 1. No evidence of osteomyelitis in the lumbar spine 2. Disc bulge at L4-5 with borderline central canal stenosis without significant change. 3. Degenerative changes involving the lower facet joints with small synovial cyst noted along the medial left L4-5 facet joint with mild mass effect on the left side of the thecal sac. 4. Degenerative disc change at L4-5 and L5-S1 levels. Adolfo Dinh MD Cervical Spine MRI 09/29/17 Signed Impressions: Service Date/Time: September 17:54 - CONCLUSION: 1. Abnormal marrow signal and diffuse enhancement of the C7 and T1 vertebral bodies which is increased from the prior study. The abnormality extends into the pedicles bilaterally and is most characteristic of osteomyelitis. 2. Milder abnormal signal and enhancement is noted in the C3 and C4 vertebral bodies without significant change. 3. An anterior extradural defect is again noted at the C3- 4 level with mass effect on the anterior thecal sac and mild flattening of the anterior cord. This is not significantly changed and demonstrates no enhancement. This appears represent a disc protrusion. 4. Abnormal dural enhancement at the C6-7 level surrounding the thecal sac as well as abnormal enhancement and soft tissue swelling along the anterior prevertebral soft tissues. This is not significantly changed. No new epidural abscess is identified. Adolfo Dinh MD Chest X-Ray 09/28/172047 Signed Impressions: Service Date/Time: Thursday, September 28, 2017 20:55 - CONCLUSION: 1. No active disease. Right PICC line tip in superior vena cava. Jabier Velazquez MD (Radha Ramirez) Attending Statement I reviewed her history and radiological studies, including Upper Extremity Ultrasound 09/29/17 Signed Impressions: Service Date/Time: September 14:51 - CONCLUSION: No venous thrombosis is identified within either upper extremity. Eliezer Gonzalez MD Thoracic Spine MRI 09/29/17 Signed Impressions: Service Date/Time: September 17:54 - CONCLUSION: 1. Mild compression fracture of the T3 vertebral body again noted with invagination of the superior endplate. The previous noted marrow edema and enhancement have resolved. 2. The vertebral bodies remain intact. Adolfo Dinh MD Lumbar Spine MRI 09/29/17 Signed Impressions: Service Date/Time: September 17:54 - CONCLUSION: 1. No evidence of osteomyelitis in the lumbar spine 2. Disc bulge at L4-5 with borderline central canal stenosis without significant change. 3. Degenerative changes involving the lower facet joints with small synovial cyst noted along the medial left L4-5 facet joint with mild mass effect on the left side of the thecal sac. 4. Degenerative disc change at L4-5 and L5-S1 levels. Adolfo Dinh MD Cervical Spine MRI 09/29/17 0000 Signed Impressions: Service Date/Time: September 17:54 - CONCLUSION: 1. Abnormal marrow signal and diffuse enhancement of the C7 and T1 vertebral bodies which is increased from the prior study. The abnormality extends into the pedicles bilaterally and is most characteristic of osteomyelitis. 2. Milder abnormal signal and enhancement is noted in the C3 and C4 vertebral bodies without significant change. 3. An anterior extradural defect is again noted at the C3- 4 level with mass effect on the anterior thecal sac and mild flattening of the anterior cord. This is not significantly changed and demonstrates no enhancement. This appears represent a disc protrusion. 4. Abnormal dural enhancement at the C6-7 level surrounding the thecal sac as well as abnormal enhancement and soft tissue swelling along the anterior prevertebral soft tissues. This is not significantly changed. No new epidural abscess is identified. Adolfo Dinh MD Chest X-Ray 09/28/172047 Signed Impressions: Service Date/Time: Thursday, September 28, 2017 20:55 - CONCLUSION: 1. No active disease. Right PICC line tip in superior vena cava. Jabier Velazquez MD Neuro checks in a serial fashion. There is no evidence of spinal cord compression or epidural abscess. In my opinion, there is no indication for any neurosurgical procedure. Please obtain further blood cultures and consider a consultation with an interventional radiologist to determine if a CT-guided biopsy is an option. I cannot justify a neurosurgical operation based on the quadrant radiological studies. Consider placing the patient in the cervical Schoolcraft J collar for comfort Obtain further blood cultures. Continue treatment with IV antibiotics for long- term. Aggressive pulmonary toilette, nasotracheal suction, and breathing treatments with nebulizers. Nutrition. NPO Renal. monitor closely urine output, BUN and creatinine Endocrine. Monitor serial Acu checks and SSI as needed in detail ID Continue IV antibiotics and follow up cultures Protonix for stress ulcer prophylaxis Jose Alfredo hose and SCD's for DVT prophylaxis. Consider transferring the patient to a tertiary center if you need a second neurosurgical opinion (Rickey Cee MD) Rickey Cee MD Sep 30, 2017 10:55 Radha Ramirez Sep 30, 2017 11:00
[2017-09-30] MEDS ORDERED: PHARMACY ORDERED LAB ONE (11:45)
[2017-09-30 12:00] VITALS: BP 142/79; PULSE 80; RESP 18; TEMP 97.4; O2SAT 98
[2017-09-30] MEDS: traMADol HCL 50 MG TAB PO PRN ×3 (12:23→21:36)
--- NOTE | 2017-09-30 13:24 | HHI.IDPN ---
Subjective Subjective Remarks is a [age] y/o CF with PMHx of IV drug abuse, hepatitis C and currently being treated for osteomyelitis of the thoracic and cervical spine using a PICC line. She has been on Vanco IV using PICC line and stays with her friend who works at [employer] as a professor. She presents to the emergency department for evaluation of fevers and increased back and neck pain. She denies any recent drug use. The patient states that she had chills did not record temps but had a fever of 104.2 days ago taken by a forehead thermometer. She reports that she had diarrhea yesterday with increasing pain in her back and neck. Today the patient reports bright red blood per rectum, with associated nausea. She reports a fever of 102. She reports compliance with her home vancomycin which she states is scheduled to stop on Tuesday. She denies chest pain or shortness of breath. No weakness or lateralizing signs/symptoms. She reports tingling in her RUE. She reports pain in her Right knee with tingling sensation. Denies any IVDA ID consulted for evaluation and Mment of fever in a patient with Discitis who is on Vanco IV using PICC line. Overnight events reviewed No fever No rash No diarrhea Antibiotics Cefepime IV Dapto IV Lines Line sites with no e.o infection Past Medical History Past Medical History Osteomyelitis of cervical and thoracic spine Hepatitis C IV drug use Cholecystitis Inguinal hernia Vaginal fistula Past Surgical History ACL repair Cholecystectomy Vaginal fistula repair Inguinal hernia repair Allergies: Coded Allergies: No Known Allergies (Unverified Allergy, Unknown, 09/28/17) Objective . Vital Signs Date Time Temp Pulse Resp B/P (MAP) Pulse Ox O2 Delivery O2 Flow Rate FiO2 09/30/17 12:00 97.4 80 18 142/79 (100) 98 09/30/17 08:00 97.8 89 18 175/100 (125) 96 09/30/17 00:00 97.9 82 18 154/84 (107) 97 09/29/17 20:00 98.0 96 18 154/84 (107) 99 09/29/17 17:03 161/84 (109) 09/29/17 16:00 97.7 80 19 160/106 (124) 99 09/29/17 14:16 97.3 93 17 166/83 (110) 99 09/29/17 13:50 85 15 130/70 (90) 97 Room Air . Laboratory Tests Test 09/28/17 21:30 09/30/17 05:20 White Blood Count 13.4 TH/MM3 9.3 TH/MM3 Red Blood Count 4.32 MIL/MM3 3.49 MIL/MM3 Hemoglobin 12.6 GM/DL 10.4 GM/DL Hematocrit 38.0 % 30.6 % Mean Corpuscular Volume 88.0 FL 87.4 FL Mean Corpuscular Hemoglobin 29.1 PG 29.8 PG Mean Corpuscular Hemoglobin Concent 33.1 % 34.1 % Red Cell Distribution Width 14.9 % 15.0 % Platelet Count 231 TH/MM3 189 TH/MM3 Mean Platelet Volume 8.5 FL 8.5 FL CBC Comment AUTO DIFF DIFF FINAL Differential Total Cells Counted 100 Neutrophils % (Manual) 66 % Band Neutrophils % 27 % Lymphocytes % 3 % Monocytes % 1 % Basophils % 1 % Neutrophils # (Manual) 12.7 TH/MM3 Metamyelocytes 2 % Differential Comment FINAL DIFF MANUAL Toxic Granulation 1+ Toxic Vacuolation PRESENT Platelet Estimate NORMAL Platelet Morphology Comment NORMAL Red Cell Morphology Comment NORMAL Neutrophils (%) (Auto) 64.3 % Lymphocytes (%) (Auto) 23.7 % Monocytes (%) (Auto) 7.8 % Eosinophils (%) (Auto) 3.5 % Basophils (%) (Auto) 0.7 % Neutrophils # (Auto) 5.9 TH/MM3 Lymphocytes # (Auto) 2.2 TH/MM3 Monocytes # (Auto) 0.7 TH/MM3 Eosinophils # (Auto) 0.3 TH/MM3 Basophils # (Auto) 0.1 TH/MM3 Laboratory Tests Test 09/28/17 21:30 09/28/17 21:40 09/29/17 05:10 09/30/17 05:20 Blood Urea Nitrogen 6 MG/DL 6 MG/DL 8 MG/DL Creatinine 0.76 MG/DL 0.77 MG/DL 0.66 MG/DL Random Glucose 119 MG/DL 165 MG/DL 97 MG/DL Total Protein 7.5 GM/DL 6.6 GM/DL Albumin 3.4 GM/DL 2.7 GM/DL Calcium Level 8.9 MG/DL 8.0 MG/DL 8.6 MG/DL Alkaline Phosphatase 317 U/L 224 U/L Aspartate Amino Transf (AST/SGOT) 195 U/L 107 U/L Alanine Aminotransferase (ALT/SGPT) 225 U/L 163 U/L Total Bilirubin 1.0 MG/DL 0.5 MG/DL Sodium Level 143 MEQ/L 144 MEQ/L 142 MEQ/L Potassium Level 3.0 MEQ/L 3.5 MEQ/L 3.6 MEQ/L Chloride Level 110 MEQ/L 112 MEQ/L 111 MEQ/L Carbon Dioxide Level 25.9 MEQ/L 25.3 MEQ/L 26.6 MEQ/L Anion Gap 7 MEQ/L 7 MEQ/L 4 MEQ/L Estimat Glomerular Filtration Rate 80 ML/MIN 78 ML/MIN 94 ML/MIN Lactic Acid Level 1.9 mmol/L C-Reactive Protein 4.60 MG/DL Microbiology Date/Time Source Procedure Growth Status 09/29/17 17:18 Blood Line Aerobic Blood Culture - Preliminary NO GROWTH IN 1 DAY Resulted 09/29/17 17:18 Blood Line Anaerobic Blood Culture - Preliminary NO GROWTH IN 1 DAY Resulted 09/28/17 21:40 Blood Peripheral Aerobic Blood Culture - Preliminary NO GROWTH IN 2 DAYS Resulted 09/28/17 21:40 Blood Peripheral Anaerobic Blood Culture - Preliminary NO GROWTH IN 2 DAYS Resulted 09/28/17 21:30 Blood Peripheral Aerobic Blood Culture - Preliminary NO GROWTH IN 2 DAYS Resulted 09/28/17 21:30 Blood Peripheral Anaerobic Blood Culture - Preliminary NO GROWTH IN 2 DAYS Resulted 09/30/17 12:10 Stool Stool Cryptosporidium Exam Pending Received 09/30/17 12:10 Stool Stool Stool Pus (JAYLON) Pending Received 09/30/17 12:10 Stool Stool Giardia Antigen (JAYLON) Pending Received 09/28/17 21:30 Urine Catheterized Urine Urine Culture - Preliminary Gram Negative Andrei Resulted Imaging Last Impressions Upper Extremity Ultrasound 09/29/17 0000 Signed Impressions: Service Date/Time: September 14:51 - CONCLUSION: No venous thrombosis is identified within either upper extremity. Eliezer Gonzalez MD Thoracic Spine MRI 09/29/17 0000 Signed Impressions: Service Date/Time: September 17:54 - CONCLUSION: 1. Mild compression fracture of the T3 vertebral body again noted with invagination of the superior endplate. The previous noted marrow edema and enhancement have resolved. 2. The vertebral bodies remain intact. Adolfo Dinh MD Lumbar Spine MRI 09/29/17 Signed Impressions: Service Date/Time: September 17:54 - CONCLUSION: 1. No evidence of osteomyelitis in the lumbar spine 2. Disc bulge at L4-5 with borderline central canal stenosis without significant change. 3. Degenerative changes involving the lower facet joints with small synovial cyst noted along the medial left L4-5 facet joint with mild mass effect on the left side of the thecal sac. 4. Degenerative disc change at L4-5 and L5-S1 levels. Adolfo Dinh MD Cervical Spine MRI 09/29/17 Signed Impressions: Service Date/Time: September 17:54 - CONCLUSION: 1. Abnormal marrow signal and diffuse enhancement of the C7 and T1 vertebral bodies which is increased from the prior study. The abnormality extends into the pedicles bilaterally and is most characteristic of osteomyelitis. 2. Milder abnormal signal and enhancement is noted in the C3 and C4 vertebral bodies without significant change. 3. An anterior extradural defect is again noted at the C3- 4 level with mass effect on the anterior thecal sac and mild flattening of the anterior cord. This is not significantly changed and demonstrates no enhancement. This appears represent a disc protrusion. 4. Abnormal dural enhancement at the C6-7 level surrounding the thecal sac as well as abnormal enhancement and soft tissue swelling along the anterior prevertebral soft tissues. This is not significantly changed. No new epidural abscess is identified. Adolfo Dinh MD Chest X-Ray 09/28/172047 Signed Impressions: Service Date/Time: Thursday, September 28, 2017 20:55 - CONCLUSION: 1. No active disease. Right PICC line tip in superior vena cava. Jabier Velazquez MD Physical Exam GENERAL: This is a well-nourished, well-developed patient, in no apparent distress. SKIN: No rashes, ecchymoses or lesions. Cool and dry. HEAD: Atraumatic. Normocephalic. No temporal or scalp tenderness. EYES: Pupils equal round and reactive. Extraocular motions intact. No scleral icterus. No injection or drainage. ENT: Nose without bleeding, purulent drainage or septal hematoma. Throat without erythema, tonsillar hypertrophy or exudate. Uvula midline. Airway patent. NECK: Trachea midline. Supple, nontender, no meningeal signs. CARDIOVASCULAR: HS audible. RESPIRATORY: Clear to auscultation. Breath sounds equal bilaterally. GASTROINTESTINAL: Abdomen soft, non-tender, nondistended. MUSCULOSKELETAL: Extremities without clubbing, cyanosis, or edema. No joint tenderness, effusion, or edema noted. No calf tenderness. Negative Homans sign bilaterally. NEUROLOGICAL: Awake and alert. Gross exam non focal. Psych cooperative. IV line sites with no e.o infection. Assessment & Plan Remarks SIRS rule out sepsis. Fever in a patient with PICC on IV Antibiotics: Vanco IV related drug fevers, Thrombophlebitis, worsening Discitis. IV drug abuse. Hep C Abnormal LFTs Recs Continue Vanco IV(target 15-20) for osteomyelitis. Follow Doppler UE. Follow 2D ECHO Reviewed MRI of entire spine with contrast: farzaneh Quinteros. He recommends a neck brace and CT guided biopsy for micro and pathology. Follow cultures Follow clinically. Would like to avoid broadening antibiotic coverage since patient stable clinically. If any change in clinical condition overnight ok to add Cefepime IV and Micafungin IV. Will follow along with you. to cover for me this weekend prn and to cover for me to 10/04/17. Addendum 09/30/2017 at 2:36 pm. Farzaneh Martinez in Interventional Radiology: C7-T1 disease is too high for IR guided biopsy. Other Lumbar and thoracic areas are resolved with no edema so no biopsy at those places recommended. farzaneh Harman and (my cross cover): left message for to consider C7-T1 biopsy. It would not be safe to assume this is MRSA infection especially when patient seems to have failed therapy. Recommend a biopsy to be sent for Micro and Pathology (for evidence of Osteomyelitis or malignancy/mets) . Will change to Dapto IV in the interim assuming clinical failure to Vanco IV. GNR in urine unless septic or symptomatic would not recommend broadening treatment. to cover for me this weekend. to cover for me 10/03/17 to 10/04/17. Radha Anderson MD Sep 30, 2017 13:24
[2017-09-30 14:40] LABS: INTERNATIONAL NORMALIZED RATIO 1.1 RATIO; PROTHROMBIN TIME - PATIENT 11.1 SEC (9.8-11.6)
[2017-09-30] MEDS ORDERED: VANCOMYCIN INJ 1,500 MG in SODIUM CHLORID 0.9% 500 ML INJ 500 ML IV SCH (15:00)
--- NOTE | 2017-09-30 15:43 | ECHRPT ---
Indication: SEPSIS/ENDOCARDITIS CONCLUSIONS Normal left ventricular size and wall thickness. The left ventricular systolic function is normal wi th an estimated ejection fraction in the range of 60-65%. No regional wall motion abnormalities are presen t. There is trace to mild tricuspid valve regurgitation. The estimated pulmonary arterial pressure is 32 mmHg. BP: / HR: Rhythm: Sinus MEASUREMENTS (Male / Female) Normal Values Technical Quality:Good 2D ECHO LV Diastolic Diameter PLAX 4.2 cm 4.2 - 5.9 / 3.9 - 5.3 cm LV Systolic Diameter PLAX 3.0 cm IVS Diastolic Thickness 0.8 cm 0.6 - 1.0 / 0.6 - 0.9 cm LVPW Diastolic Thickness 0.8 cm 0.6 - 1.0 / 0.6 - 0.9 cm LV Relative Wall Thickness 0.4 DOPPLER TR Peak Velocity 235.0 cm/s TR Peak Gradient 22.1 mmHg Right Atrial Pressure 10.0 mmHg Pulmonary Artery Systolic Pressu 32.1 mmHg Right Ventricular Systolic Press 32.1 mmHg FINDINGS LEFT VENTRICLE Normal left ventricular size and wall thickness. The left ventricular systolic function is normal wi th an estimated ejection fraction in the range of 60-65%. No regional wall motion abnormalities are presen t. RIGHT VENTRICLE Normal right ventricular size and systolic function. LEFT ATRIUM The left atrial size is normal. RIGHT ATRIUM The right atrial size is normal. ATRIAL SEPTUM Normal atrial septal thickness without atrial level shunting by limited color doppler interrogation. AORTA The aortic root and proximal ascending aorta are normal in size on limited imaging. MITRAL VALVE Structurally normal mitral valve. No mitral valve stenosis or regurgitation. AORTIC VALVE Trileaflet aortic valve. No aortic valve stenosis or regurgitation. TRICUSPID VALVE There is trace to mild tricuspid valve regurgitation. The estimated pulmonary arterial pressure is 32 mmHg. PULMONARY VALVE No pulmonary valve regurgitation or stenosis. VESSELS The inferior vena cava is normal in size. PERICARDIUM No pericardial effusion. Clemente Valdez MD (Electronically Signed) Final Date:30 September 2017 15:43
[2017-09-30 16:00] VITALS: BP 152/83; PULSE 81; RESP 18; TEMP 98.4; O2SAT 97
[2017-09-30] MEDS: SODIUM CHLORIDE 0.9% IV SCH (17:08)
[2017-09-30] MEDS: DAPTOMYCIN IV SCH (17:08)
[2017-09-30 20:00] VITALS: BP 156/82; PULSE 83; RESP 20; TEMP 97.3; O2SAT 97
[2017-10-01] VITALS: BP 132/71; PULSE 76; RESP 18; TEMP 97.7; O2SAT 95
[2017-10-01] MEDS: traMADol HCL 50 MG TAB PO PRN ×5 (04:18→21:45)
[2017-10-01 08:00] VITALS: BP 135/81; PULSE 83; RESP 17; TEMP 97.6; O2SAT 98
[2017-10-01] MEDS: PANTOPRAZOLE SOD 40 MG DELAYED RELEASE TAB PO SCH (08:08)
[2017-10-01] MEDS: DOCUSATE SODIUM 50 MG/SENNA 8.6 MG TAB PO SCH ×2 (08:08→19:31)
[2017-10-01] MEDS: SODIUM CHLORIDE 0.9% FLUSH 10 ML FLUSH IV FLUSH SCH ×2 (08:09→19:29)
[2017-10-01] MEDS: SODIUM CHLOR 0.9% 1000 ML INJ 1,000 ML IV SCH (09:52)
[2017-10-01 12:00] VITALS: BP 134/65; PULSE 75; RESP 17; TEMP 97.1; O2SAT 98
[2017-10-01] MEDS ORDERED: PADIMATE (CHAPSTICK) 4.5 GM TUBE TOPICAL PRN (12:30)
[2017-10-01] MEDS ORDERED: BENZOCAINE 6 MG/MENTHOL 10 MG LOZENGE BUCCAL PRN (12:30)
--- NOTE | 2017-10-01 13:30 | HHI.PR ---
Subjective Remarks The patient states that she wants to be out of the hospital by Tuesday. She says the pain control does not last too long. She complained of a sore/swollen throat earlier. She says that has currently resolved. She requested Chapstick. Discussed with nursing. Objective Vitals Vital Signs Date Time Temp Pulse Resp B/P (MAP) Pulse Ox O2 Delivery O2 Flow Rate FiO2 10/01/17 12:00 97.1 75 17 134/65 (88) 98 10/01/17 08:00 97.6 83 17 135/81 (99) 98 10/01/17 00:00 97.7 76 18 132/71 (91) 95 09/30/17 20:00 97.3 83 20 156/82 (106) 97 09/30/17 16:00 98.4 81 18 152/83 (106) 97 I/O 09/30/17 09/30/17 09/30/17 10/01/17 10/01/17 10/01/17 07:00 15:00 23:00 07:00 15:00 23:00 Intake Total 1250 ml 100 ml Balance 1250 ml 100 ml IV Total 1250 ml 100 ml # Voids 2 3 Result Diagram: 09/30/17 0520 09/30/17 0520 Imaging Last Impressions Upper Extremity Ultrasound 09/29/17 0000 Signed Impressions: Service Date/Time: September 14:51 - CONCLUSION: No venous thrombosis is identified within either upper extremity. Eliezer Gonzalez MD Thoracic Spine MRI 09/29/17 0000 Signed Impressions: Service Date/Time: September 17:54 - CONCLUSION: 1. Mild compression fracture of the T3 vertebral body again noted with invagination of the superior endplate. The previous noted marrow edema and enhancement have resolved. 2. The vertebral bodies remain intact. Adolfo Dinh MD Lumbar Spine MRI 09/29/17 0000 Signed Impressions: Service Date/Time: September 17:54 - CONCLUSION: 1. No evidence of osteomyelitis in the lumbar spine 2. Disc bulge at L4-5 with borderline central canal stenosis without significant change. 3. Degenerative changes involving the lower facet joints with small synovial cyst noted along the medial left L4-5 facet joint with mild mass effect on the left side of the thecal sac. 4. Degenerative disc change at L4-5 and L5-S1 levels. Adolfo Dinh MD Cervical Spine MRI 09/29/17 0000 Signed Impressions: Service Date/Time: September 17:54 - CONCLUSION: 1. Abnormal marrow signal and diffuse enhancement of the C7 and T1 vertebral bodies which is increased from the prior study. The abnormality extends into the pedicles bilaterally and is most characteristic of osteomyelitis. 2. Milder abnormal signal and enhancement is noted in the C3 and C4 vertebral bodies without significant change. 3. An anterior extradural defect is again noted at the C3- 4 level with mass effect on the anterior thecal sac and mild flattening of the anterior cord. This is not significantly changed and demonstrates no enhancement. This appears represent a disc protrusion. 4. Abnormal dural enhancement at the C6-7 level surrounding the thecal sac as well as abnormal enhancement and soft tissue swelling along the anterior prevertebral soft tissues. This is not significantly changed. No new epidural abscess is identified. Adolfo Dinh MD Chest X-Ray 09/28/172047 Signed Impressions: Service Date/Time: Thursday, September 28, 2017 20:55 - CONCLUSION: 1. No active disease. Right PICC line tip in superior vena cava. Jabier Velazquez MD Objective Remarks GENERAL: NAD. SKIN: No rashes, ecchymoses or lesions. Cool and dry. Right PICC line in place without signs of erythema or infection. HEAD: Atraumatic. Normocephalic. No temporal or scalp tenderness. EYES: Pupils equal round and reactive. Extraocular motions intact. No scleral icterus. No injection or drainage. ENT: Nose without bleeding, purulent drainage or septal hematoma. Throat without erythema, tonsillar hypertrophy or exudate. Uvula midline. Airway patent. NECK: Trachea midline. No JVD or lymphadenopathy. Supple, nontender, no meningeal signs. CARDIOVASCULAR: Regular rate and rhythm without murmurs, gallops, or rubs. RESPIRATORY: Clear to auscultation. Breath sounds equal bilaterally. No wheezes , rales, or rhonchi. GASTROINTESTINAL: Abdomen soft, non-tender, nondistended. No hepato-splenomegaly , or palpable masses. No guarding. MUSCULOSKELETAL: Extremities without clubbing, cyanosis, or edema. No joint tenderness, effusion, or edema noted. NEUROLOGICAL: Awake and alert. Cranial nerves II through XII intact. Motor and sensory grossly within normal limits. Normal speech. PSYCH: Mood and affect appropriate. Medications and IVs Current Medications Medications (Trade) Dose Ordered Sig/Areli Route Start Time Stop Time Status Last Admin Sodium Chloride 1,000 ml @ 70 mls/hr [id number] IV 09/29/17 00:40 09/30/17 17:08 (NS Flush) 2 ml UNSCH PRN IV FLUSH 09/29/17 00:45 (NS Flush) 2 ml BID IV FLUSH 09/29/17 09:00 (Zofran Inj) 4 mg Q6H PRN IVP 09/29/17 00:45 (Narcan Inj) 0.4 mg UNSCH PRN IV PUSH 09/29/17 00:45 (Priscilla-Colace) 1 tab BID PO 09/29/17 09:00 10/01/17 08:08 (Milk Of Magnesia Liq) 30 ml Q12H PRN PO 09/29/17 00:45 (Senokot) 17.2 mg Q12H PRN PO 09/29/17 00:45 (Dulcolax Supp) 10 mg DAILY PRN RECTAL 09/29/17 00:45 (Lactulose Liq) 30 ml DAILY PRN PO 09/29/17 00:45 (Ultram) 50 mg Q4H PRN PO 09/30/17 09:45 10/01/17 13:07 (Protonix) 40 mg DAILY PO 09/30/17 10:30 10/01/17 08:08 (Roxicodone) 5 mg Q4H PRN PO 09/30/17 10:00 10/01/17 10:43 Daptomycin 720 mg/ Sodium Chloride 100 ml @ 200 mls/hr Q24H IV 09/30/17 16:00 09/30/17 17:08 (Chapstick) 1 applic UNSCH PRN TOPICAL 10/01/17 12:30 (Chloraseptic Ritchie) 1 lozenge UNSCH PRN BUCCAL 10/01/17 12:30 A/P Assessment and Plan Sepsis/osteomyelitis of the thoracic and cervical spine The pt was on IV vancomycin as an outpt. She had fevers and worsening symptoms. Repeat MRI showed: Abnormal marrow signal and diffuse enhancement of the C7 and T1 vertebral bodies which is increased from the prior study; The abnormality extends into the pedicles bilaterally and is most characteristic of osteomyelitis; Milder abnormal signal and enhancement is noted in the C3 and C4 vertebral bodies without significant change. ID consult appreciated. - Continue IV daptomycin per ID. - neurosurgery did not feel there was a role for surgery at this time. - pain control with a bowel regimen. Bright red blood per rectum Patient with known history of esophagitis and gastric erosions, status post EGD during last hospital stay. - Hemoccult pending. - Monitor CBC. - PPI. - d/c ibuprofen. Anemia Likely s/t chronic disease. - follow CBC and transfuse as needed. Hepatitis C/ transaminitis LFTs elevated, at baseline. - Monitor as needed. - Avoid hepatotoxic agents. IV drug abuse Patient reports no use since previous hospital stay. - cessation instruction. Hypokalemia Status post by mouth supplementation - resolved. PPx: Kodak Mclean Michael J. DO Oct 01, 2017 13:30
[2017-10-01] MEDS ORDERED: ENOXAPARIN SODIUM 30 MG/0.3 ML SYRINGE SQ SCH (14:00)
--- NOTE | 2017-10-01 14:03 | HHI.NSPN ---
Note Status Status: Progress Note Interval History Diagnosis osteomyelitis Interval History Ms. Ware is a 52-year-old female with a known history of cervical osteomyelitis of the cervical and thoracic spine. She was treated previously with IV vancomycin a few weeks ago. She presents and returns to the hospital for recurrent fevers. As well as increased worsening of cervical pain. She has a history of prior IV drug use. An MRI of the cervical, thoracic and lumbar spine has been repeated. She shows persistent evidence of osteomyelitis at C7 and T1. Her MRI reports some enhancement along the anterior epidural space from C6-T1. She reports chronic history of right hand numbness that she has had for years. She reports of new intermittent radiating pain in her right arm posteriorly to her right elbow. She denies any focal weakness, bowel or bladder incontinence. 10/01. Doing neurologically well. Comfortable. No focal deficits Labs, Micro, & Vital Signs Results Date Time Temp Pulse Resp B/P (MAP) Pulse Ox O2 Delivery O2 Flow Rate FiO2 10/01/17 12:00 97.1 75 17 134/65 (88) 98 10/01/17 08:00 97.6 83 17 135/81 (99) 98 10/01/17 00:00 97.7 76 18 132/71 (91) 95 09/30/17 20:00 97.3 83 20 156/82 (106) 97 09/30/17 16:00 98.4 81 18 152/83 (106) 97 Constitutional Vital Signs Date Time Temp Pulse Resp B/P (MAP) Pulse Ox O2 Delivery O2 Flow Rate FiO2 10/01/17 12:00 97.1 75 17 134/65 (88) 98 10/01/17 08:00 97.6 83 17 135/81 (99) 98 10/01/17 00:00 97.7 76 18 132/71 (91) 95 09/30/17 20:00 97.3 83 20 156/82 (106) 97 09/30/17 16:00 98.4 81 18 152/83 (106) 97 Physical Exam Ms ware is in no acute distress HEENT: Normocephalic, atraumatic. Nonicteric sclera. Neuro: Alert and oriented 3. Speech is appropriate. Follows commands without apraxia. Cranial nerve: pupils to be equal, round, and reactive to light. Extra -ocular movements are intact. Facial motor and sensory function are normal and symmetrical. Gross hearing is intact, bilaterally. The uvula is midline and elevates symmetrically with the soft palate. Sternocleidomastoid and trapezius muscles have normal and symmetrical strength. Other cranial nerves are intact. Cervical spine has a full range of motion in anterior flexion, extension, lateral bending, and rotation with pain Muscle testing reveals normal bulk and tone overall without rigidity, spasticity , fasciculations, or atrophy. Muscle strength is 5/5 in all muscle groups of both upper extremities including deltoid, biceps, triceps, brachioradialis, wrist extension and residential specialist. In the lower extremities, strength is 5/5 in both iliopsoas, quadriceps, hamstrings, plantar flexion, dorsiflexion, and extensor hallicus longus. Sensory examination is intact to light touch in both the upper and lower extremities, symmetrically. Deep tendon reflexes are 2+ and symmetrical in the biceps, triceps, and brachioradialis, bilaterally, in the upper extremities. In the lower extremities , the patellar and Achilles are 2+, bilaterally. There is a bilateral plantar flexion response. Hoffmanns sign is negative. There is no clonus or other abnormal reflexes noted. Cerebellar examination is intact to [id number] test Heart regular rate and rhythm Respiratory clear to auscultate bilaterally Skin no cyanosis or erythema Medications Current Medications Current Medications Sodium Chloride 1,000 ml @ 2,000 mls/hr Q30M ONCE IV Last administered on 09/28at 22:15; Start 09/28/17 at 21:00; Stop 09/28/17 at 21:29; Status DC Ibuprofen (Motrin) 600 mg Q6H PRN PO breakthrough pain Last administered on 06/06at 13:41; Start 09/29/17 at 00:45; Stop 09/30/17 at 09:48; Status DC Sodium Chloride 1,000 ml @ 70 mls/hr [id number] IV Last administered on at 17:08; Start 09/29/17 at 00:40; Stop 10/01/17 at 13:28; Status DC Sodium Chloride (NS Flush) 2 ml UNSCH PRN IV FLUSH FLUSH AFTER USING IV ACCESS ; Start 09/29/17 at 00:45 Sodium Chloride (NS Flush) 2 ml BID IV FLUSH ; Start 09/29/17 at 09:00 Ondansetron HCl (Zofran Inj) 4 mg Q6H PRN IVP NAUSEA OR VOMITING; Start at 00:45 Naloxone HCl (Narcan Inj) 0.4 mg UNSCH PRN IV PUSH SEE LABEL COMMENTS; Start at 00:45 Senna/Docusate Sodium (Priscilla-Colace) 1 tab BID PO Last administered on at 08:08; Start 09/29/17 at 09:00 Magnesium Hydroxide (Milk Of Magnesia Liq) 30 ml Q12H PRN PO Mild constipation ; Start 09/29/17 at 00:45 Sennosides (Senokot) 17.2 mg Q12H PRN PO Moderate constipation; Start 09/29/17 at 00:45 Bisacodyl (Dulcolax Supp) 10 mg DAILY PRN RECTAL SEVERE CONSITIPATION/ IF NPO ; Start 09/29/17 at 00:45 Lactulose (Lactulose Liq) 30 ml DAILY PRN PO SEVERE CONSITIPATION/ IF PO; Start 09/29/17 at 00:45 Pharmacy Profile Note 0 ml @ 0 mls/hr UNSCH OTHER ; Start 09/29/17 at 00:45; Stop 09/30/17 at 14:42; Status DC Vancomycin HCl 800 mg/Sodium Chloride 258 ml @ 257.5 mls/ hr DAILY@0200 IV Last administered on 09/29/17at 03:06; Start 09/29/17 at 02:00; Stop 09/29/17 at 08:48; Status DC Potassium Chloride (KCl) 60 meq ONCE ONCE PO Last administered on 09/29/17at 03 :07; Start 09/29/17 at 01:15; Stop 09/29/17 at 01:16; Status DC Vancomycin HCl 1000 mg/Sodium Chloride 250 ml @ 250 mls/hr Q12H IV Last administered on 09/30/17at 00:58; Start 09/29/17 at 12:00; Stop 09/30/17 at 14:05 ; Status DC Miscellaneous Information SPECIFIC LAB TO BE DRAWN:VANCOMYCIN TROUGH DATE TO... ONCE ONCE .XX Last administered on 09/30/17at 11:45; Start 09/30/17 at 11:45; Stop 09/30/17 at 11:46; Status DC Lorazepam (Ativan Inj) 1 mg ONCE ONCE IV Last administered on 09/29/17at 17:40 ; Start 09/29/17 at 17:30; Stop 09/29/17 at 17:31; Status DC Gadodiamide (Omniscan Pf Inj) 11 ml STK-MED ONCE IVCONTRAST Last administered on 09/29/17at 19:30; Start 09/29/17 at 19:30; Stop 09/29/17 at 19:31; Status DC Tramadol HCl (Ultram) 50 mg ONCE ONCE PO Last administered on 09/29/17at 21:31 ; Start 09/29/17 at 21:00; Stop 09/29/17 at 21:07; Status DC Tramadol HCl (Ultram) 50 mg Q4H PRN PO pain 3-10 Last administered on at 13:07; Start 09/30/17 at 09:45 Pantoprazole Sodium (Protonix) 40 mg DAILY PO Last administered on 10/01/17at 08 :08; Start 09/30/17 at 10:30 Oxycodone HCl (Roxicodone) 5 mg Q4H PRN PO breakthrough pain Last administered on 10/01/17at 10:43; Start 09/30/17 at 10:00 Miscellaneous Information SPECIFIC LAB TO BE DRAWN:VANCOMYCIN TROUGH DATE TO... ONCE ONCE .XX ; Start 10/02/17 at 02:45; Stop 10/02/17 at 02:45; Status DC Vancomycin HCl 1500 mg/Sodium Chloride 515 ml @ 250 mls/hr Q12H IV ; Start at 15:00; Stop 09/30/17 at 15:00; Status DC Daptomycin 720 mg/ Sodium Chloride 100 ml @ 200 mls/hr Q24H IV Last administered on 09/30/17at 17:08; Start 09/30/17 at 16:00 Padimate O (Chapstick) 1 applic UNSCH PRN TOPICAL dry lips; Start 10/01/17 at 12:30 Benzocaine/Menthol (Chloraseptic Ritchie) 1 lozenge UNSCH PRN BUCCAL sore throat; Start 10/01/17 at 12:30 Enoxaparin Sodium (Lovenox Inj) 30 mg Q24H SQ ; Start 10/01/17 at 14:00; Stop at 14:00; Status DC Attending Statement I again reviewed her radiological studies, including Upper Extremity Ultrasound 09/29/17 0000 Signed Impressions: Service Date/Time: September 14:51 - CONCLUSION: No venous thrombosis is identified within either upper extremity. Eliezer Gonzalez MD Thoracic Spine MRI 09/29/17 0000 Signed Impressions: Service Date/Time: September 17:54 - CONCLUSION: 1. Mild compression fracture of the T3 vertebral body again noted with invagination of the superior endplate. The previous noted marrow edema and enhancement have resolved. 2. The vertebral bodies remain intact. Adolfo Dinh MD Lumbar Spine MRI 09/29/17 0000 Signed Impressions: Service Date/Time: September 17:54 - CONCLUSION: 1. No evidence of osteomyelitis in the lumbar spine 2. Disc bulge at L4-5 with borderline central canal stenosis without significant change. 3. Degenerative changes involving the lower facet joints with small synovial cyst noted along the medial left L4-5 facet joint with mild mass effect on the left side of the thecal sac. 4. Degenerative disc change at L4-5 and L5-S1 levels. Adolfo Dinh MD Cervical Spine MRI 09/29/17 0000 Signed Impressions: Service Date/Time: September 17:54 - CONCLUSION: 1. Abnormal marrow signal and diffuse enhancement of the C7 and T1 vertebral bodies which is increased from the prior study. The abnormality extends into the pedicles bilaterally and is most characteristic of osteomyelitis. 2. Milder abnormal signal and enhancement is noted in the C3 and C4 vertebral bodies without significant change. 3. An anterior extradural defect is again noted at the C3- 4 level with mass effect on the anterior thecal sac and mild flattening of the anterior cord. This is not significantly changed and demonstrates no enhancement. This appears represent a disc protrusion. 4. Abnormal dural enhancement at the C6-7 level surrounding the thecal sac as well as abnormal enhancement and soft tissue swelling along the anterior prevertebral soft tissues. This is not significantly changed. No new epidural abscess is identified. Adolfo Dinh MD Chest X-Ray 09/28/172047 Signed Impressions: Service Date/Time: Thursday, September 28, 2017 20:55 - CONCLUSION: 1. No active disease. Right PICC line tip in superior vena cava. Jabier Velazquez MD Continue neuro checks. I do not see evidence of spinal cord compression or epidural abscess. In my opinion, there is no indication for any neurosurgical procedure. Please obtain further blood cultures and further discuss with an interventional radiologist to determine if a CT-guided biopsy is an option. I cannot justify a neurosurgical operation based on the quadrant radiological studies and I do not feel comfortable performing a surgical procedure. She is at increased risk for complications. Again, consider placing the patient in the cervical [place] J collar for comfort Obtain further blood cultures. Continue treatment with IV antibiotics for long- term. Aggressive pulmonary toilette, nasotracheal suction, and breathing treatments with nebulizers. Nutrition. NPO Renal. monitor closely urine output, BUN and creatinine Endocrine. Monitor serial Acu checks and SSI as needed in detail ID Continue IV antibiotics and follow up cultures Protonix for stress ulcer prophylaxis Jose Alfredo hose and SCD's for DVT prophylaxis. Consider transferring the patient to a tertiary center if you need another neurosurgical opinion Rickey Cee MD Oct 01, 2017 14:03
[2017-10-01] MEDS: SODIUM CHLORIDE 0.9% IV SCH (15:22)
[2017-10-01] MEDS: DAPTOMYCIN IV SCH (15:22)
[2017-10-01 16:00] VITALS: BP 124/65; PULSE 78; RESP 17; TEMP 97.8; O2SAT 97
[2017-10-01 20:00] VITALS: BP 132/77; PULSE 82; RESP 18; TEMP 97.8; O2SAT 99
[2017-10-02] VITALS: BP 130/84; PULSE 71; RESP 18; TEMP 98.2; O2SAT 98
[2017-10-02] MEDS: traMADol HCL 50 MG TAB PO PRN ×6 (01:53→23:22)
[2017-10-02] MEDS ORDERED: PHARMACY ORDERED LAB ONE (02:45)
[2017-10-02 05:47] LABS: AUTOMATED NEUTROPHIL # 3.5 TH/MM3 (1.8-7.7); BASOPHIL # 0.1 TH/MM3 (0-0.2); EOSINOPHIL # 0.2 TH/MM3 (0-0.4); EOSINOPHIL % 3.7 % (0.0-4.0); HEMOGLOBIN 10.9 GM/DL (11.6-15.3); LYMPH % 30.5 % (9.0-44.0); LYMPHOCYTE # 1.9 TH/MM3 (1.0-4.8); MEAN CELL VOLUME 87.9 FL (80.0-100.0); MEAN CORPUSCULAR HEMOGLOBIN 29.9 PG (27.0-34.0); MEAN CORPUSCULAR HGB CONC 34.1 % (32.0-36.0); MEAN PLATELET VOLUME 8.3 FL (7.0-11.0); MONO % 8.7 % (0.0-8.0); MONOCYTE # 0.5 TH/MM3 (0-0.9); NEUT % 56.1 % (16.0-70.0); PLATELET COUNT 209 TH/MM3 (150-450); RED BLOOD COUNT 3.64 MIL/MM3 (4.00-5.30); RED CELL DISTRIBUTION WIDTH 14.5 % (11.6-17.2); WHITE BLOOD COUNT 6.3 TH/MM3 (4.0-11.0)
[2017-10-02] MEDS: DOCUSATE SODIUM 50 MG/SENNA 8.6 MG TAB PO SCH ×2 (07:25→19:23)
[2017-10-02] MEDS: PANTOPRAZOLE SOD 40 MG DELAYED RELEASE TAB PO SCH (07:25)
[2017-10-02] MEDS: SODIUM CHLORIDE 0.9% FLUSH 10 ML FLUSH IV FLUSH SCH ×2 (07:28→19:23)
[2017-10-02 08:00] VITALS: BP 134/65; PULSE 76; RESP 17; TEMP 98.2; O2SAT 96
[2017-10-02 12:00] VITALS: BP 129/79; PULSE 82; RESP 17; TEMP 97.5; O2SAT 97
--- NOTE | 2017-10-02 13:37 | HHI.PR ---
Subjective Remarks Patient states that she feels a little bit better today. She has been ambulatory. She is tolerating a diet. She has no acute complaints. Discussed with nursing. Objective Vitals Vital Signs Date Time Temp Pulse Resp B/P (MAP) Pulse Ox O2 Delivery O2 Flow Rate FiO2 10/02/17 12:00 97.5 82 17 129/79 (96) 97 10/02/17 08:00 98.2 76 17 134/65 (88) 96 10/02/17 06:32 18 10/02/17 04:43 18 10/02/17 00:00 98.2 71 18 130/84 (99) 98 10/01/17 20:00 97.8 82 18 132/77 (95) 99 10/01/17 16:00 97.8 78 17 124/65 (84) 97 I/O 10/01/17 10/01/17 10/01/17 10/02/17 10/02/17 10/02/17 07:00 15:00 23:00 07:00 15:00 23:00 Intake Total 1300 ml 480 ml Balance 1300 ml 480 ml Intake Oral 1200 ml 480 ml IV Total 100 ml # Voids 3 10 3 # Bowel Movements 1 Result Diagram: 10/02/17 0515 09/30/17 0520 Imaging Last Impressions Upper Extremity Ultrasound 09/29/17 0000 Signed Impressions: Service Date/Time: September 14:51 - CONCLUSION: No venous thrombosis is identified within either upper extremity. Eliezer Gonzalez MD Thoracic Spine MRI 09/29/17 0000 Signed Impressions: Service Date/Time: September 17:54 - CONCLUSION: 1. Mild compression fracture of the T3 vertebral body again noted with invagination of the superior endplate. The previous noted marrow edema and enhancement have resolved. 2. The vertebral bodies remain intact. Adolfo Dinh MD Lumbar Spine MRI 09/29/17 0000 Signed Impressions: Service Date/Time: September 17:54 - CONCLUSION: 1. No evidence of osteomyelitis in the lumbar spine 2. Disc bulge at L4-5 with borderline central canal stenosis without significant change. 3. Degenerative changes involving the lower facet joints with small synovial cyst noted along the medial left L4-5 facet joint with mild mass effect on the left side of the thecal sac. 4. Degenerative disc change at L4-5 and L5-S1 levels. Adolfo Dinh MD Cervical Spine MRI 09/29/17 0000 Signed Impressions: Service Date/Time: September 17:54 - CONCLUSION: 1. Abnormal marrow signal and diffuse enhancement of the C7 and T1 vertebral bodies which is increased from the prior study. The abnormality extends into the pedicles bilaterally and is most characteristic of osteomyelitis. 2. Milder abnormal signal and enhancement is noted in the C3 and C4 vertebral bodies without significant change. 3. An anterior extradural defect is again noted at the C3- 4 level with mass effect on the anterior thecal sac and mild flattening of the anterior cord. This is not significantly changed and demonstrates no enhancement. This appears represent a disc protrusion. 4. Abnormal dural enhancement at the C6-7 level surrounding the thecal sac as well as abnormal enhancement and soft tissue swelling along the anterior prevertebral soft tissues. This is not significantly changed. No new epidural abscess is identified. Adolfo Dinh MD Chest X-Ray 09/28/172047 Signed Impressions: Service Date/Time: Thursday, September 28, 2017 20:55 - CONCLUSION: 1. No active disease. Right PICC line tip in superior vena cava. Jabier Velazquez MD Objective Remarks GENERAL: NAD. SKIN: No rashes, ecchymoses or lesions. Cool and dry. Right PICC line in place without signs of erythema or infection. HEAD: Atraumatic. Normocephalic. No temporal or scalp tenderness. EYES: Pupils equal round and reactive. Extraocular motions intact. No scleral icterus. No injection or drainage. ENT: Nose without bleeding, purulent drainage or septal hematoma. Throat without erythema, tonsillar hypertrophy or exudate. Uvula midline. Airway patent. NECK: Trachea midline. No JVD or lymphadenopathy. Supple, nontender, no meningeal signs. CARDIOVASCULAR: Regular rate and rhythm without murmurs, gallops, or rubs. RESPIRATORY: Clear to auscultation. Breath sounds equal bilaterally. No wheezes , rales, or rhonchi. GASTROINTESTINAL: Abdomen soft, non-tender, nondistended. No hepato-splenomegaly , or palpable masses. No guarding. MUSCULOSKELETAL: Extremities without clubbing, cyanosis, or edema. No joint tenderness, effusion, or edema noted. NEUROLOGICAL: Awake and alert. Cranial nerves II through XII intact. Motor and sensory grossly within normal limits. Normal speech. PSYCH: Mood and affect appropriate. Medications and IVs Current Medications Medications (Trade) Dose Ordered Sig/Areli Route Start Time Stop Time Status Last Admin (NS Flush) 2 ml UNSCH PRN IV FLUSH 09/29/17 00:45 (NS Flush) 2 ml BID IV FLUSH 09/29/17 09:00 10/02/17 07:28 (Zofran Inj) 4 mg Q6H PRN IVP 09/29/17 00:45 (Narcan Inj) 0.4 mg UNSCH PRN IV PUSH 09/29/17 00:45 (Priscilla-Colace) 1 tab BID PO 09/29/17 09:00 10/02/17 07:25 (Milk Of Magnesia Liq) 30 ml Q12H PRN PO 09/29/17 00:45 (Senokot) 17.2 mg Q12H PRN PO 09/29/17 00:45 (Dulcolax Supp) 10 mg DAILY PRN RECTAL 09/29/17 00:45 (Lactulose Liq) 30 ml DAILY PRN PO 09/29/17 00:45 (Ultram) 50 mg Q4H PRN PO 09/30/17 09:45 10/02/17 09:57 (Protonix) 40 mg DAILY PO 09/30/17 10:30 10/02/17 07:25 (Roxicodone) 5 mg Q4H PRN PO 09/30/17 10:00 10/02/17 11:34 Daptomycin 720 mg/ Sodium Chloride 100 ml @ 200 mls/hr Q24H IV 09/30/17 16:00 10/01/17 15:22 (Chapstick) 1 applic UNSCH PRN TOPICAL 10/01/17 12:30 (Chloraseptic Ritchie) 1 lozenge UNSCH PRN BUCCAL 10/01/17 12:30 A/P Assessment and Plan Sepsis/osteomyelitis of the thoracic and cervical spine The pt was on IV vancomycin as an outpt. She had fevers and worsening symptoms. Repeat MRI showed: Abnormal marrow signal and diffuse enhancement of the C7 and T1 vertebral bodies which is increased from the prior study; The abnormality extends into the pedicles bilaterally and is most characteristic of osteomyelitis; Milder abnormal signal and enhancement is noted in the C3 and C4 vertebral bodies without significant change. ID consult appreciated. - Continue IV daptomycin per ID. - neurosurgery did not feel there was a role for surgery at this time. - pain control with a bowel regimen. Bright red blood per rectum Patient with known history of esophagitis and gastric erosions, status post EGD during last hospital stay. - Hemoccult pending. - Monitor CBC. - PPI. - d/c ibuprofen. Anemia Likely s/t chronic disease. - follow CBC and transfuse as needed. Hepatitis C/ transaminitis LFTs elevated, at baseline. - Monitor as needed. - Avoid hepatotoxic agents. IV drug abuse Patient reports no use since previous hospital stay. - cessation instruction. Hypokalemia Status post by mouth supplementation - resolved. UTI Urine culture growing E. coli and Klebsiella. She is asymptomatic. - Hold off on treatment per infectious disease. PPx: Adolfo Jones DO Oct 02, 2017 13:37
[2017-10-02 16:00] VITALS: BP 108/61; PULSE 76; RESP 17; TEMP 98.1; O2SAT 98
[2017-10-02] MEDS: SODIUM CHLORIDE 0.9% IV SCH (16:55)
[2017-10-02] MEDS: DAPTOMYCIN IV SCH (16:55)
[2017-10-02 20:00] VITALS: BP 136/63; PULSE 77; RESP 18; TEMP 98; O2SAT 97
[2017-10-03] VITALS: BP 128/81; PULSE 75; RESP 18; TEMP 98.4; O2SAT 96
[2017-10-03] MEDS: traMADol HCL 50 MG TAB PO PRN ×5 (03:21→20:51)
[2017-10-03 08:00] VITALS: BP 134/76; PULSE 81; RESP 16; TEMP 97.9; O2SAT 95
[2017-10-03] MEDS: SODIUM CHLORIDE 0.9% FLUSH 10 ML FLUSH IV FLUSH SCH ×2 (08:28→20:52)
[2017-10-03] MEDS: PANTOPRAZOLE SOD 40 MG DELAYED RELEASE TAB PO SCH (08:28)
[2017-10-03] MEDS: DOCUSATE SODIUM 50 MG/SENNA 8.6 MG TAB PO SCH ×2 (08:28→20:50)
[2017-10-03 12:00] VITALS: BP 132/72; PULSE 77; RESP 16; TEMP 97.5; O2SAT 97
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
[2017-10-03 16:00] VITALS: BP 127/67; PULSE 102; RESP 16; TEMP 98.4; O2SAT 95
[2017-10-03] MEDS: DAPTOMYCIN IV SCH (16:11)
[2017-10-03] MEDS: SODIUM CHLORIDE 0.9% IV SCH (16:11)
[2017-10-03] MEDS: clonazePAM 0.5 MG TAB PO PRN (16:11)
[2017-10-03 20:00] VITALS: BP 126/84; PULSE 80; RESP 17; TEMP 97.6; O2SAT 97
[2017-10-04] VITALS: BP 122/71; PULSE 77; RESP 17; TEMP 97.8; O2SAT 98
[2017-10-04] MEDS: traMADol HCL 50 MG TAB PO PRN ×5 (00:55→20:32)
[2017-10-04] MEDS: clonazePAM 0.5 MG TAB PO PRN ×3 (00:55→18:23)
[2017-10-04 08:00] VITALS: BP 129/66; PULSE 81; RESP 16; TEMP 97.2; O2SAT 97
[2017-10-04] MEDS: PANTOPRAZOLE SOD 40 MG DELAYED RELEASE TAB PO SCH (08:09)
[2017-10-04] MEDS: DOCUSATE SODIUM 50 MG/SENNA 8.6 MG TAB PO SCH ×2 (08:09→20:37)
[2017-10-04] MEDS: SODIUM CHLORIDE 0.9% FLUSH 10 ML FLUSH IV FLUSH SCH ×2 (08:10→20:37)
--- NOTE | 2017-10-04 09:20 | HHI.PR ---
Subjective Remarks Follow up osteomyelitis. Patient reporting pain in her back between the shoulder blades. No nausea/vomiting/diarrhea/constipation. No blood in stool. No urinary symptoms. Objective Vitals Vital Signs Date Time Temp Pulse Resp B/P (MAP) Pulse Ox O2 Delivery O2 Flow Rate FiO2 10/04/17 00:00 97.8 77 17 122/71 (88) 98 10/03/17 20:00 97.6 80 17 126/84 (98) 97 10/03/17 16:00 98.4 102 16 127/67 (87) 95 10/03/17 12:00 97.5 77 16 132/72 (92) 97 I/O 10/03/17 10/03/17 10/03/17 10/04/17 10/04/17 10/04/17 07:00 15:00 23:00 07:00 15:00 23:00 Intake Total 600 ml 820 ml 480 ml Balance 600 ml 820 ml 480 ml Intake Oral 600 ml 720 ml 480 ml IV Total 100 ml # Voids 5 3 3 # Bowel Movements 0 Result Diagram: 10/02/17 0515 09/30/17 0520 Imaging Last Impressions Upper Extremity Ultrasound 09/29/17 0000 Signed Impressions: Service Date/Time: September 14:51 - CONCLUSION: No venous thrombosis is identified within either upper extremity. Eliezer Gonzalez MD Thoracic Spine MRI 09/29/17 0000 Signed Impressions: Service Date/Time: September 17:54 - CONCLUSION: 1. Mild compression fracture of the T3 vertebral body again noted with invagination of the superior endplate. The previous noted marrow edema and enhancement have resolved. 2. The vertebral bodies remain intact. Adolfo Dinh MD Lumbar Spine MRI 09/29/17 0000 Signed Impressions: Service Date/Time: September 17:54 - CONCLUSION: 1. No evidence of osteomyelitis in the lumbar spine 2. Disc bulge at L4-5 with borderline central canal stenosis without significant change. 3. Degenerative changes involving the lower facet joints with small synovial cyst noted along the medial left L4-5 facet joint with mild mass effect on the left side of the thecal sac. 4. Degenerative disc change at L4-5 and L5-S1 levels. Adolfo Dinh MD Cervical Spine MRI 09/29/17 0000 Signed Impressions: Service Date/Time: September 17:54 - CONCLUSION: 1. Abnormal marrow signal and diffuse enhancement of the C7 and T1 vertebral bodies which is increased from the prior study. The abnormality extends into the pedicles bilaterally and is most characteristic of osteomyelitis. 2. Milder abnormal signal and enhancement is noted in the C3 and C4 vertebral bodies without significant change. 3. An anterior extradural defect is again noted at the C3- 4 level with mass effect on the anterior thecal sac and mild flattening of the anterior cord. This is not significantly changed and demonstrates no enhancement. This appears represent a disc protrusion. 4. Abnormal dural enhancement at the C6-7 level surrounding the thecal sac as well as abnormal enhancement and soft tissue swelling along the anterior prevertebral soft tissues. This is not significantly changed. No new epidural abscess is identified. Adolfo Dinh MD Chest X-Ray 09/28/172047 Signed Impressions: Service Date/Time: Thursday, September 28, 2017 20:55 - CONCLUSION: 1. No active disease. Right PICC line tip in superior vena cava. Jabier Velazquez MD Objective Remarks General: No acute distress. Heart: Regular rate and rhythm. No murmur. Lungs: Clear to auscultation bilaterally. No wheezes, rales, or rhonchi. Breathing is nonlabored. Abdomen: Soft, mild right-sided tenderness to palpation without rebound or guarding, nondistended. Extremities: No lower extremity edema. Psych: Alert and oriented. Neuro: Normal speech. Procedures None Urinary Catheter: No Vascular Central Line Catheter: No A/P Assessment and Plan 1. Sepsis, osteomyelitis of the thoracic and cervical spine: Patient was on IV vancomycin as an outpatient. She had fever and worsening symptoms. Repeat MRI was consistent with osteomyelitis. Patient has been evaluated by neurosurgery, who did not feel there was a role for surgical intervention at this time. Continue daptomycin per infectious disease. Continue pain control. 2. Bright red blood per rectum: Resolved. 3. Anemia: Likely secondary to chronic disease. Monitor CBC and transfuse if necessary. 4. Hepatitis C, transaminitis: LFTs are elevated, but at baseline. Avoid hepatotoxic agents. 5. IV drug abuse: Patient has been counseled. 6. Hypokalemia: Resolved. 7. UTI: Urine culture growing E. coli, Klebsiella. Patient is asymptomatic. No antibiotics per infectious disease. 8. Anxiety, panic attacks: Patient reports history of childhood trauma. Klonopin as needed. Psychiatry consultation is pending. 9. DVT prophylaxis: SCDs. Discharge Planning Pending infectious disease clearance, psychiatry evaluation. Ayden Trevino MD Oct 04, 2017 09:20
--- NOTE | 2017-10-04 09:25 | HHI.IDPN ---
Subjective Subjective Remarks ID COVERAGE is a [age] y/o CF with PMHx of IV drug abuse, hepatitis C and currently being treated for osteomyelitis of the thoracic and cervical spine using a PICC line. She has been on Vanco IV using PICC line and stays with her friend who works at [employer] as a professor. She presents to the emergency department for evaluation of fevers and increased back and neck pain. She denies any recent drug use. The patient states that she had chills did not record temps but had a fever of 104.2 days ago taken by a forehead thermometer. She reports that she had diarrhea yesterday with increasing pain in her back and neck. Today the patient reports bright red blood per rectum, with associated nausea. She reports a fever of 102. She reports compliance with her home vancomycin which she states is scheduled to stop on Tuesday. She denies chest pain or shortness of breath. No weakness or lateralizing signs/symptoms. She reports tingling in her RUE. She reports pain in her Right knee with tingling sensation. Denies any IVDA ID consulted for evaluation and Mment of fever in a patient with Discitis who is on Vanco IV using PICC line. Notes reviewed Temps ok Pain spine still there but responds to meds BC negative No rash No diarrhea UA very mild pyuria, no symptoms Imaging studies reviewed NS notes reviewed Antibiotics Dapto IV Current Medications Medications (Trade) Dose Ordered Sig/Areli Route Start Time Stop Time Status Last Admin (NS Flush) 2 ml UNSCH PRN IV FLUSH 09/29/17 00:45 (NS Flush) 2 ml BID IV FLUSH 09/29/17 09:00 10/04/17 08:10 (Zofran Inj) 4 mg Q6H PRN IVP 09/29/17 00:45 (Narcan Inj) 0.4 mg UNSCH PRN IV PUSH 09/29/17 00:45 (Priscilla-Colace) 1 tab BID PO 09/29/17 09:00 10/04/17 08:09 (Milk Of Magnesia Liq) 30 ml Q12H PRN PO 09/29/17 00:45 (Senokot) 17.2 mg Q12H PRN PO 09/29/17 00:45 (Dulcolax Supp) 10 mg DAILY PRN RECTAL 09/29/17 00:45 (Lactulose Liq) 30 ml DAILY PRN PO 09/29/17 00:45 (Ultram) 50 mg Q4H PRN PO 09/30/17 09:45 10/04/17 05:49 (Protonix) 40 mg DAILY PO 09/30/17 10:30 10/04/17 08:09 (Roxicodone) 5 mg Q4H PRN PO 09/30/17 10:00 10/04/17 06:47 Daptomycin 720 mg/ Sodium Chloride 100 ml @ 200 mls/hr Q24H IV 09/30/17 16:00 10/03/17 16:11 (Chapstick) 1 applic UNSCH PRN TOPICAL 10/01/17 12:30 (Chloraseptic Ritchie) 1 lozenge UNSCH PRN BUCCAL 10/01/17 12:30 (KlonoPIN) 0.5 mg Q8HR PRN PO 10/03/17 15:45 10/04/17 00:55 Lines PICC - Line sites with no e.o infection Past Medical History Past Medical History Osteomyelitis of cervical and thoracic spine Hepatitis C IV drug use Cholecystitis Inguinal hernia Vaginal fistula Past Surgical History ACL repair Cholecystectomy Vaginal fistula repair Inguinal hernia repair Allergies: Coded Allergies: No Known Allergies (Unverified Allergy, Unknown, 09/28/17) Objective . Vital Signs Date Time Temp Pulse Resp B/P (MAP) Pulse Ox O2 Delivery O2 Flow Rate FiO2 10/04/17 00:00 97.8 77 17 122/71 (88) 98 10/03/17 20:00 97.6 80 17 126/84 (98) 97 10/03/17 16:00 98.4 102 16 127/67 (87) 95 10/03/17 12:00 97.5 77 16 132/72 (92) 97 Imaging Last Impressions Upper Extremity Ultrasound 09/29/17 0000 Signed Impressions: Service Date/Time: September 14:51 - CONCLUSION: No venous thrombosis is identified within either upper extremity. Eliezer Gonzalez MD Thoracic Spine MRI 09/29/17 0000 Signed Impressions: Service Date/Time: September 17:54 - CONCLUSION: 1. Mild compression fracture of the T3 vertebral body again noted with invagination of the superior endplate. The previous noted marrow edema and enhancement have resolved. 2. The vertebral bodies remain intact. Adolfo Dinh MD Lumbar Spine MRI 09/29/17 Signed Impressions: Service Date/Time: September 17:54 - CONCLUSION: 1. No evidence of osteomyelitis in the lumbar spine 2. Disc bulge at L4-5 with borderline central canal stenosis without significant change. 3. Degenerative changes involving the lower facet joints with small synovial cyst noted along the medial left L4-5 facet joint with mild mass effect on the left side of the thecal sac. 4. Degenerative disc change at L4-5 and L5-S1 levels. Adolfo Dinh MD Cervical Spine MRI 09/29/17 Signed Impressions: Service Date/Time: September 17:54 - CONCLUSION: 1. Abnormal marrow signal and diffuse enhancement of the C7 and T1 vertebral bodies which is increased from the prior study. The abnormality extends into the pedicles bilaterally and is most characteristic of osteomyelitis. 2. Milder abnormal signal and enhancement is noted in the C3 and C4 vertebral bodies without significant change. 3. An anterior extradural defect is again noted at the C3- 4 level with mass effect on the anterior thecal sac and mild flattening of the anterior cord. This is not significantly changed and demonstrates no enhancement. This appears represent a disc protrusion. 4. Abnormal dural enhancement at the C6-7 level surrounding the thecal sac as well as abnormal enhancement and soft tissue swelling along the anterior prevertebral soft tissues. This is not significantly changed. No new epidural abscess is identified. Adolfo Dinh MD Chest X-Ray 09/28/172047 Signed Impressions: Service Date/Time: Thursday, September 28, 2017 20:55 - CONCLUSION: 1. No active disease. Right PICC line tip in superior vena cava. Jabier Velazquez MD Physical Exam GENERAL: This is a well-nourished, well-developed patient, NAD SKIN: No rashes, ecchymoses or lesions. Cool and dry. HEAD: Atraumatic. Normocephalic. No temporal or scalp tenderness. EYES: Pupils equal round and reactive. Extraocular motions intact. No scleral icterus. No injection or drainage. ENT: Nose without bleeding, purulent drainage or septal hematoma. Throat without erythema, tonsillar hypertrophy or exudate. Uvula midline. Airway patent. NECK: Trachea midline. Supple, nontender, no meningeal signs. CARDIOVASCULAR: HS audible. RESPIRATORY: Clear to auscultation. Breath sounds equal bilaterally. GASTROINTESTINAL: Abdomen soft, non-tender, nondistended. MUSCULOSKELETAL: Extremities without clubbing, cyanosis, or edema. No joint tenderness, effusion, or edema noted. No calf tenderness. Negative Homans sign bilaterally. NEUROLOGICAL: Awake and alert. Gross exam non focal. Psych cooperative. IV line sites with no e.o infection. Assessment & Plan Remarks SIRS rule out sepsis. - better Fever in a patient with PICC on IV Antibiotics: Vanco IV related drug fevers, worsening Discitis. IV drug abuse. Hep C Abnormal LFTs Recs Continue Daptomycin Monitor progress Etiology of the progression of the C-spine abnormality still unclear: ?failed Vanco, or new pathogen Ct guided biopsy not an option due to location Neurosurgery notes reviewed Check CPK while [facility] [place] D[facility] MD Oct 04, 2017 09:25
[2017-10-04 12:00] VITALS: BP 117/65; PULSE 72; RESP 16; TEMP 97.3; O2SAT 98
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
[2017-10-04] MEDS: DAPTOMYCIN IV SCH (15:30)
[2017-10-04] MEDS: SODIUM CHLORIDE 0.9% IV SCH (15:30)
[2017-10-04 16:00] VITALS: BP 124/74; PULSE 83; RESP 16; TEMP 97.5; O2SAT 95
[2017-10-04 20:00] VITALS: BP 135/79; PULSE 77; RESP 17; TEMP 97.5; O2SAT 98
[2017-10-04] MEDS: MIRTAZAPINE 15 MG TAB PO SCH (20:32)
[2017-10-05] VITALS: BP 135/61; PULSE 78; RESP 17; TEMP 97.7; O2SAT 96
[2017-10-05 07:41] LABS: BASOPHIL # 0.1 TH/MM3 (0-0.2); BASOPHIL % 0.9 % (0.0-2.0); EOSINOPHIL # 0.2 TH/MM3 (0-0.4); HEMATOCRIT 35.3 % (35.0-46.0); LYMPH % 30.5 % (9.0-44.0); LYMPHOCYTE # 2.1 TH/MM3 (1.0-4.8); MEAN CELL VOLUME 86.9 FL (80.0-100.0); MEAN CORPUSCULAR HEMOGLOBIN 29.5 PG (27.0-34.0); MEAN CORPUSCULAR HGB CONC 33.9 % (32.0-36.0); MEAN PLATELET VOLUME 8.4 FL (7.0-11.0); MONO % 8.5 % (0.0-8.0); MONOCYTE # 0.6 TH/MM3 (0-0.9); NEUT % 57.1 % (16.0-70.0); PLATELET COUNT 249 TH/MM3 (150-450); RED BLOOD COUNT 4.07 MIL/MM3 (4.00-5.30)
[2017-10-05 08:00] VITALS: BP 115/55; PULSE 70; RESP 15; TEMP 97.5; O2SAT 96
[2017-10-05 08:19] LABS: ALT (GPT) 346 U/L (10-53); AST (GOT) 270 U/L (15-37); BLOOD UREA NITROGEN 9 MG/DL (7-18); CALCIUM 8.6 MG/DL (8.5-10.1); CHLORIDE 103 MEQ/L (98-107); CREATININE 0.74 MG/DL (0.50-1.00); GLOMERULAR FILTRATION RATE 82 ML/MIN (>89); GLUCOSE,RANDOM 93 MG/DL (74-106); MAGNESIUM 2.1 MG/DL (1.5-2.5); SODIUM (NA) 139 MEQ/L (136-145)
[2017-10-05] MEDS: clonazePAM 0.5 MG TAB PO PRN ×2 (08:20→16:30)
[2017-10-05] MEDS: DOCUSATE SODIUM 50 MG/SENNA 8.6 MG TAB PO SCH ×2 (08:20→19:29)
[2017-10-05] MEDS: PANTOPRAZOLE SOD 40 MG DELAYED RELEASE TAB PO SCH (08:20)
[2017-10-05] MEDS: SODIUM CHLORIDE 0.9% FLUSH 10 ML FLUSH IV FLUSH SCH ×2 (08:20→19:29)
[2017-10-05] MEDS: traMADol HCL 50 MG TAB PO PRN ×3 (08:20→16:30)
[2017-10-05 08:21] LABS: ALKALINE PHOSPHATASE 222 U/L (45-117); TOTAL BILIRUBIN ADULT 0.7 MG/DL (0.2-1.0); TOTAL PROTEIN 7.3 GM/DL (6.4-8.2)
--- NOTE | 2017-10-05 08:35 | HHI.IDPN ---
Subjective Subjective Remarks PATIENT SEEN AND EXAMINED WITH DR. TIERNEY is a 52 y/o CF with PMHx of IV drug abuse, hepatitis C and currently being treated for osteomyelitis of the thoracic and cervical spine using a PICC line. She has been on Vanco IV using PICC line and stays with her friend who works at [employer] as a professor. She presents to the emergency department for evaluation of fevers and increased back and neck pain. She denies any recent drug use. The patient states that she had chills did not record temps but had a fever of 104.2 days ago taken by a forehead thermometer. She reports that she had diarrhea yesterday with increasing pain in her back and neck. Today the patient reports bright red blood per rectum, with associated nausea. She reports a fever of 102. She reports compliance with her home vancomycin which she states is scheduled to stop on Tuesday. She denies chest pain or shortness of breath. No weakness or lateralizing signs/symptoms. She reports tingling in her RUE. She reports pain in her Right knee with tingling sensation. Denies any IVDA ID consulted for evaluation and Mment of fever in a patient with Discitis who is on Vanco IV using PICC line. Notes reviewed, discussed with RN, no overnight events/issues noted NS notes reviewed, no surgical intervention, ?CT guided biopsy She denies any fever or chills No N/V, abdominal pain No rash No loose stools No diarrhea Still having pain in spine but controlled with meds afebrile WBC WNL LFTs worsening Urine cx positive for K pneumoniae and E Coli, asymptomatic C diff and stool studies negative Antibiotics Dapto IV Current Medications Medications (Trade) Dose Ordered Sig/Areli Route Start Time Stop Time Status Last Admin (NS Flush) 2 ml UNSCH PRN IV FLUSH 09/29/17 00:45 (NS Flush) 2 ml BID IV FLUSH 09/29/17 09:00 10/05/17 08:20 (Zofran Inj) 4 mg Q6H PRN IVP 09/29/17 00:45 (Narcan Inj) 0.4 mg UNSCH PRN IV PUSH 09/29/17 00:45 (Priscilla-Colace) 1 tab BID PO 09/29/17 09:00 10/05/17 08:20 (Milk Of Magnesia Liq) 30 ml Q12H PRN PO 09/29/17 00:45 (Senokot) 17.2 mg Q12H PRN PO 09/29/17 00:45 (Dulcolax Supp) 10 mg DAILY PRN RECTAL 09/29/17 00:45 (Lactulose Liq) 30 ml DAILY PRN PO 09/29/17 00:45 (Ultram) 50 mg Q4H PRN PO 09/30/17 09:45 10/05/17 08:20 (Protonix) 40 mg DAILY PO 09/30/17 10:30 10/05/17 08:20 (Roxicodone) 5 mg Q4H PRN PO 09/30/17 10:00 10/04/17 21:59 Daptomycin 720 mg/ Sodium Chloride 100 ml @ 200 mls/hr Q24H IV 09/30/17 16:00 10/04/17 15:30 (Chapstick) 1 applic UNSCH PRN TOPICAL 10/01/17 12:30 (Chloraseptic Ritchie) 1 lozenge UNSCH PRN BUCCAL 10/01/17 12:30 (KlonoPIN) 0.5 mg Q8HR PRN PO 10/03/17 15:45 10/05/17 08:20 (Remeron) 15 mg HS PO 10/04/17 21:00 10/04/17 20:32 Lines PICC - Line sites with no e.o infection Past Medical History Past Medical History Osteomyelitis of cervical and thoracic spine Hepatitis C IV drug use Cholecystitis Inguinal hernia Vaginal fistula Past Surgical History ACL repair Cholecystectomy Vaginal fistula repair Inguinal hernia repair (Aura Armijo) Allergies: Coded Allergies: No Known Allergies (Unverified Allergy, Unknown, 09/28/17) Objective . Vital Signs Date Time Temp Pulse Resp B/P (MAP) Pulse Ox O2 Delivery O2 Flow Rate FiO2 10/05/17 00:00 97.7 78 17 135/61 (85) 96 10/04/17 20:00 97.5 77 17 135/79 (97) 98 10/04/17 16:00 97.5 83 16 124/74 (91) 95 10/04/17 12:00 97.3 72 16 117/65 (82) 98 . Laboratory Tests Test 10/05/17 06:40 White Blood Count 7.0 TH/MM3 Red Blood Count 4.07 MIL/MM3 Hemoglobin 12.0 GM/DL Hematocrit 35.3 % Mean Corpuscular Volume 86.9 FL Mean Corpuscular Hemoglobin 29.5 PG Mean Corpuscular Hemoglobin Concent 33.9 % Red Cell Distribution Width 14.0 % Platelet Count 249 TH/MM3 Mean Platelet Volume 8.4 FL Neutrophils (%) (Auto) 57.1 % Lymphocytes (%) (Auto) 30.5 % Monocytes (%) (Auto) 8.5 % Eosinophils (%) (Auto) 3.0 % Basophils (%) (Auto) 0.9 % Neutrophils # (Auto) 4.0 TH/MM3 Lymphocytes # (Auto) 2.1 TH/MM3 Monocytes # (Auto) 0.6 TH/MM3 Eosinophils # (Auto) 0.2 TH/MM3 Basophils # (Auto) 0.1 TH/MM3 CBC Comment DIFF FINAL Differential Comment Laboratory Tests Test 10/05/17 06:40 Blood Urea Nitrogen 9 MG/DL Creatinine 0.74 MG/DL Random Glucose 93 MG/DL Albumin 3.0 GM/DL Calcium Level 8.6 MG/DL Magnesium Level 2.1 MG/DL Aspartate Amino Transf (AST/SGOT) 270 U/L Alanine Aminotransferase (ALT/SGPT) 346 U/L Sodium Level 139 MEQ/L Potassium Level 4.0 MEQ/L Chloride Level 103 MEQ/L Carbon Dioxide Level 32.0 MEQ/L Anion Gap 4 MEQ/L Estimat Glomerular Filtration Rate 82 ML/MIN Imaging Last Impressions Upper Extremity Ultrasound 09/29/17 0000 Signed Impressions: Service Date/Time: September 14:51 - CONCLUSION: No venous thrombosis is identified within either upper extremity. Eliezer Gonzalez MD Thoracic Spine MRI 09/29/17 0000 Signed Impressions: Service Date/Time: September 17:54 - CONCLUSION: 1. Mild compression fracture of the T3 vertebral body again noted with invagination of the superior endplate. The previous noted marrow edema and enhancement have resolved. 2. The vertebral bodies remain intact. Adolfo Dinh MD Lumbar Spine MRI 09/29/17 0000 Signed Impressions: Service Date/Time: September 17:54 - CONCLUSION: 1. No evidence of osteomyelitis in the lumbar spine 2. Disc bulge at L4-5 with borderline central canal stenosis without significant change. 3. Degenerative changes involving the lower facet joints with small synovial cyst noted along the medial left L4-5 facet joint with mild mass effect on the left side of the thecal sac. 4. Degenerative disc change at L4-5 and L5-S1 levels. Adolfo Dinh MD Cervical Spine MRI 09/29/17 0000 Signed Impressions: Service Date/Time: September 17:54 - CONCLUSION: 1. Abnormal marrow signal and diffuse enhancement of the C7 and T1 vertebral bodies which is increased from the prior study. The abnormality extends into the pedicles bilaterally and is most characteristic of osteomyelitis. 2. Milder abnormal signal and enhancement is noted in the C3 and C4 vertebral bodies without significant change. 3. An anterior extradural defect is again noted at the C3- 4 level with mass effect on the anterior thecal sac and mild flattening of the anterior cord. This is not significantly changed and demonstrates no enhancement. This appears represent a disc protrusion. 4. Abnormal dural enhancement at the C6-7 level surrounding the thecal sac as well as abnormal enhancement and soft tissue swelling along the anterior prevertebral soft tissues. This is not significantly changed. No new epidural abscess is identified. Adolfo Dinh MD Chest X-Ray 09/28/172047 Signed Impressions: Service Date/Time: Thursday, September 28, 2017 20:55 - CONCLUSION: 1. No active disease. Right PICC line tip in superior vena cava. Jabier Velazquez MD Physical Exam GENERAL: This is a well-nourished, well-developed female patient, INAD. Awake and alert. Appears comfortable. SKIN: No rashes, ecchymoses or lesions. Cool and dry. HEAD: Atraumatic. Normocephalic. EYES: Pupils equal round and reactive. Extraocular motions intact. No scleral icterus. No injection or drainage. ENT: Nose without bleeding or purulent drainage. Airway patent. MMM. NECK: Trachea midline. Supple, nontender, no meningeal signs. CARDIOVASCULAR: HS audible. RESPIRATORY: Clear to auscultation. Breath sounds equal bilaterally. GASTROINTESTINAL: Abdomen soft, non-tender, nondistended. (+)BS. MUSCULOSKELETAL: Extremities without clubbing, cyanosis, or edema. EXTREMITIES: No obvious deformities. No cyanosis or edema noted BLE. No calf tenderness. NEUROLOGICAL: Awake and alert. Able to move all extremities spontaneously. No focal neuro deficit appreciated. PSYCHIATRIC: Calm and cooperative. PICC line site with no e.o infection. (Aura Armijo) Assessment & Plan Remarks SIRS rule out sepsis. - better Cervical discitis, possible osteomyelitis ?previous T spine infection given imaging findings of previous compression frx T3 and prev edema/enhancement that has resolved -possibly not MRSA infx 2/2 failed Vanco Fever in a patient with PICC on IV Antibiotics: Vanco IV related drug fevers, worsening Discitis. Pyuria, UCX positive for E Coli and K pneumonia -asymptomatic -suspect contaminated specimen 2/2 multiple organisms IV drug abuse. Hep C Abnormal LFTs Recs Continue Daptomycin Monitor progress Etiology of the progression of the C-spine abnormality still unclear: ?failed Vanco, or new pathogen Ct guided biopsy not an option due to location. Possible C7-T1 biopsy for micro /pathology r/o osteo/malignancy/flaquita. TBD with Dr. Cee Neurosurgery notes reviewed Monitor CPK while on Cubicin Continue to trend LFTs. Obtain US liver for further evaluation. Avoid hepatotoxic agents Discussed with patient and nursing staff (Aura Armijo) Remarks The exam, history, and the medical decision-making described in the above note were completed with the assistance of the mid-level provider. I reviewed and agree with the findings presented. I attest that I had a [id number] encounter with the patient on the same day, and personally performed and documented my assessment and findings in the medical record. Complains of tingling RUE. No abdominal complaints, N/V, abd pain On exam: RUQ with no tenderness. Exam: No neuro deficit. PICC site ok Recs Continue Dapto IV Consult Gastroenterology abnormal and increasing LFTs. Check CK in am as well as repeat LFTs. Not ready for DC. Will provide DC plan once GI opinion obtained and LFTs down trending. farzaneh Martin. farzaneh patient and . (Radha Tierney MD) Aura Armijo Oct 05, 2017 08:35 Radha Tierney MD Oct 05, 2017 17:36
[2017-10-05 12:00] VITALS: BP 146/83; PULSE 72; RESP 15; TEMP 97.5; O2SAT 98
--- NOTE | 2017-10-05 13:01 | HHI.PR ---
Subjective Remarks Follow-up osteomyelitis, elevated LFTs. Patient still having pain in her upper back. No cough, dyspnea, chest pain, nausea, vomiting. Objective Vitals Vital Signs Date Time Temp Pulse Resp B/P (MAP) Pulse Ox O2 Delivery O2 Flow Rate FiO2 10/05/17 08:00 97.5 70 15 115/55 (75) 96 10/05/17 00:00 97.7 78 17 135/61 (85) 96 10/04/17 20:00 97.5 77 17 135/79 (97) 98 10/04/17 16:00 97.5 83 16 124/74 (91) 95 I/O 10/04/17 10/04/17 10/04/17 10/05/17 10/05/17 10/05/17 07:00 15:00 23:00 07:00 15:00 23:00 Intake Total 480 ml 0 ml 780 ml 240 ml Balance 480 ml 0 ml 780 ml 240 ml Intake Oral 480 ml 680 ml 240 ml IV Total 0 ml 100 ml # Voids 3 3 2 # Bowel Movements 1 Result Diagram: 10/05/17 0640 10/05/17 0640 Imaging Last Impressions Upper Extremity Ultrasound 09/29/17 0000 Signed Impressions: Service Date/Time: September 14:51 - CONCLUSION: No venous thrombosis is identified within either upper extremity. Eliezer Gonzalez MD Thoracic Spine MRI 09/29/17 0000 Signed Impressions: Service Date/Time: September 17:54 - CONCLUSION: 1. Mild compression fracture of the T3 vertebral body again noted with invagination of the superior endplate. The previous noted marrow edema and enhancement have resolved. 2. The vertebral bodies remain intact. Adolfo Dinh MD Lumbar Spine MRI 09/29/17 0000 Signed Impressions: Service Date/Time: September 17:54 - CONCLUSION: 1. No evidence of osteomyelitis in the lumbar spine 2. Disc bulge at L4-5 with borderline central canal stenosis without significant change. 3. Degenerative changes involving the lower facet joints with small synovial cyst noted along the medial left L4-5 facet joint with mild mass effect on the left side of the thecal sac. 4. Degenerative disc change at L4-5 and L5-S1 levels. Adolfo Dinh MD Cervical Spine MRI 09/29/17 0000 Signed Impressions: Service Date/Time: September 17:54 - CONCLUSION: 1. Abnormal marrow signal and diffuse enhancement of the C7 and T1 vertebral bodies which is increased from the prior study. The abnormality extends into the pedicles bilaterally and is most characteristic of osteomyelitis. 2. Milder abnormal signal and enhancement is noted in the C3 and C4 vertebral bodies without significant change. 3. An anterior extradural defect is again noted at the C3- 4 level with mass effect on the anterior thecal sac and mild flattening of the anterior cord. This is not significantly changed and demonstrates no enhancement. This appears represent a disc protrusion. 4. Abnormal dural enhancement at the C6-7 level surrounding the thecal sac as well as abnormal enhancement and soft tissue swelling along the anterior prevertebral soft tissues. This is not significantly changed. No new epidural abscess is identified. Adolfo Dinh MD Chest X-Ray 09/28/172047 Signed Impressions: Service Date/Time: Thursday, September 28, 2017 20:55 - CONCLUSION: 1. No active disease. Right PICC line tip in superior vena cava. Jabier Velazquez MD Objective Remarks General: No acute distress. Heart: Regular rate and rhythm. No murmur. Lungs: Clear to auscultation bilaterally. No wheezes, rales, or rhonchi. Breathing is nonlabored. Abdomen: Soft, nontender, nondistended. Extremities: No lower extremity edema. Psych: Alert and oriented. Neuro: Normal speech. Procedures None Urinary Catheter: No Vascular Central Line Catheter: No A/P Assessment and Plan 1. Sepsis, osteomyelitis of the thoracic and cervical spine: Patient was on IV vancomycin as an outpatient. She had fever and worsening symptoms. Repeat MRI was consistent with osteomyelitis. Patient has been evaluated by neurosurgery, who did not feel there was a role for surgical intervention at this time. Continue daptomycin per infectious disease. Continue pain control. 2. Bright red blood per rectum: Resolved. 3. Anemia: Likely secondary to chronic disease. Monitor CBC and transfuse if necessary. 4. Hepatitis C, transaminitis: LFTs are elevated and trending up. Check liver ultrasound. Monitor labs. Avoid hepatotoxic agents. 5. IV drug abuse: Patient has been counseled. 6. Hypokalemia: Resolved. 7. UTI: Urine culture growing E. coli, Klebsiella. Patient is asymptomatic. No antibiotics per infectious disease. 8. Anxiety, panic attacks: Patient reports history of childhood trauma. Klonopin as needed. Appreciate psychiatry recommendations. 9. DVT prophylaxis: SCDs. Seen and discussed with Dr. Anderson. Discharge Planning Pending infectious disease clearance, psychiatry evaluation. Ayden Trevino MD Oct 05, 2017 13:01
[2017-10-05] MEDS: DAPTOMYCIN IV SCH (15:42)
[2017-10-05] MEDS: SODIUM CHLORIDE 0.9% IV SCH (15:42)
[2017-10-05 16:00] VITALS: BP 132/83; PULSE 71; RESP 16; TEMP 97.4; O2SAT 98
[2017-10-05] MEDS: MIRTAZAPINE 15 MG TAB PO SCH (19:29)
[2017-10-05 20:00] VITALS: BP 125/70; PULSE 89; RESP 18; TEMP 98.2; O2SAT 99
[2017-10-06] VITALS: BP 113/70; PULSE 78; RESP 18; TEMP 97.5; O2SAT 98
[2017-10-06] MEDS: traMADol HCL 50 MG TAB PO PRN ×4 (04:31→20:22)
[2017-10-06] MEDS: clonazePAM 0.5 MG TAB PO PRN ×3 (04:34→20:21)
[2017-10-06 07:14] LABS: AST (GOT) 252 U/L (15-37); BLOOD UREA NITROGEN 13 MG/DL (7-18); CALCIUM 8.5 MG/DL (8.5-10.1); CHLORIDE 103 MEQ/L (98-107); CREATININE 0.82 MG/DL (0.50-1.00); GLOMERULAR FILTRATION RATE 73 ML/MIN (>89); GLUCOSE,RANDOM 99 MG/DL (74-106); SODIUM (NA) 138 MEQ/L (136-145)
[2017-10-06 07:15] LABS: ALT (GPT) 347 U/L (10-53)
[2017-10-06 07:17] LABS: ALKALINE PHOSPHATASE 264 U/L (45-117); TOTAL BILIRUBIN ADULT 0.6 MG/DL (0.2-1.0); TOTAL PROTEIN 7.3 GM/DL (6.4-8.2)
[2017-10-06] MEDS: DOCUSATE SODIUM 50 MG/SENNA 8.6 MG TAB PO SCH ×2 (07:17→20:21)
[2017-10-06] MEDS: PANTOPRAZOLE SOD 40 MG DELAYED RELEASE TAB PO SCH (07:17)
[2017-10-06] MEDS: SODIUM CHLORIDE 0.9% FLUSH 10 ML FLUSH IV FLUSH SCH ×2 (07:18→20:24)
[2017-10-06 07:54] VITALS: BP 121/72; PULSE 85; RESP 16; TEMP 97.3; O2SAT 96
--- NOTE | 2017-10-06 10:00 | HHI.IDPN ---
Subjective Subjective Remarks PATIENT SEEN AND EXAMINED WITH DR. TIERNEY is a 52 y/o CF with PMHx of IV drug abuse, hepatitis C and currently being treated for osteomyelitis of the thoracic and cervical spine using a PICC line. She has been on Vanco IV using PICC line and stays with her friend who works at [employer] as a professor. She presents to the emergency department for evaluation of fevers and increased back and neck pain. She denies any recent drug use. The patient states that she had chills did not record temps but had a fever of 104.2 days ago taken by a forehead thermometer. She reports that she had diarrhea yesterday with increasing pain in her back and neck. Today the patient reports bright red blood per rectum, with associated nausea. She reports a fever of 102. She reports compliance with her home vancomycin which she states is scheduled to stop on Tuesday. She denies chest pain or shortness of breath. No weakness or lateralizing signs/symptoms. She reports tingling in her RUE. She reports pain in her Right knee with tingling sensation. Denies any IVDA ID consulted for evaluation and Mment of fever in a patient with Discitis who is on Vanco IV using PICC line. Notes reviewed She denies any fever or chills c/o neck pain but reports improving. Also reports improvement in tingling of right hand No N/V, abdominal pain No rash No diarrhea afebrile WBC WNL LFTs persistently elevated, Hep C positive Urine cx positive for K pneumoniae and E Coli, asymptomatic C diff and stool studies negative Antibiotics Dapto IV Current Medications Medications (Trade) Dose Ordered Sig/Areli Route Start Time Stop Time Status Last Admin (NS Flush) 2 ml UNSCH PRN IV FLUSH 09/29/17 00:45 (NS Flush) 2 ml BID IV FLUSH 09/29/17 09:00 10/06/17 07:18 (Zofran Inj) 4 mg Q6H PRN IVP 09/29/17 00:45 (Narcan Inj) 0.4 mg UNSCH PRN IV PUSH 09/29/17 00:45 (Priscilla-Colace) 1 tab BID PO 09/29/17 09:00 10/06/17 07:17 (Milk Of Magnesia Liq) 30 ml Q12H PRN PO 09/29/17 00:45 (Senokot) 17.2 mg Q12H PRN PO 09/29/17 00:45 (Dulcolax Supp) 10 mg DAILY PRN RECTAL 09/29/17 00:45 (Lactulose Liq) 30 ml DAILY PRN PO 09/29/17 00:45 (Ultram) 50 mg Q4H PRN PO 09/30/17 09:45 10/06/17 04:31 (Protonix) 40 mg DAILY PO 09/30/17 10:30 10/06/17 07:17 (Roxicodone) 5 mg Q4H PRN PO 09/30/17 10:00 10/06/17 07:17 Daptomycin 720 mg/ Sodium Chloride 100 ml @ 200 mls/hr Q24H IV 09/30/17 16:00 10/05/17 15:42 (Chapstick) 1 applic UNSCH PRN TOPICAL 10/01/17 12:30 (Chloraseptic Ritchie) 1 lozenge UNSCH PRN BUCCAL 10/01/17 12:30 (KlonoPIN) 0.5 mg Q8HR PRN PO 10/03/17 15:45 10/06/17 04:34 (Remeron) 15 mg HS PO 10/04/17 21:00 10/05/17 19:29 Lines PICC - Line sites with no e.o infection Past Medical History Past Medical History Osteomyelitis of cervical and thoracic spine Hepatitis C IV drug use Cholecystitis Inguinal hernia Vaginal fistula Past Surgical History ACL repair Cholecystectomy Vaginal fistula repair Inguinal hernia repair (Aura Armijo) Allergies: Coded Allergies: No Known Allergies (Unverified Allergy, Unknown, 09/28/17) Objective . Vital Signs Date Time Temp Pulse Resp B/P (MAP) Pulse Ox O2 Delivery O2 Flow Rate FiO2 10/06/17 07:54 97.3 85 16 121/72 (88) 96 10/06/17 00:00 97.5 78 18 113/70 (84) 98 10/05/17 20:00 98.2 89 18 125/70 (88) 99 10/05/17 16:00 97.4 71 16 132/83 (99) 98 10/05/17 12:00 97.5 72 15 146/83 (104) 98 . Laboratory Tests Test 10/05/17 06:40 10/06/17 06:03 White Blood Count 7.0 TH/MM3 Red Blood Count 4.07 MIL/MM3 Hemoglobin 12.0 GM/DL Hematocrit 35.3 % Mean Corpuscular Volume 86.9 FL Mean Corpuscular Hemoglobin 29.5 PG Mean Corpuscular Hemoglobin Concent 33.9 % Red Cell Distribution Width 14.0 % Platelet Count 249 TH/MM3 Mean Platelet Volume 8.4 FL Neutrophils (%) (Auto) 57.1 % Lymphocytes (%) (Auto) 30.5 % Monocytes (%) (Auto) 8.5 % Eosinophils (%) (Auto) 3.0 % Basophils (%) (Auto) 0.9 % Neutrophils # (Auto) 4.0 TH/MM3 Lymphocytes # (Auto) 2.1 TH/MM3 Monocytes # (Auto) 0.6 TH/MM3 Eosinophils # (Auto) 0.2 TH/MM3 Basophils # (Auto) 0.1 TH/MM3 CBC Comment DIFF FINAL Differential Comment Blood Urea Nitrogen 9 MG/DL 13 MG/DL Creatinine 0.74 MG/DL 0.82 MG/DL Random Glucose 93 MG/DL 99 MG/DL Total Protein 7.3 GM/DL 7.3 GM/DL Albumin 3.0 GM/DL 3.0 GM/DL Calcium Level 8.6 MG/DL 8.5 MG/DL Magnesium Level 2.1 MG/DL Alkaline Phosphatase 222 U/L 264 U/L Aspartate Amino Transf (AST/SGOT) 270 U/L 252 U/L Alanine Aminotransferase (ALT/SGPT) 346 U/L 347 U/L Total Bilirubin 0.7 MG/DL 0.6 MG/DL Sodium Level 139 MEQ/L 138 MEQ/L Potassium Level 4.0 MEQ/L 4.0 MEQ/L Chloride Level 103 MEQ/L 103 MEQ/L Carbon Dioxide Level 32.0 MEQ/L 29.0 MEQ/L Anion Gap 4 MEQ/L 6 MEQ/L Estimat Glomerular Filtration Rate 82 ML/MIN 73 ML/MIN Imaging Last Impressions Upper Extremity Ultrasound 09/29/17 0000 Signed Impressions: Service Date/Time: September 14:51 - CONCLUSION: No venous thrombosis is identified within either upper extremity. Eliezer Gonzalez MD Thoracic Spine MRI 09/29/17 0000 Signed Impressions: Service Date/Time: September 17:54 - CONCLUSION: 1. Mild compression fracture of the T3 vertebral body again noted with invagination of the superior endplate. The previous noted marrow edema and enhancement have resolved. 2. The vertebral bodies remain intact. Adolfo Dinh MD Lumbar Spine MRI 09/29/17 0000 Signed Impressions: Service Date/Time: September 17:54 - CONCLUSION: 1. No evidence of osteomyelitis in the lumbar spine 2. Disc bulge at L4-5 with borderline central canal stenosis without significant change. 3. Degenerative changes involving the lower facet joints with small synovial cyst noted along the medial left L4-5 facet joint with mild mass effect on the left side of the thecal sac. 4. Degenerative disc change at L4-5 and L5-S1 levels. Adolfo Dinh MD Cervical Spine MRI 09/29/17 0000 Signed Impressions: Service Date/Time: September 17:54 - CONCLUSION: 1. Abnormal marrow signal and diffuse enhancement of the C7 and T1 vertebral bodies which is increased from the prior study. The abnormality extends into the pedicles bilaterally and is most characteristic of osteomyelitis. 2. Milder abnormal signal and enhancement is noted in the C3 and C4 vertebral bodies without significant change. 3. An anterior extradural defect is again noted at the C3- 4 level with mass effect on the anterior thecal sac and mild flattening of the anterior cord. This is not significantly changed and demonstrates no enhancement. This appears represent a disc protrusion. 4. Abnormal dural enhancement at the C6-7 level surrounding the thecal sac as well as abnormal enhancement and soft tissue swelling along the anterior prevertebral soft tissues. This is not significantly changed. No new epidural abscess is identified. Adolfo Dinh MD Chest X-Ray 09/28/172047 Signed Impressions: Service Date/Time: Thursday, September 28, 2017 20:55 - CONCLUSION: 1. No active disease. Right PICC line tip in superior vena cava. Jabier Velazquez MD Physical Exam GENERAL: This is a well-nourished, well-developed female patient, INAD. Awake and alert. Sitting up in bed watching TV. Appears comfortable. SKIN: No rashes, ecchymoses or lesions. Cool and dry. HEAD: Atraumatic. Normocephalic. EYES: Pupils equal round and reactive. Extraocular motions intact. No scleral icterus. No injection or drainage. ENT: Nose without bleeding or purulent drainage. Airway patent. MMM. No oral thrush. NECK: Trachea midline. Supple, nontender, no meningeal signs. CARDIOVASCULAR: Regular rate and rhythm. RESPIRATORY: Clear to auscultation. Breath sounds equal bilaterally. GASTROINTESTINAL: Abdomen soft, non-tender, nondistended. (+)BS. No RUQ tenderness to palpation, no hepatomegaly. MUSCULOSKELETAL: Extremities without clubbing, cyanosis, or edema. EXTREMITIES: No obvious deformities. No cyanosis or edema noted BLE. No calf tenderness. NEUROLOGICAL: Awake and alert. Able to move all extremities spontaneously. No focal neuro deficit appreciated. PSYCHIATRIC: Calm and cooperative. PICC line site with no e.o infection. (Aura Armijo) Assessment & Plan Remarks SIRS rule out sepsis. - better Cervical discitis, possible osteomyelitis ?previous T spine infection given imaging findings of previous compression frx T3 and prev edema/enhancement that has resolved -On IV Dapto -possibly not MRSA infx 2/2 failed Vanco or new pathogen -NS following, no surgical intervention, not able to do CT guided bx 2/2 location -neck pain and RUE tingling improving Fever in a patient with PICC on IV Antibiotics: Vanco IV related drug fevers, worsening Discitis. Pyuria, UCX positive for E Coli and K pneumonia -asymptomatic -suspect contaminated specimen 2/2 multiple organisms IV drug abuse Hep C Abnormal LFTs, persistently elevated -No RUQ pain on exam -Hep C positive 08/19/17 -liver US 08/30/17 no acute findings Recs Continue Daptomycin Etiology of the progression of the C-spine abnormality still unclear: ?failed Vanco, or new pathogen Monitor CPK while on Cubicin - repeat level ordered for today Continue to trend LFTs Avoid hepatotoxic agents GS consulted, awaiting recommendations prior to discharge planning Avoid hepatotoxic agents Monitor progress (Aura Armijo) Remarks The exam, history, and the medical decision-making described in the above note were completed with the assistance of the mid-level provider. I reviewed and agree with the findings presented. I attest that I had a [id number] encounter with the patient on the same day, and personally performed and documented my assessment and findings in the medical record. Continue Dapto IV Await GI input. Depending on input possible DC in am on IV Abx. Plan depends on GI input. (Radha Tierney MD) Aura Armijo Oct 06, 2017 10:00 Radha Tierney MD Oct 06, 2017 17:22
--- NOTE | 2017-10-06 11:03 | HHI.PR ---
Subjective Remarks Follow-up elevated LFTs, osteomyelitis. Patient still reporting pain in her upper back. No chest pain, dyspnea, nausea, vomiting. No other complaints at this time. Objective Vitals Vital Signs Date Time Temp Pulse Resp B/P (MAP) Pulse Ox O2 Delivery O2 Flow Rate FiO2 10/06/17 07:54 97.3 85 16 121/72 (88) 96 10/06/17 00:00 97.5 78 18 113/70 (84) 98 10/05/17 20:00 98.2 89 18 125/70 (88) 99 10/05/17 16:00 97.4 71 16 132/83 (99) 98 10/05/17 12:00 97.5 72 15 146/83 (104) 98 I/O 10/05/17 10/05/17 10/05/17 10/06/17 10/06/17 10/06/17 07:00 15:00 23:00 07:00 15:00 23:00 Intake Total 240 ml 700 ml 360 ml Balance 240 ml 700 ml 360 ml Intake Oral 240 ml 600 ml 360 ml IV Total 100 ml # Voids 2 5 3 # Bowel Movements 0 0 Result Diagram: 10/05/17 0640 10/06/17 0603 Imaging Last Impressions Upper Extremity Ultrasound 09/29/17 0000 Signed Impressions: Service Date/Time: September 14:51 - CONCLUSION: No venous thrombosis is identified within either upper extremity. Eliezer Gonzalez MD Thoracic Spine MRI 09/29/17 0000 Signed Impressions: Service Date/Time: September 17:54 - CONCLUSION: 1. Mild compression fracture of the T3 vertebral body again noted with invagination of the superior endplate. The previous noted marrow edema and enhancement have resolved. 2. The vertebral bodies remain intact. Adolfo Dinh MD Lumbar Spine MRI 09/29/17 0000 Signed Impressions: Service Date/Time: September 17:54 - CONCLUSION: 1. No evidence of osteomyelitis in the lumbar spine 2. Disc bulge at L4-5 with borderline central canal stenosis without significant change. 3. Degenerative changes involving the lower facet joints with small synovial cyst noted along the medial left L4-5 facet joint with mild mass effect on the left side of the thecal sac. 4. Degenerative disc change at L4-5 and L5-S1 levels. Adolfo Dinh MD Cervical Spine MRI 09/29/17 0000 Signed Impressions: Service Date/Time: September 17:54 - CONCLUSION: 1. Abnormal marrow signal and diffuse enhancement of the C7 and T1 vertebral bodies which is increased from the prior study. The abnormality extends into the pedicles bilaterally and is most characteristic of osteomyelitis. 2. Milder abnormal signal and enhancement is noted in the C3 and C4 vertebral bodies without significant change. 3. An anterior extradural defect is again noted at the C3- 4 level with mass effect on the anterior thecal sac and mild flattening of the anterior cord. This is not significantly changed and demonstrates no enhancement. This appears represent a disc protrusion. 4. Abnormal dural enhancement at the C6-7 level surrounding the thecal sac as well as abnormal enhancement and soft tissue swelling along the anterior prevertebral soft tissues. This is not significantly changed. No new epidural abscess is identified. Adolfo Dinh MD Chest X-Ray 09/28/172047 Signed Impressions: Service Date/Time: Thursday, September 28, 2017 20:55 - CONCLUSION: 1. No active disease. Right PICC line tip in superior vena cava. Jabier Velazquez MD Objective Remarks General: No acute distress. Heart: Regular rate and rhythm. No murmur. Lungs: Clear to auscultation bilaterally. No wheezes, rales, or rhonchi. Breathing is nonlabored. Abdomen: Soft, nontender, nondistended. Extremities: No lower extremity edema. Psych: Alert and oriented. Neuro: Normal speech. Procedures None Urinary Catheter: No Vascular Central Line Catheter: No A/P Assessment and Plan 1. Sepsis, osteomyelitis of the thoracic and cervical spine: Patient was on IV vancomycin as an outpatient. She had fever and worsening symptoms. Repeat MRI was consistent with osteomyelitis. Patient has been evaluated by neurosurgery, who did not feel there was a role for surgical intervention at this time. Continue daptomycin per infectious disease. Continue pain control. 2. Bright red blood per rectum: Resolved. 3. Anemia: Likely secondary to chronic disease. Monitor CBC and transfuse if necessary. 4. Hepatitis C, transaminitis: LFTs are elevated and trending up. Monitor labs. Avoid hepatotoxic agents. 5. IV drug abuse: Patient has been counseled. 6. Hypokalemia: Resolved. 7. UTI: Urine culture growing E. coli, Klebsiella. Patient is asymptomatic. No antibiotics per infectious disease. 8. Anxiety, panic attacks: Patient reports history of childhood trauma. Klonopin as needed. Appreciate psychiatry recommendations. 9. DVT prophylaxis: SCDs. Seen and discussed with Suad MENSAH (GI). Discharge Planning Pending infectious disease clearance, arrangement of antibiotics. Ayden Trevino MD Oct 06, 2017 11:03
--- NOTE | 2017-10-06 11:18 | PD.CONS ---
HPI History of Present Illness This is a 52 year old female with hx IVDU, hep C who presented with fevers and back pain. GI consulted for rising LFTs. She wasevaluated by our service in august, had EGD found esophagitis, multiple 1-3mm erosions. She had a liver w/u that was unremarkable for hep c, genotype 3a. As of 08/30/17 her viral load was 638,000. She denies etoh, recent illicit drug use. She denies abd pain, n/v, blood in stool. She is on iv abx for possible osteomyelitis. (Suad Chung) PFSH Past Medical History Osteomyelitis of cervical and thoracic spine Hepatitis C IV drug use Cholecystitis Inguinal hernia Vaginal fistula Past Surgical History ACL repair Cholecystectomy Vaginal fistula repair Inguinal hernia repair (Suad Chung) Coded Allergies: No Known Allergies (Unverified Allergy, Unknown, 09/28/17) Family History Reports family history of hypertension, diabetes, cancer on both sides of her family mother and father. Social History Denies any alcohol use Current a smoker, 3-4 cigarettes/day Last IV drug use prior to previous hospitalization (Suad Chung) Review of Systems Constitutional: DENIES: Fever Endocrine: DENIES: Polydipsia Eyes: DENIES: Blurred vision Ears, nose, mouth, throat: DENIES: Hearing loss Respiratory: DENIES: Cough Cardiovascular: DENIES: Chest pain Gastrointestinal: DENIES: Abdominal pain, Black stools, Bloody stools, Nausea, Vomiting Genitourinary: DENIES: Hematuria Musculoskeletal: COMPLAINS OF: Back pain, DENIES: Joint pain Integumentary: DENIES: Jaundice Hematologic/lymphatic: DENIES: Bruising Immunologic/allergic: DENIES: Eczema Neurologic: DENIES: Abnormal gait Psychiatric: DENIES: Confusion (Suad Chung) GI Exam Vitals I&O Vital Signs Date Time Temp Pulse Resp B/P (MAP) Pulse Ox O2 Delivery O2 Flow Rate FiO2 10/06/17 07:54 97.3 85 16 121/72 (88) 96 10/06/17 00:00 97.5 78 18 113/70 (84) 98 10/05/17 20:00 98.2 89 18 125/70 (88) 99 10/05/17 16:00 97.4 71 16 132/83 (99) 98 10/05/17 12:00 97.5 72 15 146/83 (104) 98 I/O 10/05/17 10/05/17 10/05/17 10/06/17 10/06/17 10/06/17 07:00 15:00 23:00 07:00 15:00 23:00 Intake Total 240 ml 700 ml 360 ml Balance 240 ml 700 ml 360 ml Intake Oral 240 ml 600 ml 360 ml IV Total 100 ml # Voids 2 5 3 # Bowel Movements 0 0 Imaging Last Impressions Upper Extremity Ultrasound 09/29/17 0000 Signed Impressions: Service Date/Time: September 14:51 - CONCLUSION: No venous thrombosis is identified within either upper extremity. Eliezer Gonzalez MD Thoracic Spine MRI 09/29/17 0000 Signed Impressions: Service Date/Time: September 17:54 - CONCLUSION: 1. Mild compression fracture of the T3 vertebral body again noted with invagination of the superior endplate. The previous noted marrow edema and enhancement have resolved. 2. The vertebral bodies remain intact. Adolfo Dinh MD Lumbar Spine MRI 09/29/17 0000 Signed Impressions: Service Date/Time: September 17:54 - CONCLUSION: 1. No evidence of osteomyelitis in the lumbar spine 2. Disc bulge at L4-5 with borderline central canal stenosis without significant change. 3. Degenerative changes involving the lower facet joints with small synovial cyst noted along the medial left L4-5 facet joint with mild mass effect on the left side of the thecal sac. 4. Degenerative disc change at L4-5 and L5-S1 levels. Adolfo Dinh MD Cervical Spine MRI 09/29/17 0000 Signed Impressions: Service Date/Time: September 17:54 - CONCLUSION: 1. Abnormal marrow signal and diffuse enhancement of the C7 and T1 vertebral bodies which is increased from the prior study. The abnormality extends into the pedicles bilaterally and is most characteristic of osteomyelitis. 2. Milder abnormal signal and enhancement is noted in the C3 and C4 vertebral bodies without significant change. 3. An anterior extradural defect is again noted at the C3- 4 level with mass effect on the anterior thecal sac and mild flattening of the anterior cord. This is not significantly changed and demonstrates no enhancement. This appears represent a disc protrusion. 4. Abnormal dural enhancement at the C6-7 level surrounding the thecal sac as well as abnormal enhancement and soft tissue swelling along the anterior prevertebral soft tissues. This is not significantly changed. No new epidural abscess is identified. Adolfo Dinh MD Chest X-Ray 09/28/172047 Signed Impressions: Service Date/Time: Thursday, September 28, 2017 20:55 - CONCLUSION: 1. No active disease. Right PICC line tip in superior vena cava. Jabier Velazquez MD Laboratory Test 10/06/17 06:03 Blood Urea Nitrogen 13 MG/DL Creatinine 0.82 MG/DL Random Glucose 99 MG/DL Total Protein 7.3 GM/DL Albumin 3.0 GM/DL Calcium Level 8.5 MG/DL Alkaline Phosphatase 264 U/L Aspartate Amino Transf (AST/SGOT) 252 U/L Alanine Aminotransferase (ALT/SGPT) 347 U/L Total Bilirubin 0.6 MG/DL Sodium Level 138 MEQ/L Potassium Level 4.0 MEQ/L Chloride Level 103 MEQ/L Carbon Dioxide Level 29.0 MEQ/L Anion Gap 6 MEQ/L Estimat Glomerular Filtration Rate 73 ML/MIN Total Creatine Kinase 18 U/L Date/Time Source Procedure Growth Status 09/29/17 17:18 Blood Line Aerobic Blood Culture - Final NO GROWTH IN 5 DAYS Complete 09/29/17 17:18 Blood Line Anaerobic Blood Culture - Final NO GROWTH IN 5 DAYS Complete 09/30/17 12:10 Stool Stool Cryptosporidium Exam - Final NEGATIVE - NO CRYPTOSPORIDIUM ANTIGEN... Complete 09/30/17 12:10 Stool Stool Stool Pus (JAYLON) - Final NO WBC'S SEEN Complete 09/30/17 12:10 Stool Stool Giardia Antigen (JAYLON) - Final NEGATIVE - NO GIARDIA ANTIGEN DETECTE... Complete 09/28/17 21:30 Urine Catheterized Urine Urine Culture - Final Klebsiella Pneumoniae Escherichia Coli Complete Physical Examination HEENT: PERRL; normocephalic; atraumatic; no jaundice. CHEST: CTA CARDIAC: RRR ABDOMEN: Soft, nondistended, mild diffuse TTP;+hepatomegaly ; bowel sounds are present in all four quadrants. EXTREMITIES: No clubbing, cyanosis, or edema. SKIN: Normal; no rash; no jaundice. MOTORCYCLE RACER: No focal deficits; alert and oriented times three. (Suad Chung) Assessment and Plan Plan ASSESSMENT - rising LFTs - hep c vs DILI. recent dx hep C genotype 3a. other than hcv had unremarkable liver w/u last month. US liver 08/30/17 unremarkable. on mirtazapine, daptomycin - cervical discitis, poss osteomyelitis ID following. PLAN - hcv quant - US liver - f/u as outpt to pursue hep c tx - continue abx per ID - further recs to follow pt seen by myself and Dr Thomas and this note is on her behalf (Suad Chung) Physician Comments seen, examined agree with above alp was elevated in the past, most likely bone source elevated lfts suspect drug induced await us result (Suzy Thomas MD) Suad Chung Oct 06, 2017 11:18 Suzy Thomas MD Oct 06, 2017 18:22
[2017-10-06 12:00] VITALS: BP 124/79; PULSE 84; RESP 16; TEMP 97.8; O2SAT 98
[2017-10-06 16:00] VITALS: BP 112/61; PULSE 79; RESP 16; TEMP 97.7; O2SAT 97
[2017-10-06] MEDS: DAPTOMYCIN IV SCH (16:00)
[2017-10-06] MEDS: SODIUM CHLORIDE 0.9% IV SCH (16:00)
[2017-10-06 20:00] VITALS: BP 151/80; PULSE 78; RESP 20; TEMP 97.7; O2SAT 100
[2017-10-06] MEDS: MIRTAZAPINE 15 MG TAB PO SCH (20:21)
[2017-10-07] VITALS: BP 127/75; PULSE 73; RESP 18; TEMP 97.4; O2SAT 96
[2017-10-07] MEDS: clonazePAM 0.5 MG TAB PO PRN ×2 (03:52→11:28)
[2017-10-07 05:08] LABS: AUTOMATED NEUTROPHIL # 4.2 TH/MM3 (1.8-7.7); BASOPHIL # 0.1 TH/MM3 (0-0.2); BASOPHIL % 0.9 % (0.0-2.0); EOSINOPHIL # 0.2 TH/MM3 (0-0.4); EOSINOPHIL % 2.2 % (0.0-4.0); HEMATOCRIT 35.8 % (35.0-46.0); HEMOGLOBIN 12.1 GM/DL (11.6-15.3); LYMPH % 31.6 % (9.0-44.0); LYMPHOCYTE # 2.3 TH/MM3 (1.0-4.8); MEAN CELL VOLUME 87.5 FL (80.0-100.0); MEAN CORPUSCULAR HEMOGLOBIN 29.5 PG (27.0-34.0); MEAN CORPUSCULAR HGB CONC 33.7 % (32.0-36.0); MEAN PLATELET VOLUME 8.3 FL (7.0-11.0); MONO % 8.6 % (0.0-8.0); MONOCYTE # 0.6 TH/MM3 (0-0.9); NEUT % 56.7 % (16.0-70.0); PLATELET COUNT 248 TH/MM3 (150-450); RED CELL DISTRIBUTION WIDTH 14.3 % (11.6-17.2); WHITE BLOOD COUNT 7.3 TH/MM3 (4.0-11.0)
[2017-10-07 05:43] LABS: ALBUMIN 3.1 GM/DL (3.4-5.0); ALT (GPT) 337 U/L (10-53); AST (GOT) 231 U/L (15-37); BICARBONATE 28.8 MEQ/L (21.0-32.0); BLOOD UREA NITROGEN 9 MG/DL (7-18); CALCIUM 8.6 MG/DL (8.5-10.1); CHLORIDE 104 MEQ/L (98-107); CREATININE 0.81 MG/DL (0.50-1.00); GLOMERULAR FILTRATION RATE 74 ML/MIN (>89); GLUCOSE,RANDOM 111 MG/DL (74-106); SODIUM (NA) 140 MEQ/L (136-145)
[2017-10-07 05:44] LABS: ALKALINE PHOSPHATASE 267 U/L (45-117); TOTAL BILIRUBIN ADULT 0.6 MG/DL (0.2-1.0); TOTAL PROTEIN 7.4 GM/DL (6.4-8.2)
[2017-10-07 08:00] VITALS: BP 122/68; PULSE 75; RESP 17; TEMP 97.8; O2SAT 97
[2017-10-07] MEDS: SODIUM CHLORIDE 0.9% FLUSH 10 ML FLUSH IV FLUSH SCH (08:47)
[2017-10-07] MEDS: DOCUSATE SODIUM 50 MG/SENNA 8.6 MG TAB PO SCH (08:47)
[2017-10-07] MEDS: PANTOPRAZOLE SOD 40 MG DELAYED RELEASE TAB PO SCH (08:47)
[2017-10-07] MEDS: traMADol HCL 50 MG TAB PO PRN ×2 (08:48→14:34)
--- NOTE | 2017-10-07 08:59 | HHI.IDPN ---
Subjective Subjective Remarks PATIENT SEEN AND EXAMINED ON BEHALF OF DR. TIERNEY is a 52 y/o CF with PMHx of IV drug abuse, hepatitis C and currently being treated for osteomyelitis of the thoracic and cervical spine using a PICC line. She has been on Vanco IV using PICC line and stays with her friend who works at [employer] as a professor. She presents to the emergency department for evaluation of fevers and increased back and neck pain. She denies any recent drug use. The patient states that she had chills did not record temps but had a fever of 104.2 days ago taken by a forehead thermometer. She reports that she had diarrhea yesterday with increasing pain in her back and neck. Today the patient reports bright red blood per rectum, with associated nausea. She reports a fever of 102. She reports compliance with her home vancomycin which she states is scheduled to stop on Tuesday. She denies chest pain or shortness of breath. No weakness or lateralizing signs/symptoms. She reports tingling in her RUE. She reports pain in her Right knee with tingling sensation. Denies any IVDA ID consulted for evaluation and Mment of fever in a patient with Discitis who is on Vanco IV using PICC line. Notes reviewed per GI, likely DILI, liver US pending patient denies any fever or chills c/o neck pain and tingling in right hand, improving No N/V, abdominal pain No rash No diarrhea afebrile WBC WNL LFTs and Alk phos persistently elevated, Hep C positive Quant HCV pending Urine cx positive for K pneumoniae and E Coli, asymptomatic C diff and stool studies negative Antibiotics Dapto IV Current Medications Medications (Trade) Dose Ordered Sig/Areli Route Start Time Stop Time Status Last Admin (NS Flush) 2 ml UNSCH PRN IV FLUSH 09/29/17 00:45 (NS Flush) 2 ml BID IV FLUSH 09/29/17 09:00 10/06/17 20:24 (Zofran Inj) 4 mg Q6H PRN IVP 09/29/17 00:45 (Narcan Inj) 0.4 mg UNSCH PRN IV PUSH 09/29/17 00:45 (Priscilla-Colace) 1 tab BID PO 09/29/17 09:00 4/19/18 20:21 (Milk Of Magnesia Liq) 30 ml Q12H PRN PO 09/29/17 00:45 (Senokot) 17.2 mg Q12H PRN PO 09/29/17 00:45 (Dulcolax Supp) 10 mg DAILY PRN RECTAL 09/29/17 00:45 (Lactulose Liq) 30 ml DAILY PRN PO 09/29/17 00:45 (Ultram) 50 mg Q4H PRN PO 09/30/17 09:45 10/06/17 20:22 (Protonix) 40 mg DAILY PO 09/30/17 10:30 10/06/17 07:17 (Roxicodone) 5 mg Q4H PRN PO 09/30/17 10:00 10/07/17 03:53 Daptomycin 720 mg/ Sodium Chloride 100 ml @ 200 mls/hr Q24H IV 09/30/17 16:00 10/06/17 16:00 (Chapstick) 1 applic UNSCH PRN TOPICAL 10/01/17 12:30 (Chloraseptic Ritchie) 1 lozenge UNSCH PRN BUCCAL 10/01/17 12:30 (KlonoPIN) 0.5 mg Q8HR PRN PO 10/03/17 15:45 10/07/17 03:52 (Remeron) 15 mg HS PO 10/04/17 21:00 10/06/17 20:21 Lines PICC - Line sites with no e.o infection Past Medical History Past Medical History Osteomyelitis of cervical and thoracic spine Hepatitis C IV drug use Cholecystitis Inguinal hernia Vaginal fistula Past Surgical History ACL repair Cholecystectomy Vaginal fistula repair Inguinal hernia repair (Aura Armijo) Allergies: Coded Allergies: No Known Allergies (Unverified Allergy, Unknown, 09/28/17) Objective . Vital Signs Date Time Temp Pulse Resp B/P (MAP) Pulse Ox O2 Delivery O2 Flow Rate FiO2 10/07/17 08:00 97.8 75 17 122/68 (86) 97 10/07/17 00:00 97.4 73 18 127/75 (92) 96 10/06/17 20:00 97.7 78 20 151/80 (103) 100 10/06/17 16:00 97.7 79 16 112/61 (78) 97 10/06/17 12:00 97.8 84 16 124/79 (94) 98 . Laboratory Tests Test 10/07/17 04:25 White Blood Count 7.3 TH/MM3 Red Blood Count 4.10 MIL/MM3 Hemoglobin 12.1 GM/DL Hematocrit 35.8 % Mean Corpuscular Volume 87.5 FL Mean Corpuscular Hemoglobin 29.5 PG Mean Corpuscular Hemoglobin Concent 33.7 % Red Cell Distribution Width 14.3 % Platelet Count 248 TH/MM3 Mean Platelet Volume 8.3 FL Neutrophils (%) (Auto) 56.7 % Lymphocytes (%) (Auto) 31.6 % Monocytes (%) (Auto) 8.6 % Eosinophils (%) (Auto) 2.2 % Basophils (%) (Auto) 0.9 % Neutrophils # (Auto) 4.2 TH/MM3 Lymphocytes # (Auto) 2.3 TH/MM3 Monocytes # (Auto) 0.6 TH/MM3 Eosinophils # (Auto) 0.2 TH/MM3 Basophils # (Auto) 0.1 TH/MM3 CBC Comment DIFF FINAL Differential Comment Laboratory Tests Test 10/06/17 06:03 10/07/17 04:25 Blood Urea Nitrogen 13 MG/DL 9 MG/DL Creatinine 0.82 MG/DL 0.81 MG/DL Random Glucose 99 MG/DL 111 MG/DL Total Protein 7.3 GM/DL 7.4 GM/DL Albumin 3.0 GM/DL 3.1 GM/DL Calcium Level 8.5 MG/DL 8.6 MG/DL Alkaline Phosphatase 264 U/L 267 U/L Aspartate Amino Transf (AST/SGOT) 252 U/L 231 U/L Alanine Aminotransferase (ALT/SGPT) 347 U/L 337 U/L Total Bilirubin 0.6 MG/DL 0.6 MG/DL Sodium Level 138 MEQ/L 140 MEQ/L Potassium Level 4.0 MEQ/L 3.7 MEQ/L Chloride Level 103 MEQ/L 104 MEQ/L Carbon Dioxide Level 29.0 MEQ/L 28.8 MEQ/L Anion Gap 6 MEQ/L 7 MEQ/L Estimat Glomerular Filtration Rate 73 ML/MIN 74 ML/MIN Total Creatine Kinase 18 U/L Imaging Last Impressions Upper Extremity Ultrasound 09/29/17 0000 Signed Impressions: Service Date/Time: September 14:51 - CONCLUSION: No venous thrombosis is identified within either upper extremity. Eliezer Gonzalez MD Thoracic Spine MRI 4/12/18 0000 Signed Impressions: Service Date/Time: September 17:54 - CONCLUSION: 1. Mild compression fracture of the T3 vertebral body again noted with invagination of the superior endplate. The previous noted marrow edema and enhancement have resolved. 2. The vertebral bodies remain intact. Adolfo Dinh MD Lumbar Spine MRI 09/29/17 0000 Signed Impressions: Service Date/Time: September 17:54 - CONCLUSION: 1. No evidence of osteomyelitis in the lumbar spine 2. Disc bulge at L4-5 with borderline central canal stenosis without significant change. 3. Degenerative changes involving the lower facet joints with small synovial cyst noted along the medial left L4-5 facet joint with mild mass effect on the left side of the thecal sac. 4. Degenerative disc change at L4-5 and L5-S1 levels. Adolfo Dinh MD Cervical Spine MRI 09/29/17 0000 Signed Impressions: Service Date/Time: September 17:54 - CONCLUSION: 1. Abnormal marrow signal and diffuse enhancement of the C7 and T1 vertebral bodies which is increased from the prior study. The abnormality extends into the pedicles bilaterally and is most characteristic of osteomyelitis. 2. Milder abnormal signal and enhancement is noted in the C3 and C4 vertebral bodies without significant change. 3. An anterior extradural defect is again noted at the C3- 4 level with mass effect on the anterior thecal sac and mild flattening of the anterior cord. This is not significantly changed and demonstrates no enhancement. This appears represent a disc protrusion. 4. Abnormal dural enhancement at the C6-7 level surrounding the thecal sac as well as abnormal enhancement and soft tissue swelling along the anterior prevertebral soft tissues. This is not significantly changed. No new epidural abscess is identified. Adolfo Dinh MD Chest X-Ray 09/28/172047 Signed Impressions: Service Date/Time: Thursday, September 28, 2017 20:55 - CONCLUSION: 1. No active disease. Right PICC line tip in superior vena cava. Jabier Velazquez MD Physical Exam GENERAL: This is a well-nourished, well-developed female patient, INAD. Awake and alert. Sitting up in bed. SKIN: Warm and dry. No rash. HEAD: Atraumatic. Normocephalic. EYES: Pupils equal round and reactive. Extraocular motions intact. No scleral icterus. No injection or drainage. ENT: Nose without bleeding or purulent drainage. Airway patent. MMM. No oral thrush. NECK: Trachea midline. Supple, nontender, no meningeal signs. CARDIOVASCULAR: Regular rate and rhythm. RESPIRATORY: Clear to auscultation. Breath sounds equal bilaterally. GASTROINTESTINAL: Abdomen soft, non-tender, nondistended. (+)BS. No RUQ tenderness to palpation, no hepatomegaly. MUSCULOSKELETAL: Extremities without clubbing, cyanosis, or edema. EXTREMITIES: No obvious deformities. No cyanosis or edema noted BLE. No calf tenderness. NEUROLOGICAL: Awake and alert. Able to move all extremities spontaneously. No focal neuro deficit appreciated. PSYCHIATRIC: Calm and cooperative. PICC line site with no e.o infection. (Aura Armijo) Assessment & Plan Remarks SIRS rule out sepsis. - better Cervical discitis, possible osteomyelitis ?previous T spine infection given imaging findings of previous compression frx T3 and prev edema/enhancement that has resolved -On IV Dapto -possibly not MRSA infx 2/2 failed Vanco or new pathogen -NS following, no surgical intervention, not able to do CT guided bx 2/2 location -neck pain and RUE tingling improving Fever in a patient with PICC on IV Antibiotics: Vanco IV related drug fevers, worsening Discitis. Pyuria, UCX positive for E Coli and K pneumonia -asymptomatic -suspect contaminated specimen 2/2 multiple organisms IV drug abuse Hep C Abnormal LFTs, persistently elevated -No RUQ pain on exam. No N/V. -Hep C positive 08/19/17 -liver US 08/30/17 no acute findings -GI following, Quant HCV pending, liver US pending. On Remeron, possibly contributing to hepatic dysfxn Recs Continue IV Daptomycin Etiology of the progression of the C-spine abnormality still unclear: ?failed Vanco, or new pathogen Monitor CPK while on Cubicin - repeat CK 18 on 10/06/17 Continue to trend LFTs Avoid hepatotoxic agents Quant HCV and liver US pending Discussed with Dr. Trevino, discontinue Remeron GS consulted, awaiting recommendations prior to discharge planning Further recommendations to follow (Aura Armijo) Remarks The exam, history, and the medical decision-making described in the above note were completed with the assistance of the mid-level provider. I reviewed and agree with the findings presented. I attest that I had a [id number] encounter with the patient on the same day, and personally performed and documented my assessment and findings in the medical record. Denies any new complains except tingling occ in RUE No N/V/D No rash Exam: Non tender abd A/P dw about abnormal LFTs: possible remeron and oxycodone. Both being stopped patient to follow with as outpt Outpatient MRI in 4 weeks needed. Will dw Case management and arrange. If LFTs continue to following increasing trend despite stopping oxycodone and remeron she may need new regimen. Patient counseled to avoid abusing PICC line for agents other than prescribed meds. Patient counseled to come back to hospital if new neurological symptoms as she could not have high neck cervical biopsy and is empirically being treated with Dapto as new lesions developed on Vanco IV. Post hospital infusion orders in chart. will sign off please call back if any change in clinical condition or questions. (Radha Tierney MD) Aura Armijo Oct 07, 2017 08:59 Radha Tierney MD Oct 07, 2017 13:55
--- NOTE | 2017-10-07 09:27 | RADRPT ---
EXAM DATE/TIME: 10/07/2017 08:19 [facility] COMPARISON: No previous studies available for comparison. INDICATIONS : Hepatitis C. Increased lab values. MEDICAL HISTORY : IV substance use. Hepatitis C. Asthma. Ulcer. MRSA. SURGICAL HISTORY : Cholecystectomy. Hernia repair. Fistula repair. ACL repair. ENCOUNTER: Subsequent ACUITY: 1 month PAIN SCORE: 0/10 LOCATION: Abdomen. MEASUREMENTS: LIVER: 14.4 cm length COMMON DUCT: 8 mm RIGHT KIDNEY: 10.7 x 4.2 x 4.8 cm SPLEEN: 12.7 cm length FINDINGS: LIVER: Normal echotexture without focal lesion or ductal dilatation. COMMON DUCT: Mildly prominent consistent with reservoir effect post cholecystectomy GALLBLADDER: Surgically absent PANCREAS: The visualized portions are within normal limits. RIGHT KIDNEY: No hydronephrosis, stone or mass. SPLEEN: Borderline size. No focal lesion CONCLUSION: Borderline splenic size. Otherwise focal unremarkable Eliezer Newell MD on October 07, 2017 at 9:15 Board Certified Radiologist. This report was verified electronically.
--- NOTE | 2017-10-07 10:26 | HHI.GIFU ---
Subjective Remarks Pt resting in bed Denies nausea, vomiting, abdominal pain Reports BM yesterday Tolerating PO (Naheed Rubin) Objective Vitals I&O Vital Signs Date Time Temp Pulse Resp B/P (MAP) Pulse Ox O2 Delivery O2 Flow Rate FiO2 10/07/17 08:00 97.8 75 17 122/68 (86) 97 10/07/17 00:00 97.4 73 18 127/75 (92) 96 10/06/17 20:00 97.7 78 20 151/80 (103) 100 10/06/17 16:00 97.7 79 16 112/61 (78) 97 10/06/17 12:00 97.8 84 16 124/79 (94) 98 I/O 10/06/17 10/06/17 10/06/17 10/07/17 10/07/17 10/07/17 07:00 15:00 23:00 07:00 15:00 23:00 Intake Total 360 ml 740 ml 360 ml Balance 360 ml 740 ml 360 ml Intake Oral 360 ml 640 ml 360 ml IV Total 100 ml # Voids 3 3 3 # Bowel Movements 0 1 0 Laboratory Laboratory Tests Test 10/07/17 04:25 White Blood Count 7.3 Red Blood Count 4.10 Hemoglobin 12.1 Hematocrit 35.8 Mean Corpuscular Volume 87.5 Mean Corpuscular Hemoglobin 29.5 Mean Corpuscular Hemoglobin Concent 33.7 Red Cell Distribution Width 14.3 Platelet Count 248 Mean Platelet Volume 8.3 Neutrophils (%) (Auto) 56.7 Lymphocytes (%) (Auto) 31.6 Monocytes (%) (Auto) 8.6 Eosinophils (%) (Auto) 2.2 Basophils (%) (Auto) 0.9 Neutrophils # (Auto) 4.2 Lymphocytes # (Auto) 2.3 Monocytes # (Auto) 0.6 Eosinophils # (Auto) 0.2 Basophils # (Auto) 0.1 CBC Comment DIFF FINAL Differential Comment Blood Urea Nitrogen 9 Creatinine 0.81 Random Glucose 111 Total Protein 7.4 Albumin 3.1 Calcium Level 8.6 Alkaline Phosphatase 267 Aspartate Amino Transf (AST/SGOT) 231 Alanine Aminotransferase (ALT/SGPT) 337 Total Bilirubin 0.6 Sodium Level 140 Potassium Level 3.7 Chloride Level 104 Carbon Dioxide Level 28.8 Anion Gap 7 Estimat Glomerular Filtration Rate 74 Date/Time Source Procedure Growth Status 09/29/17 17:18 Blood Line Aerobic Blood Culture - Final NO GROWTH IN 5 DAYS Complete 09/29/17 17:18 Blood Line Anaerobic Blood Culture - Final NO GROWTH IN 5 DAYS Complete 09/30/17 12:10 Stool Stool Cryptosporidium Exam - Final NEGATIVE - NO CRYPTOSPORIDIUM ANTIGEN... Complete 09/30/17 12:10 Stool Stool Stool Pus (JAYLON) - Final NO WBC'S SEEN Complete 09/30/17 12:10 Stool Stool Giardia Antigen (JAYLON) - Final NEGATIVE - NO GIARDIA ANTIGEN DETECTE... Complete 09/28/17 21:30 Urine Catheterized Urine Urine Culture - Final Klebsiella Pneumoniae Escherichia Coli Complete Imaging Last Impressions Liver Ultrasound 10/07/17 0000 Signed Impressions: Service Date/Time: Saturday, October 07, 2017 08:19 - CONCLUSION: Borderline splenic size. Otherwise focal unremarkable Eliezer Newell MD Upper Extremity Ultrasound 09/29/17 0000 Signed Impressions: Service Date/Time: September 14:51 - CONCLUSION: No venous thrombosis is identified within either upper extremity. Eliezer Gonzalez MD Thoracic Spine MRI 09/29/17 0000 Signed Impressions: Service Date/Time: September 17:54 - CONCLUSION: 1. Mild compression fracture of the T3 vertebral body again noted with invagination of the superior endplate. The previous noted marrow edema and enhancement have resolved. 2. The vertebral bodies remain intact. Adolfo Dinh MD Lumbar Spine MRI 09/29/17 0000 Signed Impressions: Service Date/Time: September 17:54 - CONCLUSION: 1. No evidence of osteomyelitis in the lumbar spine 2. Disc bulge at L4-5 with borderline central canal stenosis without significant change. 3. Degenerative changes involving the lower facet joints with small synovial cyst noted along the medial left L4-5 facet joint with mild mass effect on the left side of the thecal sac. 4. Degenerative disc change at L4-5 and L5-S1 levels. Adolfo Dinh MD Cervical Spine MRI 09/29/17 0000 Signed Impressions: Service Date/Time: September 17:54 - CONCLUSION: 1. Abnormal marrow signal and diffuse enhancement of the C7 and T1 vertebral bodies which is increased from the prior study. The abnormality extends into the pedicles bilaterally and is most characteristic of osteomyelitis. 2. Milder abnormal signal and enhancement is noted in the C3 and C4 vertebral bodies without significant change. 3. An anterior extradural defect is again noted at the C3- 4 level with mass effect on the anterior thecal sac and mild flattening of the anterior cord. This is not significantly changed and demonstrates no enhancement. This appears represent a disc protrusion. 4. Abnormal dural enhancement at the C6-7 level surrounding the thecal sac as well as abnormal enhancement and soft tissue swelling along the anterior prevertebral soft tissues. This is not significantly changed. No new epidural abscess is identified. Adolfo Dinh MD Chest X-Ray 09/28/172047 Signed Impressions: Service Date/Time: Tuesday, September 28, 2017 20:55 - CONCLUSION: 1. No active disease. Right PICC line tip in superior vena cava. Jabier Velazquez MD Physical Exam HEENT: Normocephalic; atraumatic CHEST: Even/unlabored CARDIAC: RRR ABDOMEN: Soft, nondistended, nontender; bowel sounds active SKIN: Normal; no rash; no jaundice. MANAGER RESOURCE: No focal deficits; alert and oriented times three. (Naheed Rubin) Assessment and Plan Plan ASSESSMENT - Elevated LFTs- Trending up since admission On 10/07 --> AST-231 ALT-337 Alk phos-267 T bili0.6 US liver (10/07) --> Borderline splenic size. Otherwise focal unremarkable. Known history of Hepatitis C- genotype 3a- quant was 638,000 in August Does not have insurance, denies treatment Reports previous IVDU, last use was a year ago Denies ETOH, family history of liver issues, Tylenol, herbs, supplements Previous Liver DAVID in August: RICARDO, ASMA negative. Hepatitis A and B negative. T2Q-041 Ceruloplasmin-32 AMA < 10 AFP-2.8 Iron-75 TIBC-459 %sat-16.3 Ferritin-45 History of elevated alk phos- possible bone source - Osteomyelitis- Cervical spine. Leukocytosis resolved. Afebrile. ID following. PLAN - Hepatitis C treatment outpatient - Alk phos isoenzymes - Avoid hepatotoxins - GI will sign off, have pt follow up with GI after discharge Pt has been seen and examined by myself and Dr. Thomas and this note is written on her behalf (Naheed Rubin) Physician Comments seen, examined agree with above fu labs fu office if worsening lfts consider changing antibiotics, liver biopsy avoid hepatotoxics, etoh history of rectal bleeding for 17 years on/off.colonoscopy op hep c rx op , she will need to avoid any drug use (Suzy Thomas MD) Naheed Rubin Oct 07, 2017 10:26 Suzy Thomas MD Oct 07, 2017 14:56
[2017-10-07 12:00] VITALS: BP 138/83; PULSE 85; RESP 17; TEMP 98; O2SAT 98
--- NOTE | 2017-10-07 12:47 | HHI.PR ---
Subjective Remarks Follow-up osteomyelitis, elevated LFTs. The patient states that she feels better today. No abdominal pain. Still with occasional upper back pain, but less today. She wants to go home. Objective Vitals Vital Signs Date Time Temp Pulse Resp B/P (MAP) Pulse Ox O2 Delivery O2 Flow Rate FiO2 10/07/17 08:00 97.8 75 17 122/68 (86) 97 10/07/17 00:00 97.4 73 18 127/75 (92) 96 10/06/17 20:00 97.7 78 20 151/80 (103) 100 10/06/17 16:00 97.7 79 16 112/61 (78) 97 I/O 10/06/17 10/06/17 10/06/17 10/07/17 10/07/17 10/07/17 07:00 15:00 23:00 07:00 15:00 23:00 Intake Total 360 ml 740 ml 360 ml Balance 360 ml 740 ml 360 ml Intake Oral 360 ml 640 ml 360 ml IV Total 100 ml # Voids 3 3 3 # Bowel Movements 0 1 0 Result Diagram: 10/07/17 0425 10/07/17 0425 Imaging Last Impressions Liver Ultrasound 10/07/17 0000 Signed Impressions: Service Date/Time: Saturday, October 07, 2017 08:19 - CONCLUSION: Borderline splenic size. Otherwise focal unremarkable Eliezer Newell MD Upper Extremity Ultrasound 09/29/17 0000 Signed Impressions: Service Date/Time: September 14:51 - CONCLUSION: No venous thrombosis is identified within either upper extremity. Eliezer Gonzalez MD Thoracic Spine MRI 09/29/17 0000 Signed Impressions: Service Date/Time: September 17:54 - CONCLUSION: 1. Mild compression fracture of the T3 vertebral body again noted with invagination of the superior endplate. The previous noted marrow edema and enhancement have resolved. 2. The vertebral bodies remain intact. Adolfo Dinh MD Lumbar Spine MRI 09/29/17 0000 Signed Impressions: Service Date/Time: September 17:54 - CONCLUSION: 1. No evidence of osteomyelitis in the lumbar spine 2. Disc bulge at L4-5 with borderline central canal stenosis without significant change. 3. Degenerative changes involving the lower facet joints with small synovial cyst noted along the medial left L4-5 facet joint with mild mass effect on the left side of the thecal sac. 4. Degenerative disc change at L4-5 and L5-S1 levels. Adolfo Dinh MD Cervical Spine MRI 09/29/17 0000 Signed Impressions: Service Date/Time: September 17:54 - CONCLUSION: 1. Abnormal marrow signal and diffuse enhancement of the C7 and T1 vertebral bodies which is increased from the prior study. The abnormality extends into the pedicles bilaterally and is most characteristic of osteomyelitis. 2. Milder abnormal signal and enhancement is noted in the C3 and C4 vertebral bodies without significant change. 3. An anterior extradural defect is again noted at the C3- 4 level with mass effect on the anterior thecal sac and mild flattening of the anterior cord. This is not significantly changed and demonstrates no enhancement. This appears represent a disc protrusion. 4. Abnormal dural enhancement at the C6-7 level surrounding the thecal sac as well as abnormal enhancement and soft tissue swelling along the anterior prevertebral soft tissues. This is not significantly changed. No new epidural abscess is identified. Adolfo Dinh MD Chest X-Ray 09/28/172047 Signed Impressions: Service Date/Time: Thursday, September 28, 2017 20:55 - CONCLUSION: 1. No active disease. Right PICC line tip in superior vena cava. Jabier Velazquez MD Objective Remarks General: No acute distress. Heart: Regular rate and rhythm. No murmur. Lungs: Clear to auscultation bilaterally. No wheezes, rales, or rhonchi. Breathing is nonlabored. Abdomen: Soft, nontender, nondistended. Extremities: No lower extremity edema. Psych: Alert and oriented. Neuro: Normal speech. Procedures None Urinary Catheter: No Vascular Central Line Catheter: No A/P Assessment and Plan 1. Sepsis, osteomyelitis of the thoracic and cervical spine: Patient was on IV vancomycin as an outpatient. She had fever and worsening symptoms. Repeat MRI was consistent with osteomyelitis. Patient has been evaluated by neurosurgery, who did not feel there was a role for surgical intervention at this time. Continue daptomycin per infectious disease. Continue pain control. PICC line in place. 2. Bright red blood per rectum: Resolved. 3. Anemia: Likely secondary to chronic disease. H&H improved. 4. Hepatitis C, transaminitis: LFTs are elevated above her baseline. Monitor labs. Avoid hepatotoxic agents. Stop Remeron. Appreciate GI recommendations. Liver ultrasound is unremarkable. 5. IV drug abuse: Patient has been counseled. 6. Hypokalemia: Resolved. 7. UTI: Urine culture growing E. coli, Klebsiella. Patient is asymptomatic. No antibiotics per infectious disease. 8. Anxiety, panic attacks: Patient reports history of childhood trauma. Klonopin as needed. Appreciate psychiatry recommendations. 9. DVT prophylaxis: SCDs. Discussed with infectious disease ZAC Chavarria. Discharge Planning Pending infectious disease clearance, arrangement of antibiotics. Ayden Trevino MD Oct 07, 2017 12:47
[2017-10-07] MEDS ORDERED: TRAM50 PO (12:59)
[2017-10-07] MEDS ORDERED: CLON.5 PO (12:59)
--- NOTE | 2017-10-07 13:44 | HHI.FF ---
cc: Nancy Jefferson MD Infusion Therapy Location of Infusion Therapy: Ambulatory Infusion Therapy Order Patient Information Appointment Date: Oct 07, 2017 Patient Weight 61.9 kg Diagnosis: Diagnosis Discitis/osteomyelitis of spine. New lesions while on Vanco IV. Coded Allergies: No Known Allergies (Unverified Allergy, Unknown, 09/28/17) Administer Medication Daptomycin 750 mg IV every 24 hours Start Treatment: Oct 07, 2017 Stop Treatment: November 17, 2017 Additional Information Venous access: PICC Line Additional Instructions [x] Peripheral flush and dressing changes per protocol [x] Implanted port and central hot top liner: * Implanted port: 10 ml Normal Saline followed by 5 ml Heparin 100 units/ml Heparin flush after each use and monthly to maintain. [] May leave port accessed during therapy. [] May leave peripheral site accessed for duration of therapy. [x] If patient has SOB or respiratory distress, check oxygen saturation. If less than 90% or clinical signs of respiratory distress, administer oxygen at 2 L/min. via nasal cannula and notify physician. [x] Anaphylaxis/Reaction orders: * Stop infusion. * Keep IV line open with saline flush. * Notify physician. * Monitor vital signs every 15 minutes until symptoms resolve. * Check Oxygen saturation; Oxygen at 2 L/min. via nasal cannula if less than 90% or clinical signs of respiratory distress. * Administer diphenhydramine (Benadryl) 25 mg IV STAT, (unless patient has received as pre-med). May repeat once, if necessary. * Solu-Cortef 250 mg IVP over 30-60 seconds, use 100 mg vials for each dissolution. * Epinephrine (1mg/1 ml) 0.3 mg subcutaneously or IVP now with any signs of respiratory distress. * Check with physician for new additional pre-med orders if patient is re- challenged or re-treated. [x] May remove PICC line when treatment complete, after confirming with Physician. [x] If the patient is admitted to the hospital, the ED, or transferred via [facility] , complete transfer form including medication reconciliation order sheet. Laboratory Tests Weekly Labs: CBC w/diff, Creatinine, CRP, LFT's (Hepatic function test), Serum CK Levels Additional Information Please draw weekly labs, fax labs to the numbers below. Please call with abnormals, change in clinical condition or problems to: Dr.Tanuja Anderson or covering ID Physician Follow up appt: Follow up with PCP Follow up with other MDs as planned. Counseling: Counseled about medication side effects Counseled about PICC line care and hand hygiene. Radha Anderson MD Oct 07, 2017 13:44
--- NOTE | 2017-10-07 13:45 | HHI.FF ---
Infusion Therapy Patient Information Patient Weight 61.9 kg Diagnosis: Coded Allergies: No Known Allergies (Unverified Allergy, Unknown, 09/28/17) Additional Information Additional Instructions [x] Peripheral flush and dressing changes per protocol [x] Implanted port and central electric power line examiner: * Implanted port: 10 ml Normal Saline followed by 5 ml Heparin 100 units/ml Heparin flush after each use and monthly to maintain. [] May leave port accessed during therapy. [] May leave peripheral site accessed for duration of therapy. [x] If patient has SOB or respiratory distress, check oxygen saturation. If less than 90% or clinical signs of respiratory distress, administer oxygen at 2 L/min. via nasal cannula and notify physician. [x] Anaphylaxis/Reaction orders: * Stop infusion. * Keep IV line open with saline flush. * Notify physician. * Monitor vital signs every 15 minutes until symptoms resolve. * Check Oxygen saturation; Oxygen at 2 L/min. via nasal cannula if less than 90% or clinical signs of respiratory distress. * Administer diphenhydramine (Benadryl) 25 mg IV STAT, (unless patient has received as pre-med). May repeat once, if necessary. * Solu-Cortef 250 mg IVP over 30-60 seconds, use 100 mg vials for each dissolution. * Epinephrine (1mg/1 ml) 0.3 mg subcutaneously or IVP now with any signs of respiratory distress. * Check with physician for new additional pre-med orders if patient is re- challenged or re-treated. [x] May remove PICC line when treatment complete, after confirming with Physician. [x] If the patient is admitted to the hospital, the ED, or transferred via [facility] , complete transfer form including medication reconciliation order sheet. Radha Anderson MD Oct 07, 2017 13:45
[2017-10-07] MEDS ORDERED: SOLU250I IV PUSH (13:49)
[2017-10-07] MEDS ORDERED: DAPT500P IV (13:49)
[2017-10-07] MEDS ORDERED: EPIN1INJ21 SQ (13:49)
[2017-10-07] MEDS ORDERED: EPIN1INJ21 IV PUSH (13:49)
--- NOTE | 2017-10-07 14:39 | HHI.DCPOC ---
Discharge Care Plan Diagnosis: (1) Adjustment disorder with mixed anxiety and depressed mood (2) Osteomyelitis (3) Sepsis (4) History of intravenous drug abuse Goals to Promote Your Health * To prevent worsening of your condition and complications * To maintain your health at the optimal level Directions to Meet Your Goals Take your medications as prescribed Follow your dietary instruction Follow activity as directed Keep your appointments as scheduled Take your immunizations and boosters as scheduled If your symptoms worsen call your PCP, if no PCP go to Urgent Care Center or Emergency Room Smoking is Dangerous to Your Health. Avoid second hand smoke Call the 24-hour hour crisis hotline for domestic abuse at Ayden Trevino MD Oct 07, 2017 14:39
--- NOTE | 2017-10-07 15:57 | HHI.DS ---
Discharge Summary Admission Date Sep 28, 2017 at 23:51 Discharge Date: Oct 07, 2017 Admitting Diagnosis sepsis,osteomyelitis,hx IVDA (1) History of intravenous drug abuse ICD Code: Z87.898 - Personal history of other specified conditions Status: Acute (2) Sepsis ICD Code: A41.9 - Sepsis, unspecified organism (3) Osteomyelitis ICD Code: M86.9 - Osteomyelitis, unspecified (4) Adjustment disorder with mixed anxiety and depressed mood ICD Code: F43.23 - Adjustment disorder with mixed anxiety and depressed mood Procedures None Brief History - From Admission 52-year-old female with a past medical history significant for IV drug abuse, hepatitis C and recent treatment of osteomyelitis of the thoracic and cervical spine presents to the emergency department for evaluation of fevers and increased back and neck pain. The patient has a PICC line in place and is on home infusions of vancomycin twice daily. She denies any recent drug use. The patient states that she had a fever of 104 2 days ago taken by a forehead thermometer. She reports that she had diarrhea yesterday with increasing pain in her back and neck. Today the patient reports bright red blood per rectum, with associated nausea. She reports a fever of 102. She reports compliance with her home vancomycin which she states is scheduled to stop on Tuesday. She denies chest pain or shortness of breath. No weakness or lateralizing signs/ symptoms. CBC/BMP: 10/07/17 0425 10/07/17 0425 Significant Findings Laboratory Tests Test 10/05/17 06:40 10/06/17 06:03 10/07/17 04:25 10/07/17 11:30 Monocytes (%) (Auto) 8.5 % (0.0-8.0) 8.6 % (0.0-8.0) Albumin 3.0 GM/DL (3.4-5.0) 3.0 GM/DL (3.4-5.0) 3.1 GM/DL (3.4-5.0) Alkaline Phosphatase 222 U/L (45-117) 264 U/L (45-117) 267 U/L (45-117) Aspartate Amino Transf (AST/SGOT) 270 U/L (15-37) 252 U/L (15-37) 231 U/L (15-37) Alanine Aminotransferase (ALT/SGPT) 346 U/L (10-53) 347 U/L (10-53) 337 U/L (10-53) Anion Gap 4 MEQ/L (5-15) Estimat Glomerular Filtration Rate 82 ML/MIN (>89) 73 ML/MIN (>89) 74 ML/MIN (>89) Total Creatine Kinase 18 U/L (26-192) Random Glucose 111 MG/DL (74-106) Imaging Last Impressions Liver Ultrasound 10/07/17 0000 Signed Impressions: Service Date/Time: Saturday, October 07, 2017 08:19 - CONCLUSION: Borderline splenic size. Otherwise focal unremarkable Eliezer Newell MD Upper Extremity Ultrasound 09/29/17 0000 Signed Impressions: Service Date/Time: September 14:51 - CONCLUSION: No venous thrombosis is identified within either upper extremity. Eliezer Gonzalez MD Thoracic Spine MRI 09/29/17 0000 Signed Impressions: Service Date/Time: September 17:54 - CONCLUSION: 1. Mild compression fracture of the T3 vertebral body again noted with invagination of the superior endplate. The previous noted marrow edema and enhancement have resolved. 2. The vertebral bodies remain intact. Adolfo Dinh MD Lumbar Spine MRI 09/29/17 0000 Signed Impressions: Service Date/Time: September 17:54 - CONCLUSION: 1. No evidence of osteomyelitis in the lumbar spine 2. Disc bulge at L4-5 with borderline central canal stenosis without significant change. 3. Degenerative changes involving the lower facet joints with small synovial cyst noted along the medial left L4-5 facet joint with mild mass effect on the left side of the thecal sac. 4. Degenerative disc change at L4-5 and L5-S1 levels. Adolfo Dinh MD Cervical Spine MRI 09/29/17 0000 Signed Impressions: Service Date/Time: September 17:54 - CONCLUSION: 1. Abnormal marrow signal and diffuse enhancement of the C7 and T1 vertebral bodies which is increased from the prior study. The abnormality extends into the pedicles bilaterally and is most characteristic of osteomyelitis. 2. Milder abnormal signal and enhancement is noted in the C3 and C4 vertebral bodies without significant change. 3. An anterior extradural defect is again noted at the C3- 4 level with mass effect on the anterior thecal sac and mild flattening of the anterior cord. This is not significantly changed and demonstrates no enhancement. This appears represent a disc protrusion. 4. Abnormal dural enhancement at the C6-7 level surrounding the thecal sac as well as abnormal enhancement and soft tissue swelling along the anterior prevertebral soft tissues. This is not significantly changed. No new epidural abscess is identified. Adolfo Dinh MD Chest X-Ray [id number] Signed Impressions: Service Date/Time: Thursday, September 28, 2017 20:55 - CONCLUSION: 1. No active disease. Right PICC line tip in superior vena cava. Jabier Velazquez MD PE at Discharge General: No acute distress. Heart: Regular rate and rhythm. No murmur. Lungs: Clear to auscultation bilaterally. No wheezes, rales, or rhonchi. Breathing is nonlabored. Abdomen: Soft, nontender, nondistended. Extremities: No lower extremity edema. Psych: Alert and oriented. Neuro: Normal speech. Hospital Course The patient was admitted for further evaluation and management of sepsis with osteomyelitis of the thoracic and cervical spine. Infectious disease and neurosurgery were consulted. Echocardiogram did not show any evidence of endocarditis. Neurosurgery did not feel the patient needed surgical intervention at this time. Psychiatry was consulted for management of anxiety. Gastroenterology was consulted for evaluation of elevated LFTs. Further workup was to be done as an outpatient. The patient improved clinically throughout the hospitalization. Arrangements were made for outpatient IV antibiotics per infectious disease recommendations. She was felt to be stable for discharge home. Pt Condition on Discharge: Stable Discharge Disposition: Discharge Home Discharge Time: > 30 minutes Discharge Instructions DIET: Follow Instructions for: As Tolerated, No Restrictions Activities you can perform: Regular-No Restrictions Follow up Referrals: Gastroenterology - 1 Week with Suzy Thomas MD PCP Follow-up - 1 Week with [facility] Psychiatry Adult - 2 Weeks New Medications: Daptomycin Inj (Cubicin Inj) 500 Mg Bag 750 MG IV Q24H for Infection for 42 Days, BAG 0 Refills Must dilute in appropriate IV Fluid prior to administration Epinephrine Inj (Epinephrine Inj) 1 Mg/Ml (1 Ml) Inj 0.3 MG IV PUSH ONCE PRN for ALLERGIC REACTION, #1 VIAL Epinephrine Inj (Epinephrine Inj) 1 Mg/Ml (1 Ml) Inj 0.3 MG SQ ONCE PRN for ALLERGIC REACTION, #1 VIAL Give with any signs of respiratory distress. Hydrocortisone Inj (Solu-Cortef Inj) 250 Mg/2 Ml Inj 250 MG IV PUSH ONCE PRN for ALLERGIC REACTION, #1 VIAL 0 Refills Give over 30-60 seconds. Clonazepam (Klonopin) 0.5 Mg Tab 0.5 MG PO Q8HR PRN for anxiety, #10 TAB 0 Refills Tramadol (Ultram) 50 Mg Tab 50 MG PO Q4H PRN for pain 3-10 for 3 Days, #18 TAB 0 Refills Continued Medications: Baclofen (Baclofen) 10 Mg Tab 5 MG PO Q8HR for Pain Management, #20 TAB 0 Refills Lansoprazole (Prevacid) 15 Mg Capdr 15 MG PO DAILY, CAP 0 Refills Discontinued Medications: Epinephrine Inj (Epinephrine Inj) 1 Mg/Ml (1 Ml) Inj 0.3 MG IV PUSH ONCE PRN for ALLERGIC REACTION, #1 VIAL Epinephrine Inj (Epinephrine Inj) 1 Mg/Ml (1 Ml) Inj 0.3 MG SQ ONCE PRN for ALLERGIC REACTION, #1 VIAL Give with any signs of respiratory distress. Hydrocortisone Inj (Solu-Cortef Inj) 250 Mg/2 Ml Inj 250 MG IV PUSH ONCE PRN for ALLERGIC REACTION, #1 VIAL 0 Refills Give over 30-60 seconds. Oxycodone HCl/Acetaminophen (Oxycodone-Acetaminophen 5-325) 5 Mg-325 Mg Tablet 1 TAB PO Q6H PRN for pain, #15 TAB 0 Refills Tramadol (Tramadol) 50 Mg Tab 50 MG PO Q6H PRN for PAIN, #20 TAB 0 Refills Tramadol (Tramadol) 50 Mg Tab 50 MG PO Q6H PRN for PAIN, #20 TAB 0 Refills Tramadol (Tramadol) 50 Mg Tab 50 MG PO Q6H PRN for PAIN, #20 TAB 0 Refills Vancomycin Inj (Vancomycin Inj) 10 Gram Inj 1500 MG IV Q12HR for Infection for 28 Days, VIAL Ayden Trevino MD Oct 07, 2017 15:57
[2017-10-07] MEDS: SODIUM CHLORIDE 0.9% IV SCH (16:02)
[2017-10-07] MEDS: DAPTOMYCIN IV SCH (16:02)
[2017-10-08] MEDS ORDERED: DAPT250I IV (07:51)
[2017-10-08] MEDS ORDERED: SOLU250I IV PUSH (08:56)
[2017-10-08] MEDS ORDERED: EPIN1INJ17 IV PUSH (08:56)
[2017-10-08] MEDS ORDERED: EPIN1INJ17 SQ (08:56)
[2017-10-11 23:53] LABS: ALK PHOS BONE (ISOENZYMES) 28 % (28-66); ALK PHOS INTESTINE (ISOENZYME) 18 % (1-24); ALK PHOS LIVER (ISOENZYME) 54 % (25-69); ALK PHOS PLACENTAL ISOENZYME 0 % (0)
== END 2017-10-07 18:23 | disposition home or self-care (01) | DRG 872 ==
LOC: NEPD 19:05 → NEDA 23:51 → NEDH 09-29 07:17 → N07A 09-29 14:10
PROVIDERS: ADMIT Family Medicine; ATTEND Family Medicine
DX: A41.9 Sepsis, unspecified organism (principal); Z99.81 Dependence on supplemental oxygen; M46.24 Osteomyelitis of vertebra, thoracic region; M46.22 Osteomyelitis of vertebra, cervical region; K62.5 Hemorrhage of anus and rectum; N39.0 Urinary tract infection, site not specified; M46.42 Discitis, unspecified, cervical region; B19.20 Unspecified viral hepatitis C without hepatic coma; J45.909 Unspecified asthma, uncomplicated; D63.8 Anemia in other chronic diseases classified elsewhere; E87.6 Hypokalemia; B96.20 Unspecified Escherichia coli [E. coli] as the cause of diseases classified elsewhere; G47.00 Insomnia, unspecified; F19.11 Other psychoactive substance abuse, in remission; F41.0 Panic disorder [episodic paroxysmal anxiety]; F43.23 Adjustment disorder with mixed anxiety and depressed mood; F17.210 Nicotine dependence, cigarettes, uncomplicated; Z62.810 Personal history of physical and sexual abuse in childhood
CPT/HCPCS: 71045; 72156; 72157; 72158; 76705; 80048; 80053; 80202; 80307; 81001; 82550; 83605; 83735; 84080; 85007; 85025; 85027; 85610; 85730; 86140; 87040; 87077; 87086; 87186; 87205; 87328; 87329; 87493; 87522; 93005; 93308; 93970; 96360; 96361; A9579; J0878; J2060; J3370; J7030; J7050

== ENCOUNTER 2017-10-26 19:31 | Inpatient (IN) | payer SELFPAY ==
[~2017-10-26] VITALS: Ht 157.5 cm; Wt 57.9 kg
[~2017-10-26 19:31] MED LIST changes: +CLON.5 PO; +DAPT250I IV; +EPIN1INJ17 IV PUSH; +EPIN1INJ17 SQ; -EPIN1INJ21 IV PUSH; -EPIN1INJ21 SQ; -OXYC1TAB63 PO; -OXYGENDME NAS.CANULA; +TRAM50 PO; -TRAM50TA PO; -VANC10IN IV
[2017-10-26 20:52] VITALS: BP 152/66; PULSE 109; RESP 16; TEMP 98.7; O2SAT 97
[2017-10-26 21:35] VITALS: TEMP 102.4
[2017-10-26] MEDS ORDERED: SODIUM CHLOR 0.9% 1000 ML INJ 1,000 ML IV ONE (21:45)
[2017-10-26] MEDS ORDERED: KETOROLAC TROMETHAMINE 30 MG/ML (IVP) VIAL IV PUSH ONE (21:45)
--- NOTE | 2017-10-26 22:16 | RADRPT ---
EXAM DATE/TIME: 10/26/2017 21:58 [facility] COMPARISON: No previous studies available for comparison. INDICATIONS : Bilateral lower rib pain. Patient fell tonight. MEDICAL HISTORY : None. SURGICAL HISTORY : None. ENCOUNTER: Initial ACUITY: 1 day PAIN SCORE: 9/10 LOCATION: Bilateral lower chest FINDINGS: Multiple views of both ribs were performed. There is no evidence of displaced fracture. No destruct denae lesions or areas of periosteal thickening are seen. Expiratory view of the chest is negative for pneumothorax. The mediastinal structures are midline. Clips are seen in the right upper quadrant the abdomen presumably from prior cholecystectomy. There i s a PICC line in place from the right arm. There is a dextrocurvature of the upper thoracic spine and a levocurvature of the lower thoracic spine. CONCLUSION: No acute disease. Eliezer Bryson MD on October 26, 2017 at 22:12 Board Certified Radiologist. This report was verified electronically.
[2017-10-26 22:19] LABS: AUTOMATED NEUTROPHIL # 17.3 TH/MM3 (1.8-7.7); BASOPHIL % 0.1 % (0.0-2.0); HEMATOCRIT 32.4 % (35.0-46.0); HEMOGLOBIN 10.8 GM/DL (11.6-15.3); LYMPH % 7.4 % (9.0-44.0); LYMPHOCYTE # 1.5 TH/MM3 (1.0-4.8); MEAN CELL VOLUME 84.7 FL (80.0-100.0); MEAN CORPUSCULAR HEMOGLOBIN 28.2 PG (27.0-34.0); MEAN CORPUSCULAR HGB CONC 33.3 % (32.0-36.0); MEAN PLATELET VOLUME 8.4 FL (7.0-11.0); MONO % 8.6 % (0.0-8.0); MONOCYTE # 1.8 TH/MM3 (0-0.9); NEUT % 83.9 % (16.0-70.0); PLATELET COUNT 175 TH/MM3 (150-450); RED BLOOD COUNT 3.82 MIL/MM3 (4.00-5.30); WHITE BLOOD COUNT 20.6 TH/MM3 (4.0-11.0)
[2017-10-26 22:34] LABS: ALBUMIN 3.1 GM/DL (3.4-5.0); AST (GOT) 38 U/L (15-37); BICARBONATE 25.9 MEQ/L (21.0-32.0); BLOOD UREA NITROGEN 9 MG/DL (7-18); CALCIUM 8.5 MG/DL (8.5-10.1); CHLORIDE 98 MEQ/L (98-107); CREATININE 0.91 MG/DL (0.50-1.00); GLOMERULAR FILTRATION RATE 65 ML/MIN (>89); GLUCOSE,RANDOM 108 MG/DL (74-106); SODIUM (NA) 134 MEQ/L (136-145)
[2017-10-26 22:43] LABS: ALKALINE PHOSPHATASE 140 U/L (45-117); ALT (GPT) 41 U/L (10-53); TOTAL BILIRUBIN ADULT 1.5 MG/DL (0.2-1.0); TOTAL PROTEIN 7.9 GM/DL (6.4-8.2)
[2017-10-26] MEDS ORDERED: LORazepam 2 MG/ML VIAL IV PUSH ONE (23:15)
[2017-10-27] VITALS (7 sets, daily range): BP systolic 98–141; BP diastolic 53–68; PULSE 89–107; RESP 16–20; TEMP 98.1–99.1; O2SAT 94–100
--- NOTE | 2017-10-27 00:20 | RADRPT ---
EXAM DATE/TIME: 10/26/2017 23:19 [facility] COMPARISON: No previous studies available for comparison. INDICATIONS : Osteomyelitis. MEDICAL HISTORY : IV substance use. Hepatitis C. Asthma. Ulcer. MRSA. SURGICAL HISTORY : Cholecystectomy. Hernia repair. Fistula repair. ACL repair. ENCOUNTER: Initial ACUITY: 1 day PAIN SCORE: 0/10 LOCATION: CERVICAL TECHNIQUE: Multiplanar, multisequence MRI examination of the cervical spine was performed. FINDINGS: Study is motion degraded. Abnormal marrow signal again seen of the C3, C4, C7 and T1 vertebral bodies , similar to the prior study. Localized marrow edema posterior coming inferior corner of the C6 verte bral body, especially towards the left, is also not significantly changed. Vertebral bodies have norm al height. A few millimeters of chronic/degenerative appearing retrolisthesis at C3/C4 is unchanged. No perceptible epidural abscess but sensitivity in detecting one as considerably decreased. There is some residual soft tissue edema anteriorly and towards the right from C6-T2. Broad posterior disc osteophyte complex contributing to mild to moderate spinal stenosis again noted at C3/C4. CONCLUSION: Motion degraded study. The cord is not well evaluated. Persistent abnormal marrow signal that could r epresent osteomyelitis in the proper clinical setting of C3, C4, C6, C7 and T1, all not significantly changed. No pathologic fracture or definite epidural abscess. Anterior and lateral paraspinous soft tissue inflammatory changes are again seen from C6-T2 but improved in the interim. Eliezer Miller MD on October 27, 2017 at 0:10 Board Certified Radiologist. This report was verified electronically.
--- NOTE | 2017-10-27 00:56 | RADRPT ---
EXAM DATE/TIME: 10/26/2017 23:19 [facility] COMPARISON: MRI THORACIC SPINE W & W/O CONTRAST, September 29, 2017, 17:54. INDICATIONS : Osteomyelitis. MEDICAL HISTORY : IV substance use. Hepatitis C. Asthma. Ulcer. MRSA SURGICAL HISTORY : Cholecystectomy. Hernia repair. Fistula repair. ACL repair. ENCOUNTER: Initial ACUITY: 1 day PAIN SCORE: 0/10 LOCATION: THORACIC TECHNIQUE: Multiplanar multisequence MRI of the thoracic spine was performed. FINDINGS: Scoliosis and mildly exaggerated kyphosis of the thoracic spine noted. There is marrow edema of the T 1 vertebral body and please refer to the cervical spine MRI report. Other thoracic spine vertebral duncan dies have normal signal. Mild, chronic superior endplate compression deformity of T3 again seen. Ther e is no acute fracture of the thoracic spine. There no subluxations. A syrinx has developed of the upper thoracic cord and also appears to involve the lower cervical cord as well but is less conspicuous there related to motion artifact. The syrinx is on the order of 1-2 mm diameter. Perivertebral soft tissue edema/mildly organized fluid anteriorly and laterally again noted from C6-T 2, modestly improved in the interim. No new or other paravertebral soft tissue abnormalities are demo nstrated. CONCLUSION: 1. 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 2. No significant change abnormal marrow signal of the T1 vertebral body. Other thoracic vertebral duncan dies have normal signal. There is a chronic mild compression fracture of T3 again noted. No acute fra cture. 3. Modestly improved perivertebral soft tissue inflammatory changes from C6-T2. No new or other parav ertebral soft tissue abnormalities are demonstrated of the thoracic spine. There is no evidence of a thoracic region epidural abscess. 4. S-shaped thoracolumbar curvature again noted. No subluxations. Eliezer Miller MD on October 27, 2017 at 0:47 Board Certified Radiologist. This report was verified electronically.
[2017-10-27] MEDS ORDERED: cefTRIAXone INJ 2,000 MG in SODIUM CHLORIDE 0.9% INJ 100 ML IV ONE (01:45)
--- NOTE | 2017-10-27 03:06 | PD ---
HPI Chief Complaint: Fever Time Seen by Provider: 21:25 Travel History International Travel<30 days: No Contact w/Intl Traveler<30days: No Traveled to known affect area: No History of Present Illness HPI Patient is a 52 year old female who comes in complaining of chest pain, fevers, and back pain. She has history of IVDA, but says she has not injected herself for several months. She is currently receiving Daptomycin through a PICC line for osteomyelitis of her C-spine. She says the fever started a few days ago. She has been taking Tylenol, which has helped with the fever. She says she started to have rib pain on Tuesday after bending over to pick up man a hose. She says the pain goes through both sides of her chest. She denies difficulty breathing. She denies nausea or vomiting. Severity is mild to moderate. PFSH Past Medical History Arthritis: Yes Asthma: Yes Cancer: Yes (CERVICAL) Cardiovascular Problems: No Diabetes: No Diminished Hearing: No Endocrine: No Gastrointestinal Disorders: Yes GERD: Yes Genitourinary: Yes Hiatal Hernia: Yes (umbilical ) Immune Disorder: No Implanted Vascular Access Dvce: Yes Musculoskeletal: Yes Neurologic: Yes Psychiatric: No Reproductive: No Respiratory: Yes Integumentary: No Migraines: Yes Ulcer: Yes ?: Not Menopausal: Yes Past Surgical History Abdominal Surgery: Yes (HERNIA,GALLBLADDER) Body Medical Devices: IUD Cardiac Surgery: No Cholecystectomy: Yes Genitourinary Surgery: No Gynecologic Surgery: Yes (FISTULA, spot removed from cervix) Neurologic Surgery: No Thoracic Surgery: No Other Surgery: Yes (fistula repair, rectal/ vaginal repair post ) Social History Alcohol Use: No Tobacco Use: Yes (1/2 ppd) Substance Use: Yes Allergies-Medications (Allergen,Severity, Reaction): Coded Allergies: No Known Allergies (Verified Allergy, Unknown, 10/26/17) Reported Meds & Prescriptions Reported Meds & Active Scripts Active Baclofen 10 Mg Tab 5 Mg PO Q8HR Reported Daptomycin Inj (Daptomycin) 500 Mg Vial 750 Mg IV Q24H Must dilute in appropriate IV Fluid prior to administration Review of Systems Except as stated in HPI: all other systems reviewed are Neg General / Constitutional: Positive: Fever HENT: No: Headaches Cardiovascular: Positive: Chest Pain or Discomfort Respiratory: No: Shortness of Breath Gastrointestinal: No: Abdominal Pain Musculoskeletal: Positive: Pain Skin: No Rash, No Change in Pigmentation Neurologic: No: Weakness, Dizziness, Sensory Disturbance Physical Exam Narrative GENERAL: Awake and alert, in no acute distress. SKIN: Focused skin assessment warm/dry. HEAD: Atraumatic. Normocephalic. EYES: Pupils equal and round. No scleral icterus. EOMI. ENT: Mucous membranes pink and moist. NECK: Trachea midline. No JVD. CARDIOVASCULAR: Regular rate and rhythm. No murmur appreciated. Tender to palpation of the right lateral ribs. RESPIRATORY: No accessory muscle use. Clear to auscultation. Breath sounds equal bilaterally. GASTROINTESTINAL: Abdomen soft, non-tender, nondistended. MUSCULOSKELETAL: No obvious deformities. No clubbing. No cyanosis. No edema. No tenderness to the spine. PICC line in place to right arm, no surrounding erythema or warmth. NEUROLOGICAL: Awake and alert. No obvious cranial nerve deficits. Motor grossly within normal limits. Normal speech. PSYCHIATRIC: Appropriate mood and affect; insight and judgment normal. Data Data Last Documented VS Vital Signs Date Time Temp Pulse Resp B/P (MAP) Pulse Ox O2 Delivery O2 Flow Rate FiO2 10/27/17 02:24 90 16 123/67 (85) 100 Room Air 10/26/17 21:35 102.4 Orders Orders Iv Access Insert/Monitor (10/26/17 21:37) Complete Blood Count With Diff (10/26/17 21:37) Comprehensive Metabolic Panel (10/26/17 21:37) Westergren Sedimentation Rate (10/26/17 21:37) C-Reactive Protein (Crp) (10/26/17 21:37) Ketorolac Inj (Toradol Inj) (10/26/17 21:45) Sodium Chlor 0.9% 1000 Ml Inj (Ns 1000 M (10/26/17 21:45) Mri C Spine W/O Contrast (10/26/17 ) Mri T Spine W/O Contrast (10/26/17 ) Blood Culture (10/26/17 21:37) Ribs, Bilat(W/Exp Cxr-Min 4vw) (10/26/17 ) Drug Screen, Random Urine (10/26/17 21:37) Lorazepam Inj (Ativan Inj) (10/26/17 23:15) Ceftriaxone Inj (Rocephin Inj) (10/27/17 01:45) Admit Order (Ed Use Only) (10/27/17 ) Labs Laboratory Tests Test 10/26/17 21:55 10/26/17 22:15 White Blood Count 20.6 TH/MM3 Red Blood Count 3.82 MIL/MM3 Hemoglobin 10.8 GM/DL Hematocrit 32.4 % Mean Corpuscular Volume 84.7 FL Mean Corpuscular Hemoglobin 28.2 PG Mean Corpuscular Hemoglobin Concent 33.3 % Red Cell Distribution Width 15.0 % Platelet Count 175 TH/MM3 Mean Platelet Volume 8.4 FL Neutrophils (%) (Auto) 83.9 % Lymphocytes (%) (Auto) 7.4 % Monocytes (%) (Auto) 8.6 % Eosinophils (%) (Auto) 0.0 % Basophils (%) (Auto) 0.1 % Neutrophils # (Auto) 17.3 TH/MM3 Lymphocytes # (Auto) 1.5 TH/MM3 Monocytes # (Auto) 1.8 TH/MM3 Eosinophils # (Auto) 0.0 TH/MM3 Basophils # (Auto) 0.0 TH/MM3 CBC Comment DIFF FINAL Differential Comment Erythrocyte Sedimentation Rate 94 mm/hr Blood Urea Nitrogen 9 MG/DL Creatinine 0.91 MG/DL Random Glucose 108 MG/DL Total Protein 7.9 GM/DL Albumin 3.1 GM/DL Calcium Level 8.5 MG/DL Alkaline Phosphatase 140 U/L Aspartate Amino Transf (AST/SGOT) 38 U/L Alanine Aminotransferase (ALT/SGPT) 41 U/L Total Bilirubin 1.5 MG/DL Sodium Level 134 MEQ/L Potassium Level 3.2 MEQ/L Chloride Level 98 MEQ/L Carbon Dioxide Level 25.9 MEQ/L Anion Gap 10 MEQ/L Estimat Glomerular Filtration Rate 65 ML/MIN C-Reactive Protein 25.00 MG/DL Urine Opiates Screen POS Urine Barbiturates Screen NEG Urine Amphetamines Screen NEG Urine Benzodiazepines Screen NEG Urine Cocaine Screen NEG Urine Cannabinoids Screen NEG MDM Medical Decision Making Medical Screen Exam Complete: Yes Emergency Medical Condition: Yes Medical Record Reviewed: Yes Differential Diagnosis sepsis vs osteomyelitis vs endocarditis Narrative Course Patient is a 52 year old female who comes in complaining of fever, back pain and chest pain. Exam shows tenderness to palpation of the ribs. IV established , labs sent. Labs show an elevated WBC count to 20.6, ESR and CRP are elevated. MRI of the C-spine and T-spine show continued osteomyelitis. Last 24 hours Impressions Thoracic Spine MRI 10/26/17 Signed Impressions: Service Date/Time: Thursday, October 26, 2017 23:19 - CONCLUSION: 1. 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 2. No significant change abnormal marrow signal of the T1 vertebral body. Other thoracic vertebral bodies have normal signal. There is a chronic mild compression fracture of T3 again noted. No acute fracture. 3. Modestly improved perivertebral soft tissue inflammatory changes from C6-T2. No new or other paravertebral soft tissue abnormalities are demonstrated of the thoracic spine. There is no evidence of a thoracic region epidural abscess. 4. S-shaped thoracolumbar curvature again noted. No subluxations. Eliezer Miller MD Ribs X-Ray 10/26/17 0000 Signed Impressions: Service Date/Time: Thursday, October 26, 2017 21:58 - CONCLUSION: No acute disease. Eliezer Bryson MD Cervical Spine MRI 10/26/17 Signed Impressions: Service Date/Time: Thursday, October 26, 2017 23:19 - CONCLUSION: Motion degraded study. The cord is not well evaluated. Persistent abnormal marrow signal that could represent osteomyelitis in the proper clinical setting of C3, C4, C6, C7 and T1, all not significantly changed. No pathologic fracture or definite epidural abscess. Anterior and lateral paraspinous soft tissue inflammatory changes are again seen from C6-T2 but improved in the interim. Eliezer Miller MD Patient already on Daptomycin. Rocephin added. Concern for possible endocarditis. Admitted for further management. Diagnosis Primary Impression: Fever and chills Additional Impressions: Osteomyelitis Qualified Codes: M86.9 - Osteomyelitis, unspecified IV drug abuse Admitting Information Admitting Physician Requests: Admit Britany Looney MD October 27, 2017 03:06
[2017-10-27] MEDS ORDERED: SODIUM CHLORIDE 0.9% FLUSH 10 ML FLUSH IV FLUSH PRN (03:15)
[2017-10-27] MEDS ORDERED: BISACODYL 10 MG SUPP RECTAL PRN (03:15)
[2017-10-27] MEDS ORDERED: LACTULOSE SYRUP 20 GM/30 ML CUP PO PRN (03:15)
[2017-10-27] MEDS ORDERED: SENNOSIDES 8.6 MG TAB PO PRN (03:15)
[2017-10-27] MEDS ORDERED: MAGNESIUM HYDROXIDE SUSP 30 ML CUP PO PRN (03:15)
[2017-10-27] MEDS ORDERED: NALOXONE HCL 0.4 MG/ML AMP IV PUSH PRN (03:15)
[2017-10-27] MEDS ORDERED: POTASSIUM CHLORIDE 10 MEQ CONTROLLED RELEASE TAB PO ONE (04:00)
--- NOTE | 2017-10-27 04:06 | HHI.HP ---
HPI Service [facility] Primary Care Physician Unknown Admission Diagnosis sepsis, osteomyelitis, endocarditis? 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 She denies any piter shortness of breath. She does report subjective fevers worse over the past several days. She reports nausea but no vomiting. She reports worsening in chronic low back pain. She also reports multiple episodes of loose watery stool which has been worse over the past week. She denies history of C. difficile diarrhea. Review of Systems Except as stated in HPI: all other systems reviewed are Neg Past Family Social History Past Medical History Osteomyelitis of cervical and thoracic spine Hepatitis C IV drug use Cholecystitis Inguinal hernia Vaginal fistula Past Surgical History ACL repair Cholecystectomy Vaginal fistula repair Inguinal hernia repair PICC line placement Reported Medications Reported Meds & Active Scripts Active Baclofen 10 Mg Tab 5 Mg PO Q8HR Reported Daptomycin Inj (Daptomycin) 500 Mg Vial 750 Mg IV Q24H Must dilute in appropriate IV Fluid prior to administration Allergies: Coded Allergies: No Known Allergies (Verified Allergy, Unknown, 10/26/17) Family History Reports family history of hypertension, diabetes, cancer on both sides of her family mother and father. Social History Denies any alcohol use Smokes less than one half pack per day. Last IV drug use prior to previous hospitalization Physical Exam Vital Signs Vital Signs Date Time Temp Pulse Resp B/P (MAP) Pulse Ox O2 Delivery O2 Flow Rate FiO2 10/27/17 02:24 90 16 123/67 (85) 100 Room Air 10/26/17 21:35 102.4 10/26/17 20:52 98.7 109 16 152/66 (94) 97 Physical Exam GENERAL: This is a well-nourished, well-developed patient, in no apparent distress. Somnolent but awakes alert and oriented 3. SKIN: No rashes, ecchymoses or lesions. Cool and dry. HEAD: Atraumatic. Normocephalic. No temporal or scalp tenderness. EYES: Pupils equal round and reactive. Extraocular motions intact. No scleral icterus. No injection or drainage. ENT: Nose without bleeding, purulent drainage or septal hematoma. Throat without erythema, tonsillar hypertrophy or exudate. Uvula midline. Airway patent. NECK: Trachea midline. No JVD. Patient does have some shotty cervical lymphadenopathy. Supple, nontender, no meningeal signs. CARDIOVASCULAR: Regular rate and rhythm without murmurs, gallops, or rubs. RESPIRATORY: Clear to auscultation. Breath sounds equal bilaterally. No wheezes , rales, or rhonchi. GASTROINTESTINAL: Abdomen soft, non-tender, nondistended. No hepato-splenomegaly , or palpable masses. No guarding. MUSCULOSKELETAL: Extremities without clubbing, cyanosis, or edema. No joint tenderness, effusion, or edema noted. No calf tenderness. Negative Homans sign bilaterally. PICC line right arm without surrounding erythema. NEUROLOGICAL: Awake and alert. Cranial nerves II through XII intact. Motor and sensory grossly within normal limits. Five out of 5 muscle strength in all muscle groups. Normal speech. Laboratory Laboratory Tests Test 10/26/17 21:55 10/26/17 22:15 White Blood Count 20.6 Red Blood Count 3.82 Hemoglobin 10.8 Hematocrit 32.4 Mean Corpuscular Volume 84.7 Mean Corpuscular Hemoglobin 28.2 Mean Corpuscular Hemoglobin Concent 33.3 Red Cell Distribution Width 15.0 Platelet Count 175 Mean Platelet Volume 8.4 Neutrophils (%) (Auto) 83.9 Lymphocytes (%) (Auto) 7.4 Monocytes (%) (Auto) 8.6 Eosinophils (%) (Auto) 0.0 Basophils (%) (Auto) 0.1 Neutrophils # (Auto) 17.3 Lymphocytes # (Auto) 1.5 Monocytes # (Auto) 1.8 Eosinophils # (Auto) 0.0 Basophils # (Auto) 0.0 CBC Comment DIFF FINAL Differential Comment Erythrocyte Sedimentation Rate 94 Blood Urea Nitrogen 9 Creatinine 0.91 Random Glucose 108 Total Protein 7.9 Albumin 3.1 Calcium Level 8.5 Alkaline Phosphatase 140 Aspartate Amino Transf (AST/SGOT) 38 Alanine Aminotransferase (ALT/SGPT) 41 Total Bilirubin 1.5 Sodium Level 134 Potassium Level 3.2 Chloride Level 98 Carbon Dioxide Level 25.9 Anion Gap 10 Estimat Glomerular Filtration Rate 65 C-Reactive Protein 25.00 Urine Opiates Screen POS Urine Barbiturates Screen NEG Urine Amphetamines Screen NEG Urine Benzodiazepines Screen NEG Urine Cocaine Screen NEG Urine Cannabinoids Screen NEG Date/Time Source Procedure Growth Status 10/26/17 21:55 Blood Line Aerobic Blood Culture Pending Received 10/26/17 21:55 Blood Line Anaerobic Blood Culture Pending Received Result Diagram: 10/26/17215410/26/172154 Caprini VTE Risk Assessment Caprini VTE Risk Assessment: Mod/High Risk (score >= 2) Caprini Risk Assessment Model Point Value = 1 Point Value = 2 Point Value = 3 Point Value = 5 Age 41-60 Minor surgery BMI > 25 kg/m2 Swollen legs Varicose veins or History of unexplained or recurrent spontaneous Oral contraceptives or hormone replacement Sepsis (< 1 month) Serious lung disease, including pneumonia (< 1 month) Abnormal pulmonary function Acute myocardial infarction Congestive heart failure (< 1 month) History of inflammatory bowel disease Medical patient at bed rest Age 61-74 Arthroscopic surgery Major open surgery (> 45 min) Laparoscopic surgery (> 45 min) Malignancy Confined to bed (> 72 hours) Immobilizing plaster cast Central venous access Age >= 75 History of VTE Family history of VTE Factor V Leiden Prothrombin [id number] Lupus anticoagulant Anticardiolipin antibodies Elevated serum homocysteine Heparin-induced thrombocytopenia Other congenital or acquired thrombophilia Stroke (< 1 month) Elective arthroplasty Hip, pelvis, or leg fracture Acute spinal cord injury (< 1 month) Prophylaxis Regimen Total Risk Factor Score Risk Level Prophylaxis Regimen 0-1 Low Early ambulation 2 Moderate Order ONE of the following: *Sequential Compression Device (SCD) *Heparin 5000 units SQ BID 3-4 Higher Order ONE of the following medications: *Heparin 5000 units SQ TID *Enoxaparin/Lovenox 40 mg SQ daily (WT < 150 kg, CrCl > 30 mL/min) *Enoxaparin/Lovenox 30 mg SQ daily (WT < 150 kg, CrCl > 10-29 mL/min) *Enoxaparin/Lovenox 30 mg SQ BID (WT < 150 kg, CrCl > 30 mL/min) AND/OR *Sequential Compression Device (SCD) 5 or more Highest Order ONE of the following medications: *Heparin 5000 units SQ TID (Preferred with Epidurals) *Enoxaparin/Lovenox 40 mg SQ daily (WT < 150 kg, CrCl > 30 mL/min) *Enoxaparin/Lovenox 30 mg SQ daily (WT < 150 kg, CrCl > 10-29 mL/min) *Enoxaparin/Lovenox 30 mg SQ BID (WT < 150 kg, CrCl > 30 mL/min) AND *Sequential Compression Device (SCD) Assessment and Plan Assessment and Plan //Sepsis. = Fever 102.4. Tachycardia 109, leukocytosis of 20.6. ESR of 94. = Stable MRI spine as above. = Follow-up cultures. Continue daptomycin IV. Question compliance. Status post Rocephin in the ER. Consult ID. ////Chronic hepatitis. LFTs elevated at baseline. The room and slightly elevated. BRcomponents to characterize. //History of IV drug use. Avoid narcotics if able. //Hypokalemia. 3.2. Replace //Pleuritic right-sided chest pain. Increased risk of pulmonary embolism secondary to PICC line. Check CT pulmonary angiogram //Diarrhea. Check C. difficile. //Tobacco abuse. Cessation counseling provided. Discussed Condition With Patient, nurse, ED physician. Physician Certification 2 Midnight Certification Type: Admission for Inpatient Services Order for Inpatient Services The services are ordered in accordance with Medicare regulations or non- Medicare payer requirements, as applicable. In the case of services not specified as inpatient-only, they are appropriately provided as inpatient services in accordance with the 2-midnight benchmark. Estimated LOS (days): 3 days is the estimated time the patient will need to remain in the hospital, assuming treatment plan goals are met and no additional complications. Post-Hospital Plan: Not yet determined Luis Manuel Cobb MD October 27, 2017 04:06
[2017-10-27 04:28] LABS: DIRECT BILIRUBIN ADULT 0.4 MG/DL (0.0-0.2); INDIRECT BILIRUBIN 1.1 MG/DL (0.0-0.8); TOTAL BILIRUBIN ADULT 1.5 MG/DL (0.2-1.0)
--- NOTE | 2017-10-27 04:37 | RADRPT ---
EXAM DATE/TIME: 10/27/2017 04:15 [facility] COMPARISON: No previous studies available for comparison. INDICATIONS : Chest pain. IV CONTRAST: 75 cc Omnipaque 350 (iohexol) IV RADIATION DOSE: 6.85 CTDIvol (mGy) MEDICAL HISTORY : Hepatitis C. Carcinoma, not otherwise specified. IV drug use. SURGICAL HISTORY : None. ENCOUNTER: Initial ACUITY: 1 day PAIN SCALE: 5/10 LOCATION: Bilateral chest TECHNIQUE: Volumetric scanning of the chest was performed using a pulmonary embolism protocol MIP images were re constructed. Using automated exposure control and adjustment of the mA and/or kV according to patien t size, radiation dose was kept as low as reasonably achievable to obtain optimal diagnostic quality images. DICOM format image data is available electronically for review and comparison. Follow-up recommendations for detected pulmonary nodules are based at a minimum on nodule size and pa tient risk factors according to Fleischner Society Guidelines. FINDINGS: PULMONARY ARTERIES: No filling defects are seen in the pulmonary arteries through the segmental level. LUNGS: There is no consolidation or pneumothorax . There are multiple small noncalcified nodular opacities i n the right lower lobe and right middle lobe along the periphery of the lung. These measure 3-4 mm in size. PLEURAE: There is no pleural thickening or pleural effusion. MEDIASTINUM: There is good visualization of the great vessels of the middle mediastinum. No evidence of mediastin al or hilar adenopathy/mass. MUSCULOSKELETAL: Within normal limits for patient age. MISCELLANEOUS: The visualized upper abdominal organs demonstrate no acute abnormality. CONCLUSION: 1. No evidence of pulmonary emboli. 2. Multiple small noncalcified pulmonary nodules along the periphery of the right middle lobe and rig ht lower lobe which are nonspecific. These could be infectious or inflammatory. Short-term CT followu p is recommended in 3 months. Adolfo Dinh MD on October 27, 2017 at 4:31 Board Certified Radiologist. This report was verified electronically.
[2017-10-27] MEDS ORDERED: IOHEXOL 350 MG/ML 10 ML VIAL (for RAD DIAG) IVCONTRAST ONE (04:41)
[2017-10-27] MEDS: SODIUM CHLOR 0.9% 1000 ML INJ 1,000 ML IV SCH ×2 (05:30→14:19)
[2017-10-27] MEDS: HEPARIN SODIUM - SQ 10,000 UNITS/ML VIAL SQ SCH ×3 (05:35→20:51)
[2017-10-27] MEDS ORDERED: DAPTOmycin 500 MG VIAL IV SCH (08:00)
[2017-10-27] MEDS: DAPTOmycin INJ 750 MG in SODIUM CHLORIDE 0.9% INJ 100 ML IV SCH (09:33)
[2017-10-27] MEDS: SODIUM CHLORIDE 0.9% FLUSH 10 ML FLUSH IV FLUSH SCH ×2 (09:34→20:51)
[2017-10-27] MEDS: oxyCODONE/ACETAMINOPHEN 5 MG/325 MG TAB PO PRN ×2 (14:19→18:26)
[2017-10-27] MEDS ORDERED: LORazepam 2 MG/ML VIAL IV PUSH ONE (18:15)
--- NOTE | 2017-10-27 18:23 | PD.ID.CON ---
History of Present Illness Service ID Consult Requested By Dr Cobb Reason for Consult vertebral osteo and sepsis Primary Care Physician Unknown Diagnoses: History of Present Illness 52 F with IVDU initially presented 3/2 with back pain and fever MRI showed . Signal abnormality within the marrow of the T3 vertebral body with associated 30% compression deformity of the anterior superior endplate and moderate diffuse contrast enhancement. Osteomyelitis of the vertebral body and compression fracture of both exhibit these type of signal abnormalities and some enhancement thickening of the paraspinal soft tissues about the T3 vertebral body . Signal abnormalities within the marrow of the C3, C4, C7, and T1 vertebral bodies with some contrast enhancement and mild T1 and T2 prolongation. The signal abnormality is nonspecific, but would be consistent with osteomyelitis. There is also enhancement of the dura posterior to the C7 and T1 vertebral bodies. WBC* study showed Multifocal increased uptake involving posterior elements of the lower lumbar spine, disc interspace at the lumbosacral junction, probably degenerative in nature given the symmetry of the findings especially in the lower lumbar spine. 2 D echo last admission wnl Core needle bx was perforemed and routine /AFB/fungal clx were all negative. No path She was started on empiric vancomycin and later switched to dapto 2/2 lack of clinical response Repeat MRI as of showed resolution of the findings in T spine She was eventually d/c'ed on dapto She claimes last time she did IV drugs about 1 month ago She returened with c/o ongoing back pain and fevers, interemittent upp to 104 F MRI was limited 2/2 motion artifact and w/o contrast , but looks apparently worse On admission fever 102.7, WBC 20 K, ESR 94 Review of Systems Except as stated in HPI: all other systems reviewed are Neg Past Family Social History Allergies: Coded Allergies: No Known Allergies (Verified Allergy, Unknown, 10/26/17) Past Medical History Osteomyelitis of cervical and thoracic spine Hepatitis C IV drug use Cholecystitis Inguinal hernia Vaginal fistula Past Surgical History ACL repair Cholecystectomy Vaginal fistula repair Inguinal hernia repair PICC line placement Active Ordered Medications Medications where reviewed in EMR Antibiotics Include: CFTX daptomycin Family History Reports family history of hypertension, diabetes, cancer on both sides of her family mother and father. Social History Denies any alcohol use Smokes less than one half pack per day. Last IV drug use prior to previous hospitalization Physical Exam Vital Signs Vital Signs Date Time Temp Pulse Resp B/P (MAP) Pulse Ox O2 Delivery O2 Flow Rate FiO2 10/27/17 16:00 99.1 99 18 128/60 (82) 94 10/27/17 12:00 Room Air 10/27/17 12:00 98.5 105 19 141/68 (92) 97 10/27/17 08:00 98.9 107 20 133/67 (89) 96 10/27/17 08:00 Room Air 10/27/17 05:04 Room Air 10/27/17 04:52 10/27/17 04:34 98.6 101 18 127/58 (81) 98 10/27/17 02:24 90 16 123/67 (85) 100 Room Air 10/26/17 21:35 102.4 10/26/17 20:52 98.7 109 16 152/66 (94) 97 Physical Exam CONSTITUTIONAL/GENERAL: This is an adequately nourished patient, in no apparent distress. Deshevelled TUBES/LINES/DRAINS: SKIN: No jaundice, rashes, or lesions. Ecchymoses on upper extremities. No wounds seen anteriorly. Skin temperature appropriate. Not diaphoretic. HEAD: Atraumatic. Normocephalic. EYES: Pupils equal and round and reactive. Extraocular motions intact. No scleral icterus. No injection or drainage. Fundi not examined. ENT: Hearing grossly normal. Nose without bleeding or purulent drainage. Throat without visible erythema, exudates, masses, or lesions. Poor dentition NECK: Trachea midline. Supple, nontender. No palpable thyroid enlargement or nodularity. CARDIOVASCULAR: Regular rate and rhythm without murmurs, gallops, or rubs. No JVD. Peripheral pulses symmetric. Rib captain cannery tender to palpation o the R RESPIRATORY/CHEST: Symmetric, unlabored respirations. Clear to auscultation. Breath sounds equal bilaterally. No wheezes, rales, or rhonchi. GASTROINTESTINAL: Abdomen soft, non-tender, nondistended. No hepato-splenomegaly , or palpable masses. No guarding. Bowel sounds present. GENITOURINARY: Without palpable bladder distension. MUSCULOSKELETAL: Extremities without clubbing, cyanosis, or edema. No joint tenderness or effusion noted. No calf tenderness. No mottling or clubbing. BACK: no tenderness to palpation over C spine or T spine LYMPHATICS: No palpable cervical or supraclavicular adenopathy. NEUROLOGICAL: Awake and alert. Motor and sensory grossly within normal limits. Follows commands. Clear speech. Moves all extremities. PSYCHIATRIC: No obvious anxiety/depression. no apparent hallucinations or other psychotic thought process. Laboratory Laboratory Tests Test 10/26/17 21:55 10/26/17 22:15 White Blood Count 20.6 Red Blood Count 3.82 Hemoglobin 10.8 Hematocrit 32.4 Mean Corpuscular Volume 84.7 Mean Corpuscular Hemoglobin 28.2 Mean Corpuscular Hemoglobin Concent 33.3 Red Cell Distribution Width 15.0 Platelet Count 175 Mean Platelet Volume 8.4 Neutrophils (%) (Auto) 83.9 Lymphocytes (%) (Auto) 7.4 Monocytes (%) (Auto) 8.6 Eosinophils (%) (Auto) 0.0 Basophils (%) (Auto) 0.1 Neutrophils # (Auto) 17.3 Lymphocytes # (Auto) 1.5 Monocytes # (Auto) 1.8 Eosinophils # (Auto) 0.0 Basophils # (Auto) 0.0 CBC Comment DIFF FINAL Differential Comment Erythrocyte Sedimentation Rate 94 Blood Urea Nitrogen 9 Creatinine 0.91 Random Glucose 108 Total Protein 7.9 Albumin 3.1 Calcium Level 8.5 Alkaline Phosphatase 140 Aspartate Amino Transf (AST/SGOT) 38 Alanine Aminotransferase (ALT/SGPT) 41 Total Bilirubin 1.5 Sodium Level 134 Potassium Level 3.2 Chloride Level 98 Carbon Dioxide Level 25.9 Anion Gap 10 Estimat Glomerular Filtration Rate 65 Direct Bilirubin 0.4 Indirect Bilirubin 1.1 C-Reactive Protein 25.00 Lipase 44 Urine Opiates Screen POS Urine Barbiturates Screen NEG Urine Amphetamines Screen NEG Urine Benzodiazepines Screen NEG Urine Cocaine Screen NEG Urine Cannabinoids Screen NEG Date/Time Source Procedure Growth Status 10/26/17 21:55 Blood Line Aerobic Blood Culture - Preliminary NO GROWTH IN 1 DAY Resulted 10/26/17 21:55 Blood Line Anaerobic Blood Culture - Preliminary NO GROWTH IN 1 DAY Resulted Result Diagram: 10/26/17215410/26/172154 Imaging Last Impressions CT Angiography 10/27/17 0000 Signed Impressions: Service Date/Time: October 04:15 - CONCLUSION: 1. No evidence of pulmonary emboli. 2. Multiple small noncalcified pulmonary nodules along the periphery of the right middle lobe and right lower lobe which are nonspecific. These could be infectious or inflammatory. Short-term CT followup is recommended in 3 months. Adolfo Dinh MD Thoracic Spine MRI 10/26/17 0000 Signed Impressions: Service Date/Time: Thursday, October 26, 2017 23:19 - CONCLUSION: 1. 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 2. No significant change abnormal marrow signal of the T1 vertebral body. Other thoracic vertebral bodies have normal signal. There is a chronic mild compression fracture of T3 again noted. No acute fracture. 3. Modestly improved perivertebral soft tissue inflammatory changes from C6-T2. No new or other paravertebral soft tissue abnormalities are demonstrated of the thoracic spine. There is no evidence of a thoracic region epidural abscess. 4. S-shaped thoracolumbar curvature again noted. No subluxations. Eliezer Miller MD Ribs X-Ray 10/26/17 0000 Signed Impressions: Service Date/Time: Thursday, October 26, 2017 21:58 - CONCLUSION: No acute disease. Eliezer Bryson MD Cervical Spine MRI 10/26/17 0000 Signed Impressions: Service Date/Time: Thursday, October 26, 2017 23:19 - CONCLUSION: Motion degraded study. The cord is not well evaluated. Persistent abnormal marrow signal that could represent osteomyelitis in the proper clinical setting of C3, C4, C6, C7 and T1, all not significantly changed. No pathologic fracture or definite epidural abscess. Anterior and lateral paraspinous soft tissue inflammatory changes are again seen from C6-T2 but improved in the interim. Eliezer Miller MD Assessment and Plan Assessment and Plan Osteomyelitis, multifocal and culture negative in IVDU - initial clx (08/19/17) done prior to abx. No bx - improvement with empiric daptomycin, subsequent clinical failure. Diff dx: re-infection(cont to do IV drugs, developping R on tx with dapto or infection to other organism). Sepsis, source is likely nback vs endovascular PLAN: repeat MRI with contrast (hopefully will be able to see more on contrasted study and w/o motion articfact) CT guided bx with repeat clx - its essential to try to establish the pathogen in this case especisallyu in the view of tx failure with empiric abx. Core bx with path will be th optimal if feasible -will dw IR tomorrow fu blood clx cerfep[allan, daptomycin further rec's to follow per w/u results Discussed Condition With MRI C, T spine dw/ radiologist Mary Huerta MD October 27, 2017 18:23
[2017-10-27] MEDS ORDERED: GADODIAMIDE PF 287 MG/ML 5 ML VIAL (for RAD MRI) IVCONTRAST ONE (19:32)
--- NOTE | 2017-10-27 19:54 | RADRPT ---
EXAM DATE/TIME: 10/27/2017 18:53 [facility] COMPARISON: MRI THORACIC SPINE W/O CONTRAST, October 26, 2017, 23:19. MRI THORACIC SPINE W & W/O CONTRAST, September 29, 2017, 17:54. INDICATIONS : Osteomyelitis. Pain in ribs and spine. CONTRAST: 11 cc Omniscan (gadodiamide) IV MEDICAL HISTORY : Cervical cancer. SURGICAL HISTORY : Cholecystectomy. Right knee and vaginal fistula repair. ENCOUNTER: Subsequent ACUITY: 2 day PAIN SCORE: 5/10 LOCATION: Back. TECHNIQUE: Multiplanar multisequence MRI of the thoracic spine was performed. FINDINGS: VERTEBRA: Low T1 and high T2 signal abnormality can seen within C7 and T1. Mild compression fracture at T3 agai n seen along the superior endplate. Disc spaces are maintained. ALIGNMENT: Normal. CORD: Normal position and configuration. POST CONTRAST: There is enhancement within C7 and T1. T1-T2: Normal. T2-T3: The thecal sac has a normal diameter. No evidence of disc bulge or protrusion. T3-T4: The thecal sac has a normal diameter. No evidence of disc bulge or protrusion. T4-T5: The thecal sac has a normal diameter. No evidence of disc bulge or protrusion. T5-T6: The thecal sac has a normal diameter. No evidence of disc bulge or protrusion. T6-T7: The thecal sac has a normal diameter. No evidence of disc bulge or protrusion. T7-T8: The thecal sac has a normal diameter. No evidence of disc bulge or protrusion. T8-T9: The thecal sac has a normal diameter. No evidence of disc bulge or protrusion. T9-T10: The thecal sac has a normal diameter. No evidence of disc bulge or protrusion. T10-T11: The thecal sac has a normal diameter. No evidence of disc bulge or protrusion. T11-T12: The thecal sac has a normal diameter. No evidence of disc bulge or protrusion. T12-L1: The thecal sac has a normal diameter. No evidence of disc bulge or protrusion. CONCLUSION: 1. Edema/enhancement within C7 and T1 vertebral bodies are unchanged. 2. Mild compression deformity of T3 is stable. Blanco Whitfield MD on October 27, 2017 at 19:48 Board Certified Radiologist. This report was verified electronically.
[2017-10-27] MEDS ORDERED: cefTRIAXone INJ 1,000 MG in SODIUM CHLORIDE 0.9% INJ 100 ML IV SCH (20:00)
--- NOTE | 2017-10-27 20:04 | RADRPT ---
EXAM DATE/TIME: 10/27/2017 18:53 [facility] COMPARISON: MRI CERVICAL SPINE W/O CONTRAST, October 26, 2017, 23:19. MRI CERVICAL SPINE W & W/O CONTRAST, September 29, 2017, 17:54. INDICATIONS : Osteomyelitis. Pain in ribs and spine. CONTRAST: 11 cc Omniscan (gadodiamide) IV MEDICAL HISTORY : Cervical cancer. SURGICAL HISTORY : Cholecystectomy. Vaginal fistula repair and right knee. ENCOUNTER: Initial ACUITY: 2 day PAIN SCORE: 5/10 LOCATION: Back. TECHNIQUE: Multiplanar, multisequence MRI examination of the cervical spine was performed. FINDINGS: VERTEBRAE: Decreased T1 and increased T2 signal within the C7 and T1. Diffuse enhancement as well. ALIGNMENT: Retrolisthesis C3 on 4. CORD: Normal configuration and signal. POST FOSSA: The cerebellar tonsils are normal in position. POST-CONTRAST: Enhancement at C7 and T1. C2-C3: The thecal sac has a normal configuration. There is no evidence of disc herniation or spinal canal stenosis. The neural foramina are patent bilaterally. C3-C4: Minimal retrolisthesis and mild broad-based posterior disc osteophyte complex causes mild canal steno sis. Mild to moderate bilateral neural foraminal narrowing C4-C5: Mild broad-based bulge abuts the thecal sac without canal stenosis or The neural foramina are patent bilaterally. C5-C6: The thecal sac has a normal configuration. There is no evidence of disc herniation or spinal canal s tenosis. The neural foramina are patent bilaterally. C6-C7: The thecal sac has a normal configuration. There is no evidence of disc herniation or spinal canal s tenosis. The neural foramina are patent bilaterally. C7-T1: The thecal sac has a normal configuration. There is no evidence of disc herniation or spinal canal s tenosis. The neural foramina are patent bilaterally. CONCLUSION: 1. Minimal retrolisthesis and mild broad-based protrusion causes mild canal stenosis. 2. Edema/enhancement within C7 and T1, unchanged. Blanco Whitfield MD on October 27, 2017 at 19:59 Board Certified Radiologist. This report was verified electronically.
[2017-10-27] MEDS: CEFEPIME INJ 2,000 MG in SODIUM CHLORIDE 0.9% INJ 100 ML IV SCH (20:50)
[2017-10-28] VITALS (7 sets, daily range): BP systolic 99–137; BP diastolic 55–80; PULSE 72–98; RESP 16–20; TEMP 97.8–98.4; O2SAT 96–98
[2017-10-28] MEDS: SODIUM CHLOR 0.9% 1000 ML INJ 1,000 ML IV SCH ×3 (00:14→12:52)
[2017-10-28] MEDS: oxyCODONE/ACETAMINOPHEN 5 MG/325 MG TAB PO PRN ×6 (01:10→23:17)
[2017-10-28] MEDS: CEFEPIME INJ 2,000 MG in SODIUM CHLORIDE 0.9% INJ 100 ML IV SCH ×3 (05:03→20:52)
[2017-10-28] MEDS: HEPARIN SODIUM - SQ 10,000 UNITS/ML VIAL SQ SCH ×3 (05:05→20:52)
[2017-10-28 07:10] LABS: AUTOMATED NEUTROPHIL # 8.5 TH/MM3 (1.8-7.7); BASOPHIL % 0.3 % (0.0-2.0); EOSINOPHIL % 0.4 % (0.0-4.0); HEMOGLOBIN 9.7 GM/DL (11.6-15.3); LYMPH % 16.7 % (9.0-44.0); LYMPHOCYTE # 1.9 TH/MM3 (1.0-4.8); MEAN CELL VOLUME 85.2 FL (80.0-100.0); MEAN CORPUSCULAR HEMOGLOBIN 28.3 PG (27.0-34.0); MEAN CORPUSCULAR HGB CONC 33.3 % (32.0-36.0); MEAN PLATELET VOLUME 8.7 FL (7.0-11.0); MONO % 9.1 % (0.0-8.0); MONOCYTE # 1.1 TH/MM3 (0-0.9); NEUT % 73.5 % (16.0-70.0); PLATELET COUNT 120 TH/MM3 (150-450); RED BLOOD COUNT 3.41 MIL/MM3 (4.00-5.30); RED CELL DISTRIBUTION WIDTH 14.9 % (11.6-17.2); WHITE BLOOD COUNT 11.6 TH/MM3 (4.0-11.0)
[2017-10-28] MEDS: SODIUM CHLORIDE 0.9% FLUSH 10 ML FLUSH IV FLUSH SCH ×2 (07:22→20:52)
[2017-10-28 07:45] LABS: ALBUMIN 2.3 GM/DL (3.4-5.0); ALKALINE PHOSPHATASE 105 U/L (45-117); ALT (GPT) 24 U/L (10-53); AST (GOT) 18 U/L (15-37); BICARBONATE 26.8 MEQ/L (21.0-32.0); BLOOD UREA NITROGEN 8 MG/DL (7-18); CHLORIDE 110 MEQ/L (98-107); CREATININE 0.56 MG/DL (0.50-1.00); GLOMERULAR FILTRATION RATE 113 ML/MIN (>89); GLUCOSE,RANDOM 117 MG/DL (74-106); SODIUM (NA) 142 MEQ/L (136-145); TOTAL BILIRUBIN ADULT 0.7 MG/DL (0.2-1.0); TOTAL PROTEIN 6.8 GM/DL (6.4-8.2)
[2017-10-28] MEDS: DAPTOmycin INJ 750 MG in SODIUM CHLORIDE 0.9% INJ 100 ML IV SCH (08:39)
--- NOTE | 2017-10-28 10:44 | RADRPT ---
EXAM DATE/TIME: 10/27/2017 00:00 INDICATIONS : Evaluate patient for possible aspiration procedure, review MRI scans. The patient's recent cervical and thoracic spine MRI studies were reviewed. The patient has abnormal signal and enhancement involving the C7 and T1 vertebrae without significant abnormal signal or enhan cement in the intervening disc space at present. There has been interval near-complete resolution of abnormal signal and enhancement in the epidural space as compared to prior exams. There are no new garcia spicious findings identified. The areas of abnormality at present are entirely inaccessible for percutaneous aspiration or biopsy. Neurosurgical consultation for consideration of open biopsy, if indicated, would be recommended. Eliezer Newell MD on October 28, 2017 at 10:38 Board Certified Radiologist. This report was verified electronically.
--- NOTE | 2017-10-28 15:08 | HHI.PR ---
Subjective Remarks Patient reports persistent upper back pain. She is requesting Klonopin which she says she takes at home. Objective Vitals Vital Signs Date Time Temp Pulse Resp B/P (MAP) Pulse Ox O2 Delivery O2 Flow Rate FiO2 10/28/17 08:00 98.1 86 18 127/68 (87) 97 10/28/17 06:22 18 10/28/17 04:00 98.1 86 20 119/61 (80) 97 10/28/17 04:00 85 10/28/17 00:00 98.1 84 18 99/55 (70) 98 10/28/17 00:00 84 10/27/17 20:00 89 10/27/17 20:00 98.1 89 20 98/53 (68) 98 10/27/17 16:00 99.1 99 18 128/60 (82) 94 I/O 10/27/17 10/27/17 10/27/17 10/28/17 10/28/17 10/28/17 07:00 15:00 23:00 07:00 15:00 23:00 Intake Total 1100 ml 1040 ml 570 ml 100 ml Balance 1100 ml 1040 ml 570 ml 100 ml Intake Oral 1040 ml 570 ml IV Total 1100 ml 100 ml # Voids 8 1 # Bowel Movements 1 0 Result Diagram: 10/28/1730 10/28/17 0630 Imaging Last Impressions Thoracic Spine MRI 10/27/17 0000 Signed Impressions: Service Date/Time: October 18:53 - CONCLUSION: 1. Edema/enhancement within C7 and T1 vertebral bodies are unchanged. 2. Mild compression deformity of T3 is stable. Blanco Whitfield MD Cervical Spine MRI 10/27/17 0000 Signed Impressions: Service Date/Time: October 18:53 - CONCLUSION: 1. Minimal retrolisthesis and mild broad-based protrusion causes mild canal stenosis. 2. Edema/enhancement within C7 and T1, unchanged. Blanco Whitfield MD CT Angiography 10/27/17 0000 Signed Impressions: Service Date/Time: October 04:15 - CONCLUSION: 1. No evidence of pulmonary emboli. 2. Multiple small noncalcified pulmonary nodules along the periphery of the right middle lobe and right lower lobe which are nonspecific. These could be infectious or inflammatory. Short-term CT followup is recommended in 3 months. Adolfo Dinh MD Ribs X-Ray 10/26/17 0000 Signed Impressions: Service Date/Time: Thursday, October 26, 2017 21:58 - CONCLUSION: No acute disease. Eliezer Bryson MD Objective Remarks GENERAL: This is a well-nourished, well-developed patient, in no apparent distress. CARDIOVASCULAR: Normal rate and regular rhythm without murmurs, gallops, or rubs. RESPIRATORY: Good respiratory efforts. Breath sounds equal and clear to auscultation bilaterally. GASTROINTESTINAL: Abdomen soft, non-tender, non-distended. Normal active bowel sounds MUSCULOSKELETAL: Extremities without cyanosis, or edema. Endorse tenderness to palpation along the thoracic and lumbar paraspinous muscles. NEURO: Alert & Oriented x4 to person, place, time, situation. Moves all ext x4 PSYCH: Appropriate mood and affect. A/P Assessment and Plan 52-year-old female with: Sepsis. Fever 102.4. Tachycardia 109, leukocytosis of 20.6. ESR of 94. - Stable MRI spine as above. -Follow-up cultures. Continue daptomycin IV. Question compliance. Status post Rocephin in the ER. -Infectious disease following. Per interventional radiology, the areas of abnormality at present are entirely inaccessible for percutaneous aspiration or biopsy. Defer to ID to determine if neurosurgical consultation is indicated for open biopsy. - Continue daptomycin and cefepime. Chronic hepatitis. LFTs elevated at baseline. History of IV drug use. Avoid narcotics as much as possible. Patient advised we will avoid IV narcotics. Hypokalemia. 3.2. Replace Pleuritic right-sided chest pain. CTA negative for PE. However there are multiple peripheral nodules that could be infectious. Antibiotics as above. Diarrhea. Resolved. C. difficile negative. Anxiety: Resume Klonopin. Tobacco abuse. Cessation counseling provided. Nuria Palmer MD October 28, 2017 15:08
--- NOTE | 2017-10-28 17:35 | HHI.PR ---
Addendum to Inpatient Note Additional Information Dw Dr Noguera (IR): neither fine needle aspiration nor core bx is possible BC remain negative so far Improved WBC (down to 11 K) No fever C.diff negative cont dapto, cefepime De Nemani is back Tuesday Mary Huerta MD October 28, 2017 17:35
[2017-10-28] MEDS: clonazePAM 0.5 MG TAB PO SCH (20:52)
[2017-10-29] VITALS (7 sets, daily range): BP systolic 107–142; BP diastolic 57–85; PULSE 67–82; RESP 16–20; TEMP 96.8–97.9; O2SAT 96–99
[2017-10-29] MEDS: CEFEPIME INJ 2,000 MG in SODIUM CHLORIDE 0.9% INJ 100 ML IV SCH ×2 (03:23→12:11)
[2017-10-29] MEDS: oxyCODONE/ACETAMINOPHEN 5 MG/325 MG TAB PO PRN ×5 (03:23→21:55)
[2017-10-29] MEDS: SODIUM CHLOR 0.9% 1000 ML INJ 1,000 ML IV SCH ×2 (05:06→12:15)
[2017-10-29] MEDS: HEPARIN SODIUM - SQ 10,000 UNITS/ML VIAL SQ SCH ×3 (05:08→21:54)
[2017-10-29] MEDS: clonazePAM 0.5 MG TAB PO SCH ×3 (05:09→21:54)
[2017-10-29] MEDS: SODIUM CHLORIDE 0.9% FLUSH 10 ML FLUSH IV FLUSH SCH ×2 (07:34→20:11)
[2017-10-29] MEDS: DAPTOmycin INJ 750 MG in SODIUM CHLORIDE 0.9% INJ 100 ML IV SCH (07:53)
--- NOTE | 2017-10-29 14:36 | HHI.PR ---
Subjective Remarks Patient reports she is feeling okay. She would like to shower. Pain is controlled. Objective Vitals Vital Signs Date Time Temp Pulse Resp B/P (MAP) Pulse Ox O2 Delivery O2 Flow Rate FiO2 10/29/17 11:45 97.9 82 18 128/62 (84) 98 10/29/17 07:35 97.5 74 20 123/65 (84) 99 10/29/17 04:00 96.8 75 18 113/58 (76) 96 10/29/17 00:00 76 10/29/17 00:00 Room Air 10/29/17 00:00 97.7 78 16 133/61 (85) 99 10/28/17 21:00 Room Air 10/28/17 20:00 88 10/28/17 20:00 97.8 98 16 121/66 (84) 98 10/28/17 16:00 98.4 92 18 137/80 (99) 96 10/28/17 16:00 72 I/O 10/28/17 10/28/17 10/28/17 10/29/17 10/29/17 10/29/17 07:00 15:00 23:00 07:00 15:00 23:00 Intake Total 570 ml 100 ml 700 ml 1795 ml 100 ml Balance 570 ml 100 ml 700 ml 1795 ml 100 ml Intake Oral 570 ml 600 ml 600 ml IV Total 100 ml 100 ml 1195 ml 100 ml # Voids 1 8 3 # Bowel Movements 0 1 0 Result Diagram: 10/28/17 0630 10/28/17 0630 Objective Remarks GENERAL: This is a well-nourished, well-developed patient, in no apparent distress. CARDIOVASCULAR: Normal rate and regular rhythm without murmurs, gallops, or rubs. RESPIRATORY: Good respiratory efforts. Breath sounds equal and clear to auscultation bilaterally. GASTROINTESTINAL: Abdomen soft, non-tender, non-distended. Normal active bowel sounds MUSCULOSKELETAL: Extremities without cyanosis, or edema. Endorse tenderness to palpation along the thoracic and lumbar paraspinous muscles. NEURO: Alert & Oriented x4 to person, place, time, situation. Moves all ext x4 PSYCH: Appropriate mood and affect. A/P Assessment and Plan 52-year-old female with: Sepsis. Fever 102.4. Tachycardia 109, leukocytosis of 20.6. ESR of 94. - Stable MRI spine as above. -Follow-up cultures. Continue daptomycin IV. Question compliance. Status post Rocephin in the ER. -Infectious disease following. Per interventional radiology, the areas of abnormality at present are entirely inaccessible for percutaneous aspiration or biopsy. Infectious disease Dr. Anderson to follow-up on Tuesday. - Continue daptomycin and cefepime. Chronic hepatitis. LFTs elevated at baseline. History of IV drug use. Avoid narcotics as much as possible. Patient advised we will avoid IV narcotics. Hypokalemia. 3.2. Replaced. Pleuritic right-sided chest pain. CTA negative for PE. However there are multiple peripheral nodules that could be infectious. Antibiotics as above. Diarrhea. Resolved. C. difficile negative. Anxiety: Resume Klonopin. Tobacco abuse. Cessation counseling provided. Discharge Planning Continue IV antibiotics. Follow cultures. ID to follow-up on Tuesday. Nuria Palmer MD October 29, 2017 14:36
--- NOTE | 2017-10-29 15:53 | HHI.IDPN ---
Subjective Subjective Remarks case ddw Dr Reece sommers: per his note: There has been interval near-complete resolution of abnormal signal and enhancement in the epidural space as compared to prior exams. There are no new suspicious findings identified. The areas of abnormality at present are entirely inaccessible for percutaneous aspiration or biopsy. Pt's MRI with contrast appear to look better and no targets for aspiration or bx She is doing OK no fever WBC down BC remain negative @ 3 days Antibiotics dapto cefepime Allergies: Coded Allergies: No Known Allergies (Verified Allergy, Unknown, 10/26/17) Objective . Vital Signs Date Time Temp Pulse Resp B/P (MAP) Pulse Ox O2 Delivery O2 Flow Rate FiO2 10/29/17 11:45 97.9 82 18 128/62 (84) 98 10/29/17 07:35 97.5 74 20 123/65 (84) 99 10/29/17 04:00 96.8 75 18 113/58 (76) 96 10/29/17 00:00 76 10/29/17 00:00 Room Air 10/29/17 00:00 97.7 78 16 133/61 (85) 99 10/28/17 21:00 Room Air 10/28/17 20:00 88 10/28/17 20:00 97.8 98 16 121/66 (84) 98 10/28/17 16:00 98.4 92 18 137/80 (99) 96 10/28/17 16:00 72 10/29/17 10/29/17 10/30/17 15:00 23:00 07:00 Intake Total 100 ml Balance 100 ml IV Total 100 ml . Laboratory Tests Test 10/28/17 06:30 White Blood Count 11.6 TH/MM3 Red Blood Count 3.41 MIL/MM3 Hemoglobin 9.7 GM/DL Hematocrit 29.0 % Mean Corpuscular Volume 85.2 FL Mean Corpuscular Hemoglobin 28.3 PG Mean Corpuscular Hemoglobin Concent 33.3 % Red Cell Distribution Width 14.9 % Platelet Count 120 TH/MM3 Mean Platelet Volume 8.7 FL Neutrophils (%) (Auto) 73.5 % Lymphocytes (%) (Auto) 16.7 % Monocytes (%) (Auto) 9.1 % Eosinophils (%) (Auto) 0.4 % Basophils (%) (Auto) 0.3 % Neutrophils # (Auto) 8.5 TH/MM3 Lymphocytes # (Auto) 1.9 TH/MM3 Monocytes # (Auto) 1.1 TH/MM3 Eosinophils # (Auto) 0.0 TH/MM3 Basophils # (Auto) 0.0 TH/MM3 CBC Comment AUTO DIFF Differential Comment AUTO DIFF CONFIRMED Platelet Estimate NORMAL Platelet Morphology Comment CLUMPED Red Cell Morphology Comment NORMAL Laboratory Tests Test 10/28/17 06:30 Blood Urea Nitrogen 8 MG/DL Creatinine 0.56 MG/DL Random Glucose 117 MG/DL Total Protein 6.8 GM/DL Albumin 2.3 GM/DL Calcium Level 8.0 MG/DL Alkaline Phosphatase 105 U/L Aspartate Amino Transf (AST/SGOT) 18 U/L Alanine Aminotransferase (ALT/SGPT) 24 U/L Total Bilirubin 0.7 MG/DL Sodium Level 142 MEQ/L Potassium Level 3.2 MEQ/L Chloride Level 110 MEQ/L Carbon Dioxide Level 26.8 MEQ/L Anion Gap 5 MEQ/L Estimat Glomerular Filtration Rate 113 ML/MIN Microbiology Date/Time Source Procedure Growth Status 10/26/17 21:55 Blood Line Aerobic Blood Culture - Preliminary NO GROWTH IN 3 DAYS Resulted 10/26/17 21:55 Blood Line Anaerobic Blood Culture - Preliminary NO GROWTH IN 3 DAYS Resulted 10/26/17 21:45 Blood Line Aerobic Blood Culture - Preliminary NO GROWTH IN 3 DAYS Resulted 10/26/17 21:45 Blood Line Anaerobic Blood Culture - Preliminary NO GROWTH IN 3 DAYS Resulted Imaging Last Impressions Thoracic Spine MRI 10/27/17 0000 Signed Impressions: Service Date/Time: October 18:53 - CONCLUSION: 1. Edema/enhancement within C7 and T1 vertebral bodies are unchanged. 2. Mild compression deformity of T3 is stable. Blanco Whitfield MD Cervical Spine MRI 10/27/17 0000 Signed Impressions: Service Date/Time: October 18:53 - CONCLUSION: 1. Minimal retrolisthesis and mild broad-based protrusion causes mild canal stenosis. 2. Edema/enhancement within C7 and T1, unchanged. Blanco Whitfield MD CT Angiography 10/27/17 0000 Signed Impressions: Service Date/Time: October 04:15 - CONCLUSION: 1. No evidence of pulmonary emboli. 2. Multiple small noncalcified pulmonary nodules along the periphery of the right middle lobe and right lower lobe which are nonspecific. These could be infectious or inflammatory. Short-term CT followup is recommended in 3 months. Adolfo Dinh MD Ribs X-Ray 10/26/17 0000 Signed Impressions: Service Date/Time: Thursday, October 26, 2017 21:58 - CONCLUSION: No acute disease. Eliezer Bryson MD Physical Exam CONSTITUTIONAL/GENERAL: This is an adequately nourished patient, in no apparent distress. Deshevelled TUBES/LINES/DRAINS: SKIN: No jaundice, rashes, or lesions. Ecchymoses on upper extremities. No wounds seen anteriorly. Skin temperature appropriate. Not diaphoretic. CARDIOVASCULAR: Regular rate and rhythm without murmurs, gallops, or rubs. No JVD. Peripheral pulses symmetric. Rib bridge tender to palpation o the R RESPIRATORY/CHEST: Symmetric, unlabored respirations. Clear to auscultation. Breath sounds equal bilaterally. No wheezes, rales, or rhonchi. GASTROINTESTINAL: Abdomen soft, non-tender, nondistended. MUSCULOSKELETAL: Extremities without clubbing, cyanosis, or edema. No joint tenderness or effusion noted. No calf tenderness. No mottling or clubbing. BACK: no tenderness to palpation over C spine or T spine NEUROLOGICAL: Awake and alert. Motor and sensory grossly within normal limits. Follows commands. Clear speech. Moves all extremities. PSYCHIATRIC: calm and cooperative Assessment & Plan Remarks Osteomyelitis, multifocal and culture negative in IVDU - initial clx (08/19/17) done prior to abx. No bx - improvement with empiric daptomycin, subsequent clinical failure. Diff dx: re-infection(cont to do IV drugs, developping R on tx with dapto or infection to other organism). - ESR is up to 95 Sepsis, source is likely nback vs endovascular: negative blood clx @ 3 days PLAN: cont daptomycin - fu CKs @ least weekly along with CBC, CMp - monitor ESR dc cefepime [address] Anderson is [facility] tuesday Mary Huerta MD October 29, 2017 15:53
[2017-10-30] VITALS: BP 119/64; PULSE 82; RESP 18; TEMP 98.2; O2SAT 98
[2017-10-30] MEDS: oxyCODONE/ACETAMINOPHEN 5 MG/325 MG TAB PO PRN ×5 (03:01→21:10)
[2017-10-30] MEDS: HEPARIN SODIUM - SQ 10,000 UNITS/ML VIAL SQ SCH ×3 (05:26→21:10)
[2017-10-30] MEDS: clonazePAM 0.5 MG TAB PO SCH ×3 (05:26→21:10)
[2017-10-30 06:30] LABS: ALBUMIN 2.3 GM/DL (3.4-5.0); BICARBONATE 26.4 MEQ/L (21.0-32.0); CALCIUM 8.4 MG/DL (8.5-10.1); CREATININE 0.51 MG/DL (0.50-1.00); DIRECT BILIRUBIN ADULT 0.1 MG/DL (0.0-0.2)
[2017-10-30 06:33] LABS: INDIRECT BILIRUBIN 0.2 MG/DL (0.0-0.8); TOTAL BILIRUBIN ADULT 0.3 MG/DL (0.2-1.0); TOTAL PROTEIN 6.8 GM/DL (6.4-8.2)
[2017-10-30 07:30] VITALS: BP 133/64; PULSE 69; RESP 20; TEMP 98.4; O2SAT 98
[2017-10-30 08:00] VITALS: PULSE 77
[2017-10-30] MEDS: DAPTOmycin INJ 750 MG in SODIUM CHLORIDE 0.9% INJ 100 ML IV SCH (09:00)
[2017-10-30] MEDS: SODIUM CHLORIDE 0.9% FLUSH 10 ML FLUSH IV FLUSH SCH ×2 (09:00→19:36)
[2017-10-30 10:52] LABS: HEMATOCRIT 29.5 % (35.0-46.0); HEMOGLOBIN 9.8 GM/DL (11.6-15.3); MEAN CELL VOLUME 85.1 FL (80.0-100.0); MEAN CORPUSCULAR HEMOGLOBIN 28.3 PG (27.0-34.0); MEAN CORPUSCULAR HGB CONC 33.3 % (32.0-36.0); MEAN PLATELET VOLUME 8.7 FL (7.0-11.0); RED BLOOD COUNT 3.46 MIL/MM3 (4.00-5.30); RED CELL DISTRIBUTION WIDTH 14.9 % (11.6-17.2); WHITE BLOOD COUNT 5.5 TH/MM3 (4.0-11.0)
[2017-10-30 11:28] LABS: PLATELET COUNT 221 TH/MM3 (150-450)
[2017-10-30 12:05] VITALS: BP 123/69; PULSE 84; RESP 20; TEMP 97.7; O2SAT 97
--- NOTE | 2017-10-30 13:29 | HHI.PR ---
Subjective Remarks Patient reports she is feeling okay. No new issues. Afebrile. She wants to be on a regular diet. Objective Vitals Vital Signs Date Time Temp Pulse Resp B/P (MAP) Pulse Ox O2 Delivery O2 Flow Rate FiO2 10/30/17 12:05 97.7 84 20 123/69 (87) 97 10/30/17 07:30 98.4 69 20 133/64 (87) 98 10/30/17 00:00 98.2 82 18 119/64 (82) 98 10/29/17 20:00 98 Room Air 10/29/17 20:00 97.4 80 18 142/85 (104) 98 10/29/17 15:30 97.6 67 20 107/57 (74) 98 I/O 10/29/17 10/29/17 10/29/17 10/30/17 10/30/17 10/30/17 07:00 15:00 23:00 07:00 15:00 23:00 Intake Total 1795 ml 100 ml 1020 ml 480 ml Output Total 400 ml Balance 1795 ml 100 ml 620 ml 480 ml Intake Oral 600 ml 1020 ml 480 ml IV Total 1195 ml 100 ml Output Urine Total 400 ml # Voids 3 2 1 # Bowel Movements 0 Result Diagram: 10/30/17 1026 10/30/17 0530 Objective Remarks GENERAL: This is a well-nourished, well-developed patient, in no apparent distress. CARDIOVASCULAR: Normal rate and regular rhythm without murmurs, gallops, or rubs. RESPIRATORY: Good respiratory efforts. Breath sounds equal and clear to auscultation bilaterally. GASTROINTESTINAL: Abdomen soft, non-tender, non-distended. Normal active bowel sounds MUSCULOSKELETAL: Extremities without cyanosis, or edema. Endorse tenderness to palpation along the thoracic and lumbar paraspinous muscles. NEURO: Alert & Oriented x4 to person, place, time, situation. Moves all ext x4 PSYCH: Appropriate mood and affect. A/P Assessment and Plan 52-year-old female with: Sepsis. Fever 102.4. Tachycardia 109, leukocytosis of 20.6. ESR of 94. - Stable MRI spine as above. -Follow-up cultures. Continue daptomycin IV. Question compliance. Status post Rocephin in the ER. -Infectious disease following. Per interventional radiology, the areas of abnormality at present are entirely inaccessible for percutaneous aspiration or biopsy. Infectious disease, Dr. Anderson to follow-up tomorrow. - Continue daptomycin and cefepime. Chronic hepatitis. LFTs elevated at baseline. History of IV drug use. Avoid narcotics as much as possible. Patient advised we will avoid IV narcotics. She was counseled at length today regarding the need to stop using illicit drugs. Hypokalemia. 3.2. Replaced. Pleuritic right-sided chest pain. CTA negative for PE. However there are multiple peripheral nodules that could be infectious. Antibiotics as above. Diarrhea. Resolved. C. difficile negative. Anxiety: Resume Klonopin. Tobacco abuse. Cessation counseling provided. Discharge Planning Continue IV antibiotics. Follow cultures. ID to follow-up tomorrow. Nuria Palmer MD October 30, 2017 13:29
[2017-10-30] MEDS ORDERED: POTASSIUM CHLORIDE 10 MEQ CONTROLLED RELEASE TAB PO ONE (15:15)
[2017-10-30 15:45] VITALS: BP 142/81; PULSE 78; RESP 18; TEMP 97.9; O2SAT 98
[2017-10-30 22:08] VITALS: BP 132/71; PULSE 72; RESP 16; TEMP 98.4; O2SAT 98
[2017-10-31] MEDS: oxyCODONE/ACETAMINOPHEN 5 MG/325 MG TAB PO PRN ×5 (01:26→21:17)
[2017-10-31 01:40] VITALS: BP 132/74; PULSE 76; RESP 18; TEMP 98.7; O2SAT 98
[2017-10-31 04:00] VITALS: BP 112/64; PULSE 68; RESP 18; TEMP 98.6; O2SAT 100
[2017-10-31] MEDS: clonazePAM 0.5 MG TAB PO SCH ×3 (04:40→21:17)
[2017-10-31] MEDS: HEPARIN SODIUM - SQ 10,000 UNITS/ML VIAL SQ SCH ×3 (04:41→21:18)
[2017-10-31 05:03] LABS: HEMATOCRIT 29.9 % (35.0-46.0); HEMOGLOBIN 10.2 GM/DL (11.6-15.3); MEAN CELL VOLUME 84.6 FL (80.0-100.0); MEAN CORPUSCULAR HEMOGLOBIN 28.8 PG (27.0-34.0); PLATELET COUNT 254 TH/MM3 (150-450); RED BLOOD COUNT 3.53 MIL/MM3 (4.00-5.30); RED CELL DISTRIBUTION WIDTH 14.8 % (11.6-17.2); WHITE BLOOD COUNT 7.2 TH/MM3 (4.0-11.0)
[2017-10-31 05:35] LABS: CALCIUM 8.5 MG/DL (8.5-10.1); CREATININE 0.63 MG/DL (0.50-1.00)
[2017-10-31 08:01] VITALS: BP 151/93; PULSE 74; RESP 16; TEMP 97.4; O2SAT 98
[2017-10-31] MEDS: DAPTOmycin INJ 750 MG in SODIUM CHLORIDE 0.9% INJ 100 ML IV SCH (08:01)
[2017-10-31] MEDS: SODIUM CHLORIDE 0.9% FLUSH 10 ML FLUSH IV FLUSH SCH ×2 (08:02→21:00)
[2017-10-31 12:12] VITALS: BP 156/96; PULSE 84; RESP 17; TEMP 98; O2SAT 98
--- NOTE | 2017-10-31 14:57 | HHI.PR ---
Subjective Remarks Patient is very tearful today. She states she cannot fall asleep without going into panic attack. She is asking to see psychiatry. Objective Vitals Vital Signs Date Time Temp Pulse Resp B/P (MAP) Pulse Ox O2 Delivery O2 Flow Rate FiO2 10/31/17 12:12 98.0 84 17 156/96 (116) 98 10/31/17 08:01 97.4 74 16 151/93 (112) 98 10/31/17 08:00 Room Air 10/31/17 04:00 98.6 68 18 112/64 (80) 100 10/31/17 02:26 16 10/31/17 01:40 98.7 76 18 132/74 (93) 98 10/30/17 22:08 98.4 72 16 132/71 (91) 98 10/30/17 19:00 98 Room Air 10/30/17 15:45 97.9 78 18 142/81 (101) 98 I/O 10/30/17 10/30/17 10/30/17 10/31/17 10/31/17 10/31/17 07:00 15:00 23:00 07:00 15:00 23:00 Intake Total 480 ml 640 ml Balance 480 ml 640 ml Intake Oral 480 ml 640 ml # Voids 1 3 # Bowel Movements 2 Result Diagram: 10/31/1744110/31/17441 Objective Remarks GENERAL: This is a well-nourished, well-developed patient, in no apparent distress. CARDIOVASCULAR: Normal rate and regular rhythm without murmurs, gallops, or rubs. RESPIRATORY: Good respiratory efforts. Breath sounds equal and clear to auscultation bilaterally. GASTROINTESTINAL: Abdomen soft, non-tender, non-distended. Normal active bowel sounds MUSCULOSKELETAL: Extremities without cyanosis, or edema. Endorse tenderness to palpation along the thoracic and lumbar paraspinous muscles. NEURO: Alert & Oriented x4 to person, place, time, situation. Moves all ext x4 PSYCH: Appropriate mood and affect. A/P Assessment and Plan 52-year-old female with: Sepsis on presentation. Fever 102.4. Tachycardia 109, leukocytosis of 20.6. ESR of 94. - Stable MRI spine as above. -Follow-up cultures. Continue daptomycin IV. Question compliance. Status post Rocephin in the ER. -Infectious disease following. Per interventional radiology, the areas of abnormality at present are entirely inaccessible for percutaneous aspiration or biopsy. Clinically, the patient appeared to be improved. Discussed with infectious disease Dr. Anderson. Will consider transitioning to oral antibiotics. - Continue daptomycin and cefepime. Further plans per ID. Chronic hepatitis. LFTs elevated at baseline. History of IV drug use. Avoid narcotics as much as possible. Patient advised we will avoid IV narcotics. She was counseled at length today regarding the need to stop using illicit drugs. Unfortunately she still exhibiting narcotic seeking behavior. I suspect this may be a coping mechanism from long-standing depression/anxiety. Anxiety/depression: Patient is very tearful today and reporting panic attacks, unable to fall asleep. She requested to see psychiatry. - Continue Klonopin. Psychiatry consulted for assistance. She was counseled on the need to establish with psychiatry outpatient as well. Hypokalemia. 3.2. Replaced. Pleuritic right-sided chest pain. CTA negative for PE. However there are multiple peripheral nodules that could be infectious. Antibiotics as above. Diarrhea. Resolved. C. difficile negative. Tobacco abuse. Cessation counseling provided. Discharge Planning Psychiatry consulted. ID to follow up today. Anticipate discharge soon. Nuria Palmer MD October 31, 2017 14:57
[2017-10-31 16:01] VITALS: BP 133/81; PULSE 84; RESP 17; TEMP 98.1; O2SAT 98
--- NOTE | 2017-10-31 16:05 | HHI.IDPN ---
Subjective Subjective Remarks has been treated for discitis since 08/19/2017 with IV vanco then followed by Dapto IV. Now admitted with fevers, elevated WBC. Concern for IVDA with PICC line in place. MRI repeated and findings reviewed. and discussed case. Also per notes: there has been interval near-complete resolution of abnormal signal and enhancement in the epidural space as compared to prior exams. There are no new suspicious findings identified. The areas of abnormality at present are entirely inaccessible for percutaneous aspiration or biopsy. Pt's MRI with contrast appear to look better and no targets for aspiration or bx She is doing OK no fever WBC down BC remain negative @ 3 days PICC in right arm BCX negative. Antibiotics dapto Lines PICC site ok. Past Medical History IVDA Allergies: Coded Allergies: No Known Allergies (Verified Allergy, Unknown, 10/26/17) Objective . Vital Signs Date Time Temp Pulse Resp B/P (MAP) Pulse Ox O2 Delivery O2 Flow Rate FiO2 10/31/17 12:12 98.0 84 17 156/96 (116) 98 10/31/17 08:01 97.4 74 16 151/93 (112) 98 10/31/17 08:00 Room Air 10/31/17 04:00 98.6 68 18 112/64 (80) 100 10/31/17 02:26 16 10/31/17 01:40 98.7 76 18 132/74 (93) 98 10/30/17 22:08 98.4 72 16 132/71 (91) 98 10/30/17 19:00 98 Room Air . Laboratory Tests Test 10/30/17 10:26 10/31/17 04:42 White Blood Count 5.5 TH/MM3 7.2 TH/MM3 Red Blood Count 3.46 MIL/MM3 3.53 MIL/MM3 Hemoglobin 9.8 GM/DL 10.2 GM/DL Hematocrit 29.5 % 29.9 % Mean Corpuscular Volume 85.1 FL 84.6 FL Mean Corpuscular Hemoglobin 28.3 PG 28.8 PG Mean Corpuscular Hemoglobin Concent 33.3 % 34.0 % Red Cell Distribution Width 14.9 % 14.8 % Platelet Count 221 TH/MM3 254 TH/MM3 Mean Platelet Volume 8.7 FL 8.0 FL Laboratory Tests Test 10/30/17 05:30 10/31/17 04:42 Blood Urea Nitrogen 4 MG/DL 7 MG/DL Creatinine 0.51 MG/DL 0.63 MG/DL Random Glucose 97 MG/DL 109 MG/DL Total Protein 6.8 GM/DL Albumin 2.3 GM/DL Calcium Level 8.4 MG/DL 8.5 MG/DL Alkaline Phosphatase 115 U/L Aspartate Amino Transf (AST/SGOT) 16 U/L Alanine Aminotransferase (ALT/SGPT) 21 U/L Total Bilirubin 0.3 MG/DL Direct Bilirubin 0.1 MG/DL Sodium Level 141 MEQ/L 141 MEQ/L Potassium Level 3.2 MEQ/L 3.7 MEQ/L Chloride Level 106 MEQ/L 105 MEQ/L Carbon Dioxide Level 26.4 MEQ/L 32.0 MEQ/L Anion Gap 9 MEQ/L 4 MEQ/L Estimat Glomerular Filtration Rate 126 ML/MIN 99 ML/MIN Indirect Bilirubin 0.2 MG/DL Total Creatine Kinase 17 U/L Imaging Last Impressions Thoracic Spine MRI 10/27/17 0000 Signed Impressions: Service Date/Time: October 18:53 - CONCLUSION: 1. Edema/enhancement within C7 and T1 vertebral bodies are unchanged. 2. Mild compression deformity of T3 is stable. Blanco Whitfield MD Cervical Spine MRI 10/27/17 0000 Signed Impressions: Service Date/Time: October 18:53 - CONCLUSION: 1. Minimal retrolisthesis and mild broad-based protrusion causes mild canal stenosis. 2. Edema/enhancement within C7 and T1, unchanged. Blanco Whitfield MD CT Angiography 10/27/17 0000 Signed Impressions: Service Date/Time: October 04:15 - CONCLUSION: 1. No evidence of pulmonary emboli. 2. Multiple small noncalcified pulmonary nodules along the periphery of the right middle lobe and right lower lobe which are nonspecific. These could be infectious or inflammatory. Short-term CT followup is recommended in 3 months. Adolfo Dinh MD Ribs X-Ray 10/26/17 0000 Signed Impressions: Service Date/Time: Thursday, October 26, 2017 21:58 - CONCLUSION: No acute disease. Eliezer Bryson MD Physical Exam CONSTITUTIONAL/GENERAL: This is an adequately nourished patient, in no apparent distress. Deshevelled TUBES/LINES/DRAINS: SKIN: No jaundice, rashes, or lesions. Ecchymoses on upper extremities. No wounds seen anteriorly. Skin temperature appropriate. Not diaphoretic. CARDIOVASCULAR: Regular rate and rhythm without murmurs, gallops, or rubs. No JVD. Peripheral pulses symmetric. Rib ventilation equipment tender to palpation o the R RESPIRATORY/CHEST: Symmetric, unlabored respirations. Clear to auscultation. Breath sounds equal bilaterally. No wheezes, rales, or rhonchi. GASTROINTESTINAL: Abdomen soft, non-tender, nondistended. MUSCULOSKELETAL: Extremities without clubbing, cyanosis, or edema. No joint tenderness or effusion noted. No calf tenderness. No mottling or clubbing. BACK: no tenderness to palpation over C spine or T spine NEUROLOGICAL: Awake and alert. Motor and sensory grossly within normal limits. Follows commands. Clear speech. Moves all extremities. PSYCHIATRIC: calm and cooperative Assessment & Plan Remarks Osteomyelitis, multifocal and culture negative in IVDU - initial clx (08/19/17) done prior to abx. No bx - improvement with empiric daptomycin, subsequent clinical failure. Diff dx: re-infection(cont to do IV drugs, developping R on tx with dapto or infection to other organism). - ESR is up to 95 Sepsis, source is likely nback vs endovascular: negative blood clx @ 3 days PLAN: DC daptomycin Doppler UE bilaterally patient has had PICC SIRS can be from DVT as well as possible drug fever. 2 D echo no vegetations. case dw Dr.A.Crossman moy RN for nurse. Will observe off IV Dapto and follow doppler results and provide further recs. Radha Barrera MD October 31, 2017 16:05
[2017-10-31 21:14] VITALS: BP 139/87; PULSE 76; RESP 20; TEMP 97.8; O2SAT 98
[2017-10-31] MEDS: DOXYCYCLINE HYCLATE 100 MG CAP PO SCH (21:17)
--- NOTE | 2017-10-31 23:09 | RADRPT ---
EXAM DATE/TIME: 10/31/2017 21:54 [place] COMPARISON: No previous studies available for comparison. INDICATIONS : Bilateral arm swelling. MEDICAL HISTORY : Hernia, hiatal. Arthritis. Osteoporosis. Migraines. Asthma. Dyspnea. Ulcer. GERD. Liver disease. IV d rug user. Cervical cancer. MRSA. SURGICAL HISTORY : Cholecystectomy. Hernia repair. Fistula. Spot removed from cervix. Right knee ACL repair. Rectal/vagi na repair post . ENCOUNTER: Subsequent ACUITY: 1 day PAIN SCORE: 5/10 LOCATION: Bilateral arm. FINDINGS: There is spontaneous flow documented in the brachial, basilic, cephalic, axillary, and subclavian vei ns. The vessels are compressible and augmentation response is documented. No filling defects are se en. The flow is phasic with respiration. Direction of flow in the jugular vein is caudal. CONCLUSION: Normal examination. Eliezer Newell MD on October 31, 2017 at 22:37 Board Certified Radiologist. This report was verified electronically.
[2017-11-01] VITALS: BP 136/84; PULSE 79; RESP 16; TEMP 97.7; O2SAT 98
[2017-11-01] MEDS: oxyCODONE/ACETAMINOPHEN 5 MG/325 MG TAB PO PRN ×4 (01:07→14:07)
[2017-11-01 04:00] VITALS: BP 129/76; PULSE 70; RESP 18; TEMP 97.5; O2SAT 98
[2017-11-01] MEDS: clonazePAM 0.5 MG TAB PO SCH ×2 (05:40→14:03)
[2017-11-01] MEDS: HEPARIN SODIUM - SQ 10,000 UNITS/ML VIAL SQ SCH ×2 (05:41→14:00)
[2017-11-01 07:30] VITALS: BP 150/77; PULSE 66; RESP 20; TEMP 98.4; O2SAT 100
[2017-11-01] MEDS: SODIUM CHLORIDE 0.9% FLUSH 10 ML FLUSH IV FLUSH SCH (07:54)
[2017-11-01] MEDS: DOXYCYCLINE HYCLATE 100 MG CAP PO SCH (07:55)
--- NOTE | 2017-11-01 08:42 | HHI.IDPN ---
Subjective Subjective Remarks Patient seen and examined on behalf of Dr. Anderson has been treated for discitis since 08/19/2017 with IV vanco then followed by Dapto IV. Now admitted with fevers, elevated WBC. Concern for IVDA with PICC line in place. MRI repeated and findings reviewed. and discussed case. Also per notes: there has been interval near-complete resolution of abnormal signal and enhancement in the epidural space as compared to prior exams. There are no new suspicious findings identified. The areas of abnormality at present are entirely inaccessible for percutaneous aspiration or biopsy. Notes reviewed She denies fevers but complains of night sweats c/o right sided rib pain, improved some but still bothersome no rash no N/V no dysuria no diarrhea MRI with contrast appear to look better and no targets for aspiration or bx PICC line removed doppler negative afebrile WBC WNL BC remain negative @ 5 days Antibiotics PO DOXYCYCLINE Lines PICC removed Past Medical History IVDA (Aura Armijo) Allergies: Coded Allergies: No Known Allergies (Verified Allergy, Unknown, 10/26/17) Objective . Vital Signs Date Time Temp Pulse Resp B/P (MAP) Pulse Ox O2 Delivery O2 Flow Rate FiO2 11/01/17 07:30 98.4 66 20 150/77 (101) 100 11/01/17 04:00 97.5 70 18 129/76 (93) 98 11/01/17 00:00 97.7 79 16 136/84 (101) 98 10/31/17 21:14 97.8 76 20 139/87 (104) 98 10/31/17 20:00 Room Air 10/31/17 16:01 98.1 84 17 133/81 (98) 98 10/31/17 13:20 20 10/31/17 12:12 98.0 84 17 156/96 (116) 98 . Laboratory Tests Test 10/30/17 10:26 10/31/17 04:42 White Blood Count 5.5 TH/MM3 7.2 TH/MM3 Red Blood Count 3.46 MIL/MM3 3.53 MIL/MM3 Hemoglobin 9.8 GM/DL 10.2 GM/DL Hematocrit 29.5 % 29.9 % Mean Corpuscular Volume 85.1 FL 84.6 FL Mean Corpuscular Hemoglobin 28.3 PG 28.8 PG Mean Corpuscular Hemoglobin Concent 33.3 % 34.0 % Red Cell Distribution Width 14.9 % 14.8 % Platelet Count 221 TH/MM3 254 TH/MM3 Mean Platelet Volume 8.7 FL 8.0 FL Laboratory Tests Test 10/31/17 04:42 Blood Urea Nitrogen 7 MG/DL Creatinine 0.63 MG/DL Random Glucose 109 MG/DL Calcium Level 8.5 MG/DL Sodium Level 141 MEQ/L Potassium Level 3.7 MEQ/L Chloride Level 105 MEQ/L Carbon Dioxide Level 32.0 MEQ/L Anion Gap 4 MEQ/L Estimat Glomerular Filtration Rate 99 ML/MIN Imaging Last Impressions Upper Extremity Ultrasound 10/31/17 0000 Signed Impressions: Service Date/Time: Tuesday, October 31, 2017 21:54 - CONCLUSION: Normal examination. Eliezer Newell MD Thoracic Spine MRI 10/27/17 0000 Signed Impressions: Service Date/Time: October 18:53 - CONCLUSION: 1. Edema/enhancement within C7 and T1 vertebral bodies are unchanged. 2. Mild compression deformity of T3 is stable. Blanco Whitfield MD Cervical Spine MRI 10/27/17 0000 Signed Impressions: Service Date/Time: October 18:53 - CONCLUSION: 1. Minimal retrolisthesis and mild broad-based protrusion causes mild canal stenosis. 2. Edema/enhancement within C7 and T1, unchanged. Blanco Whitfield MD CT Angiography 10/27/17 0000 Signed Impressions: Service Date/Time: October 04:15 - CONCLUSION: 1. No evidence of pulmonary emboli. 2. Multiple small noncalcified pulmonary nodules along the periphery of the right middle lobe and right lower lobe which are nonspecific. These could be infectious or inflammatory. Short-term CT followup is recommended in 3 months. Adolfo Dinh MD Ribs X-Ray 10/26/17 0000 Signed Impressions: Service Date/Time: Thursday, October 26, 2017 21:58 - CONCLUSION: No acute disease. Eliezer Bryson MD Physical Exam CONSTITUTIONAL/GENERAL: This is an adequately nourished femal patient, in no apparent distress. Somewhat disheveled. Awake and alert. TUBES/LINES/DRAINS: PICC removed. No PIV. SKIN: Ecchymoses on upper extremities. No wounds seen anteriorly. Warm and dry. CARDIOVASCULAR: Regular rate and rhythm without murmurs, gallops, or rubs. No JVD. Peripheral pulses symmetric. +tenderness to palpation over right rib cage area RESPIRATORY/CHEST: Nonlabored. Clear to auscultation. Breath sounds equal bilaterally. No wheezes, rales, or rhonchi. GASTROINTESTINAL: Abdomen soft, non-tender, nondistended. MUSCULOSKELETAL: Extremities without clubbing, cyanosis, or edema. No joint tenderness or effusion noted. No calf tenderness. No mottling or clubbing. BACK: no tenderness to palpation over C spine or T spine NEUROLOGICAL: Awake and alert. Motor and sensory grossly within normal limits. Follows commands. Clear speech. Moves all extremities spontaneously. PSYCHIATRIC: calm and cooperative (Aura Armijo) Assessment & Plan Remarks Osteomyelitis, multifocal and culture negative in IVDU - initial clx (08/19/17) done prior to abx. No bx - improvement with empiric daptomycin, subsequent clinical failure. Diff dx: re-infection(cont to do IV drugs, developing R on tx with dapto or infection to other organism). - ESR is up to 95 Sepsis CTA with multiple small right sided noncalcified pulmonary nodules ?infectious vs inflammatory Negative blood clx @ 5 days afebrile x 5 days Leukocytosis resolved 2 D echo no vegetations Doppler negative PICC removed PLAN: Continue on oral doxycycline Monitor clinically Further recommendations to follow (Aura Armijo) Remarks The exam, history, and the medical decision-making described in the above note were completed with the assistance of the mid-level provider. I reviewed and agree with the findings presented. I attest that I had a zaoe-as-gorh encounter with the patient on the same day, and personally performed and documented my assessment and findings in the medical record. No fevers off Dapto IV. Tolerated Doxy oral. Doppler UE negative. PICC line DCed. Recs DC home with oral doxy for 1 month. Concern for PICC line abuse. Radiologically and Clinically appears improved. Will sign off please call back if any change in clinical condition or questions. (Radha Anderson MD) Aura Armijo November 01, 2017 08:42 Radha Anderson MD November 01, 2017 13:42
[2017-11-01] MEDS ORDERED: OXYC1TAB63 PO (11:34)
[2017-11-01] MEDS ORDERED: CLON1TAB PO (11:34)
[2017-11-01 11:35] VITALS: BP 152/86; PULSE 92; RESP 20; TEMP 97.7; O2SAT 98
[2017-11-01] MEDS ORDERED: DOXY100C PO (12:40)
--- NOTE | 2017-11-01 12:42 | HHI.DCPOC ---
Discharge Care Plan Diagnosis: (1) Sepsis (2) Adjustment disorder with mixed anxiety and depressed mood (3) Osteomyelitis (4) Fever and chills Goals to Promote Your Health * To prevent worsening of your condition and complications * To maintain your health at the optimal level Directions to Meet Your Goals Take your medications as prescribed Follow your dietary instruction Follow activity as directed Keep your appointments as scheduled Take your immunizations and boosters as scheduled If your symptoms worsen call your PCP, if no PCP go to Urgent Care Center or Emergency Room Smoking is Dangerous to Your Health. Avoid second hand smoke Call the 24-hour hour crisis hotline for domestic abuse at Nuria Palmer MD November 01, 2017 12:42
--- NOTE | 2017-11-01 12:42 | HHI.DS ---
Discharge Summary Admission Date October 27, 2017 at 03:07 Discharge Date: November 01, 2017 Admitting Diagnosis sepsis, osteomyelitis, endocarditis? (1) Sepsis ICD Code: A41.9 - Sepsis, unspecified organism (2) Adjustment disorder with mixed anxiety and depressed mood ICD Code: F43.23 - Adjustment disorder with mixed anxiety and depressed mood (3) Osteomyelitis ICD Code: M86.9 - Osteomyelitis, unspecified (4) Fever and chills ICD Code: R50.9 - Fever, unspecified Status: Acute Procedures None Brief History - From Admission HPI from the admitting physician: 52-year-old female with a history of IV drug abuse, hepatitis C, osteomyelitis of the thoracic and cervical spine on daptomycin until November 17 who presents with acute onset pleuritic right-sided chest pain worse with deep breathing and movement that began 5 days ago after bending over to pecan picker something on the ground. She denies any piter shortness of breath. She does report subjective fevers worse over the past several days. She reports nausea but no vomiting. She reports worsening in chronic low back pain. She also reports multiple episodes of loose watery stool which has been worse over the past week. She denies history of C. difficile diarrhea. CBC/BMP: 10/31/17 0442 10/31/17 0442 Significant Findings Laboratory Tests Test 10/30/17 05:30 10/30/17 10:26 10/31/17 04:42 Blood Urea Nitrogen 4 MG/DL (7-18) Albumin 2.3 GM/DL (3.4-5.0) Calcium Level 8.4 MG/DL (8.5-10.1) Potassium Level 3.2 MEQ/L (3.5-5.1) Total Creatine Kinase 17 U/L (26-192) Red Blood Count 3.46 MIL/MM3 (4.00-5.30) 3.53 MIL/MM3 (4.00-5.30) Hemoglobin 9.8 GM/DL (11.6-15.3) 10.2 GM/DL (11.6-15.3) Hematocrit 29.5 % (35.0-46.0) 29.9 % (35.0-46.0) Random Glucose 109 MG/DL (74-106) Anion Gap 4 MEQ/L (5-15) Imaging Last Impressions Upper Extremity Ultrasound 10/31/17 Signed Impressions: Service Date/Time: Tuesday, October 31, 2017 21:54 - CONCLUSION: Normal examination. Eliezer Newell MD Thoracic Spine MRI 10/27/17 Signed Impressions: Service Date/Time: October 18:53 - CONCLUSION: 1. Edema/enhancement within C7 and T1 vertebral bodies are unchanged. 2. Mild compression deformity of T3 is stable. Blanco Whitfield MD Cervical Spine MRI 10/27/17 Signed Impressions: Service Date/Time: October 18:53 - CONCLUSION: 1. Minimal retrolisthesis and mild broad-based protrusion causes mild canal stenosis. 2. Edema/enhancement within C7 and T1, unchanged. Blanco Whitfield MD CT Angiography 10/27/17 Signed Impressions: Service Date/Time: October 04:15 - CONCLUSION: 1. No evidence of pulmonary emboli. 2. Multiple small noncalcified pulmonary nodules along the periphery of the right middle lobe and right lower lobe which are nonspecific. These could be infectious or inflammatory. Short-term CT followup is recommended in 3 months. Adolfo Dinh MD Ribs X-Ray 10/26/17 Signed Impressions: Service Date/Time: Thursday, October 26, 2017 21:58 - CONCLUSION: No acute disease. Eliezer Bryson MD PE at Discharge GENERAL: This is a well-nourished, well-developed patient, in no apparent distress. CARDIOVASCULAR: Normal rate and regular rhythm without murmurs, gallops, or rubs. RESPIRATORY: Good respiratory efforts. Breath sounds equal and clear to auscultation bilaterally. GASTROINTESTINAL: Abdomen soft, non-tender, non-distended. Normal active bowel sounds MUSCULOSKELETAL: Extremities without cyanosis, or edema. Endorse tenderness to palpation along the thoracic and lumbar paraspinous muscles. NEURO: Alert & Oriented x4 to person, place, time, situation. Moves all ext x4 PSYCH: Appropriate mood and affect. Pt update on day of discharge Patient reports she is feeling ok. We discussed discharge planning at length and the need to follow up outpatient. Discussed abstinence regarding illicit drug use. Hospital Course 52-year-old female admitted and treated for the following: Sepsis on presentation. Fever 102.4. Tachycardia 109, leukocytosis of 20.6. ESR of 94. It is unclear if the patient was using illicit substance again and may have been withdrawing. She did have some abnormalities on her chest CT that could be infectious. Patient was followed by ID. Regarding the previous known infection for which she was getting outpatient IV antibiotics, imaging revealed there has been interval near-complete resolution of abnormal signal and enhancement in the epidural space as compared to prior exams. There are no new suspicious findings identified. The areas of abnormality at present are entirely inaccessible for percutaneous aspiration or biopsy. Blood cultures remained negative. Per ID recs the patient received a significant course of IV antibiotics. Given that she has significantly improved clinically, by imaging and not reliable with PICC it was decided that the best course of treatment is to transition the patient to oral Doxycycline for an additional 4 weeks. Chronic hepatitis. LFTs elevated at baseline. Returned to baseline. History of IV drug use. We avoided IV narcotics and used oral. She was counseled at length regarding the need to stop using illicit drugs. She was given a limited supply of pain medication and advised to wean off, use NSAID and Tylenol as needed. Anxiety/depression: Patient has been very tearful. States she cannot function without Klonopin, discussed briefly with Dr. Irwin - Continue Klonopin. She was given prescription for Klonopin and advised to follow up with psychiatry outpatient. Pleuritic right-sided chest pain. CTA negative for PE. However there are multiple peripheral nodules that could be infectious. Antibiotics as above. Diarrhea. Resolved. C. difficile negative. Tobacco abuse. Cessation counseling provided. Pt Condition on Discharge: Good Discharge Disposition: Discharge Home Discharge Time: > 30 minutes Discharge Instructions DIET: Follow Instructions for: As Tolerated, No Restrictions Activities you can perform: Regular-No Restrictions Follow up Referrals: PCP Follow-up PCP Follow-up @ [facility] New Medications: Clonazepam (Clonazepam) 1 Mg Tab 1 MG PO TID, #90 TAB 0 Refills Doxycycline Hyclate (Doxycycline Hyclate) 100 Mg Cap 100 MG PO BID, #60 CAP Oxycodone HCl/Acetaminophen (Oxycodone-Acetaminophen 5-325) 5 Mg-325 Mg Tablet 1 TAB PO Q4H PRN for PAIN GREATER THAN 5, #20 TAB Continued Medications: Baclofen (Baclofen) 10 Mg Tab 5 MG PO Q8HR for Pain Management, #20 TAB 0 Refills Discontinued Medications: Daptomycin Inj (Daptomycin Inj) 500 Mg Vial 750 MG IV Q24H for Infection, VIAL 0 Refills Must dilute in appropriate IV Fluid prior to administration Nuria Palmer MD November 01, 2017 12:42
== END 2017-11-01 17:51 | disposition home or self-care (01) | DRG 872 ==
LOC: NEPE 19:31 → NEDA 10-27 03:07 → UNDOADMOB 10-27 03:07 → NEDA 10-27 03:07 → N04B 10-27 04:34
PROVIDERS: ADMIT Hospitalist; ATTEND Hospitalist
DX: A41.9 Sepsis, unspecified organism (principal); M46.22 Osteomyelitis of vertebra, cervical region; M46.24 Osteomyelitis of vertebra, thoracic region; R07.81 Pleurodynia; M19.90 Unspecified osteoarthritis, unspecified site; J45.909 Unspecified asthma, uncomplicated; K21.9 Gastro-esophageal reflux disease without esophagitis; F17.210 Nicotine dependence, cigarettes, uncomplicated; F19.10 Other psychoactive substance abuse, uncomplicated; G89.29 Other chronic pain; M54.5 Low back pain; B19.20 Unspecified viral hepatitis C without hepatic coma; R00.0 Tachycardia, unspecified; E87.6 Hypokalemia; R19.7 Diarrhea, unspecified; F43.23 Adjustment disorder with mixed anxiety and depressed mood; R91.8 Other nonspecific abnormal finding of lung field; F41.0 Panic disorder [episodic paroxysmal anxiety]; Z76.5 Malingerer [conscious simulation]
CPT/HCPCS: 71111; 71275; 72141; 72146; 72156; 72157; 80048; 80053; 80076; 80307; 82247; 82248; 82550; 83690; 85025; 85027; 85652; 86140; 87040; 87493; 93971; 96361; 96365; 96375; A9579; J0692; J0696; J0878; J1644; J1885; J2060; J7030; Q9967

== ENCOUNTER 2017-11-20 09:27 | Emergency (ER) | payer OTHER ==
[~2017-11-20] VITALS: Ht 157.5 cm; Wt 56.4 kg
[~2017-11-20 09:27] MED LIST changes: -CLON.5 PO; +CLON1TAB PO; -DAPT250I IV; +DOXY100C PO; -EPIN1INJ17 IV PUSH; -EPIN1INJ17 SQ; +OXYC1TAB63 PO; -PREV15CA20 PO; -SOLU250I IV PUSH; -TRAM50 PO
[2017-11-20] MEDS ORDERED: BACL10TA PO (10:34)
[2017-11-20] MEDS ORDERED: TRAM50TA PO (10:37)
--- NOTE | 2017-11-20 10:43 | PD ---
HPI Chief Complaint: Psychiatric Symptoms Time Seen by Provider: 10:15 Travel History International Travel<30 days: No Contact w/Intl Traveler<30days: No Traveled to known affect area: No History of Present Illness HPI 52-year-old female presents to the emergency department under [place] act. According to law enforcement report ""Ms. Ware is fighting a spinal infection without health insurance and her is in alf. Ms. Ware stated her suicidal intention to a friend and told him she was "tired of being depressed and fighting." Ms. Ware told her friend to ensure her he knew she left him, she sorry and goodbye. Ms. Ware then told her friend she was going to take a bottle of pills. Ms. Ware denied all the statements, but also did not answer the door for LE."" On my examination the patient denies all these allegations. She says she is "tired of people stealing from me. I am tired of being in pain, I want to rest." She denies suicidal or homicidal ideations. Denies auditory or visual hallucinations. She does report IV drug use and last injected Dilaudid yesterday. She was diagnosed with osteomyelitis of her spine , right between her shoulder blades, at the beginning of August. She did have IV antibiotics which were discontinued and she is now on oral antibiotics. She says she is compliant, but does not remember if she took her antibiotics yesterday. Denies fever, vomiting, encopresis, incontinence, paresthesias, loss of sensation, decreased range of motion, decreased strength all extremities. Denies saddle anesthesias. Denies any focal deficits or weakness. Does report continued pain in between her shoulder blades, that is unchanged. Says she has been using IV drugs because they will not give her pain medications to control her pain. Denies other illicit drug use. Denies alcohol use. No known aggravating or relieving factors. Symptoms are moderate to severe in severity. Onset unknown. Duration unknown. Primary care provider is [facility] [place]. Is followed by Dr. Mace for her osteomyelitis. History of asthma and osteomyelitis of the spine. No known allergies. Has no other medical complaints. No other modifying factors or associated signs and symptoms. PFSH Past Medical History Hx Anticoagulant Therapy: No Arthritis: Yes Asthma: Yes Cancer: Yes (CERVICAL) Cardiovascular Problems: No Chemotherapy: No Cerebrovascular Accident: No Diabetes: No Diminished Hearing: No Endocrine: No Gastrointestinal Disorders: Yes GERD: Yes Genitourinary: Yes Hiatal Hernia: Yes Immune Disorder: No Implanted Vascular Access Dvce: Yes Musculoskeletal: Yes Neurologic: Yes Psychiatric: No Reproductive: No Respiratory: Yes (Asthma) Integumentary: No Migraines: Yes Seizures: No Ulcer: Yes ?: Not LMP: 10/19/17 Menopausal: Yes Past Surgical History Abdominal Surgery: Yes (HERNIA,GALLBLADDER) Body Medical Devices: IUD Cardiac Surgery: No Cholecystectomy: Yes Genitourinary Surgery: No Gynecologic Surgery: Yes (FISTULA, spot removed from cervix) Hysterectomy: No Neurologic Surgery: No Thoracic Surgery: No Other Surgery: Yes (fistula repair, rectal/ vaginal repair post ) Social History Alcohol Use: No Tobacco Use: Yes (06/21 ppd) Substance Use: Yes (IVDU dilaudid) Allergies-Medications (Allergen,Severity, Reaction): Coded Allergies: No Known Allergies (Verified Allergy, Unknown, 10/26/17) Reported Meds & Prescriptions Reported Meds & Active Scripts Active Doxycycline Hyclate 100 Mg Cap 100 Mg PO BID Clonazepam 1 Mg Tab 1 Mg PO TID Oxycodone-Acetaminophen 5-325 (Oxycodone HCl/Acetaminophen) 5 Mg-325 Mg Tablet 1 Tab PO Q4H PRN Reported Tramadol (Tramadol HCl) 50 Mg Tab 50 Mg PO Q6H PRN Baclofen 10 Mg Tab 10 Mg PO TID Review of Systems Except as stated in HPI: all other systems reviewed are Neg Physical Exam Narrative GENERAL: Well-nourished, well-developed female patient, in no acute distress; afebrile, nontoxic-appearing SKIN: Warm and dry. HEAD: Atraumatic. Normocephalic. EYES: Pupils equal and round. ENT: Mucosa pink and moist. NECK: Supple. Trachea midline. CARDIOVASCULAR: Regular rate and rhythm. No murmur appreciated. RESPIRATORY: No accessory muscle use. Clear to auscultation. Breath sounds equal bilaterally. GASTROINTESTINAL: Abdomen soft, non-tender, nondistended. Hepatic and splenic margins not palpable. Bowel sounds are active 4 quadrants. MUSCULOSKELETAL: No obvious deformities. No clubbing. No cyanosis. No edema. NEUROLOGICAL: Awake and alert. Oriented 3. No obvious cranial nerve deficits. Motor grossly within normal limits. Normal speech. Moves all extremities. 5/5 strength to all extremities. PSYCHIATRIC: No delusional thought processes. No hallucinations. Data Data Last Documented VS Vital Signs Date Time Temp Pulse Resp B/P (MAP) Pulse Ox O2 Delivery O2 Flow Rate FiO2 11/20/17 11:02 98.6 65 18 117/57 (77) 100 Room Air Orders Orders Complete Blood Count With Diff (11/20/17 10:14) Comprehensive Metabolic Panel (11/20/17 10:14) Thyroid Stimulating Hormone (11/20/17 10:14) Urinalysis - C+S If Indicated (11/20/17 10:14) Psych Screen (11/20/17 10:14) Drug Screen, Random Urine (11/20/17 10:14) Alcohol (Ethanol) (11/20/17 10:14) Salicylates (Aspirin) (11/20/17 10:14) Tylenol (Acetaminophen) (11/20/17 10:14) Doxycycline (Vibramycin) (11/20/17 11:00) Diet Regular Basic (11/20/17 Lunch) Potassium Chloride (Kcl) (11/20/17 14:30) Labs Laboratory Tests Test 11/20/17 10:15 11/20/17 11:15 Urine Color YELLOW Urine Turbidity CLEAR Urine pH 5.5 Urine Specific [place] 1.005 Urine Protein NEG mg/dL Urine Glucose (UA) NEG mg/dL Urine Ketones NEG mg/dL Urine Occult Blood NEG Urine Nitrite NEG Urine Bilirubin NEG Urine Urobilinogen LESS THAN 2.0 MG/DL Urine Leukocyte Esterase TRACE Urine RBC 1 /hpf Urine WBC 2 /hpf Urine Squamous Epithelial Cells 7 /hpf Urine Transitional Epithelial Cells <1 /hpf Urine Bacteria RARE /hpf Microscopic Urinalysis Comment CULT NOT INDICATED Urine Opiates Screen NEG Urine Barbiturates Screen NEG Urine Amphetamines Screen POS Urine Benzodiazepines Screen NEG Urine Cocaine Screen NEG Urine Cannabinoids Screen NEG White Blood Count 5.7 TH/MM3 Red Blood Count 4.48 MIL/MM3 Hemoglobin 12.6 GM/DL Hematocrit 37.6 % Mean Corpuscular Volume 84.0 FL Mean Corpuscular Hemoglobin 28.1 PG Mean Corpuscular Hemoglobin Concent 33.4 % Red Cell Distribution Width 15.4 % Platelet Count 153 TH/MM3 Mean Platelet Volume 9.3 FL Neutrophils (%) (Auto) 67.3 % Lymphocytes (%) (Auto) 23.3 % Monocytes (%) (Auto) 6.1 % Eosinophils (%) (Auto) 1.5 % Basophils (%) (Auto) 1.8 % Neutrophils # (Auto) 3.9 TH/MM3 Lymphocytes # (Auto) 1.3 TH/MM3 Monocytes # (Auto) 0.4 TH/MM3 Eosinophils # (Auto) 0.1 TH/MM3 Basophils # (Auto) 0.1 TH/MM3 CBC Comment DIFF FINAL Differential Comment Blood Urea Nitrogen 12 MG/DL Creatinine 0.87 MG/DL Random Glucose 96 MG/DL Total Protein 8.3 GM/DL Albumin 3.6 GM/DL Calcium Level 9.2 MG/DL Alkaline Phosphatase 144 U/L Aspartate Amino Transf (AST/SGOT) 125 U/L Alanine Aminotransferase (ALT/SGPT) 136 U/L Total Bilirubin 1.2 MG/DL Sodium Level 137 MEQ/L Potassium Level 3.4 MEQ/L Chloride Level 104 MEQ/L Carbon Dioxide Level 23.1 MEQ/L Anion Gap 10 MEQ/L Estimat Glomerular Filtration Rate 68 ML/MIN Thyroid Stimulating Hormone 3rd Gen 0.969 uIU/ML Salicylates Level LESS THAN 1.7 MG/DL Acetaminophen Level LESS THAN 2.0 MCG/ML Ethyl Alcohol Level LESS THAN 3 MG/DL MDM Medical Decision Making Medical Screen Exam Complete: Yes Emergency Medical Condition: Yes Medical Record Reviewed: Yes Differential Diagnosis Suicidal ideation, depression, drug-induced mood disorder, IV drug abuse, medical clearance for psychiatric admission Narrative Course Patient presents under a Marina act. Physical examination and vital signs are essentially unremarkable. Patient has no medical complaints to report. Psych screen has been ordered. If the laboratory results are unremarkable, the patient will be medically cleared for psychiatric evaluation and disposition. I discussed the patient with Dr. Torres and plan of care discussed. Diagnosis Primary Impression: Medical clearance for psychiatric admission Additional Impression: Elevated liver enzymes Additional Instructions: Follow-up with primary care provider in regards to elevated liver enzymes Condition: Stable Oma Robbins Nov 20, 2017 10:43
[2017-11-20 11:02] VITALS: BP 117/57; PULSE 65; RESP 18; TEMP 98.6; O2SAT 100
[2017-11-20] MEDS: DOXYCYCLINE HYCLATE 100 MG CAP PO SCH ×2 (11:46→20:56)
[2017-11-20 11:49] LABS: AUTOMATED NEUTROPHIL # 3.9 TH/MM3 (1.8-7.7); BASOPHIL # 0.1 TH/MM3 (0-0.2); BASOPHIL % 1.8 % (0.0-2.0); EOSINOPHIL # 0.1 TH/MM3 (0-0.4); EOSINOPHIL % 1.5 % (0.0-4.0); HEMATOCRIT 37.6 % (35.0-46.0); HEMOGLOBIN 12.6 GM/DL (11.6-15.3); LYMPH % 23.3 % (9.0-44.0); LYMPHOCYTE # 1.3 TH/MM3 (1.0-4.8); MEAN CORPUSCULAR HEMOGLOBIN 28.1 PG (27.0-34.0); MEAN CORPUSCULAR HGB CONC 33.4 % (32.0-36.0); MEAN PLATELET VOLUME 9.3 FL (7.0-11.0); MONO % 6.1 % (0.0-8.0); MONOCYTE # 0.4 TH/MM3 (0-0.9); NEUT % 67.3 % (16.0-70.0); PLATELET COUNT 153 TH/MM3 (150-450); RED BLOOD COUNT 4.48 MIL/MM3 (4.00-5.30); RED CELL DISTRIBUTION WIDTH 15.4 % (11.6-17.2); WHITE BLOOD COUNT 5.7 TH/MM3 (4.0-11.0)
[2017-11-20 12:02] LABS: ALBUMIN 3.6 GM/DL (3.4-5.0); AST (GOT) 125 U/L (15-37); BICARBONATE 23.1 MEQ/L (21.0-32.0); BLOOD UREA NITROGEN 12 MG/DL (7-18); CALCIUM 9.2 MG/DL (8.5-10.1); CHLORIDE 104 MEQ/L (98-107); CREATININE 0.87 MG/DL (0.50-1.00); GLOMERULAR FILTRATION RATE 68 ML/MIN (>89); GLUCOSE,RANDOM 96 MG/DL (74-106); SODIUM (NA) 137 MEQ/L (136-145)
[2017-11-20 12:03] LABS: ALT (GPT) 136 U/L (10-53)
[2017-11-20 12:12] LABS: ALKALINE PHOSPHATASE 144 U/L (45-117); TOTAL BILIRUBIN ADULT 1.2 MG/DL (0.2-1.0); TOTAL PROTEIN 8.3 GM/DL (6.4-8.2)
[2017-11-20 12:16] LABS: ACETAMINOPHEN LESS THAN 2.0 MCG/ML (10.0-30.0)
[2017-11-20 12:46] LABS: BACTERIA, URINE RARE /hpf; BILIRUBIN, URINE NEG (NEG); BLOOD, URINE NEG (NEG); GLUCOSE,URINE NEG (NEG); KETONE, URINE NEG (NEG); NITRITE,URINE NEG (NEG); PH, URINE 5.5 (5.0-8.5); SQUAMOUS EPITHELIAL CELL URINE 7 /hpf (0-5); TRANSITIONAL EPI CELLS, URINE <1 /hpf; URINE COLOR YELLOW (YELLW/STRAW); URINE LEUKOCYTE ESTERASE TRACE (NEG)
[2017-11-20] MEDS ORDERED: POTASSIUM CHLORIDE 20 MEQ CONTROLLED RELEASE TAB PO ONE (14:30)
[2017-11-20 18:46] VITALS: BP 138/80; PULSE 74; RESP 18; O2SAT 99
[2017-11-20] MEDS ORDERED: IBUPROFEN 800 MG TAB PO ONE (21:15)
[2017-11-21 06:48] VITALS: BP 96/53; PULSE 63; RESP 18; TEMP 97; O2SAT 98
[2017-11-21] MEDS: DOXYCYCLINE HYCLATE 100 MG CAP PO SCH (10:10)
--- NOTE | 2017-11-21 14:55 | PD ---
Physical Exam Time Seen by Provider: 14:[address] Fallon has evaluated the patient, lifted Marina act and cleared the patient for discharge. Data Data Last Documented VS Vital Signs Date Time Temp Pulse Resp B/P (MAP) Pulse Ox O2 Delivery O2 Flow Rate FiO2 11/21/17 06:48 97.0 63 18 96/53 (67) 98 Room Air Orders Orders Complete Blood Count With Diff (11/20/17 10:14) Comprehensive Metabolic Panel (11/20/17 10:14) Thyroid Stimulating Hormone (11/20/17 10:14) Urinalysis - C+S If Indicated (11/20/17 10:14) Psych Screen (11/20/17 10:14) Drug Screen, Random Urine (11/20/17 10:14) Alcohol (Ethanol) (11/20/17 10:14) Salicylates (Aspirin) (11/20/17 10:14) Tylenol (Acetaminophen) (11/20/17 10:14) Doxycycline (Vibramycin) (11/20/17 11:00) Diet Regular Basic (11/20/17 Lunch) Potassium Chloride (Kcl) (11/20/17 14:30) Diet Regular Basic (11/20/17 Dinner) Ibuprofen (Motrin) (11/20/17 21:15) Diet Regular Basic (11/21/17 Breakfast) Diet Regular Basic (11/21/17 Lunch) Labs Laboratory Tests Test 11/20/17 10:15 11/20/17 11:15 Urine Color YELLOW Urine Turbidity CLEAR Urine pH 5.5 Urine Specific [place] 1.005 Urine Protein NEG mg/dL Urine Glucose (UA) NEG mg/dL Urine Ketones NEG mg/dL Urine Occult Blood NEG Urine Nitrite NEG Urine Bilirubin NEG Urine Urobilinogen LESS THAN 2.0 MG/DL Urine Leukocyte Esterase TRACE Urine RBC 1 /hpf Urine WBC 2 /hpf Urine Squamous Epithelial Cells 7 /hpf Urine Transitional Epithelial Cells <1 /hpf Urine Bacteria RARE /hpf Microscopic Urinalysis Comment CULT NOT INDICATED Urine Opiates Screen NEG Urine Barbiturates Screen NEG Urine Amphetamines Screen POS Urine Benzodiazepines Screen NEG Urine Cocaine Screen NEG Urine Cannabinoids Screen NEG White Blood Count 5.7 TH/MM3 Red Blood Count 4.48 MIL/MM3 Hemoglobin 12.6 GM/DL Hematocrit 37.6 % Mean Corpuscular Volume 84.0 FL Mean Corpuscular Hemoglobin 28.1 PG Mean Corpuscular Hemoglobin Concent 33.4 % Red Cell Distribution Width 15.4 % Platelet Count 153 TH/MM3 Mean Platelet Volume 9.3 FL Neutrophils (%) (Auto) 67.3 % Lymphocytes (%) (Auto) 23.3 % Monocytes (%) (Auto) 6.1 % Eosinophils (%) (Auto) 1.5 % Basophils (%) (Auto) 1.8 % Neutrophils # (Auto) 3.9 TH/MM3 Lymphocytes # (Auto) 1.3 TH/MM3 Monocytes # (Auto) 0.4 TH/MM3 Eosinophils # (Auto) 0.1 TH/MM3 Basophils # (Auto) 0.1 TH/MM3 CBC Comment DIFF FINAL Differential Comment Blood Urea Nitrogen 12 MG/DL Creatinine 0.87 MG/DL Random Glucose 96 MG/DL Total Protein 8.3 GM/DL Albumin 3.6 GM/DL Calcium Level 9.2 MG/DL Alkaline Phosphatase 144 U/L Aspartate Amino Transf (AST/SGOT) 125 U/L Alanine Aminotransferase (ALT/SGPT) 136 U/L Total Bilirubin 1.2 MG/DL Sodium Level 137 MEQ/L Potassium Level 3.4 MEQ/L Chloride Level 104 MEQ/L Carbon Dioxide Level 23.1 MEQ/L Anion Gap 10 MEQ/L Estimat Glomerular Filtration Rate 68 ML/MIN Thyroid Stimulating Hormone 3rd Gen 0.969 uIU/ML Salicylates Level LESS THAN 1.7 MG/DL Acetaminophen Level LESS THAN 2.0 MCG/ML Ethyl Alcohol Level LESS THAN 3 MG/DL MDM Supervised Visit with ESTEVAN: No Narrative Course Dr. Fallon has evaluated the patient, lifted [place] act and cleared the patient for discharge. Patient contracts safety. Denies suicidal or homicidal ideations. Patient will be provided community resource packet to [facility] for follow-up. Has friends and family for support. Patient was medically cleared by alternate provider prior to psych screening. Patient has been evaluated by psychiatry and and is now cleared for discharge. Diagnosis Primary Impression: Amphetamine abuse Additional Impression: Elevated liver enzymes Referrals: [facility] (Out patient) [facility] Primary Care Physician Psychiatrist [facility] Patient Instructions: General Instructions, Polysubstance Abuse (ED) Additional Instruction: Follow-up with primary care provider in regards to elevated liver enzymes Contract safety to your self and others Follow-up with psychiatry Follow-up with primary care provider Follow-up with Akash Payton/FILIPE Return to the emergency department immediately with worsening of symptoms Med/Other Pt SpecificInfo: No Change to Meds, No Meds Exist/No RX given Disposition: 01 DISCHARGE HOME Condition: Stable Oma Robbins Nov 21, 2017 14:55
--- NOTE | 2017-11-21 15:18 | PD.PSY.CON ---
Provisional Diagnosis Admission Date Date of consultation 11/21/17 Electra I. 1. Polysubstance abuse 2. Reported history of depression, presently stable Electra II. Deferred History of Present Illness Service Psychiatry Consult Requested By Emergency department Reason for Consult [facility] Primary Care Physician Rama JOLLEY Ms. Ware is a 52-year-old female with a reported history of depression who presents under [place] act by law enforcement alleging patient threatened to overdose on a bottle of pills to her friend. Her urine toxicology was positive for amphetamine on presentation here. Reviewing the electronic medical record, I note the patient was seen in psychiatric consultation by Dr. Irwin in September of this year with a diagnosis of adjustment disorder. Patient seen and examined. Chart reviewed. Case discussed with nursing staff. On my examination today, the patient is clinically sober. She says that she made the statements alleged in the Marina act while intoxicated with substances. Now that she is sober, she tells me "I do not want to kill myself." She denies any suicidal or homicidal ideation, intent or plan. She contracts for safety. She says that she would not hurt herself on account of her [employer] janet noting "I do not want to go to hell." She admits to feeling somewhat distressed because of spinal infection, but I can elicit no severe depressive or hypomanic/manic symptoms. She denies any audiovisual hallucinations. I can elicit no delusional material. There is no evidence of impairment in reality construction. The remainder of the psychiatric ROS is negative. The patient has no acute physical complaints. She is requesting discharge from the ED today. With the patient's permission, I have obtained collateral information from friend Teresa Aguillon [phone] with whom the patient resides. Ms. Aguillon knows of no history of self-harm by the patient. She has no concerns about patient being a risk of harm to self at this time and is comfortable with having the patient return home. I have recommended that she secure the home environment of all potential means of harm to self or others including but not limited to guns, knives and medications out of an abundance of caution. I have educated her regarding the mechanisms for having the patient brought back for further psychiatric evaluation should the need arise including Amrina act and ex parte. Past psychiatric history: The patient reports a history of depression previously treated with Zoloft when the patient was in her 20s. She is not under the care of a psychiatrist now. She denies any history of psychiatric admissions. She denies any history of suicide attempts. Denies any history of violent behavior. Family history: Patient denies any family history of mental illness or suicide. Chemical dependency history: Patient admits to abuse of methamphetamine. She also reports that she abuses Dilaudid approximately 4 mg p.o. daily. She views the opiate use as problematic but does not view the methamphetamine use as problematic. Social history: The patient lives with her friend. Her is in snf. Her daughter is . She is high school educated and has some college. She does not work and is applying for disability. She denies any access to guns or firearms. She is a [employer]. Review of Systems Except as stated in HPI: all other systems reviewed are Neg Past Family Social History Coded Allergies: No Known Allergies (Verified Allergy, Unknown, 10/26/17) Past Medical History See electronic medical record Active Scripts Doxycycline Hyclate (Doxycycline Hyclate) 100 Mg Cap, 100 MG PO BID, #60 CAP Prov:Nuria Palmer MD 11/01/17 Clonazepam (Clonazepam) 1 Mg Tab, 1 MG PO TID, #90 TAB 0 Refills Prov:Nuria Palmer MD 11/01/17 Oxycodone HCl/Acetaminophen (Oxycodone-Acetaminophen 5-325) 5 Mg-325 Mg Tablet, 1 TAB PO Q4H Y for PAIN GREATER THAN 5, #20 TAB Prov:Nuria Palmer MD 11/01/17 Reported Medications Tramadol (Tramadol) 50 Mg Tab, 50 MG PO Q6H Y for PAIN, TAB 0 Refills 11/20/17 Baclofen (Baclofen) 10 Mg Tab, 10 MG PO TID for Muscle Spasm, TAB 0 Refills 11/20/17 Current Medications Medications (Trade) Dose Ordered Sig/Areli Route Start Time Stop Time Status Last Admin (Vibramycin) 100 mg BID PO 11/20/17 11:00 11/21/17 10:10 Patient's Strengths (min. 2) Attending to basic needs. Verbally fluent. Physical Exam Physical examination completed by ED provider. On my examination today, the patient appears to be in no acute physical distress. No motor abnormalities noted. No signs of intoxication or withdrawal noted. Labs and vitals reviewed: Vital Signs Vital Signs Date Time Temp Pulse Resp B/P (MAP) Pulse Ox O2 Delivery O2 Flow Rate FiO2 11/21/17 06:48 97.0 63 18 96/53 (67) 98 Room Air I/O 11/21/17 11/21/17 11/22/17 08:00 16:00 00:00 Intake Total 120 ml Balance 120 ml Lab Results Laboratory Tests Test 11/20/17 10:15 11/20/17 11:15 Urine Color YELLOW Urine Turbidity CLEAR Urine pH 5.5 Urine Specific [place] 1.005 Urine Protein NEG mg/dL Urine Glucose (UA) NEG mg/dL Urine Ketones NEG mg/dL Urine Occult Blood NEG Urine Nitrite NEG Urine Bilirubin NEG Urine Urobilinogen LESS THAN 2.0 MG/DL Urine Leukocyte Esterase TRACE Urine RBC 1 /hpf Urine WBC 2 /hpf Urine Squamous Epithelial Cells 7 /hpf Urine Transitional Epithelial Cells <1 /hpf Urine Bacteria RARE /hpf Microscopic Urinalysis Comment CULT NOT INDICATED Urine Opiates Screen NEG Urine Barbiturates Screen NEG Urine Amphetamines Screen POS Urine Benzodiazepines Screen NEG Urine Cocaine Screen NEG Urine Cannabinoids Screen NEG White Blood Count 5.7 TH/MM3 Red Blood Count 4.48 MIL/MM3 Hemoglobin 12.6 GM/DL Hematocrit 37.6 % Mean Corpuscular Volume 84.0 FL Mean Corpuscular Hemoglobin 28.1 PG Mean Corpuscular Hemoglobin Concent 33.4 % Red Cell Distribution Width 15.4 % Platelet Count 153 TH/MM3 Mean Platelet Volume 9.3 FL Neutrophils (%) (Auto) 67.3 % Lymphocytes (%) (Auto) 23.3 % Monocytes (%) (Auto) 6.1 % Eosinophils (%) (Auto) 1.5 % Basophils (%) (Auto) 1.8 % Neutrophils # (Auto) 3.9 TH/MM3 Lymphocytes # (Auto) 1.3 TH/MM3 Monocytes # (Auto) 0.4 TH/MM3 Eosinophils # (Auto) 0.1 TH/MM3 Basophils # (Auto) 0.1 TH/MM3 CBC Comment DIFF FINAL Differential Comment Blood Urea Nitrogen 12 MG/DL Creatinine 0.87 MG/DL Random Glucose 96 MG/DL Total Protein 8.3 GM/DL Albumin 3.6 GM/DL Calcium Level 9.2 MG/DL Alkaline Phosphatase 144 U/L Aspartate Amino Transf (AST/SGOT) 125 U/L Alanine Aminotransferase (ALT/SGPT) 136 U/L Total Bilirubin 1.2 MG/DL Sodium Level 137 MEQ/L Potassium Level 3.4 MEQ/L Chloride Level 104 MEQ/L Carbon Dioxide Level 23.1 MEQ/L Anion Gap 10 MEQ/L Estimat Glomerular Filtration Rate 68 ML/MIN Thyroid Stimulating Hormone 3rd Gen 0.969 uIU/ML Salicylates Level LESS THAN 1.7 MG/DL Acetaminophen Level LESS THAN 2.0 MCG/ML Ethyl Alcohol Level LESS THAN 3 MG/DL Mental Status Examination Appearance: Appropriate Consciousness: Alert Orientation: Person, Place (At least) Motor Activity: Normal gait Speech: Unremarkable Language: Adequate Fund of Knowledge: Adequate Attention and Concentration: Adequate Memory: Unremarkable (Grossly intact on clinical exam) Mood: Appropriate Affect: Appropriate Thought Process & Associations: Intact, Logical, Linear Thought Content: Appropriate Hallucination Type: None Delusion Type: None Suicidal Ideation: No Suicidal Plan: No Suicidal Intention: No Homicidal Ideation: No Homicidal Plan: No Homicidal Intention: No Mental Status Exam Remarks Insight and judgment are perhaps fair Assessment & Plan Problem List: (1) Polysubstance abuse ICD Codes: F19.10 - Other psychoactive substance abuse, uncomplicated Assessment & Plan 52-year-old female with psychiatric history as detailed above who presents under Marina act. On my examination today, the patient is clinically sober. She reports that she made the statements in the Marina act while intoxicated. She denies any suicidal or homicidal ideation at this time. There is no evidence of unstable mental illness as defined under the Marina act in this patient at this time. She appears to be attending to her basic needs. I have obtained reassuring collateral information from the patient's friend with whom she resides. Synthesizing this information and based on the available evidence , I dynamics ax consultant that the patient does not meet the Marina act criteria. I have lifted the Marina act. Patient is requesting discharge from the ED today, and I have no basis to retain her over her objection. I have recommended outpatient mental health and chemical dependency follow-up, and the nurse will provide the appropriate referrals. I have counseled the patient regarding warning signs for need to return to the psychiatric emergency room as part of a general safety plan. Patient is otherwise psychiatrically clear for discharge from the ED. Thank you very much for this consultation. Paulino Ansari MD Nov 21, 2017 15:18
== END 2017-11-21 16:45 | disposition home or self-care (01) ==
LOC: NEPJ 09:27
DX: F15.10 Other stimulant abuse, uncomplicated (principal); R74.8 Abnormal levels of other serum enzymes; J45.909 Unspecified asthma, uncomplicated; M19.90 Unspecified osteoarthritis, unspecified site; K21.9 Gastro-esophageal reflux disease without esophagitis; F17.200 Nicotine dependence, unspecified, uncomplicated; Z79.899 Other long term (current) drug therapy
CPT/HCPCS: 80053; 80307; 81001; 84443; 85025; 99283